=== PATIENT | male | born 1975 | race Caucasian/White ===

== ENCOUNTER 2018-10-01 06:19 | Inpatient (IN) | payer OTHER ==
--- NOTE | 2018-10-01 06:45 | PDOC ---
Attending Attestation - Resident Resident Name: Klaus Coulter - ED Attending Attestation I have performed the following: I have examined & evaluated the patient, The case was reviewed & discussed with the resident, I agree w/resident's findings & plan - HPI HPI: 10/01/18 06:42 43-year-old male found unresponsive leaning against a fence outside, according to EMS he was in rapid atrial fibrillation and became responsive and routes IV access was established prior to arrival and IV fluids were infusing Patient states he had woken up and was on his way to a train to go to work. He denies pain complaints at this time. - Physicial Exam PE: 10/01/18 06:42 GENERAL: Awake, SKIN: Cool and clammy HEAD: No signs of trauma NECK: Normal ROM, LUNGS:. Normal work of breathing. HEART: Tachycardic and regular ABDOMEN: Soft, nondistended CHEST WALL: BACK: No midline tenderness. EXTREMITIES:. No edema NEUROLOGICAL: Alert, SKIN: Warm, Dry 10/01/18 06:44 - Critical Care Time Total Critical Care Time: 30 Critical Care Statement: The care of this patient involved high complexity decision making to prevent further life threatening deterioration of the patient 's condition and/or to evaluate & treat vital organ system(s) failure or risk of failure. - Medical Decision Making 10/01/18 06:44 43-year-old male with a syncopal episode and tachycardia Due to patient's decreased responsiveness, hypotension and elevated heart rate patient was rushed to CT scan to rule out pulmonary embolism Airway has remained intact Additional peripheral IV line established Case signed out to oncoming shift for management
--- NOTE | 2018-10-01 06:52 | PDOC ---
History of Present Illness - General Chief Complaint: Blood Pressure Problem Stated Complaint: CARDIAC PROBLEM Time Seen by Provider: 10/01/18 06:42 History Source: EMS Exam Limitations: Clinical Condition - History of Present Illness Initial Comments: 10/01/18 06:45 43M w/ PMH of noncompliant DM who presents to the ED via EMS. Hx is provided by EMS and some by the pt. EMS states that the patient was in his normal state of health when he developed palpitations and SOB and syncopized. Per EMS, he was in a-fib with hypotension and hypoxia. The patient admits to syncope and palpitations with retrosternal CP and SOB. Past History - Past Medical History Allergies/Adverse Reactions: Allergies Allergy/AdvReac Type Severity Reaction Status Date / Time No Known Allergies Allergy Verified 10/01/18 06:31 - Suicide/Smoking/Psychosocial Hx Smoking History: Never smoked Have you smoked in the past 12 months: No Information on smoking cessation initiated: No Hx Alcohol Use: No Drug/Substance Use Hx: No Review of Systems - Review of Systems Able to Perform ROS?: No (lethargic and unresponsiv) *Physical Exam - Vital Signs Last Vital Signs Temp Pulse Resp BP Pulse Ox 95.2 F L 113 H 19 98/44 L 98 10/01/18 06:19 10/01/18 06:19 10/01/18 06:19 10/01/18 06:19 10/01/18 06:19 - Physical Exam Comments: 10/01/18 06:47 GENERAL: Well developed, well nourished. Lethargic but arousable. HEENT: Normocephalic, atraumatic. Hearing grossly normal. Moist mucous membranes. PERRLA, EOMI. No conjunctival pallor. Sclera are non-icteric. NECK: Supple. Full ROM. No JVD. CARDIOVASCULAR: Tachycardic with regular rhythm. No murmurs, rubs, or gallops. PULMONARY: Mild respiratory distress, tachypneic. Lungs clear to auscultation bilaterally. No wheezing, rales or rhonchi. ABDOMINAL: Soft. Non-tender. Non-distended. No rebound or guarding. Rectal tone normal. No melena or bright red blood noted. MUSCULOSKELETAL: Normal range of motion at all joints. No bony deformities or tenderness. EXTREMITIES: No cyanosis. No clubbing. No edema. No calf tenderness or swelling. SKIN: Warm and dry. Normal capillary refill. No rashes. No jaundice. NEUROLOGICAL: A&Ox3 but lethargic, arousable to tactical and verbal stimuli. Cranial nerves 2-12 grossly intact. Normal speech. PSYCHIATRIC: Cooperative but lethargic. ED Treatment Course - LABORATORY CBC & Chemistry Diagram: 10/04/18 05:30 10/04/18 05:30 - ADDITIONAL ORDERS Additional order review: Laboratory Results 10/01/18 06:26 POC Glucometer 440 10/01/18 06:26 POC Glucometer 440 Medical Decision Making - Medical Decision Making 10/01/18 06:49 43M with PMH of DM, noncompliant on meds, presents via EMS for unresponsiveness. Pt is A&Ox3 but lethargic. However, he is arousable and complaining of CP and SOB. Sinus tach on EKG. PE unremarkable. Rectal temp 98.8. POCUS reveals dilated RV concerning for PE without tamponade or pericardial effusion. Pt has no hx of a-fib but per EMS, was a-fib on their monitor. IV access established and fluids are running. Septic protocol is being followed due to oral temp of 95. Pt is cold to touch with normal rectal temp. Concern for ACS, PE, AAA. Pt placed on monitor and taken to CT. Pending labs and imaging. 10/01/18 07:[address] Upon return, seized in ED x2. Pt was not protecting his airway and the decision to intubate was done. Pt was intubated with b/l breath sounds and color change. Pt signed out to Dr. Onofre for further management. *DC/Admit/Observation/Transfer Diagnosis at time of Disposition: Bilateral pulmonary embolism - Discharge Dispostion Condition at time of disposition: Critical - Referrals - Patient Instructions - Post Discharge Activity
[2018-10-01] MEDS ORDERED: LORazepam 2 MG/ML SDV VIAL ONE ×4 (07:02→09:33)
[2018-10-01] MEDS ORDERED: RAPID SEQUENCE INTUBATION KIT NR ONE ×2 (07:03→09:59)
[2018-10-01 07:06] LABS: BASO % 0.4 % (0-2.0); EOS % 1.5 % (0-4.5); HEMOGLOBIN 12.9 GM/dL (11.7-16.9); LYMPH % 59.6 % (8-40); MCH 31.7 pg (25.7-33.7); MCHC 33.2 g/dl (32.0-35.9); MEAN CELL VOLUME 95.5 fl (80-96); MEAN PLT VOLUME 9.1 fl (7.5-11.1); MONO % 5.2 % (3.8-10.2); NEUT % 33.3 % (42.8-82.8); PLATELET COUNT 192 K/MM3 (134-434); RBC 4.08 M/mm3 (4.00-5.60); RDW 12.8 % (11.9-15.9)
[2018-10-01] MEDS ORDERED: PROPOFOL 1,000,000 MCG/100 ML VIAL ONE ×2 (07:10→20:18)
[2018-10-01] MEDS ORDERED: ALBUTEROL SO4 2.5/IPRATROPIUM 0.5 INH SOL 3 ML VIAL.NEB. NEB ONE (07:17)
[2018-10-01] MEDS ORDERED: ROCURONIUM BROMIDE 50 MG/5 ML VIAL IV ONE ×2 (07:22→11:15)
[2018-10-01 07:26] LABS: ARTERIAL BLD GAS O2 SATURATION 96.7 % (95-98); ARTERIAL BLOOD GAS BASE EXCESS -7.3 meq/l (-2-2); ARTERIAL BLOOD GAS PO2 99.2 mmHg (80-105); ARTERIAL BLOOD GAS pH 7.34 (7.35-7.45); CARBOXYHEMOGLOBIN 0.7 % (0-2)
[2018-10-01 07:29] LABS: ALLENS TEST POSITIVE
[2018-10-01] MEDS ORDERED: HEPARIN NA (PORCINE) 5,000 UNITS/ML 1ML VIAL IVPUSH ONE (07:34)
[2018-10-01 07:37] LABS: INR 1.06 (0.83-1.09); PROTHROMBIN TIME (PATIENT) 12.5 SEC (9.7-13.0)
[2018-10-01 07:40] LABS: ACTIVATED PTT 26.1 SECONDS (25.2-36.5)
[2018-10-01] MEDS ORDERED: HEPARIN NA (PORCINE) 5,000 UNITS/ML 1ML VIAL ONE (07:41)
[2018-10-01] MEDS ORDERED: HEPARIN INFUSION - 25,000 UNITS/500 ML INFUS.BAG IVPB ONE (07:41)
[2018-10-01] MEDS ORDERED: HEPARIN - 25,000 UNIT in SODIUM CHLORIDE 495 ML IV SCH (07:45)
[2018-10-01 07:52] LABS: ALBUMIN 3.1 g/dl (3.4-5.0); ALK PHOS 90 U/L (45-117); ANION GAP 10 MMOL/L (8-16); BILIRUBIN,TOTAL 0.5 mg/dL (0.2-1); BLOOD UREA NITROGEN 9 mg/dL (7-18); CALCIUM 8.2 mg/dL (8.5-10.1); CHLORIDE 100 mmol/L (98-107); CO2 22 mmol/L (21-32); CREATININE 1.2 mg/dL (0.55-1.3); POTASSIUM 3.6 mmol/L (3.5-5.1); SGOT/AST 294 U/L (15-37); SGPT/ALT 266 U/L (13-61); SODIUM 132 mmol/L (136-145); TOT PROT 6.9 g/dl (6.4-8.2)
--- NOTE | 2018-10-01 07:56 | PDOC ---
*Physical Exam - Vital Signs Last Vital Signs Temp Pulse Resp BP Pulse Ox 98.9 F 113 H 16 98/44 L 98 10/01/18 06:56 10/01/18 06:19 10/01/18 07:30 10/01/18 06:19 10/01/18 06:19 ED Treatment Course - LABORATORY CBC & Chemistry Diagram: 10/01/18 06:40 10/01/18 06:40 - ADDITIONAL ORDERS Additional order review: Laboratory Results 10/01/18 10/01/18 10/01/18 07:00 06:40 06:40 PT with INR INR PTT (Actin FS) Anticoagulation Therapy No Result Required. Puncture Site Left radial ABG pH 7.34 L ABG pCO2 at Pt Temp 33.0 L ABG pO2 at Pt Temp 99.2 ABG HCO3 17.2 L ABG O2 Sat (Measured) 96.7 ABG O2 Content 16.6 ABG Base Excess -7.3 L Grady Test Positive Carboxyhemoglobin 0.7 Methemoglobin 0.4 O2 Delivery Device Non rebreather Oxygen Flow Rate 15l Vent Mode No Result Required. Vent Rate No Result Required. Mechanical Rate No Result Required. Pressure Support Vent No Result Required. Sodium Potassium Chloride Carbon Dioxide Anion Gap BUN Creatinine Est GFR (CKD-EPI)AfAm Est GFR (CKD-EPI)NonAf POC Glucometer Lactic Acid 6.8 H* Calcium Total Bilirubin AST ALT Alkaline Phosphatase Creatine Kinase CK-MB (CK-2) Troponin I 0.10 H Total Protein Albumin 10/01/18 10/01/18 10/01/18 06:40 06:40 06:26 PT with INR 12.50 INR 1.06 PTT (Actin FS) 26.1 Anticoagulation Therapy Puncture Site ABG pH ABG pCO2 at Pt Temp ABG pO2 at Pt Temp ABG HCO3 ABG O2 Sat (Measured) ABG O2 Content ABG Base Excess Grady Test Carboxyhemoglobin Methemoglobin O2 Delivery Device Oxygen Flow Rate Vent Mode Vent Rate Mechanical Rate Pressure Support Vent Sodium 132 L Potassium 3.6 Chloride 100 Carbon Dioxide 22 Anion Gap 10 BUN 9 Creatinine 1.2 Est GFR (CKD-EPI)AfAm 85.32 Est GFR (CKD-EPI)NonAf 73.62 POC Glucometer 440 Lactic Acid Calcium 8.2 L Total Bilirubin 0.5 AST 294 H ALT 266 H Alkaline Phosphatase 90 Creatine Kinase 98 CK-MB (CK-2) < 1.0 Troponin I Total Protein 6.9 Albumin 3.1 L 10/01/18 06:26 POC Glucometer 440 - Medications Given in the ED: ED Medications Discontinued Medications Generic Name Dose Route Start Last Admin Trade Name Norman PRN Reason Stop Dose Admin Lorazepam 4 mg 10/01/18 07:04 10/01/18 07:05 Ativan Injection - IVPUSH 10/01/18 07:05 4 mg NOW ONE Administration Lorazepam 4 mg 10/01/18 07:22 10/01/18 07:00 Ativan Injection - IVPUSH 10/01/18 07:23 4 mg ONCE ONE Administration Lorazepam 4 mg 10/01/18 07:22 10/01/18 07:15 Ativan Injection - IVPUSH 10/01/18 07:23 4 mg ONCE ONE Administration Rocuronium [place] 50 mg 10/01/18 07:22 10/01/18 07:20 Zemuron - IV 10/01/18 07:23 50 mg ONCE ONE Administration Medical Decision Making - Medical Decision Making 10/01/18 07:[address] Coulter. Patient is 43M with history of DM here today initially with altered mental status. Patient was found to have RV strain on POCUS, CTA done shows bilateral filling deficits. Patient was intubated after two episodes of seizure activity for hypoxia and failure to protect his airway. CXR shows appropriately placed tube. Became hypertensive after intubation, sedated with propofol. D/W Dr Elkins, accepted to ICU. CMP shows elevated glucose, liver enzymes. Lactate 6. CTA reading confirmed with imaging refrigeration specialist. Given Heparin bolus and drip initiated, IR notified. Case discussed with ED in [facility]. Patient lives near this hospital. Has never had ED visit. Plan is to dispo to ICU, low threshold for systemic tpa pending IR evaluation. 10/01/18 09:21 Unable to gather additional history from patient or family members despite multiple attempts at contacting nearby EDs, contacts in phone. His PCP states that he only has history of HTN and DM. No other medical issues. I am aware of absolute contraindications for tpa for this patient, including, but not limited to: intracerebral hemorrhage, recent surgery, endocarditis, bleeding disorders and anticoagulant use. There is no evidence for these contraindications. Given his episodes of hypotension and persistent tachycardia , I believe this procedure is required and emergent. Risks for the procedure include permanent disability and . 10/01/18 09:41 Patient became hypoxic, likely biting on tube impeding flow. Given 4mg ativan, tube placement confirmed with direct view. Patient sats improving. Propofol discontinued, started on versed due to a brief episode of hypotension, last bp 110/80. 10/01/18 12:22 At 1140, patient became pulseless in IR during procedure. Responded to overhead call for code 99. Patient was in PEA arrest. Compressions started. Given 2 epi, 2 bicarb in central line. 50mg tpa directly in to pulmonary artery , as IR had already accessed. After 7 minutes of downtime, patient had pulse. Remained hypotensive, started on levophed, tpa infusion started of 50mg over two hours. Transferred to ICU. *DC/Admit/Observation/Transfer Diagnosis at time of Disposition: Bilateral pulmonary embolism - Discharge Dispostion Condition at time of disposition: Critical Decision to Admit order: Yes - Referrals - Patient Instructions - Post Discharge Activity Procedures - Central Line Central Line Lumen: triple Central Line Position: femoral (R) Amount of anesthesia (ccs): 0 (Sedated, on fentanyl) Complications: Crash line for hypotension PE, not sterile Post Central Line Insertion: sutured, good blood return Progress: 10/01/18 10:14 Patient became hypotensive, emergent central line placed for levophed bridge to IR.
[2018-10-01 08:01] LABS: GLUCOSE,RANDOM 429 mg/dL (74-106)
--- NOTE | 2018-10-01 08:02 | PDOC ---
*Physical Exam - Vital Signs Last Vital Signs Temp Pulse Resp BP Pulse Ox 98.9 F 113 H 16 98/44 L 98 10/01/18 06:56 10/01/18 06:19 10/01/18 07:30 10/01/18 06:19 10/01/18 06:19 - Physical Exam Comments: 10/01/18 07:57 Received patient status post successful intubation using RSI, hypertensive after intubation to 160/110, persistently hypoxic to 84-87% on fence with 100% FiO2, persistently tachycardic to 140 with EKG showing sinus tachycardia with strain, sedated Exam is atraumatic Heart is regular tachycardia Lungs have some expiratory wheezing bilaterally, symmetric Abdomen benign No obvious asymmetric calf swelling or firmness 2+ distal pulses, neuro exam is limited, skin is clear Heart Score/ECG Review #1 ECG reviewed & interpreted by me at: 06:14 10/01/18 07:58 sinus tach at 115, ST strain, qtc 475 #2 ECG reviewed & interpreted by me at: 07:17 10/01/18 07:59 ST at [address] strain, qtc 562 ED Treatment Course - LABORATORY CBC & Chemistry Diagram: 10/01/18 06:40 10/01/18 06:40 - ADDITIONAL ORDERS Additional order review: Laboratory Results 10/01/18 10/01/18 10/01/18 07:00 06:40 06:40 PT with INR INR PTT (Actin FS) Anticoagulation Therapy No Result Required. Puncture Site Left radial ABG pH 7.34 L ABG pCO2 at Pt Temp 33.0 L ABG pO2 at Pt Temp 99.2 ABG HCO3 17.2 L ABG O2 Sat (Measured) 96.7 ABG O2 Content 16.6 ABG Base Excess -7.3 L Grady Test Positive Carboxyhemoglobin 0.7 Methemoglobin 0.4 O2 Delivery Device Non rebreather Oxygen Flow Rate 15l Vent Mode No Result Required. Vent Rate No Result Required. Mechanical Rate No Result Required. Pressure Support Vent No Result Required. Sodium Potassium Chloride Carbon Dioxide Anion Gap BUN Creatinine Est GFR (CKD-EPI)AfAm Est GFR (CKD-EPI)NonAf POC Glucometer Lactic Acid 6.8 H* Calcium Total Bilirubin AST ALT Alkaline Phosphatase Creatine Kinase CK-MB (CK-2) Troponin I 0.10 H Total Protein Albumin 0510/01/18 10/01/18 06:40 06:40 06:26 PT with INR 12.50 INR 1.06 PTT (Actin FS) 26.1 Anticoagulation Therapy Puncture Site ABG pH ABG pCO2 at Pt Temp ABG pO2 at Pt Temp ABG HCO3 ABG O2 Sat (Measured) ABG O2 Content ABG Base Excess Grady Test Carboxyhemoglobin Methemoglobin O2 Delivery Device Oxygen Flow Rate Vent Mode Vent Rate Mechanical Rate Pressure Support Vent Sodium 132 L Potassium 3.6 Chloride 100 Carbon Dioxide 22 Anion Gap 10 BUN 9 Creatinine 1.2 Est GFR (CKD-EPI)AfAm 85.32 Est GFR (CKD-EPI)NonAf 73.62 POC Glucometer 440 Lactic Acid Calcium 8.2 L Total Bilirubin 0.5 AST 294 H ALT 266 H Alkaline Phosphatase 90 Creatine Kinase 98 CK-MB (CK-2) < 1.0 Troponin I Total Protein 6.9 Albumin 3.1 L 10/01/18 06:26 POC Glucometer 440 - Medications Given in the ED: ED Medications Discontinued Medications Generic Name Dose Route Start Last Admin Trade Name Freq PRN Reason Stop Dose Admin Heparin Sodium (Porcine) 6,500 unit 10/01/18 07:34 10/01/18 07:56 Heparin - 80 unit/kg (6500 unit) 10/01/18 07:35 6,500 unit IVPUSH Administration ONCE ONE Lorazepam 4 mg 10/01/18 07:04 10/01/18 07:05 Ativan Injection - IVPUSH 10/01/18 07:05 4 mg NOW ONE Administration Lorazepam 4 mg 10/01/18 07:22 10/01/18 07:00 Ativan Injection - IVPUSH 10/01/18 07:23 4 mg ONCE ONE Administration Lorazepam 4 mg 10/01/18 07:22 10/01/18 07:15 Ativan Injection - IVPUSH 10/01/18 07:23 4 mg ONCE ONE Administration Rocuronium [place] 50 mg 10/01/18 07:22 10/01/18 07:20 Zemuron - IV 10/01/18 07:23 50 mg ONCE ONE Administration Medical Decision Making - Critical Care Time Total Critical Care Time (minutes): 140 Critical Care Statement: The care of this patient involved high complexity decision making to prevent further life threatening deterioration of the patient 's condition and/or to evaluate & treat vital organ system(s) failure or risk of failure. - Medical Decision Making 10/01/18 08:03 43y/o M with no known medical history presented with generalized weakness, AMS, chest pain and hypoxia/tachycardia/hypotension. mclean-scan prior to our arrival, RSI in progress and completed successfully. FS normal on our prelim review, head ct normal. CTA chest shows clear lung parenchyma but filling defects in b/l pulmonary arteries. dilated RV on POCUS. started on heparin, ivf, sedation, ICU called at 7:25, IR called at 7:32 - en route but needs supporting medical history discussed with [facility], has had a single clinic visit there but no h/o ER admissions for head bleed, etc. No prior visits here. Attempting to obtain corroborating history, hypertensive now so will hold systemic thrombolysis. continue heparin. 10/01/18 09:21 platelets/coags wnl. abg noted. elevated lactic, slight transaminitis possibly suggestive of shock. trop 0.1 consistent with strain. accepted for ICU, awaiting IR eval. message left with PCP Shaheed on file, attempted to contact work for family info but no response. pt sedated/intubated , unable to get consent but meets criteria for medical necessity/emergency intervention given no obvious contraindications and persistent hypoxia with varying BP. propofol weaned, started on fentanyl gtt, receiving IV fluids. ICU heard from Dr. Hummel, only medical history is diabetes, no CI to procedure from their history. would 2-pc for emergent IR directed thrombolysis given medical necessity and no clear CI to the best of our ability. 10/01/18 11:17 Pt became unstable, more hypotensive to 70s systolic with + pulsus paradoxus. removed from vent, BVM and fluid resuscitated. R groin central line placed, sedation and paralyzed, iv fluid resuscitated. Respirations controlled and sat improved again to 90% responded to fluid resuscitation, will continue to monitor v. start pressors or consider systemic thrombolysis pending IR for catheter directed tpa, is next case on the list. *DC/Admit/Observation/Transfer Diagnosis at time of Disposition: Bilateral pulmonary embolism - Discharge Dispostion Condition at time of disposition: Critical - Referrals - Patient Instructions - Post Discharge Activity
--- NOTE | 2018-10-01 09:05 | CONSULT ---
Consultation: REQUESTING PROVIDER: CONSULT REQUEST: We have been asked to medically evaluate this patient for bilateral PE causing respiratory distress and hemodynamic instability. HISTORY OF PRESENT ILLNESS: *History is limited due to patient being sedated and intubated on exam. History provided by ED resident. Pt is a 43yo M with PMH of HTN, DM BIBA for being found unresponsive leaning against a fence. Per EMS, pt was found to be in rapid atrial fibrillation and became responsive en route.Pt was given IV fluids. Pt was complaining of chest pain, SOB and palpitations in the ED. Pt was found to be hypoxic, hypotensive and in atrial fibrillation. ED course: IV fluids, lab work, CT of head, C-spine and CTA chest. After CT scans, pt started to seize and was given a total of 12mg Ativan. Due to inability to protect airway, pt was intubated. Pt paralyzed with rocuronium and sedated with propofol. On propofol drip at 10u/kg/hr. Also given 6500u heparin bolus and started on heparin drip. Increased to 15u/kg/hr due to inadequate sedation. Pt continued to be undersedated and started on Fentanyl drip. CTA of the chest shows bilateral PE extending to upper and lower lobes bilaterally. Vent settings: AC Rate 14, Volume 500, PEEP 5, FiO2 100 Pt started to become hypotensive. Propofol drip was discontinued and Versed was added. Pt was to receive thrombectomy with tpa by IR. At approximately 11:40am, pt coded in IR. Pt had received 20mg tPA already. Compressions began. Narrow complex PEA seen on rhythm strip. Pt given a total of 2 epinephrine and 2 boluses of bicarb. QT appeared prolonged, pt given 2mg magnesium. 70mg of tPA was also pushed into the pulmonary artery. ROSC achieved at approximately 11:47. Pt brought straight to the ICU. REVIEW OF SYSTEMS: Unable to perform; pt is sedated and intubated. PHYSICAL EXAMINATION Vital Signs - 24 hr 10/01/18 10/01/18 10/01/18 06:19 06:35 06:56 Temperature 95.2 F L 98.9 F 98.9 F Pulse Rate 113 H Pulse Rate [ Apical] Respiratory 19 Rate Blood Pressure 98/44 L Blood Pressure [Right] O2 Sat by Pulse 98 Oximetry (%) 10/01/18 10/01/18 10/01/18 07:30 07:35 07:59 Temperature Pulse Rate Pulse Rate [ 148 H 148 H Apical] Respiratory 16 14 18 Rate Blood Pressure Blood Pressure 162/122 H 150/115 H [Right] O2 Sat by Pulse 85 L 89 L Oximetry (%) GENERAL: Sedated and intubated. HEAD: Normal with no signs of trauma. EYES: Pupils equal, round and reactive to light, sclera anicteric, conjunctiva clear. EARS, NOSE, THROAT: 8.0 ET tube at 25cm NECK: Normal range of motion, supple without lymphadenopathy, JVD, or masses. LUNGS: Breath sounds equal, clear to auscultation bilaterally. No wheezes, and no crackles. No accessory muscle use. HEART: tachycardic, normal S1 and S2 without murmur, rub or gallop. ABDOMEN: Soft, nontender, not distended, normoactive bowel sounds, no masses. No hepatomegaly or splenomegaly. MUSCULOSKELETAL: No bony deformities or tenderness. UPPER EXTREMITIES: 2+ pulses, warm, well-perfused. No cyanosis. No clubbing. Cap refill <2 seconds. No peripheral edema. LOWER EXTREMITIES: 2+ pulses, warm, well-perfused. No calf tenderness. No peripheral edema. NEUROLOGICAL: Sedated with propofol. DTR 2+ SKIN: Warm, dry, normal turgor, no rashes or lesions noted. Laboratory Results - last 24 hr 10/01/18 10/01/18 10/01/18 06:26 06:35 06:40 WBC 11.0 H RBC 4.08 Hgb 12.9 Hct 39.0 MCV 95.5 MCH 31.7 MCHC 33.2 RDW 12.8 Plt Count 192 MPV 9.1 Absolute Neuts (auto) 3.7 Neutrophils % 33.3 L Lymphocytes % 59.6 H Monocytes % 5.2 Eosinophils % 1.5 Basophils % 0.4 Nucleated RBC % 0 PT with INR INR PTT (Actin FS) Anticoagulation Therapy Puncture Site ABG pH ABG pCO2 at Pt Temp ABG pO2 at Pt Temp ABG HCO3 ABG O2 Sat (Measured) ABG O2 Content ABG Base Excess Grady Test Carboxyhemoglobin Methemoglobin O2 Delivery Device Oxygen Flow Rate Vent Mode Vent Rate Mechanical Rate Pressure Support Vent Sodium Potassium Chloride Carbon Dioxide Anion Gap BUN Creatinine Est GFR (CKD-EPI)AfAm Est GFR (CKD-EPI)NonAf POC Glucometer 440 Random Glucose Lactic Acid Calcium Total Bilirubin AST ALT Alkaline Phosphatase Creatine Kinase CK-MB (CK-2) Troponin I Total Protein Albumin Stool Occult Blood Blood Type O POSITIVE Antibody Screen Negative 10/01/18 10/01/18 10/01/18 06:40 06:40 06:40 WBC RBC Hgb Hct MCV MCH MCHC RDW Plt Count MPV Absolute Neuts (auto) Neutrophils % Lymphocytes % Monocytes % Eosinophils % Basophils % Nucleated RBC % PT with INR 12.50 INR 1.06 PTT (Actin FS) 26.1 Anticoagulation Therapy Puncture Site ABG pH ABG pCO2 at Pt Temp ABG pO2 at Pt Temp ABG HCO3 ABG O2 Sat (Measured) ABG O2 Content ABG Base Excess Grady Test Carboxyhemoglobin Methemoglobin O2 Delivery Device Oxygen Flow Rate Vent Mode Vent Rate Mechanical Rate Pressure Support Vent Sodium 132 L Potassium 3.6 Chloride 100 Carbon Dioxide 22 Anion Gap 10 BUN 9 Creatinine 1.2 Est GFR (CKD-EPI)AfAm 85.32 Est GFR (CKD-EPI)NonAf 73.62 POC Glucometer Random Glucose 429 H* Lactic Acid 6.8 H* Calcium 8.2 L Total Bilirubin 0.5 AST 294 H ALT 266 H Alkaline Phosphatase 90 Creatine Kinase 98 CK-MB (CK-2) < 1.0 Troponin I Total Protein 6.9 Albumin 3.1 L Stool Occult Blood Blood Type Antibody Screen 10/01/18 10/01/18 10/01/18 06:40 06:55 07:00 WBC RBC Hgb Hct MCV MCH MCHC RDW Plt Count MPV Absolute Neuts (auto) Neutrophils % Lymphocytes % Monocytes % Eosinophils % Basophils % Nucleated RBC % PT with INR INR PTT (Actin FS) Anticoagulation Therapy No Result Required. Puncture Site Left radial ABG pH 7.34 L ABG pCO2 at Pt Temp 33.0 L ABG pO2 at Pt Temp 99.2 ABG HCO3 17.2 L ABG O2 Sat (Measured) 96.7 ABG O2 Content 16.6 ABG Base Excess -7.3 L Grady Test Positive Carboxyhemoglobin 0.7 Methemoglobin 0.4 O2 Delivery Device Non rebreather Oxygen Flow Rate 15l Vent Mode No Result Required. Vent Rate No Result Required. Mechanical Rate No Result Required. Pressure Support Vent No Result Required. Sodium Potassium Chloride Carbon Dioxide Anion Gap BUN Creatinine Est GFR (CKD-EPI)AfAm Est GFR (CKD-EPI)NonAf POC Glucometer Random Glucose Lactic Acid Calcium Total Bilirubin AST ALT Alkaline Phosphatase Creatine Kinase CK-MB (CK-2) Troponin I 0.10 H Total Protein Albumin Stool Occult Blood Negative Blood Type Antibody Screen Active Medications Generic Name Dose Route Start Last Admin Trade Name Freq PRN Reason Stop Dose Admin Heparin Sodium (Porcine) 25, 500 mls @ 20 mls/hr 10/01/18 07:45 10/01/18 07: 56 000 unit/ Sodium Chloride IV 1,000 unit/hr TITR AHMET 20 mls/hr Administration Protocol 1,000 UNIT/HR Fentanyl 500 mcg/ Dextrose 100 mls @ 5 mls/hr 10/01/18 08:30 IVPB TITR AHMET 25 MCG/HR ASSESSMENT/PLAN: 43yo M with PMH of HTN, DM BIBA for syncopal episode. Found to have bilateral PE. Arrested in IR at approximately 11:40am with rhythm strip showing narrow complex PEA. ROSC achieved at approximately 11:47. NEURO -Intubated and sedated. -Versed drip at 6mg/hr. Fentanyl drip at 100mcg/hr -CT Head normal -Will titrate drips as needed ENDO -Random glucose 429 -K 3.6 -Acidosis likely 2/2 lactic acidosis and hypercapnia. No anion gap -Will trend glucose and bmp. Will order insulin IV as needed. No SQ insulin at this time due to pt receiving tPA. CARDS/VASC -ROSC s/p cardiac arrest with rhythm strip showing narrow complex PEA. Currently sinus tachycardia -Two rounds of epi, bicarb and 2mg magnesium given -Hypotensive likely 2/2 obstruction. Pt received total of 7L IVF. Pt currently on pressors -Levophed 15mcg/min, Vasopressin 3/hr -Titrate as needed -Trop 0.10 likely 2/2 obstruction. Will trend -Received 20u tPA then 70mg IVPUSH. Finished 50mg drip -No venous punctures, arterial punctures or other instrumentation due to bleeding risk -Will trend PTT PULM -Bilateral PE extending to upper and lower lobes bilaterally -tPA given. Thrombectomy not performed -Vent settings: rate 14, volume 500, FiO2 100, PEEP 12 -Saturating at 100% -Intubated with 8.0 tube at 25cm paige. Placement confirmed by CXR -Respiratory acidosis; pH prior to code 7.03, downtrending from original pH 7.34 with retention of CO2 and decrease in HCO3. -Will monitor GI -Higher risk of bleeding due to tPA. -No NG tube at this time due to tPA -Protonix drip HEME -Received tPA -Will trend PTT -No new iv access, arterial punctures, instrumentation ID -Lactic acidosis likely 2/2 hypoperfusion. -Blood cultures drawn in ED. Pending results. -Low suspicion for infectious process. FEN -NPO PROPHY -Protonix drip -SCD -Hold AC SOCIAL Tried calling employer, insurance company and PMD to obtain PMH and next of kin. Cell phone did not have any contact information. Workplace line disconnected. Insurance company did not have information for family members. Pt lives around [place] but has never been seen in ED there. Able to get in contact with brother, Sindhu Alberts who was able to get in contact with mother of the patient. Mother is at bedside right now. Dispo: We will continue to follow the patient. Thank you for this consultative opportunity. Visit type - Emergency Visit Emergency Visit: Yes ED Registration Date: 10/01/18 Care time: The patient presented to the Emergency Department on the above date and was hospitalized for further evaluation of their emergent condition. - New Patient This patient is new to me today: Yes Date on this admission: 10/01/18 - Critical Care Critical Care patient: Yes Total Critical Care Time (in minutes): 40 Critical Care Statement: The care of this patient involved high complexity decision making to prevent further life threatening deterioration of the patient 's condition and/or to evaluate & treat vital organ system(s) failure or risk of failure.
[2018-10-01 09:27] LABS: ARTERIAL BLD GAS O2 SATURATION 85.1 % (95-98); ARTERIAL BLOOD GAS BASE EXCESS -9.4 meq/l (-2-2); ARTERIAL BLOOD GAS PCO2 53.1 mmHg (35-45); ARTERIAL BLOOD GAS PO2 67.2 mmHg (80-105); CARBOXYHEMOGLOBIN 0.4 % (0-2)
[2018-10-01 09:28] LABS: ALLENS TEST POSITIVE
[2018-10-01 09:29] LABS: ARTERIAL BLOOD GAS pH 7.19 (7.35-7.45)
[2018-10-01] MEDS ORDERED: MIDAZOLAM 100 MG in SODIUM CHLORIDE 100 ML IVPB SCH (09:45)
[2018-10-01] MEDS ORDERED: ACETAMINOPHEN INJECTION 100 ML IVPB ONE (10:09)
[2018-10-01] MEDS ORDERED: ALTEPLASE 100MG 100 MG IVPB ONE (10:10)
[2018-10-01] MEDS: FENTANYL INJECTION 500 MCG in DEXTROSE 5%-WATER - 90 ML IVPB SCH (10:33)
[2018-10-01] MEDS ORDERED: ALTEPLASE 50MG 50 MG in SODIUM CHLORIDE 500 ML IVPB ONE (10:45)
[2018-10-01 10:47] LABS: ARTERIAL BLD GAS O2 SATURATION 89.5 % (95-98); ARTERIAL BLOOD GAS BASE EXCESS -15.2 meq/l (-2-2); ARTERIAL BLOOD GAS PCO2 63.5 mmHg (35-45); ARTERIAL BLOOD GAS PO2 87.7 mmHg (80-105); CARBOXYHEMOGLOBIN 0 % (0-2)
[2018-10-01 10:51] LABS: ALLENS TEST POSITIVE
[2018-10-01 10:55] LABS: ARTERIAL BLOOD GAS pH 7.03 (7.35-7.45)
[2018-10-01 10:56] LABS: ANISOCYTOSIS 1+; MACROCYTOSIS 1+; PLATELET ESTIMATE NORMAL
[2018-10-01] MEDS ORDERED: ETOMIDATE 40 MG/20 ML VIAL IVPUSH ONE (11:15)
--- NOTE | 2018-10-01 11:53 | HP ---
Admitting History and Physical - Primary Care Physician PCP: Haile Hummel - Admission Chief Complaint: respiratory failure History of Present Illness: ER HISTORY - History of Present Illness Initial Comments: 10/01/18 06:45 43M w/ PMH of noncompliant DM who presents to the ED via EMS. Hx is provided by EMS and some by the pt. EMS states that the patient was in his normal state of health when he developed palpitations and SOB and syncopized. Per EMS, he was in a-fib with hypotension and hypoxia. The patient admits to syncope and palpitations with retrosternal CP and SOB. spoke with ER attending Was found on the street -prior to intubation, he told the ER staff that he felt dizzy and palpitations, chest pain and fatigued. 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 History Source: Medical Record, Transfer Record Limitations to Obtaining History: Intubated - Past Medical History Cardiovascular: Yes: HTN, Hyperlipdemia Endocrine: Yes: Diabetes Mellitus - Smoking History Smoking history: Never smoked Have you smoked in the past 12 months: No - Alcohol/Substance Use Hx Alcohol Use: No Home Medications - Allergies Allergies/Adverse Reactions: Allergies Allergy/AdvReac Type Severity Reaction Status Date / Time No Known Allergies Allergy Verified 10/01/18 06:31 Family Disease History - Family Disease History Family History: Unable to Obtain Review of Systems Unable to obtain ROS, reason: intubated Physical Examination Vital Signs: Vital Signs Temperature 98.9 F 10/01/18 06:56 Pulse Rate 166 H 10/01/18 11:27 Respiratory Rate 16 10/01/18 11:27 Blood Pressure 137/100 10/01/18 11:27 O2 Sat by Pulse Oximetry (%) 85 L 10/01/18 11:27 Constitutional: Yes: Other (intubated) Labs: CBC, BMP 10/01/18 06:40 10/01/18 06:40 Problem List - Problems (1) Diabetes Code(s): E11.9 - TYPE 2 DIABETES MELLITUS WITHOUT COMPLICATIONS (2) Hyperlipidemia Code(s): E78.5 - HYPERLIPIDEMIA, UNSPECIFIED (3) Hypertension Code(s): I10 - ESSENTIAL (PRIMARY) HYPERTENSION (4) Bilateral pulmonary embolism Code(s): I26.99 - OTHER PULMONARY EMBOLISM WITHOUT ACUTE COR PULMONALE (5) Elevated troponin Code(s): R74.8 - ABNORMAL LEVELS OF OTHER SERUM ENZYMES Assessment/Plan plan thrombectomy not done Status post cardiac arrest Now on TPA Monitor CBC Now on pressor support Continue supportive care, vent management ICU care Critical prognosis
[2018-10-01] MEDS: NOREPINEPHRINE BITARTRATE 8,000 MCG in DEXTROSE 5%-WATER - 492 ML IV SCH (12:50)
[2018-10-01] MEDS ORDERED: fentaNYL CITRATE 250 MCG/5 ML VIAL ONE ×2 (12:55→19:29)
[2018-10-01] MEDS ORDERED: VASOPRESSIN 20 UNITS/ML VIAL IV ONE (13:43)
[2018-10-01] MEDS ORDERED: VASOPRESSIN 50 UNITS in SODIUM CHLORIDE 97.5 ML IVPB SCH (13:45)
[2018-10-01 14:11] LABS: PH,URINE 5.5 (5.0-8.0); URINE APPEARANCE CLEAR; URINE BILIRUBIN NEGATIVE (NEGATIVE); URINE COLOR YELLOW; URINE GLUCOSE (UA) 3+ (NEGATIVE); URINE KETONE TRACE (NEGATIVE); URINE LEUK ESTERASE NEGATIVE (NEGATIVE); URINE NITRITE NEGATIVE (NEGATIVE); URINE PROTEIN TRACE (NEGATIVE)
--- NOTE | 2018-10-01 15:17 | PN ---
Teaching Attending Note Name of Resident: Radha Ferguson ATTENDING PHYSICIAN STATEMENT I saw and evaluated the patient. I reviewed the resident's note and discussed the case with the resident. I agree with the resident's findings and plan as documented. SUBJECTIVE: Patient seen and examined in the IR department during resuscitation measures. S /P Cardiac arrest. CPR initiated immediately. Decision made to give 50mg of tPA as a rapid infusion based on data in cardiac arrest offers a survival benefit. ROSC after 7 minutes in total. Hemodynamics improved to a MAP of 65 on 10mcq of NE. Saturation prior to tPA was high 70's. Post tPA saturations improved to the mid to upper 80's. Transported safely to the ICU. Stabled on AC 14/500cc/PEEP 10/100% FiO2. Saturation eventually improved to 100%. Hemodyamics are improved at this time as well. he has received 7 liters of IVF and is currently on 15mcq NE and 4 units Vasopressin. Intake & Output 09/28/18 09/29/18 09/30/18 10/01/18 23:59 23:59 23:59 23:59 Weight 180 lb Last Vital Signs Temp Pulse Resp BP Pulse Ox 98.9 F 166 H 25 H 137/100 85 L 10/01/18 06:56 10/01/18 11:27 10/01/18 13:32 10/01/18 11:27 10/01/18 11:27 Active Medications Fentanyl 500 mcg/ Dextrose 100 mls @ 5 mls/hr IVPB TITR AHMET Last Admin: 10/01/18 10:33 Dose: 25 mcg/hr, 5 mls/hr Midazolam HCl 100 mg/ Sodium (Chloride) 100 mls @ 1 mls/hr IVPB TITR AHMET; Protocol Last Admin: 10/01/18 10:33 Dose: 3 mg/hr, 3 mls/hr Alteplase, Recombinant 50 mg/ (Sodium Chloride) 500 mls @ 10 mls/hr IVPB ONCE ONE Stop: 10/03/18 12:44 Norepinephrine Bitartrate 8, (000 mcg/ Dextrose) 500 mls @ 18.75 mls/hr IV TITR AHMET; Protocol Last Titration: 10/01/18 12:55 Dose: 15 mcg/min, 56.25 mls/hr Vasopressin 50 units/ Sodium (Chloride) 100 mls @ 4 mls/hr IVPB ASDIR AHMET; Protocol Last Admin: 10/01/18 13:50 Dose: 3 units/hr, 6 mls/hr Pantoprazole Sodium 80 mg/ (Sodium Chloride) 100 mls @ 10 mls/hr IVPB Q10H [facility] GENERAL: Sedated and intubated. HEAD: Normal with no signs of trauma. EYES: Pupils equal and reactive to light, sclera anicteric, conjunctiva clear. EARS, NOSE, THROAT: 8.0 ET tube NECK: Normal range of motion, supple without lymphadenopathy, JVD, or masses. LUNGS: Breath sounds equal, clear to auscultation bilaterally. No wheezes, and no crackles. HEART: tachycardic, normal S1 and S2 without murmur, rub or gallop. ABDOMEN: Soft, nontender, not distended, normoactive bowel sounds, no masses. No hepatomegaly or splenomegaly. MUSCULOSKELETAL: No bony deformities or tenderness. UPPER EXTREMITIES: 2+ pulses, warm, well-perfused. No cyanosis. No clubbing. Cap refill <2 seconds. No peripheral edema. LOWER EXTREMITIES: 2+ pulses, warm, well-perfused. No calf tenderness. No peripheral edema. NEUROLOGICAL: Sedated, intermittently moving all extremities SKIN: Warm, dry, normal turgor, no rashes or lesions noted. Laboratory Results - last 24 hr 10/01/18 10/01/18 10/01/18 06:26 06:35 06:40 WBC 11.0 H RBC 4.08 Hgb 12.9 Hct 39.0 MCV 95.5 MCH 31.7 MCHC 33.2 RDW 12.8 Plt Count 192 MPV 9.1 Absolute Neuts (auto) 3.7 Neutrophils % 33.3 L Lymphocytes % 59.6 H Monocytes % 5.2 Eosinophils % 1.5 Basophils % 0.4 Nucleated RBC % 0 PT with INR INR PTT (Actin FS) Anticoagulation Therapy Puncture Site ABG pH ABG pCO2 at Pt Temp ABG pO2 at Pt Temp ABG HCO3 ABG O2 Sat (Measured) ABG O2 Content ABG Base Excess Grady Test Carboxyhemoglobin Methemoglobin O2 Delivery Device Oxygen Flow Rate Vent Mode Vent Rate Mechanical Rate Pressure Support Vent Sodium Potassium Chloride Carbon Dioxide Anion Gap BUN Creatinine Est GFR (CKD-EPI)AfAm Est GFR (CKD-EPI)NonAf POC Glucometer 440 Random Glucose Lactic Acid Calcium Total Bilirubin AST ALT Alkaline Phosphatase Creatine Kinase CK-MB (CK-2) Troponin I Total Protein Albumin Stool Occult Blood Blood Type O POSITIVE Antibody Screen Negative 10/01/18 10/01/18 10/01/18 06:40 06:40 06:40 WBC RBC Hgb Hct MCV MCH MCHC RDW Plt Count MPV Absolute Neuts (auto) Neutrophils % Lymphocytes % Monocytes % Eosinophils % Basophils % Nucleated RBC % PT with INR 12.50 INR 1.06 PTT (Actin FS) 26.1 Anticoagulation Therapy Puncture Site ABG pH ABG pCO2 at Pt Temp ABG pO2 at Pt Temp ABG HCO3 ABG O2 Sat (Measured) ABG O2 Content ABG Base Excess Grady Test Carboxyhemoglobin Methemoglobin O2 Delivery Device Oxygen Flow Rate Vent Mode Vent Rate Mechanical Rate Pressure Support Vent Sodium 132 L Potassium 3.6 Chloride 100 Carbon Dioxide 22 Anion Gap 10 BUN 9 Creatinine 1.2 Est GFR (CKD-EPI)AfAm 85.32 Est GFR (CKD-EPI)NonAf 73.62 POC Glucometer Random Glucose 429 H* Lactic Acid 6.8 H* Calcium 8.2 L Total Bilirubin 0.5 AST 294 H ALT 266 H Alkaline Phosphatase 90 Creatine Kinase 98 CK-MB (CK-2) < 1.0 Troponin I Total Protein 6.9 Albumin 3.1 L Stool Occult Blood Blood Type Antibody Screen 10/01/18 10/01/18 10/01/18 06:40 06:55 07:00 WBC RBC Hgb Hct MCV MCH MCHC RDW Plt Count MPV Absolute Neuts (auto) Neutrophils % Lymphocytes % Monocytes % Eosinophils % Basophils % Nucleated RBC % PT with INR INR PTT (Actin FS) Anticoagulation Therapy No Result Required. Puncture Site Left radial ABG pH 7.34 L ABG pCO2 at Pt Temp 33.0 L ABG pO2 at Pt Temp 99.2 ABG HCO3 17.2 L ABG O2 Sat (Measured) 96.7 ABG O2 Content 16.6 ABG Base Excess -7.3 L Grady Test Positive Carboxyhemoglobin 0.7 Methemoglobin 0.4 O2 Delivery Device Non rebreather Oxygen Flow Rate 15l Vent Mode No Result Required. Vent Rate No Result Required. Mechanical Rate No Result Required. Pressure Support Vent No Result Required. Sodium Potassium Chloride Carbon Dioxide Anion Gap BUN Creatinine Est GFR (CKD-EPI)AfAm Est GFR (CKD-EPI)NonAf POC Glucometer Random Glucose Lactic Acid Calcium Total Bilirubin AST ALT Alkaline Phosphatase Creatine Kinase CK-MB (CK-2) Troponin I 0.10 H Total Protein Albumin Stool Occult Blood Negative Blood Type Antibody Screen ASSESSMENT/PLAN: CP arrest due to obstructive shock due to extensive bilateral PE Etiology of VTE to be determined HTN DM Syncopal episode due to PE No evidence of intra-cranial pathology S/P tPa infusion AC Mode of vent No arterial sticks No NGT IV Heparin has been held based on ACCP recommendations. Restart once aPTT less than 80 and follow PE based protocol Sedate for vent synchrony Wean pressors as tolerated Glycemic control IVF @ 100 cc/hr: judicious resuscitation from now to avoid capillary leak and ARDS physiology Needs venous doppler and if (+) can consider an IVC Filter due hemodynamic compromise Heme evaluation Cardiology evaluation Requires ICU monitoring Condition critical. Dr Perez Critical care time spent in reviewing chart, evaluating patient and formulating plan - 36 minutes.
--- NOTE | 2018-10-01 16:09 | CON.CARD ---
Consult Consult Specialty:: Cardiology Referred by:: ICU Reason for Consultation:: PE - History of Present Illness Chief Complaint: PE History of Present Illness: 43M h/o HTN, DM presented with unresponsiveness, altered mental status found to have PE now s/p PEA arrest. History per chart, patient unable to give further hx, intubated and sedated. Was found unresponsive, altered mental status. Per EMS report was in rapid afib (EKG strips not available) in the field and was given IVF, complained of chest pain and palps. Was brought to the ER, reportedly hypoxic, hypotensive and in afib. Received IVF, CTA chest showed bilateral PE, was started on heparin. Had seizure while in radiology, was intuabed, given ativan and paralyzed. Was planned to receive IR guided thrombectomy with tPA in IR due to hypotension, while in IR patient had PEA arrest prior to procedure. Received tPA, given epi x 2, bicarb x 2, Mg. Now in ICU on pressors. - History Source Limitations to Obtaining History: Intubated - Past Medical History Cardio/Vascular: Yes: HTN, Hyperlipdemia Endocrine: Yes: Diabetes Mellitus - Alcohol/Substance Use Hx Alcohol Use: No - Smoking History Smoking history: Never smoked Have you smoked in the past 12 months: No Home Medications - Allergies Allergies/Adverse Reactions: Allergies Allergy/AdvReac Type Severity Reaction Status Date / Time No Known Allergies Allergy Verified 10/01/18 06:31 Family Disease History - Family Disease History Family History: Unable to Obtain Review of Systems Unable to obtain ROS, reason: intubated Vital Signs: Vital Signs Temperature 98.2 F 10/01/18 12:50 Pulse Rate 105 H 10/01/18 15:07 Respiratory Rate 16 10/01/18 15:07 Blood Pressure 123/95 10/01/18 15:07 O2 Sat by Pulse Oximetry (%) 85 L 10/01/18 11:27 Constitutional: Yes: No Distress Eyes: Yes: Conjunctiva Clear, EOM Intact HENT: Yes: Atraumatic, Normocephalic Neck: Yes: Supple, Trachea Midline Respiratory: Yes: Regular, Mechanically Ventilated Gastrointestinal: Yes: Normal Bowel Sounds, Soft Cardiovascular: Yes: Tachycardia JVD: No Carotid Bruit: No PMI: Non-Displaced Heart Sounds: Yes: S1, S2 Musculoskeletal: No: Back Pain Edema: No Peripheral Pulses WNL: Yes Peripheral Pulses: 2+ Left Doralis Pedis, 2+ Right Dorsalis Pedis Integumentary: No: Jaundice Neurological: Yes: Other (sedated) Psychiatric: No: Agitated - Other Data Labs, Other Data: CBC, BMP 10/01/18 06:40 10/01/18 06:40 INR, PTT INR 1.06 (0.83-1.09) 10/01/18 06:40 Troponin, BNP 10/01/18 06:40 Troponin I 0.10 H Troponin, BNP 10/01/18 06:40 Troponin I 0.10 H Assessment/Plan EKG: sinus tachycardia no ischemic changes CTA chest: extensive PE originating at bifurcations of both main PA and extending into upper and lower lobe branches bilaterally tele: sinus tachycardia 43yo M with PMH of HTN, DM p/w unresponsiveness. Found to have bilateral PE, s/ p PEA arrest bilateral PE, s/p PEA arrest - arrest likely in setting of extensive bilateral PE - now s/p tPA, thrombectomy not done, manage anticoagulation per ICU team - BP stable on levophed and vasopressin - echo pending afib - reportedly per EMS and ER records, EKG not available - likely in setting of PE, AC as above per critical care - now in sinus tach elevated trop - likely demand in setting of PE, likely to rise s/p arrest - EKG no ischemic changes - echo pending HTN - not on meds, currently hypotensive on pressors DM - manage per critical care estimated critical care time 35 min
[2018-10-01] MEDS: PANTOPRAZOLE SODIUM 80 MG in SODIUM CHLORIDE 100 ML IVPB SCH (16:36)
[2018-10-01 17:47] LABS: INR 1.4 (0.83-1.09); PROTHROMBIN TIME (PATIENT) 16.6 SEC (9.7-13.0)
[2018-10-01 17:52] LABS: CALCIUM 7.5 mg/dL (8.5-10.1); CREATININE 1.7 mg/dL (0.55-1.3); MAGNESIUM 2.3 mg/dL (1.8-2.4)
[2018-10-01 17:54] LABS: POTASSIUM 7.1 mmol/L (3.5-5.1)
[2018-10-01] MEDS ORDERED: INSULIN REGULAR HUMAN 100 UNITS/ML *VIAL IVPUSH ONE (17:58)
[2018-10-01] MEDS ORDERED: CALCIUM GLUCONATE 10% - 1,000 MG/10 ML VIAL IVPB ONE (17:59)
[2018-10-01] MEDS ORDERED: FUROSEMIDE 40 MG/4 ML INJECTABLE VIAL IVPUSH ONE (18:03)
[2018-10-01] MEDS ORDERED: ALBUTEROL SO4 0.083% IH SOL 2.5 MG/3 ML VIAL.NEB. NEB ONE (18:09)
--- NOTE | 2018-10-01 18:14 | HOSP ---
Subjective - Review of Symptoms Events since last encounter: PTT 50.2, s/p 2 hrs after tPA, will restart heparin gtt K+ 7.1, will obtain stat EKG for signs of peaked T waves, MD prolongation, etc. , calcium gluconate 1g IVPB to stabilize cardiac membrane, 7 units of regular insulin IVPUSH and 10mg of albuterol updraft to temporize K+ shift into cells. Finally, due patient is s/p tPA and intubated less than 12 hours, rectal kayaxalte/enema or OG tube is contraindicated for bleeding. As a result, one dose of lasix 40mg IVPUSH is given to eliminate K+. Will repeat BMP at 11pm. Cr 1.7, previously normal Cr, added urine sodium and creatinine to previous UA, likely pre-renal from hypoperfusion of kidneys, Nephro consult placed Trop 1.35, likely from cardiac arrest, will cycle to peak Lactate 6.0, from tissue hypoperfusion, cont. to trend Physical Examination Vital Signs: Vital Signs Temperature 98.2 F 10/01/18 12:50 Pulse Rate 95 H 10/01/18 17:00 Respiratory Rate 29 H 10/01/18 18:10 Blood Pressure 95/72 10/01/18 17:00 O2 Sat by Pulse Oximetry (%) 85 L 10/01/18 11:27 Labs: CBC, BMP 10/01/18 06:40 10/01/18 16:20 Visit type - Emergency Visit Emergency Visit: No - New Patient This patient is new to me today: No - Critical Care Critical Care patient: Yes Total Critical Care Time (in minutes): 35 Critical Care Statement: The care of this patient involved high complexity decision making to prevent further life threatening deterioration of the patient 's condition and/or to evaluate & treat vital organ system(s) failure or risk of failure.
[2018-10-01] MEDS ORDERED: MIDAZOLAM 100 MG/100 ML MG IVPB ONE (19:27)
[2018-10-01] MEDS ORDERED: PROPOFOL 1,000,000 MCG/100 ML VIAL IVPB SCH ×2 (20:15→20:30)
--- NOTE | 2018-10-01 20:21 | CONSULT ---
Consult - text type - Consultation Consultation Note: Pt is a 43yo M with PMH of HTN, DM comes in after being found unresponsive leaning against a fence. Per EMS, pt was found to be in rapid atrial fibrillation and became responsive en route.Pt was given IV fluids. Pt was complaining of chest pain, SOB and palpitations in the ED. Pt was found to be hypoxic, hypotensive and in atrial fibrillation. ED course: IV fluids, lab work, CT of head, C-spine and CTA chest. After CT scans, pt started to seize and was given a total of 12mg Ativan. Due to inability to protect airway, pt was intubated. Pt paralyzed with rocuronium and sedated with propofol. On propofol drip at 10u/kg/hr. Also given 6500u heparin bolus and started on heparin drip. Increased to 15u/kg/hr due to inadequate sedation. Pt continued to be undersedated and started on Fentanyl drip. CTA of the chest shows bilateral PE extending to upper and lower lobes bilaterally. Pt started to become hypotensive. Propofol drip was discontinued and Versed was added. Pt was to receive thrombectomy with tpa by IR. At approximately 11:40am, pt coded in IR. Pt had received 20mg tPA already. Compressions began. Narrow complex PEA seen on rhythm strip. Pt given a total of 2 epinephrine and 2 boluses of bicarb. QT appeared prolonged, pt given 2mg magnesium. 70mg of tPA was also pushed into the pulmonary artery. ROSC achieved at approximately 11:47. Pt brought straight to the ICU Intubated/ sedated PMH HTN DM Obesity P/E GENERAL: Sedated and intubated. LUNGS: Breath sounds equal, clear to auscultation bilaterally. No wheezes, and no crackles. No accessory muscle use. HEART: tachycardic, normal S1 and S2 without murmur, rub or gallop. ABDOMEN: Soft, nontender, not distended, normoactive bowel sounds, no masses. No hepatomegaly or splenomegaly. Ext. --no c/c/e Labs/Meds reviewed ASSESSMENT/PLAN: 43yo M with PMH of HTN, DM comes in for syncopal episode. Found to have bilateral PE. Arrested in IR at approximately 11:40am with rhythm strip showing narrow complex PEA. ROSC achieved at approximately 11:47. Unprovoked, massive PE- originating at bifurcations of both main pulmonary arteries and extending into upper and lower lobe branches bilaterally family h/o thrombophilia-- paternal greand mother, No family h/o cancer s/p tpa, now on heparin drip without bolus Bridge to coumadin vs NOAC once stabilized. Normal baseline coags. Crcl of 85ml/ min. Elevated AST/ALT Discussed with family at bedside Thrombophlia w/u as out patient Age appropriate cancer screening as out patient will follow
[2018-10-01] MEDS: PROPOFOL 1,000,000 MCG/100 ML VIAL IVPB SCH (20:57)
[2018-10-01] MEDS: HEPARIN - 25,000 UNIT in SODIUM CHLORIDE 495 ML IV SCH (21:27)
[2018-10-02] MEDS ORDERED: fentaNYL CITRATE 250 MCG/5 ML VIAL ONE ×4 (01:08→19:01)
[2018-10-02 01:28] LABS: CALCIUM 8.6 mg/dL (8.5-10.1); CREATININE 1.5 mg/dL (0.55-1.3); POTASSIUM 4.5 mmol/L (3.5-5.1)
[2018-10-02] MEDS ORDERED: ACETAMINOPHEN 1000 MG/100 ML VIAL (NON FORMULARY) IVPB ONE (01:37)
[2018-10-02] MEDS: PANTOPRAZOLE SODIUM 80 MG in SODIUM CHLORIDE 100 ML IVPB SCH ×2 (02:11→10:35)
[2018-10-02] MEDS ORDERED: INSULIN SLIDING SCALE (NOVOLOG) 1 VIAL SQ SCH ×4 (07:00→16:30)
[2018-10-02] MEDS: HEPARIN NA (PORCINE) 5,000 UNITS/ML 1ML VIAL IVPUSH PRN (07:22)
[2018-10-02 07:32] LABS: MAGNESIUM 2.2 mg/dL (1.8-2.4); PHOSPHOROUS 4.9 mg/dL (2.5-4.9)
[2018-10-02 07:42] LABS: BASO % 0.2 % (0-2.0); EOS % 0.1 % (0-4.5); HEMOGLOBIN 12.4 GM/dL (11.7-16.9); LYMPH % 31.2 % (8-40); MCH 31.3 pg (25.7-33.7); MCHC 32.7 g/dl (32.0-35.9); MEAN CELL VOLUME 95.9 fl (80-96); MEAN PLT VOLUME 9.1 fl (7.5-11.1); NEUT % 58.5 % (42.8-82.8); PLATELET COUNT 178 K/MM3 (134-434); RBC 3.96 M/mm3 (4.00-5.60); WHITE BLOOD COUNT 12.7 K/mm3 (4.0-10.0)
[2018-10-02] MEDS ORDERED: INSULIN REGULAR HUMAN 100 UNITS/ML *VIAL IVPUSH ONE (08:24)
--- NOTE | 2018-10-02 08:26 | PN ---
Physical Exam: SUBJECTIVE: Patient seen and examined at bedside. Pt is intubated and sedated. High potassium of 7.1 last night. Given 7u insulin, Lasix 40mg, albuterol 10mg, calcium gluconate 1g. Two hours after tPA, PTT 50.2, restarted on heparin drip. OBJECTIVE: Vital Signs Period Temp Pulse Resp BP Sys/Liao Pulse Ox Last 24 Hr 98.2 F-102.5 F 91-166 13-32 74-139/56-100 85-100 GENERAL: Intubated and sedated EYES: PERRL, constricted pupils, sclera anicteric, conjunctiva clear. LUNGS: 8.0 ET tube at 26cm. Ventilated, equal breath sounds bilaterally HEART: Regular rate and rhythm, S1, S2 without murmur, rub or gallop. ABDOMEN: Soft, nontender, nondistended, normoactive bowel sounds. EXTREMITIES: 2+ pulses, warm, well-perfused, no edema. NEUROLOGICAL: Intubated and sedated. DTR 2+ SKIN: Warm, dry, normal turgor, no rashes or lesions noted. R femoral line and 3 peripheral lines. Laboratory Results - last 24 hr 10/01/18 10/01/18 10/01/18 06:35 06:40 06:55 WBC RBC Hgb Hct MCV MCH MCHC RDW Plt Count MPV Absolute Neuts (auto) Neutrophils % Neutrophils % (Manual) 25.8 L Band Neutrophils % 0.0 Lymphocytes % Lymphocytes % (Manual) 55.7 H Monocytes % Monocytes % (Manual) 4 Eosinophils % Eosinophils % (Manual) 0.0 Basophils % Basophils % (Manual) 0.0 Myelocytes % (Man) 0 Promyelocytes % (Man) 0 Blast Cells % (Manual) 0 Nucleated RBC % Metamyelocytes 0 Hypochromia 0 Platelet Estimate Normal Polychromasia 0 Poikilocytosis 0 Anisocytosis 1+ Microcytosis 0 Macrocytosis 1+ PT with INR INR PTT (Actin FS) Anticoagulation Therapy Puncture Site ABG pH ABG pCO2 at Pt Temp ABG pO2 at Pt Temp ABG HCO3 ABG O2 Sat (Measured) ABG O2 Content ABG Base Excess Grady Test Carboxyhemoglobin Methemoglobin O2 Delivery Device Oxygen Flow Rate Vent Mode Vent Rate Mechanical Rate PEEP Pressure Support Vent Sodium Potassium Chloride Carbon Dioxide Anion Gap BUN Creatinine Est GFR (CKD-EPI)AfAm Est GFR (CKD-EPI)NonAf POC Glucometer Random Glucose Lactic Acid Calcium Phosphorus Magnesium Troponin I Urine Color Urine Appearance Urine pH Ur Specific [place] Urine Protein Urine Glucose (UA) Urine Ketones Urine Blood Urine Nitrite Urine Bilirubin Urine Urobilinogen Ur Leukocyte Esterase Ur Random Creatinine Ur Random Sodium Stool Occult Blood Negative Blood Type O POSITIVE Antibody Screen Negative 10/01/18 10/01/18 10/01/18 09:11 10:30 12:45 WBC RBC Hgb Hct MCV MCH MCHC RDW Plt Count MPV Absolute Neuts (auto) Neutrophils % Neutrophils % (Manual) Band Neutrophils % Lymphocytes % Lymphocytes % (Manual) Monocytes % Monocytes % (Manual) Eosinophils % Eosinophils % (Manual) Basophils % Basophils % (Manual) Myelocytes % (Man) Promyelocytes % (Man) Blast Cells % (Manual) Nucleated RBC % Metamyelocytes Hypochromia Platelet Estimate Polychromasia Poikilocytosis Anisocytosis Microcytosis Macrocytosis PT with INR INR PTT (Actin FS) Anticoagulation Therapy No Result Required. No Result Required. Puncture Site Right radial Right radial ABG pH 7.19 L* 7.03 L* ABG pCO2 at Pt Temp 53.1 H 63.5 H ABG pO2 at Pt Temp 67.2 L 87.7 ABG HCO3 19.5 L 16.1 L ABG O2 Sat (Measured) 85.1 L 89.5 L ABG O2 Content 20.2 15.4 ABG Base Excess -9.4 L -15.2 L Grady Test Positive Positive Carboxyhemoglobin 0.4 0 Methemoglobin 0.6 0.2 O2 Delivery Device No Result Required. Espirit Oxygen Flow Rate A/c 100% Vent Mode No Result Required. A/c Vent Rate No Result Required. 14 Mechanical Rate No Result Required. Yes PEEP 5.0 Pressure Support Vent No Result Required. 500 Sodium Potassium Chloride Carbon Dioxide Anion Gap BUN Creatinine Est GFR (CKD-EPI)AfAm Est GFR (CKD-EPI)NonAf POC Glucometer Random Glucose Lactic Acid Calcium Phosphorus Magnesium Troponin I Urine Color Urine Appearance Urine pH Ur Specific [place] Urine Protein Urine Glucose (UA) Urine Ketones Urine Blood Urine Nitrite Urine Bilirubin Urine Urobilinogen Ur Leukocyte Esterase Ur Random Creatinine Ur Random Sodium Stool Occult Blood Blood Type O POSITIVE Antibody Screen 10/01/18 10/01/18 10/01/18 13:30 13:30 16:20 WBC RBC Hgb Hct MCV MCH MCHC RDW Plt Count MPV Absolute Neuts (auto) Neutrophils % Neutrophils % (Manual) Band Neutrophils % Lymphocytes % Lymphocytes % (Manual) Monocytes % Monocytes % (Manual) Eosinophils % Eosinophils % (Manual) Basophils % Basophils % (Manual) Myelocytes % (Man) Promyelocytes % (Man) Blast Cells % (Manual) Nucleated RBC % Metamyelocytes Hypochromia Platelet Estimate Polychromasia Poikilocytosis Anisocytosis Microcytosis Macrocytosis PT with INR INR PTT (Actin FS) Anticoagulation Therapy Puncture Site ABG pH ABG pCO2 at Pt Temp ABG pO2 at Pt Temp ABG HCO3 ABG O2 Sat (Measured) ABG O2 Content ABG Base Excess Grady Test Carboxyhemoglobin Methemoglobin O2 Delivery Device Oxygen Flow Rate Vent Mode Vent Rate Mechanical Rate PEEP Pressure Support Vent Sodium Potassium Chloride Carbon Dioxide Anion Gap BUN Creatinine Est GFR (CKD-EPI)AfAm Est GFR (CKD-EPI)NonAf POC Glucometer Random Glucose Lactic Acid 6.0 H* Calcium Phosphorus Magnesium Troponin I Urine Color Yellow Urine Appearance Clear Urine pH 5.5 Ur Specific [place] 1.038 H Urine Protein Trace Urine Glucose (UA) 3+ H Urine Ketones Trace H Urine Blood Negative Urine Nitrite Negative Urine Bilirubin Negative Urine Urobilinogen 1.0 Ur Leukocyte Esterase Negative Ur Random Creatinine 22.0 L Ur Random Sodium 53 Stool Occult Blood Blood Type Antibody Screen 10/01/18 10/01/18 10/01/18 16:20 16:20 16:20 WBC RBC Hgb Hct MCV MCH MCHC RDW Plt Count MPV Absolute Neuts (auto) Neutrophils % Neutrophils % (Manual) Band Neutrophils % Lymphocytes % Lymphocytes % (Manual) Monocytes % Monocytes % (Manual) Eosinophils % Eosinophils % (Manual) Basophils % Basophils % (Manual) Myelocytes % (Man) Promyelocytes % (Man) Blast Cells % (Manual) Nucleated RBC % Metamyelocytes Hypochromia Platelet Estimate Polychromasia Poikilocytosis Anisocytosis Microcytosis Macrocytosis PT with INR 16.60 H INR 1.40 H PTT (Actin FS) 50.2 H Anticoagulation Therapy Puncture Site ABG pH ABG pCO2 at Pt Temp ABG pO2 at Pt Temp ABG HCO3 ABG O2 Sat (Measured) ABG O2 Content ABG Base Excess Grady Test Carboxyhemoglobin Methemoglobin O2 Delivery Device Oxygen Flow Rate Vent Mode Vent Rate Mechanical Rate PEEP Pressure Support Vent Sodium 138 Potassium 7.1 H* Chloride 109 H Carbon Dioxide 21 Anion Gap 8 BUN 13 Creatinine 1.7 H Est GFR (CKD-EPI)AfAm 56.00 Est GFR (CKD-EPI)NonAf 48.32 POC Glucometer Random Glucose 519 H* Lactic Acid Calcium 7.5 L Phosphorus Magnesium 2.3 Troponin I 1.35 H* Urine Color Urine Appearance Urine pH Ur Specific [place] Urine Protein Urine Glucose (UA) Urine Ketones Urine Blood Urine Nitrite Urine Bilirubin Urine Urobilinogen Ur Leukocyte Esterase Ur Random Creatinine Ur Random Sodium Stool Occult Blood Blood Type Antibody Screen 10/02/18 10/02/18 10/02/18 00:05 00:05 00:05 WBC RBC Hgb Hct MCV MCH MCHC RDW Plt Count MPV Absolute Neuts (auto) Neutrophils % Neutrophils % (Manual) Band Neutrophils % Lymphocytes % Lymphocytes % (Manual) Monocytes % Monocytes % (Manual) Eosinophils % Eosinophils % (Manual) Basophils % Basophils % (Manual) Myelocytes % (Man) Promyelocytes % (Man) Blast Cells % (Manual) Nucleated RBC % Metamyelocytes Hypochromia Platelet Estimate Polychromasia Poikilocytosis Anisocytosis Microcytosis Macrocytosis PT with INR INR PTT (Actin FS) Anticoagulation Therapy Puncture Site ABG pH ABG pCO2 at Pt Temp ABG pO2 at Pt Temp ABG HCO3 ABG O2 Sat (Measured) ABG O2 Content ABG Base Excess Grady Test Carboxyhemoglobin Methemoglobin O2 Delivery Device Oxygen Flow Rate Vent Mode Vent Rate Mechanical Rate PEEP Pressure Support Vent Sodium 139 Potassium 4.5 Chloride 105 Carbon Dioxide 24 Anion Gap 9 BUN 12 Creatinine 1.5 H Est GFR (CKD-EPI)AfAm 65.15 Est GFR (CKD-EPI)NonAf 56.21 POC Glucometer Random Glucose 390 H* Lactic Acid 2.8 H* Calcium 8.6 Phosphorus Magnesium Troponin I 0.88 H* Urine Color Urine Appearance Urine pH Ur Specific [place] Urine Protein Urine Glucose (UA) Urine Ketones Urine Blood Urine Nitrite Urine Bilirubin Urine Urobilinogen Ur Leukocyte Esterase Ur Random Creatinine Ur Random Sodium Stool Occult Blood Blood Type Antibody Screen 10/02/18 10/02/18 10/02/18 03:00 05:30 05:30 WBC 12.7 H RBC 3.96 L Hgb 12.4 Hct 38.0 MCV 95.9 MCH 31.3 MCHC 32.7 RDW 13.0 Plt Count 178 MPV 9.1 Absolute Neuts (auto) 7.4 Neutrophils % 58.5 D Neutrophils % (Manual) Band Neutrophils % Lymphocytes % 31.2 D Lymphocytes % (Manual) Monocytes % 10.0 D Monocytes % (Manual) Eosinophils % 0.1 D Eosinophils % (Manual) Basophils % 0.2 Basophils % (Manual) Myelocytes % (Man) Promyelocytes % (Man) Blast Cells % (Manual) Nucleated RBC % 0 Metamyelocytes Hypochromia Platelet Estimate Polychromasia Poikilocytosis Anisocytosis Microcytosis Macrocytosis PT with INR INR PTT (Actin FS) 49.4 H Anticoagulation Therapy Puncture Site ABG pH ABG pCO2 at Pt Temp ABG pO2 at Pt Temp ABG HCO3 ABG O2 Sat (Measured) ABG O2 Content ABG Base Excess Grady Test Carboxyhemoglobin Methemoglobin O2 Delivery Device Oxygen Flow Rate Vent Mode Vent Rate Mechanical Rate PEEP Pressure Support Vent Sodium Potassium Chloride Carbon Dioxide Anion Gap BUN Creatinine Est GFR (CKD-EPI)AfAm Est GFR (CKD-EPI)NonAf POC Glucometer Random Glucose Lactic Acid 1.8 Calcium Phosphorus Magnesium Troponin I Urine Color Urine Appearance Urine pH Ur Specific [place] Urine Protein Urine Glucose (UA) Urine Ketones Urine Blood Urine Nitrite Urine Bilirubin Urine Urobilinogen Ur Leukocyte Esterase Ur Random Creatinine Ur Random Sodium Stool Occult Blood Blood Type Antibody Screen 10/02/18 10/02/18 05:30 06:54 WBC RBC Hgb Hct MCV MCH MCHC RDW Plt Count MPV Absolute Neuts (auto) Neutrophils % Neutrophils % (Manual) Band Neutrophils % Lymphocytes % Lymphocytes % (Manual) Monocytes % Monocytes % (Manual) Eosinophils % Eosinophils % (Manual) Basophils % Basophils % (Manual) Myelocytes % (Man) Promyelocytes % (Man) Blast Cells % (Manual) Nucleated RBC % Metamyelocytes Hypochromia Platelet Estimate Polychromasia Poikilocytosis Anisocytosis Microcytosis Macrocytosis PT with INR INR PTT (Actin FS) Anticoagulation Therapy Puncture Site ABG pH ABG pCO2 at Pt Temp ABG pO2 at Pt Temp ABG HCO3 ABG O2 Sat (Measured) ABG O2 Content ABG Base Excess Grady Test Carboxyhemoglobin Methemoglobin O2 Delivery Device Oxygen Flow Rate Vent Mode Vent Rate Mechanical Rate PEEP Pressure Support Vent Sodium Potassium Chloride Carbon Dioxide Anion Gap BUN Creatinine Est GFR (CKD-EPI)AfAm Est GFR (CKD-EPI)NonAf POC Glucometer 330 Random Glucose Lactic Acid Calcium Phosphorus 4.9 Magnesium 2.2 Troponin I Urine Color Urine Appearance Urine pH Ur Specific [place] Urine Protein Urine Glucose (UA) Urine Ketones Urine Blood Urine Nitrite Urine Bilirubin Urine Urobilinogen Ur Leukocyte Esterase Ur Random Creatinine Ur Random Sodium Stool Occult Blood Blood Type Antibody Screen Active Medications Generic Name Dose Route Start Last Admin Trade Name Freq PRN Reason Stop Dose Admin Heparin Sodium (Porcine) 1,000 unit 10/01/18 17:57 10/02/18 07:22 Heparin - IVPUSH 1,000 unit PRN PRN Administration Heparin Heparin Sodium (Porcine) 5,000 unit 10/01/18 17:57 Heparin - IVPUSH PRN PRN Heparin Fentanyl 500 mcg/ Dextrose 100 mls @ 5 mls/hr 10/01/18 08:30 10/02/18 03:00 IVPB 100 mcg/hr TITR AHMET 20 mls/hr Titration 25 MCG/HR Alteplase, Recombinant 50 mg/ 500 mls @ 10 mls/hr 10/01/18 10:45 Sodium Chloride IVPB 10/03/18 12:44 ONCE ONE Norepinephrine Bitartrate 8, 500 mls @ 18.75 mls/hr 10/01/18 12:00 10/02/18 08:10 000 mcg/ Dextrose IV 12 mcg/min TITR AHMET 45 mls/hr Titration Protocol 5 MCG/MIN Vasopressin 50 units/ Sodium 100 mls @ 4 mls/hr 10/01/18 13:45 10/01/18 13:50 Chloride IVPB 3 units/hr ASDIR AHMET 6 mls/hr Administration Protocol 2 UNITS/HR Pantoprazole Sodium 80 mg/ 100 mls @ 10 mls/hr 10/01/18 15:00 10/02/18 02:11 Sodium Chloride IVPB 10 mls/hr Q10H AHMET Administration 8 MG/HR Heparin Sodium (Porcine) 25, 500 mls @ 20 mls/hr 10/01/18 18:00 10/02/18 07: 22 000 unit/ Sodium Chloride IV 1,100 unit/hr TITR AHMET 22 mls/hr Titration Protocol 1,000 UNIT/HR Propofol 1,000,000 mcg in 100 mls @ 3.09 mls/hr 10/01/18 20:45 10/02/18 02:59 Diprivan - IVPB 34 mcg/kg/min TITR AHMET 21.012 mls/hr Titration Protocol 5 MCG/KG/MIN Insulin Human Regular 4 units 10/02/18 08:24 Novolin R Vial *For Ivpush Or Iv Drip Only* IVPUSH 10/02/18 08:25 ONCE ONE ASSESSMENT/PLAN: 43yo M with PMH of HTN, DM BIBA for syncopal episode. Found to have bilateral PE. Arrested in IR at approximately 11:40am with rhythm strip showing narrow complex PEA. ROSC achieved at approximately 11:47. NEURO -Intubated and sedated. -CT head normal -Versed changed to propofol 34/hr -Fentanyl drip at 100mcg/hr -Wean as tolerated ENDO -Random glucose 390 (h/o DM) after IV insulin given for hyperK overnight. -K 4.5 after treatment with Lasix, insulin, albuterol -SS insulin -BGM -Will trend glucose and bmp. -Acidosis likely 2/2 lactic acidosis and hypercapnia. No anion gap. Will repeat VBG -Will trend glucose and bmp. No SQ insulin at this time due to pt receiving tPA. CARDS/VASC -ROSC s/p cardiac arrest with rhythm strip showing narrow complex PEA. Currently sinus tachycardia -Two rounds of epi, bicarb and 2mg magnesium given -Hypotensive likely 2/2 obstruction. Pt received total of 7L IVF. Pt currently on pressors. Goal MAP >65 -Levophed 12mcg/min, Vasopressin 3/hr -Titrate as needed. Weaning off Vaspressin at this time. -Trop 0.10 likely 2/2 demand. Currently 0.88Will trend -BNP 1300 -Finished tPA around 2pm yesterday. -PTT 0.55 two hours post tPA. Heparin drip resumed -Will trend PTT -Maintenance fluids at 100/hr PULM -Bilateral PE extending to upper and lower lobes bilaterally -tPA given -Respiratory acidosis; pH prior to code 7.03, downtrending from original pH 7.34 with retention of CO2 and decrease in HCO3. -Vent settings: rate 14, volume 500, FiO2 80, PEEP 10 -Saturating at 100% -Wean as tolerated -Intubated with 8.0 tube at 25cm paige. Placement confirmed by CXR -CXR: congestive changes -VBG pending -Will monitor GI -Higher risk of bleeding due to tPA -NG tube if needed after 1700 today -Protonix -Elevated LFTs likely 2/2 hypotension. -Will trend RENAL -Kidney function improving -Will trend -Maintenance fluids HEME -Received tPA. Now on heparin gtt -Will trend PTT -iv access, arterial punctures, instrumentation after 1700 today ID -Lactic acidosis likely 2/2 hypoperfusion -Blood cultures drawn in ED. No growth after 2 days -Low suspicion for infectious process FEN -NPO PROPHY -Protonix -Heparin drip -SCD Visit type - Emergency Visit Emergency Visit: Yes ED Registration Date: 10/01/18 Care time: The patient presented to the Emergency Department on the above date and was hospitalized for further evaluation of their emergent condition. - New Patient This patient is new to me today: No - Critical Care Critical Care patient: Yes Total Critical Care Time (in minutes): 40 Critical Care Statement: The care of this patient involved high complexity decision making to prevent further life threatening deterioration of the patient 's condition and/or to evaluate & treat vital organ system(s) failure or risk of failure.
--- NOTE | 2018-10-02 09:41 | CON.CARD ---
Consult - Past Medical History Cardio/Vascular: Yes: HTN, Hyperlipdemia Endocrine: Yes: Diabetes Mellitus - Alcohol/Substance Use Hx Alcohol Use: No - Smoking History Smoking history: Never smoked Have you smoked in the past 12 months: No Home Medications - Allergies Allergies/Adverse Reactions: Allergies Allergy/AdvReac Type Severity Reaction Status Date / Time No Known Allergies Allergy Verified 10/01/18 06:31 Vital Signs: Vital Signs Temperature 99.0 F 10/02/18 09:00 Pulse Rate 99 H 10/02/18 09:00 Respiratory Rate 14 10/02/18 09:24 Blood Pressure 113/78 10/02/18 09:00 O2 Sat by Pulse Oximetry (%) 100 10/02/18 08:00 - Other Data Labs, Other Data: CBC, BMP 10/02/18 05:30 10/02/18 00:05 INR, PTT INR 1.40 (0.83-1.09) H 10/01/18 16:20 Troponin, BNP 10/01/18 10/02/18 16:20 00:05 Troponin I 1.35 H* 0.88 H* Troponin, BNP 10/01/18 10/02/18 16:20 00:05 Troponin I 1.35 H* 0.88 H*
--- NOTE | 2018-10-02 09:42 | PN ---
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, Physician Chief Complaint: 43M h/o HTN, DM presented with unresponsiveness, altered mental status found to have PE now s/p PEA arrest. History per chart, patient unable to give further hx, intubated and sedated. Was found unresponsive, altered mental status. Per EMS report was in rapid afib (EKG strips not available) in the field and was given IVF, complained of chest pain and palps. Was brought to the ER, reportedly hypoxic, hypotensive and in afib. Received IVF, CTA chest showed bilateral PE, was started on heparin. Had seizure while in radiology, was intuabed, given ativan and paralyzed. Was planned to receive IR guided thrombectomy with tPA in IR due to hypotension, while in IR patient had PEA arrest prior to procedure. Received tPA, given epi x 2, bicarb x 2, Mg. Now in ICU on pressors. History of Present Illness: remains intubated on 80% FIO2 with PEEP 8 On multiple pressors, sedated. TELE: Sinus tach 115bpm - Current Medication List Current Medications: Active Medications Heparin Sodium (Porcine) (Heparin -) 1,000 unit IVPUSH PRN PRN PRN Reason: Heparin Last Admin: 10/02/18 07:22 Dose: 1,000 unit Heparin Sodium (Porcine) (Heparin -) 5,000 unit IVPUSH PRN PRN PRN Reason: Heparin Fentanyl 500 mcg/ Dextrose 100 mls @ 5 mls/hr IVPB TITR AHMET Last Titration: 10/02/18 03:00 Dose: 100 mcg/hr, 20 mls/hr Alteplase, Recombinant 50 mg/ (Sodium Chloride) 500 mls @ 10 mls/hr IVPB ONCE ONE Stop: 10/03/18 12:44 Norepinephrine Bitartrate 8, (000 mcg/ Dextrose) 500 mls @ 18.75 mls/hr IV TITR AHMET; Protocol Last Titration: 10/02/18 08:10 Dose: 12 mcg/min, 45 mls/hr Vasopressin 50 units/ Sodium (Chloride) 100 mls @ 4 mls/hr IVPB ASDIR AHMET; Protocol Last Admin: 10/01/18 13:50 Dose: 3 units/hr, 6 mls/hr Pantoprazole Sodium 80 mg/ (Sodium Chloride) 100 mls @ 10 mls/hr IVPB Q10H AHMET Last Admin: 10/02/18 02:11 Dose: 10 mls/hr Heparin Sodium (Porcine) 25, (000 unit/ Sodium Chloride) 500 mls @ 20 mls/hr IV TITR AHMET; Protocol Last Titration: 10/02/18 07:22 Dose: 1,100 unit/hr, 22 mls/hr Propofol (Diprivan -) 1,000,000 mcg in 100 mls @ 3.09 mls/hr IVPB TITR AHMET; Protocol Last Titration: 10/02/18 02:59 Dose: 34 mcg/kg/min, 21.012 mls/hr - Objective Vital Signs: Vital Signs Temperature 99.0 F 10/02/18 09:00 Pulse Rate 99 H 10/02/18 09:00 Respiratory Rate 14 10/02/18 09:24 Blood Pressure 113/78 10/02/18 09:00 O2 Sat by Pulse Oximetry (%) 100 10/02/18 08:00 Constitutional: Yes: Other (intubated and sedated) Cardiovascular: Yes: Regular Rate and Rhythm Respiratory: Yes: Other (= breath sounds bilaterally) Gastrointestinal: Yes: Soft Edema: Yes Edema: LLE: 1+, RLE: 1+ Neurological: Yes: Other (sedated on vent) Labs: CBC, BMP 10/02/18 05:30 10/02/18 00:05 INR, PTT INR 1.40 (0.83-1.09) H 10/01/18 16:20 - ....Imaging EKG: Image Reviewed Assessment/Plan 43yo M with PMH of HTN, DM p/w unresponsiveness. Found to have bilateral PE, s/ p PEA arrest 1. Bilateral PE, s/p PEA arrest: - arrest likely in setting of extensive bilateral PE - now s/p tPA, thrombectomy not done, manage anticoagulation per ICU team - BP stable on levophed and vasopressin - echo pending 2. Afib: - reportedly per EMS and ER records, EKG not available - likely in setting of PE, AC as above per critical care - now in sinus tach 3. Elevated trop: - likely demand in setting of PE, likely to rise s/p arrest - EKG no ischemic changes - echo pending 4. HTN: - not on meds, currently on pressors
--- NOTE | 2018-10-02 10:03 | PN ---
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 (short form) - Note 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: pt seen/ examined in icu chart reviewed sedated/ intubated Vital Signs Temp 99.0 F 10/02/18 09:00 Pulse 99 H 10/02/18 09:57 Resp 15 10/02/18 09:55 BP 126/82 10/02/18 09:57 Pulse Ox 100 10/02/18 08:00 Intake & Output 10/01/18 10/01/18 10/02/18 11:59 23:59 11:59 Intake Total 412 1423.0 Output Total 4000 2800 Balance -3588 -1377.0 Weight 180 lb 227 lb 1.218 oz 217 lb 11.2 oz Intake: IV 412 1323.0 DIPRIVAN - 1,000,000 mcg 81 In 100 ml @ 5 MCG/KG/MIN 3.09 mls/hr IVPB TITR [facility] Rx#:[id number] Heparin - 25,000 Unit In 175 Normal Saline - 495 ml @ 1,000 UNIT/HR 20 mls/hr IV TITR [facility] Rx#: [id number] Heparin - 25,000 Unit In 175.1 Normal Saline - 495 ml @ 1,000 UNIT/HR 20 mls/hr IV TITR [facility] Rx#: [id number] Levophed - 8,000 Mcg In 280 621 D5w - 492 ml @ 5 MCG/MIN 18.75 mls/hr IV TITR [facility] Rx#:[id number] Pitressin - 50 Units In 36 67.9 Normal Saline - 97.5 ml @ 2 UNITS/HR 4 mls/hr IVPB ASDIR [facility] Rx#: [id number] Sublimaze Injection - 500 60 197 Mcg In D5w - 90 ml @ 25 MCG/HR 5 mls/hr IVPB TITR [facility] Rx#:[id number] Versed - 100 mg In Normal 36 6 Saline - 100 ml @ 1 MG/ HR 1 mls/hr IVPB TITR [facility] Rx#:[id number] IVPB 100 Output: Urine 4000 2800 Sidhu 4000 2800 Other: Voiding Method Indwelling Catheter Indwelling Catheter Bowel Movement No Height 5 ft 5 in Body Mass Index (BMI) 29.9 Weight Measurement Method Estimated by Staff Active Medications Heparin Sodium (Porcine) (Heparin -) 1,000 unit IVPUSH PRN PRN PRN Reason: Heparin Last Admin: 10/02/18 07:22 Dose: 1,000 unit Heparin Sodium (Porcine) (Heparin -) 5,000 unit IVPUSH PRN PRN PRN Reason: Heparin Fentanyl 500 mcg/ Dextrose 100 mls @ 5 mls/hr IVPB TITR [facility] Last Titration: 10/02/18 03:00 Dose: 100 mcg/hr, 20 mls/hr Alteplase, Recombinant 50 mg/ (Sodium Chloride) 500 mls @ 10 mls/hr IVPB ONCE ONE Stop: 10/03/18 12:44 Norepinephrine Bitartrate 8, (000 mcg/ Dextrose) 500 mls @ 18.75 mls/hr IV TITR [facility]; Protocol Last Titration: 10/02/18 09:57 Dose: 11 mcg/min, 41.25 mls/hr Vasopressin 50 units/ Sodium (Chloride) 100 mls @ 4 mls/hr IVPB ASDIR [facility]; Protocol Last Admin: 10/01/18 13:50 Dose: 3 units/hr, 6 mls/hr Pantoprazole Sodium 80 mg/ (Sodium Chloride) 100 mls @ 10 mls/hr IVPB Q10H [facility] Last Admin: 10/02/18 02:11 Dose: 10 mls/hr Heparin Sodium (Porcine) 25, (000 unit/ Sodium Chloride) 500 mls @ 20 mls/hr IV TITR [facility]; Protocol Last Titration: 10/02/18 07:22 Dose: 1,100 unit/hr, 22 mls/hr Propofol (Diprivan -) 1,000,000 mcg in 100 mls @ 3.09 mls/hr IVPB TITR [facility]; Protocol Last Titration: 10/02/18 02:59 Dose: 34 mcg/kg/min, 21.012 mls/hr CBC, BMP 10/02/18 05:30 Abnormal Lab Results 10/01/18 10/01/18 10/01/18 06:40 10:30 13:30 WBC RBC Neutrophils % (Manual) 25.8 L Lymphocytes % (Manual) 55.7 H PT with INR INR PTT (Actin FS) ABG pH 7.03 L* ABG pCO2 at Pt Temp 63.5 H ABG HCO3 16.1 L ABG O2 Sat (Measured) 89.5 L ABG Base Excess -15.2 L Potassium Chloride Creatinine Random Glucose Lactic Acid Calcium Troponin I Ur Specific [place] 1.038 H Urine Glucose (UA) 3+ H Urine Ketones Trace H Ur Random Creatinine 10/01/18 10/01/18 10/01/18 13:30 16:20 16:20 WBC RBC Neutrophils % (Manual) Lymphocytes % (Manual) PT with INR INR PTT (Actin FS) ABG pH ABG pCO2 at Pt Temp ABG HCO3 ABG O2 Sat (Measured) ABG Base Excess Potassium 7.1 H* Chloride 109 H Creatinine 1.7 H Random Glucose 519 H* Lactic Acid 6.0 H* Calcium 7.5 L Troponin I 1.35 H* Ur Specific [place] Urine Glucose (UA) Urine Ketones Ur Random Creatinine 22.0 L 10/01/18 10/01/18 10/02/18 16:20 16:20 00:05 WBC RBC Neutrophils % (Manual) Lymphocytes % (Manual) PT with INR 16.60 H INR 1.40 H PTT (Actin FS) 50.2 H ABG pH ABG pCO2 at Pt Temp ABG HCO3 ABG O2 Sat (Measured) ABG Base Excess Potassium Chloride Creatinine 1.5 H Random Glucose 390 H* Lactic Acid Calcium Troponin I Ur Specific [place] Urine Glucose (UA) Urine Ketones Ur Random Creatinine 10/02/18 10/02/18 10/02/18 00:05 00:05 03:00 WBC RBC Neutrophils % (Manual) Lymphocytes % (Manual) PT with INR INR PTT (Actin FS) 49.4 H ABG pH ABG pCO2 at Pt Temp ABG HCO3 ABG O2 Sat (Measured) ABG Base Excess Potassium Chloride Creatinine Random Glucose Lactic Acid 2.8 H* Calcium Troponin I 0.88 H* Ur Specific [place] Urine Glucose (UA) Urine Ketones Ur Random Creatinine 10/02/18 05:30 WBC 12.7 H RBC 3.96 L Neutrophils % (Manual) Lymphocytes % (Manual) PT with INR INR PTT (Actin FS) ABG pH ABG pCO2 at Pt Temp ABG HCO3 ABG O2 Sat (Measured) ABG Base Excess Potassium Chloride Creatinine Random Glucose Lactic Acid Calcium Troponin I Ur Specific [place] Urine Glucose (UA) Urine Ketones Ur Random Creatinine Microbiology 10/01/18 13:30 Urine Culture - Final Urine - Urine Clean Catch NO GROWTH OBTAINED 10/01/18 06:40 Blood Culture - Preliminary Blood - Peripheral Venous NO GROWTH OBTAINED AFTER 24 HOURS, INCUBATION TO CONTINUE FOR 4 DAYS. 10/01/18 06:40 Blood Culture - Preliminary Blood - Peripheral Venous NO GROWTH OBTAINED AFTER 24 HOURS, INCUBATION TO CONTINUE FOR 4 DAYS. Physical Exam Sedated/ intubated Pupil not dilated lungs- bilateral breath sounds cvs- s1, s2 rrr abd -soft ext- no edema ASSESSMENT/PLAN: s/p CP arrest due to obstructive shock due to extensive bilateral PE HTN DM s/p TPa Acidosis cxr -- noted bgm -- reviewed Continue present care vent support-- per icu team Add basal insulin + Sliding scale condition critical Discussed with nursing staff will follow cc time 35 min
[2018-10-02] MEDS ORDERED: INSULIN (LEVEMIR) 100 UNITS/ML UNITS SQ ONE (10:05)
[2018-10-02] MEDS: FENTANYL INJECTION 500 MCG in DEXTROSE 5%-WATER - 90 ML IVPB SCH ×3 (10:06→19:05)
[2018-10-02 10:15] LABS: ALBUMIN 3.2 g/dl (3.4-5.0); BILIRUBIN,TOTAL 0.6 mg/dL (0.2-1); CALCIUM 8.2 mg/dL (8.5-10.1); CREATININE 1.2 mg/dL (0.55-1.3); POTASSIUM 4.5 mmol/L (3.5-5.1); TOT PROT 6.3 g/dl (6.4-8.2)
[2018-10-02] MEDS: PROPOFOL 1,000,000 MCG/100 ML VIAL IVPB SCH ×3 (10:32→18:10)
--- NOTE | 2018-10-02 11:58 | PN ---
Teaching Attending Note Name of Resident: Radha Ferguson ATTENDING PHYSICIAN STATEMENT I saw and evaluated the patient. I reviewed the resident's note and discussed the case with the resident. I agree with the resident's findings and plan as documented. SUBJECTIVE: Patient seen and examined in the ICU. Intubated and sedated, AC Mode of vent, 80% FiO2 and PEEP 10. NE @ 15 mcq and Vaspressin @ 3 units for hemodynamic support. IV Heparin drip infusing per PE protocol. No overt bleeding noted. Intake & Output 09/29/18 09/30/18 10/01/18 10/02/18 23:59 23:59 23:59 23:59 Intake Total 412 1423.0 Output Total 4000 2800 Balance -3588 -1377.0 Weight 227 lb 1.218 oz 217 lb 11.2 oz Last Vital Signs Temp Pulse Resp BP Pulse Ox 100.4 F H 105 H 15 128/77 100 10/02/18 11:00 10/02/18 11:32 10/02/18 11:49 10/02/18 11:32 10/02/18 10:00 Active Medications Heparin Sodium (Porcine) (Heparin -) 1,000 unit IVPUSH PRN PRN PRN Reason: Heparin Last Admin: 10/02/18 07:22 Dose: 1,000 unit Heparin Sodium (Porcine) (Heparin -) 5,000 unit IVPUSH PRN PRN PRN Reason: Heparin Fentanyl 500 mcg/ Dextrose 100 mls @ 5 mls/hr IVPB TITR [facility] Last Admin: 10/02/18 10:06 Dose: Not Given Norepinephrine Bitartrate 8, (000 mcg/ Dextrose) 500 mls @ 18.75 mls/hr IV TITR [facility]; Protocol Last Titration: 10/02/18 11:03 Dose: 10 mcg/min, 37.5 mls/hr Vasopressin 50 units/ Sodium (Chloride) 100 mls @ 4 mls/hr IVPB ASDIR [facility]; Protocol Last Titration: 10/02/18 11:32 Dose: 1 units/hr, 2 mls/hr Pantoprazole Sodium 80 mg/ (Sodium Chloride) 100 mls @ 10 mls/hr IVPB Q10H [facility] Last Admin: 10/02/18 10:35 Dose: 10 mls/hr Heparin Sodium (Porcine) 25, (000 unit/ Sodium Chloride) 500 mls @ 20 mls/hr IV TITR [facility]; Protocol Last Titration: 10/02/18 07:22 Dose: 1,100 unit/hr, 22 mls/hr Propofol (Diprivan -) 1,000,000 mcg in 100 mls @ 3.09 mls/hr IVPB TITR [facility]; Protocol Last Admin: 10/02/18 10:32 Dose: 34 mcg/kg/min, 21.012 mls/hr Insulin Aspart (Novolog Vial Sliding Scale -) 1 vial SQ QID [facility]; Protocol Insulin Detemir (Levemir Vial) 10 units SQ AM [facility] GENERAL: Sedated and intubated. HEAD: Normal with no signs of trauma. EYES: Pupils equal and reactive to light, sclera anicteric, conjunctiva clear. EARS, NOSE, THROAT: 8.0 ET tube NECK: Normal range of motion, supple without lymphadenopathy, JVD, or masses. LUNGS: Breath sounds equal, clear to auscultation bilaterally. No wheezes, and no crackles. HEART: tachycardic, normal S1 and S2 without murmur, rub or gallop. ABDOMEN: Soft, nontender, not distended, normoactive bowel sounds, no masses. No hepatomegaly or splenomegaly. MUSCULOSKELETAL: No bony deformities or tenderness. UPPER EXTREMITIES: 2+ pulses, warm, well-perfused. No cyanosis. No clubbing. Cap refill <2 seconds. No peripheral edema. LOWER EXTREMITIES: 2+ pulses, warm, well-perfused. No calf tenderness. No peripheral edema. NEUROLOGICAL: Sedated, intermittently moving all extremities SKIN: Warm, dry, normal turgor, no rashes or lesions noted. Laboratory Results - last 24 hr 10/01/18 10/01/18 10/01/18 12:45 13:30 13:30 WBC RBC Hgb Hct MCV MCH MCHC RDW Plt Count MPV Absolute Neuts (auto) Neutrophils % Lymphocytes % Monocytes % Eosinophils % Basophils % Nucleated RBC % PT with INR INR PTT (Actin FS) Sodium Potassium Chloride Carbon Dioxide Anion Gap BUN Creatinine Est GFR (CKD-EPI)AfAm Est GFR (CKD-EPI)NonAf POC Glucometer Random Glucose Lactic Acid Calcium Phosphorus Magnesium Total Bilirubin AST ALT Alkaline Phosphatase Troponin I Total Protein Albumin Urine Color Yellow Urine Appearance Clear Urine pH 5.5 Ur Specific [place] 1.038 H Urine Protein Trace Urine Glucose (UA) 3+ H Urine Ketones Trace H Urine Blood Negative Urine Nitrite Negative Urine Bilirubin Negative Urine Urobilinogen 1.0 Ur Leukocyte Esterase Negative Ur Random Creatinine 22.0 L Ur Random Sodium 53 Blood Type O POSITIVE 10/01/18 10/01/18 10/01/18 16:20 16:20 16:20 WBC RBC Hgb Hct MCV MCH MCHC RDW Plt Count MPV Absolute Neuts (auto) Neutrophils % Lymphocytes % Monocytes % Eosinophils % Basophils % Nucleated RBC % PT with INR INR PTT (Actin FS) 50.2 H Sodium 138 Potassium 7.1 H* Chloride 109 H Carbon Dioxide 21 Anion Gap 8 BUN 13 Creatinine 1.7 H Est GFR (CKD-EPI)AfAm 56.00 Est GFR (CKD-EPI)NonAf 48.32 POC Glucometer Random Glucose 519 H* Lactic Acid 6.0 H* Calcium 7.5 L Phosphorus Magnesium 2.3 Total Bilirubin AST ALT Alkaline Phosphatase Troponin I 1.35 H* Total Protein Albumin Urine Color Urine Appearance Urine pH Ur Specific [place] Urine Protein Urine Glucose (UA) Urine Ketones Urine Blood Urine Nitrite Urine Bilirubin Urine Urobilinogen Ur Leukocyte Esterase Ur Random Creatinine Ur Random Sodium Blood Type 10/01/18 10/02/18 10/02/18 16:20 00:05 00:05 WBC RBC Hgb Hct MCV MCH MCHC RDW Plt Count MPV Absolute Neuts (auto) Neutrophils % Lymphocytes % Monocytes % Eosinophils % Basophils % Nucleated RBC % PT with INR 16.60 H INR 1.40 H PTT (Actin FS) Sodium 139 Potassium 4.5 Chloride 105 Carbon Dioxide 24 Anion Gap 9 BUN 12 Creatinine 1.5 H Est GFR (CKD-EPI)AfAm 65.15 Est GFR (CKD-EPI)NonAf 56.21 POC Glucometer Random Glucose 390 H* Lactic Acid 2.8 H* Calcium 8.6 Phosphorus Magnesium Total Bilirubin AST ALT Alkaline Phosphatase Troponin I Total Protein Albumin Urine Color Urine Appearance Urine pH Ur Specific [place] Urine Protein Urine Glucose (UA) Urine Ketones Urine Blood Urine Nitrite Urine Bilirubin Urine Urobilinogen Ur Leukocyte Esterase Ur Random Creatinine Ur Random Sodium Blood Type 10/02/18 10/02/18 10/02/18 00:05 03:00 05:30 WBC RBC Hgb Hct MCV MCH MCHC RDW Plt Count MPV Absolute Neuts (auto) Neutrophils % Lymphocytes % Monocytes % Eosinophils % Basophils % Nucleated RBC % PT with INR INR PTT (Actin FS) 49.4 H Sodium Potassium Chloride Carbon Dioxide Anion Gap BUN Creatinine Est GFR (CKD-EPI)AfAm Est GFR (CKD-EPI)NonAf POC Glucometer Random Glucose Lactic Acid 1.8 Calcium Phosphorus Magnesium Total Bilirubin AST ALT Alkaline Phosphatase Troponin I 0.88 H* Total Protein Albumin Urine Color Urine Appearance Urine pH Ur Specific [place] Urine Protein Urine Glucose (UA) Urine Ketones Urine Blood Urine Nitrite Urine Bilirubin Urine Urobilinogen Ur Leukocyte Esterase Ur Random Creatinine Ur Random Sodium Blood Type 10/02/18 10/02/18 10/02/18 05:30 05:30 06:54 WBC 12.7 H RBC 3.96 L Hgb 12.4 Hct 38.0 MCV 95.9 MCH 31.3 MCHC 32.7 RDW 13.0 Plt Count 178 MPV 9.1 Absolute Neuts (auto) 7.4 Neutrophils % 58.5 D Lymphocytes % 31.2 D Monocytes % 10.0 D Eosinophils % 0.1 D Basophils % 0.2 Nucleated RBC % 0 PT with INR INR PTT (Actin FS) Sodium 142 Potassium 4.5 Chloride 108 H Carbon Dioxide 22 Anion Gap 13 BUN 13 Creatinine 1.2 Est GFR (CKD-EPI)AfAm 85.32 Est GFR (CKD-EPI)NonAf 73.62 POC Glucometer 330 Random Glucose 358 H* Lactic Acid Calcium 8.2 L Phosphorus 4.9 Magnesium 2.2 Total Bilirubin 0.6 AST 1240 H ALT 1171 H Alkaline Phosphatase 102 Troponin I Total Protein 6.3 L Albumin 3.2 L Urine Color Urine Appearance Urine pH Ur Specific [place] Urine Protein Urine Glucose (UA) Urine Ketones Urine Blood Urine Nitrite Urine Bilirubin Urine Urobilinogen Ur Leukocyte Esterase Ur Random Creatinine Ur Random Sodium Blood Type ASSESSMENT/PLAN: CP arrest due to obstructive shock due to extensive bilateral PE Etiology of VTE to be determined HTN DM Syncopal episode due to PE No evidence of intra-cranial pathology S/P tPa infusion AC Mode of vent: wean PEEP & FiO2 as tolerated Can check VBG IV Heparin per protocol No arterial sticks until after [address] NGT if needed after 5 PM Lighten sedation to assess mental status Wean pressors as tolerated Glycemic control IVF @ 100 cc/hr: caution for the development of capillary leak and ARDS physiology Requires ICU monitoring Condition remains critical. Dr Perez Critical care time spent in reviewing chart, evaluating patient and formulating plan - 36 minutes.
[2018-10-02 12:07] LABS: N-TERMINAL BNP 1387.1 pg/ml (5-125)
[2018-10-02 12:42] LABS: VENOUS PC02 63.3 mmHg (41-51); VENOUS PH 7.23 (7.31-7.41); VENOUS PO2 39.3 mmHg (30-40)
[2018-10-02] MEDS: INSULIN SLIDING SCALE (NOVOLOG) 1 VIAL SQ SCH ×3 (12:50→23:39)
--- NOTE | 2018-10-02 12:56 | ECHO ---
Name: YEYO DELAROSA Exam:Adult Echocardiogram Study Date: 10/02/2018 11:02 AM Age: 43 yrs Reason For Study: Cardiac arrest Height: 65 in Weight: 180 lb BSA: 1.9 m2 Doppler Measurements & Calculations MV E max adrián: 91.2 cm/sec Ao V2 max: 119.4 cm/sec MV A max adrián: 94.6 cm/sec Ao max P.7 mmHg MV E/A: 0.96 MV dec time: 0.06 sec LV V1 max P.6 mmHg PA V2 max: 71.9 cm/sec LV V1 max: 95.1 cm/sec PA max P.1 mmHg Med Peak E' Adrián: 7.3 cm/sec Med E/e': 12.5 Lat Peak E' Adrián: 9.7 cm/sec Lat E/e': 9.4 Procedure The study was technically difficult with many images being suboptimal in quality. Left Ventricle Left ventricular systolic function is grossly normal. Ejection Fraction = 50-55%. The transmitral spe ctral Doppler flow pattern is normal for age. Right Ventricle The right ventricle is not well visualized. Atria The left atrial size is normal. Right atrium not well visualized. Mitral Valve The mitral valve is normal in structure and function. There is no mitral valve stenosis. There is tra ce mitral regurgitation. Tricuspid Valve The tricuspid valve is normal in structure and function. There is Trace to mild tricuspid regurgitati on. There was insufficient TR detected to calculate RV systolic pressure. Aortic Valve The aortic valve opens well. No hemodynamically significant valvular aortic stenosis. No aortic regur gitation is present. Pulmonic Valve The pulmonic valve is not well visualized. There is no pulmonic valvular stenosis. Pericardium/Pleura There is no pericardial effusion. Interpretation Summary The right ventricle is not well visualized. The study was technically difficult with many images being suboptimal in quality. Left ventricular systolic function is grossly normal. Ejection Fraction = 50-55%. There is trace mitral regurgitation. There is Trace to mild tricuspid regurgitation. There was insufficient TR detected to calculate RV systolic pressure. There is no pericardial effusion. MD Murdock *Kristen 10/02/2018 12:55 PM
[2018-10-02] MEDS ORDERED: LACTATED RINGERS SOLUTION 1,000 ML/1,000 ML INFUS.BAG IV SCH (13:15)
[2018-10-02] MEDS: LACTATED RINGERS SOLUTION 1,000 ML/1,000 ML INFUS.BAG IV SCH (13:52)
--- NOTE | 2018-10-02 13:58 | CONSULT ---
Consult - text type - Consultation Consultation Note: Renal Consult for DILSHAD and Hyperkalemia This is a 43 year old gentleman with hx of hypertension and DM who presented s/ p syncope with chest pain and paliptations with respiratory failure due to bilateral pulmonary embolism s/p PEA arrest with elevated Cr and potassium levels. Pt s/p PEA arrest yesterday when attempting to have IR thrombectomy for pulmonary embolisms. Did recieve TPA. Did have contrast exposure on admission. PEA arrest for 7 minutes but was witnessed. No on pressers. Sedated on Vent. K was 7 s/p cardiac arrest yesterday but now is improve. PMhx: as above Allergies: NKDA Family Hx: unable to obtain ROS: unable to obtain Social Hx: unable to obtain Vital Signs Temperature 100.2 F H 10/02/18 13:00 Pulse Rate 106 H 10/02/18 13:46 Respiratory Rate 13 10/02/18 13:00 Blood Pressure 96/62 10/02/18 13:46 O2 Sat by Pulse Oximetry (%) 100 10/02/18 10:00 Intake & Output 09/29/18 09/30/18 10/01/18 10/02/18 23:59 23:59 23:59 23:59 Intake Total 412 1423.0 Output Total 4000 2800 Balance -3588 -1377.0 Weight 103 kg 98.747 kg Sedated on vent ET tube in place neck supple, no JVD RRR, no M/R CTA, no rales or wheeze soft NT/ND no LE edema, clubbing or cyanosis feet are cool. CBC, BMP 10/02/18 05:30 10/02/18 05:30 Laboratory Tests 10/01/18 10/01/18 10/01/18 06:40 06:40 16:20 Potassium 3.6 Creatinine 1.2 Lactic Acid 6.8 H* 6.0 H* 10/01/18 10/02/18 10/02/18 16:20 00:05 00:05 Potassium 7.1 H* 4.5 Creatinine 1.7 H 1.5 H Lactic Acid 2.8 H* 10/02/18 10/02/18 05:30 05:30 Potassium 4.5 Creatinine 1.2 Lactic Acid 1.8 Current Medications Heparin Sodium (Porcine) (Heparin -) 1,000 unit IVPUSH PRN PRN PRN Reason: Heparin Last Admin: 10/02/18 07:22 Dose: 1,000 unit Heparin Sodium (Porcine) (Heparin -) 5,000 unit IVPUSH PRN PRN PRN Reason: Heparin Fentanyl 500 mcg/ Dextrose 100 mls @ 5 mls/hr IVPB TITR [facility] Last Admin: 10/02/18 12:39 Dose: 100 mcg/hr, 20 mls/hr Norepinephrine Bitartrate 8, (000 mcg/ Dextrose) 500 mls @ 18.75 mls/hr IV TITR [facility]; Protocol Last Titration: 10/02/18 13:46 Dose: 11 mcg/min, 41.25 mls/hr Vasopressin 50 units/ Sodium (Chloride) 100 mls @ 4 mls/hr IVPB ASDIR [facility]; Protocol Last Titration: 10/02/18 12:04 Dose: 0 units/hr, 0 mls/hr Heparin Sodium (Porcine) 25, (000 unit/ Sodium Chloride) 500 mls @ 20 mls/hr IV TITR [facility]; Protocol Last Titration: 10/02/18 07:22 Dose: 1,100 unit/hr, 22 mls/hr Propofol (Diprivan -) 1,000,000 mcg in 100 mls @ 3.09 mls/hr IVPB TITR [facility]; Protocol Last Titration: 10/02/18 12:32 Dose: 40 mcg/kg/min, 24.72 mls/hr Lactated Ringer's (Lactated Ringers Solution) 1,000 ml in 1,000 mls @ 75 mls/ hr IV ASDIR [facility] Last Admin: 10/02/18 13:52 Dose: 75 mls/hr Insulin Aspart (Novolog Vial Sliding Scale -) 1 vial SQ Q6HPO [facility]; Protocol Last Admin: 10/02/18 12:50 Dose: 7 units Insulin Detemir (Levemir Vial) 10 units SQ AM [facility] Pantoprazole Sodium (Protonix Iv) 40 mg IVPUSH DAILY [facility] 43 year old gentleman with hx of hypertension and DM who presented s/p syncope with chest pain and paliptations with respiratory failure due to bilateral pulmonary embolism s/p PEA arrest with elevated Cr and potassium levels. #PEA arrest #Bilateral pulmonary embolism #Hyperkalemia in setting of DILSHAD/potassium shifts in setting of acidosis #DILSHAD due to renal hypoprofusion in setting of PEA arrest #Shock/Hypotension Renal function improving and pt is non-oliguric Potassium also improved continue aggressive IVF hydration with isotonic fluids continue pressers to maintain MAP > 65 Vent support ICU monitoring Lactic acidosis now resolved Thank you Saturnino Foster DO
--- NOTE | 2018-10-02 14:20 | PN ---
Physical Exam: SUBJECTIVE: Patient seen and examined patient resting in bed, intubated sedated, on levophed 11. s/p IR catheter tpa. afebrile. OBJECTIVE: Vital Signs Period Temp Pulse Resp BP Sys/Liao Pulse Ox Last 24 Hr 99.0 F-102.5 F 92-109 13-32 86-136/57-95 100-100 GENERAL: intubated sedated HEAD: Normal with no signs of trauma. EYES: pinpoint pupil ENT: moist mucous membranes. NECK: supple R ij tpa catheter in place no bleeding at site LUNGS: b/l ronchi HEART: Regular rate and rhythm, S1, S2 ABDOMEN: Soft, nondistended, globally decreased bowel sounds EXTREMITIES: no edema. NEUROLOGICAL: sedated PSYCH:sedated SKIN: Warm, dry Laboratory Results - last 24 hr 10/01/18 10/01/18 10/01/18 13:30 16:20 16:20 WBC RBC Hgb Hct MCV MCH MCHC RDW Plt Count MPV Absolute Neuts (auto) Neutrophils % Lymphocytes % Monocytes % Eosinophils % Basophils % Nucleated RBC % PT with INR INR PTT (Actin FS) VBG pH POC VBG pCO2 POC VBG pO2 VBG HCO3 VBG O2 Sat (Shivani) VBG Base Excess Sodium 138 Potassium 7.1 H* Chloride 109 H Carbon Dioxide 21 Anion Gap 8 BUN 13 Creatinine 1.7 H Est GFR (CKD-EPI)AfAm 56.00 Est GFR (CKD-EPI)NonAf 48.32 POC Glucometer Random Glucose 519 H* Lactic Acid 6.0 H* Calcium 7.5 L Phosphorus Magnesium 2.3 Total Bilirubin AST ALT Alkaline Phosphatase Troponin I 1.35 H* B-Natriuretic Peptide Total Protein Albumin Ur Random Creatinine 22.0 L Ur Random Sodium 53 10/01/18 10/01/18 10/02/18 16:20 16:20 00:05 WBC RBC Hgb Hct MCV MCH MCHC RDW Plt Count MPV Absolute Neuts (auto) Neutrophils % Lymphocytes % Monocytes % Eosinophils % Basophils % Nucleated RBC % PT with INR 16.60 H INR 1.40 H PTT (Actin FS) 50.2 H VBG pH POC VBG pCO2 POC VBG pO2 VBG HCO3 VBG O2 Sat (Shivani) VBG Base Excess Sodium 139 Potassium 4.5 Chloride 105 Carbon Dioxide 24 Anion Gap 9 BUN 12 Creatinine 1.5 H Est GFR (CKD-EPI)AfAm 65.15 Est GFR (CKD-EPI)NonAf 56.21 POC Glucometer Random Glucose 390 H* Lactic Acid Calcium 8.6 Phosphorus Magnesium Total Bilirubin AST ALT Alkaline Phosphatase Troponin I B-Natriuretic Peptide Total Protein Albumin Ur Random Creatinine Ur Random Sodium 10/02/18 10/02/18 10/02/18 00:05 00:05 03:00 WBC RBC Hgb Hct MCV MCH MCHC RDW Plt Count MPV Absolute Neuts (auto) Neutrophils % Lymphocytes % Monocytes % Eosinophils % Basophils % Nucleated RBC % PT with INR INR PTT (Actin FS) 49.4 H VBG pH POC VBG pCO2 POC VBG pO2 VBG HCO3 VBG O2 Sat (Shivani) VBG Base Excess Sodium Potassium Chloride Carbon Dioxide Anion Gap BUN Creatinine Est GFR (CKD-EPI)AfAm Est GFR (CKD-EPI)NonAf POC Glucometer Random Glucose Lactic Acid 2.8 H* Calcium Phosphorus Magnesium Total Bilirubin AST ALT Alkaline Phosphatase Troponin I 0.88 H* B-Natriuretic Peptide Total Protein Albumin Ur Random Creatinine Ur Random Sodium 10/02/18 10/02/18 10/02/18 05:30 05:30 05:30 WBC 12.7 H RBC 3.96 L Hgb 12.4 Hct 38.0 MCV 95.9 MCH 31.3 MCHC 32.7 RDW 13.0 Plt Count 178 MPV 9.1 Absolute Neuts (auto) 7.4 Neutrophils % 58.5 D Lymphocytes % 31.2 D Monocytes % 10.0 D Eosinophils % 0.1 D Basophils % 0.2 Nucleated RBC % 0 PT with INR INR PTT (Actin FS) VBG pH POC VBG pCO2 POC VBG pO2 VBG HCO3 VBG O2 Sat (Shivani) VBG Base Excess Sodium 142 Potassium 4.5 Chloride 108 H Carbon Dioxide 22 Anion Gap 13 BUN 13 Creatinine 1.2 Est GFR (CKD-EPI)AfAm 85.32 Est GFR (CKD-EPI)NonAf 73.62 POC Glucometer Random Glucose 358 H* Lactic Acid 1.8 Calcium 8.2 L Phosphorus 4.9 Magnesium 2.2 Total Bilirubin 0.6 AST 1240 H ALT 1171 H Alkaline Phosphatase 102 Troponin I B-Natriuretic Peptide 1387.1 H Total Protein 6.3 L Albumin 3.2 L Ur Random Creatinine Ur Random Sodium 10/02/18 10/02/18 10/02/18 06:54 12:08 12:41 WBC RBC Hgb Hct MCV MCH MCHC RDW Plt Count MPV Absolute Neuts (auto) Neutrophils % Lymphocytes % Monocytes % Eosinophils % Basophils % Nucleated RBC % PT with INR INR PTT (Actin FS) VBG pH 7.23 L POC VBG pCO2 63.3 H POC VBG pO2 39.3 VBG HCO3 25.3 VBG O2 Sat (Shivani) 62.6 L VBG Base Excess -3.0 L Sodium Potassium Chloride Carbon Dioxide Anion Gap BUN Creatinine Est GFR (CKD-EPI)AfAm Est GFR (CKD-EPI)NonAf POC Glucometer 330 291 Random Glucose Lactic Acid Calcium Phosphorus Magnesium Total Bilirubin AST ALT Alkaline Phosphatase Troponin I B-Natriuretic Peptide Total Protein Albumin Ur Random Creatinine Ur Random Sodium 10/02/18 13:12 WBC RBC Hgb Hct MCV MCH MCHC RDW Plt Count MPV Absolute Neuts (auto) Neutrophils % Lymphocytes % Monocytes % Eosinophils % Basophils % Nucleated RBC % PT with INR INR PTT (Actin FS) 59.0 H VBG pH POC VBG pCO2 POC VBG pO2 VBG HCO3 VBG O2 Sat (Shivani) VBG Base Excess Sodium Potassium Chloride Carbon Dioxide Anion Gap BUN Creatinine Est GFR (CKD-EPI)AfAm Est GFR (CKD-EPI)NonAf POC Glucometer Random Glucose Lactic Acid Calcium Phosphorus Magnesium Total Bilirubin AST ALT Alkaline Phosphatase Troponin I B-Natriuretic Peptide Total Protein Albumin Ur Random Creatinine Ur Random Sodium Active Medications Generic Name Dose Route Start Last Admin Trade Name Freq PRN Reason Stop Dose Admin Heparin Sodium (Porcine) 1,000 unit 10/01/18 17:57 10/02/18 07:22 Heparin - IVPUSH 1,000 unit PRN PRN Administration Heparin Heparin Sodium (Porcine) 5,000 unit 10/01/18 17:57 Heparin - IVPUSH PRN PRN Heparin Fentanyl 500 mcg/ Dextrose 100 mls @ 5 mls/hr 10/01/18 08:30 10/02/18 12:39 IVPB 100 mcg/hr TITR AHMET 20 mls/hr Administration 25 MCG/HR Norepinephrine Bitartrate 8, 500 mls @ 18.75 mls/hr 10/01/18 12:00 10/02/18 13:46 000 mcg/ Dextrose IV 11 mcg/min TITR AHMET 41.25 mls/hr Titration Protocol 5 MCG/MIN Vasopressin 50 units/ Sodium 100 mls @ 4 mls/hr 10/01/18 13:45 10/02/18 12:04 Chloride IVPB 0 units/hr ASDIR AHMET 0 mls/hr Titration Protocol 2 UNITS/HR Heparin Sodium (Porcine) 25, 500 mls @ 20 mls/hr 10/01/18 18:00 10/02/18 07: 22 000 unit/ Sodium Chloride IV 1,100 unit/hr TITR AHMET 22 mls/hr Titration Protocol 1,000 UNIT/HR Propofol 1,000,000 mcg in 100 mls @ 3.09 mls/hr 10/01/18 20:45 10/02/18 12:32 Diprivan - IVPB 40 mcg/kg/min TITR AHMET 24.72 mls/hr Titration Protocol 5 MCG/KG/MIN Lactated Ringer's 1,000 ml in 1,000 mls @ 75 mls/hr 10/02/18 13:27 10/02/18 13:52 Lactated Ringers Solution IV 75 mls/hr ASDIR AHMET Administration Insulin Aspart 1 vial 10/02/18 13:00 10/02/18 12:50 Novolog Vial Sliding Scale - SQ 7 units Q6HPO AHMET Administration Protocol Insulin Detemir 10 units 10/03/18 07:00 Levemir Vial SQ AM AHMET Pantoprazole Sodium 40 mg 10/03/18 10:00 Protonix Iv IVPUSH DAILY A[facility] ASSESSMENT/PLAN: This is a 43 yo M with PMH of HTN, DM, heavy drinker and smoker, BIBA for syncopal episode, found to be in af rvr, with massive b/l pe, arrested in IR during catheter tpa procedure at approximately 11:40am. ROSC achieved at approximately 11:47. Unprovoked massive b/l PE s/p cardiac arrest family history of thrombophilia in grandmother HTN DM -s/p catheter guided tpa now on heparin gtt; not a candidate for cooling protocol due to bleeding risk -eventual bridge to coum or switch to NOAC -thrombophilia workup outpatient Problem List - Problems (1) Bilateral pulmonary embolism Code(s): I26.99 - OTHER PULMONARY EMBOLISM WITHOUT ACUTE COR PULMONALE (2) Diabetes Code(s): E11.9 - TYPE 2 DIABETES MELLITUS WITHOUT COMPLICATIONS (3) Elevated troponin Code(s): R74.8 - ABNORMAL LEVELS OF OTHER SERUM ENZYMES (4) Hyperlipidemia Code(s): E78.5 - HYPERLIPIDEMIA, UNSPECIFIED (5) Hypertension Code(s): I10 - ESSENTIAL (PRIMARY) HYPERTENSION Visit type - Emergency Visit Emergency Visit: Yes ED Registration Date: 10/01/18 Care time: The patient presented to the Emergency Department on the above date and was hospitalized for further evaluation of their emergent condition. - New Patient This patient is new to me today: Yes Date on this admission: 10/02/18 - Critical Care Critical Care patient: Yes Total Critical Care Time (in minutes): 45 Critical Care Statement: The care of this patient involved high complexity decision making to prevent further life threatening deterioration of the patient 's condition and/or to evaluate & treat vital organ system(s) failure or risk of failure. - Discharge Referral Referred to [facility] Med P.C.: No
--- NOTE | 2018-10-02 14:57 | EKG ---
Test Reason : Blood Pressure : / mmHG Vent. Rate : 095 BPM Atrial Rate : 095 BPM P-R Int : 156 ms QRS Dur : 074 ms QT Int : 364 ms P-R-T Axes : 023 013 011 degrees QTc Int : 457 ms NORMAL SINUS RHYTHM NONSPECIFIC T WAVE ABNORMALITY ABNORMAL ECG Confirmed by MIKE GUPTA MD ([id number]) on 10/02/2018 2:56:55 PM Referred By: GOVIND Confirmed By:MIKE GUPTA MD
--- NOTE | 2018-10-02 15:05 | EKG ---
Test Reason : Blood Pressure : / mmHG Vent. Rate : 148 BPM Atrial Rate : 070 BPM P-R Int : 000 ms QRS Dur : 092 ms QT Int : 358 ms P-R-T Axes : 000 -13 057 degrees QTc Int : 562 ms SINUS TACHYCARDIA CANNOT RULE OUT INFERIOR INFARCT , AGE UNDETERMINED ABNORMAL ECG NO PREVIOUS ECGS AVAILABLE Confirmed by MIKE GUPTA MD ([id number]) on 10/02/2018 3:04:51 PM Referred By: Confirmed By:MIKE GUPTA MD
--- NOTE | 2018-10-02 15:23 | PN ---
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 (short form) - Note 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: Patient being seen and examined Intubated, sedated , on pessors. Presented withsyncope secondary to massive P.E. with right heart strain. During thrombolysis sustained a cardiac arrest for 7 minutes . Last Vital Signs Temp Pulse Resp BP Pulse Ox 100.1 F H 107 H 14 107/67 100 10/02/18 14:00 10/02/18 14:00 10/02/18 14:26 10/02/18 14:00 10/02/18 12:00 HEENT: pupils reactive Oropharynx: intubated Cor: RSR, No murmurs, No gallops Lungs: diminished breaths sounds Abd: Soft, Normal bowel sounds, No organomegaly Ext:No significant edema Skin: No rashes, Integument intact CBC, BMP 10/02/18 05:30 10/02/18 05:30 Current Medications Generic Name Dose Route Start Last Admin Trade Name Freq PRN Reason Stop Dose Admin Heparin Sodium (Porcine) 1,000 unit 10/01/18 17:57 10/02/18 07:22 Heparin - IVPUSH 1,000 unit PRN PRN Administration Heparin Heparin Sodium (Porcine) 5,000 unit 10/01/18 17:57 Heparin - IVPUSH PRN PRN Heparin Fentanyl 500 mcg/ Dextrose 100 mls @ 5 mls/hr 10/01/18 08:30 10/02/18 12:39 IVPB 100 mcg/hr TITR AHMET 20 mls/hr Administration 25 MCG/HR Norepinephrine Bitartrate 8, 500 mls @ 18.75 mls/hr 10/01/18 12:00 10/02/18 13:46 000 mcg/ Dextrose IV 11 mcg/min TITR AHMET 41.25 mls/hr Titration Protocol 5 MCG/MIN Vasopressin 50 units/ Sodium 100 mls @ 4 mls/hr 10/01/18 13:45 10/02/18 12:04 Chloride IVPB 0 units/hr ASDIR AHMET 0 mls/hr Titration Protocol 2 UNITS/HR Heparin Sodium (Porcine) 25, 500 mls @ 20 mls/hr 10/01/18 18:00 10/02/18 07: 22 000 unit/ Sodium Chloride IV 1,100 unit/hr TITR AHMET 22 mls/hr Titration Protocol 1,000 UNIT/HR Propofol 1,000,000 mcg in 100 mls @ 3.09 mls/hr 10/01/18 20:45 10/02/18 15:07 Diprivan - IVPB 40 mcg/kg/min TITR AHMET 24.72 mls/hr Administration Protocol 5 MCG/KG/MIN Lactated Ringer's 1,000 ml in 1,000 mls @ 75 mls/hr 10/02/18 13:27 10/02/18 13:52 Lactated Ringers Solution IV 75 mls/hr ASDIR AHMET Administration Insulin Aspart 1 vial 10/02/18 13:00 10/02/18 12:50 Novolog Vial Sliding Scale - SQ 7 units Q6HPO AHMET Administration Protocol Insulin Detemir 10 units 10/03/18 07:00 Levemir Vial SQ AM [facility] Pantoprazole Sodium 40 mg 10/03/18 10:00 Protonix Iv IVPUSH DAILY [facility] Impression: Syncope Massive P.E. with right heart strain Cardiac arrest Hypotension DM Currently being maintained on heparin protocol post bolus TPA Thrombophilia work up as outpatient
[2018-10-02] MEDS: ACETAMINOPHEN 1000 MG/100 ML VIAL (NON FORMULARY) IVPB PRN ×2 (15:52→22:39)
[2018-10-02] MEDS: HEPARIN - 25,000 UNIT in SODIUM CHLORIDE 495 ML IV SCH (18:14)
[2018-10-02] MEDS: NOREPINEPHRINE BITARTRATE 8,000 MCG in DEXTROSE 5%-WATER - 492 ML IV SCH (21:39)
[2018-10-03] MEDS ORDERED: fentaNYL CITRATE 250 MCG/5 ML VIAL ONE ×4 (00:13→18:50)
[2018-10-03] MEDS: PROPOFOL 1,000,000 MCG/100 ML VIAL IVPB SCH ×4 (00:21→21:03)
[2018-10-03] MEDS: FENTANYL INJECTION 500 MCG in DEXTROSE 5%-WATER - 90 ML IVPB SCH ×4 (00:21→18:56)
[2018-10-03] MEDS: INSULIN (LEVEMIR) 100 UNITS/ML UNITS SQ SCH (06:00)
[2018-10-03] MEDS: INSULIN SLIDING SCALE (NOVOLOG) 1 VIAL SQ SCH ×4 (06:00→23:57)
[2018-10-03 06:35] LABS: HEMATOCRIT 30.1 % (35.4-49); HEMOGLOBIN 10.1 GM/dL (11.7-16.9); MCHC 33.6 g/dl (32.0-35.9); MEAN CELL VOLUME 95.2 fl (80-96); MEAN PLT VOLUME 8.7 fl (7.5-11.1); PLATELET COUNT 136 K/MM3 (134-434); RBC 3.16 M/mm3 (4.00-5.60); WHITE BLOOD COUNT 10.4 K/mm3 (4.0-10.0)
[2018-10-03] MEDS ORDERED: MIDAZOLAM HCL 2 MG/2 ML SINGLE DOSE VIAL IVPUSH ONE (06:56)
[2018-10-03] MEDS ORDERED: MIDAZOLAM HCL 2 MG/2 ML SINGLE DOSE VIAL ONE (06:58)
[2018-10-03] MEDS: ACETAMINOPHEN 1000 MG/100 ML VIAL (NON FORMULARY) IVPB PRN ×2 (07:26→18:56)
[2018-10-03 07:38] LABS: ALBUMIN 2.5 g/dl (3.4-5.0); BILIRUBIN,TOTAL 0.6 mg/dL (0.2-1); CALCIUM 7.9 mg/dL (8.5-10.1); CREATININE 0.8 mg/dL (0.55-1.3); MAGNESIUM 1.9 mg/dL (1.8-2.4); PHOSPHOROUS 2.8 mg/dL (2.5-4.9); POTASSIUM 3.8 mmol/L (3.5-5.1); TOT PROT 5.5 g/dl (6.4-8.2)
[2018-10-03 08:30] LABS: EPI CELLS 1.4 /HPF (0-5/HPF); HYALINE CASTS 6 /lpf (0-8); URINE APPEARANCE CLEAR; URINE BACTERIA 0.5 /hpf (NEGATIVE); URINE BILIRUBIN NEGATIVE (NEGATIVE); URINE COLOR YELLOW; URINE GLUCOSE (UA) 3+ (NEGATIVE); URINE KETONE 3+ (NEGATIVE); URINE LEUK ESTERASE NEGATIVE (NEGATIVE); URINE NITRITE NEGATIVE (NEGATIVE); URINE PROTEIN NEGATIVE (NEGATIVE); URINE RBC 59 /hpf (0-4); URINE WBC 1 /hpf (0-5)
[2018-10-03] MEDS ORDERED: PROPOFOL 1,000,000 MCG/100 ML VIAL ONE (10:45)
--- NOTE | 2018-10-03 10:58 | PN ---
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 (short form) - Note 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: intubated sedated on vent weaning off pressor support Vital Signs - 24 hr 10/02/18 10/02/18 10/02/18 11:32 11:49 12:00 Temperature 100.2 F H Pulse Rate 105 H 105 H Respiratory 15 14 Rate Blood Pressure 128/77 127/78 O2 Sat by Pulse 100 Oximetry (%) 10/02/18 10/02/18 10/02/18 12:04 13:00 13:19 Temperature 100.2 F H Pulse Rate 105 H 104 H 109 H Respiratory 13 Rate Blood Pressure 127/78 121/64 121/64 O2 Sat by Pulse Oximetry (%) 10/02/18 10/02/18 10/02/18 13:46 14:00 14:26 Temperature 100.1 F H Pulse Rate 106 H 107 H Respiratory 14 14 Rate Blood Pressure 96/62 107/67 O2 Sat by Pulse Oximetry (%) 10/02/18 10/02/18 10/02/18 15:00 15:42 16:00 Temperature 100.9 F H 100.9 F H Pulse Rate 108 H 116 H 117 H Respiratory 14 14 Rate Blood Pressure 126/66 141/85 135/75 O2 Sat by Pulse Oximetry (%) 10/02/18 10/02/18 10/02/18 16:29 16:36 17:00 Temperature 100.2 F H Pulse Rate 113 H 111 H Respiratory 15 14 Rate Blood Pressure 120/70 126/70 O2 Sat by Pulse Oximetry (%) 10/02/18 10/02/18 10/02/18 17:18 18:00 18:32 Temperature 100.7 F H Pulse Rate 109 H 108 H Respiratory 15 14 Rate Blood Pressure 126/70 114/72 O2 Sat by Pulse Oximetry (%) 10/02/18 10/02/18 10/02/18 20:00 21:00 21:34 Temperature 102.5 F H Pulse Rate 108 H 110 H Respiratory 15 14 15 Rate Blood Pressure 130/81 130/83 O2 Sat by Pulse 100 Oximetry (%) 10/02/18 10/02/18 10/02/18 21:39 22:00 23:00 Temperature 102.1 F H 101.4 F H Pulse Rate 110 H 114 H 115 H Respiratory 15 14 Rate Blood Pressure 137/81 144/97 141/86 O2 Sat by Pulse Oximetry (%) 10/03/18 10/03/18 10/03/18 00:00 00:40 01:00 Temperature 100.7 F H Pulse Rate 103 H 97 H Respiratory 14 14 14 Rate Blood Pressure 123/72 120/77 O2 Sat by Pulse Oximetry (%) 10/03/18 10/03/18 10/03/18 02:00 03:00 03:39 Temperature 100.1 F H Pulse Rate 94 H 90 Respiratory 14 15 14 Rate Blood Pressure 117/77 116/75 O2 Sat by Pulse Oximetry (%) 10/03/18 10/03/18 10/03/18 04:00 05:00 06:00 Temperature 100.6 F H 100.7 F H 100.8 F H Pulse Rate 87 91 H 90 Respiratory 15 14 15 Rate Blood Pressure 123/80 124/71 123/73 O2 Sat by Pulse Oximetry (%) 10/03/18 10/03/18 10/03/18 06:20 08:00 08:39 Temperature 100.1 F H Pulse Rate 87 Respiratory 14 14 14 Rate Blood Pressure 120/70 O2 Sat by Pulse Oximetry (%) 10/03/18 10/03/18 10:25 10:43 Temperature 98.5 F Pulse Rate Respiratory 14 Rate Blood Pressure O2 Sat by Pulse Oximetry (%) Current Medications Generic Name Dose Route Start Last Admin Trade Name Freq PRN Reason Stop Dose Admin Acetaminophen 1,000 mg 10/02/18 15:45 10/03/18 07:26 Ofirmev Injection - IVPB 1,000 mg Q6H PRN Administration PAIN OR FEVER Heparin Sodium (Porcine) 1,000 unit 10/01/18 17:57 10/02/18 07:22 Heparin - IVPUSH 1,000 unit PRN PRN Administration Heparin Heparin Sodium (Porcine) 5,000 unit 10/01/18 17:57 Heparin - IVPUSH PRN PRN Heparin Fentanyl 500 mcg/ Dextrose 100 mls @ 5 mls/hr 10/01/18 08:30 10/03/18 00:21 IVPB 100 mcg/hr TITR AHMET 20 mls/hr Administration 25 MCG/HR Norepinephrine Bitartrate 8, 500 mls @ 18.75 mls/hr 10/01/18 12:00 10/02/18 21:39 000 mcg/ Dextrose IV 6 mcg/min TITR AHMET 22.5 mls/hr Administration Protocol 5 MCG/MIN Heparin Sodium (Porcine) 25, 500 mls @ 20 mls/hr 10/01/18 18:00 10/02/18 18: 14 000 unit/ Sodium Chloride IV 1,100 unit/hr TITR AHMET 22 mls/hr Administration Protocol 1,000 UNIT/HR Propofol 1,000,000 mcg in 100 mls @ 3.09 mls/hr 10/01/18 20:45 10/03/18 00:25 Diprivan - IVPB 40 mcg/kg/min TITR AHMET 24.72 mls/hr Administration Protocol 5 MCG/KG/MIN Lactated Ringer's 1,000 ml in 1,000 mls @ 75 mls/hr 10/02/18 13:27 10/02/18 13:52 Lactated Ringers Solution IV 75 mls/hr ASDIR [facility] Administration Ceftriaxone Sodium 1 gm/ 50 mls @ 100 mls/hr 10/03/18 11:00 Dextrose IVPB DAILY [facility] Protocol Insulin Aspart 1 vial 10/02/18 13:00 10/03/18 06:00 Novolog Vial Sliding Scale - SQ 3 units Q6HPO [facility] Administration Protocol Insulin Detemir 10 units 10/03/18 07:00 10/03/18 06:00 Levemir Vial SQ 10 unit AM [facility] Administration Pantoprazole Sodium 40 mg 10/03/18 10:00 Protonix Iv IVPUSH DAILY [facility] Laboratory Results - last 24 hr 10/02/18 10/02/18 10/02/18 05:30 05:30 12:08 WBC 12.7 H RBC 3.96 L Hgb 12.4 Hct 38.0 MCV 95.9 MCH 31.3 MCHC 32.7 RDW 13.0 Plt Count 178 MPV 9.1 Absolute Neuts (auto) 7.4 Neutrophils % 58.5 D Lymphocytes % 31.2 D Monocytes % 10.0 D Eosinophils % 0.1 D Basophils % 0.2 Nucleated RBC % 0 PTT (Actin FS) VBG pH 7.23 L POC VBG pCO2 63.3 H POC VBG pO2 39.3 VBG HCO3 25.3 VBG O2 Sat (Shivani) 62.6 L VBG Base Excess -3.0 L Sodium 142 Potassium 4.5 Chloride 108 H Carbon Dioxide 22 Anion Gap 13 BUN 13 Creatinine 1.2 Est GFR (CKD-EPI)AfAm 85.32 Est GFR (CKD-EPI)NonAf 73.62 POC Glucometer Random Glucose 358 H* Calcium 8.2 L Phosphorus 4.9 Magnesium 2.2 Total Bilirubin 0.6 AST 1240 H ALT 1171 H Alkaline Phosphatase 102 Troponin I B-Natriuretic Peptide 1387.1 H Total Protein 6.3 L Albumin 3.2 L Urine Color Urine Appearance Urine pH Ur Specific [place] Urine Protein Urine Glucose (UA) Urine Ketones Urine Blood Urine Nitrite Urine Bilirubin Urine Urobilinogen Ur Leukocyte Esterase Urine WBC (Auto) Urine RBC (Auto) Urine Casts (Auto) U Epithel Cells (Auto) Urine Bacteria (Auto) 10/02/18 10/02/18 10/02/18 12:41 13:12 17:52 WBC RBC Hgb Hct MCV MCH MCHC RDW Plt Count MPV Absolute Neuts (auto) Neutrophils % Lymphocytes % Monocytes % Eosinophils % Basophils % Nucleated RBC % PTT (Actin FS) 59.0 H VBG pH POC VBG pCO2 POC VBG pO2 VBG HCO3 VBG O2 Sat (Shivani) VBG Base Excess Sodium Potassium Chloride Carbon Dioxide Anion Gap BUN Creatinine Est GFR (CKD-EPI)AfAm Est GFR (CKD-EPI)NonAf POC Glucometer 291 234 Random Glucose Calcium Phosphorus Magnesium Total Bilirubin AST ALT Alkaline Phosphatase Troponin I B-Natriuretic Peptide Total Protein Albumin Urine Color Urine Appearance Urine pH Ur Specific [place] Urine Protein Urine Glucose (UA) Urine Ketones Urine Blood Urine Nitrite Urine Bilirubin Urine Urobilinogen Ur Leukocyte Esterase Urine WBC (Auto) Urine RBC (Auto) Urine Casts (Auto) U Epithel Cells (Auto) Urine Bacteria (Auto) 10/02/18 10/03/18 10/03/18 23:34 05:30 05:30 WBC 10.4 H RBC 3.16 L Hgb 10.1 L Hct 30.1 L D MCV 95.2 MCH 32.0 MCHC 33.6 RDW 13.0 Plt Count 136 D MPV 8.7 Absolute Neuts (auto) Neutrophils % Lymphocytes % Monocytes % Eosinophils % Basophils % Nucleated RBC % PTT (Actin FS) 50.7 H VBG pH POC VBG pCO2 POC VBG pO2 VBG HCO3 VBG O2 Sat (Shivani) VBG Base Excess Sodium Potassium Chloride Carbon Dioxide Anion Gap BUN Creatinine Est GFR (CKD-EPI)AfAm Est GFR (CKD-EPI)NonAf POC Glucometer 206 Random Glucose Calcium Phosphorus Magnesium Total Bilirubin AST ALT Alkaline Phosphatase Troponin I B-Natriuretic Peptide Total Protein Albumin Urine Color Urine Appearance Urine pH Ur Specific [place] Urine Protein Urine Glucose (UA) Urine Ketones Urine Blood Urine Nitrite Urine Bilirubin Urine Urobilinogen Ur Leukocyte Esterase Urine WBC (Auto) Urine RBC (Auto) Urine Casts (Auto) U Epithel Cells (Auto) Urine Bacteria (Auto) 10/03/18 10/03/18 10/03/18 05:30 05:30 05:51 WBC RBC Hgb Hct MCV MCH MCHC RDW Plt Count MPV Absolute Neuts (auto) Neutrophils % Lymphocytes % Monocytes % Eosinophils % Basophils % Nucleated RBC % PTT (Actin FS) VBG pH POC VBG pCO2 POC VBG pO2 VBG HCO3 VBG O2 Sat (Shivani) VBG Base Excess Sodium 142 Potassium 3.8 Chloride 106 Carbon Dioxide 29 Anion Gap 6 L BUN 6 L Creatinine 0.8 Est GFR (CKD-EPI)AfAm 126.81 Est GFR (CKD-EPI)NonAf 109.41 POC Glucometer 165 Random Glucose 186 H Calcium 7.9 L Phosphorus 2.8 Magnesium 1.9 Total Bilirubin 0.6 AST 472 H ALT 865 H Alkaline Phosphatase 88 Troponin I 0.24 H B-Natriuretic Peptide 477.0 H Total Protein 5.5 L Albumin 2.5 L Urine Color Urine Appearance Urine pH Ur Specific [place] Urine Protein Urine Glucose (UA) Urine Ketones Urine Blood Urine Nitrite Urine Bilirubin Urine Urobilinogen Ur Leukocyte Esterase Urine WBC (Auto) Urine RBC (Auto) Urine Casts (Auto) U Epithel Cells (Auto) Urine Bacteria (Auto) 10/03/18 07:00 WBC RBC Hgb Hct MCV MCH MCHC RDW Plt Count MPV Absolute Neuts (auto) Neutrophils % Lymphocytes % Monocytes % Eosinophils % Basophils % Nucleated RBC % PTT (Actin FS) VBG pH POC VBG pCO2 POC VBG pO2 VBG HCO3 VBG O2 Sat (Shivani) VBG Base Excess Sodium Potassium Chloride Carbon Dioxide Anion Gap BUN Creatinine Est GFR (CKD-EPI)AfAm Est GFR (CKD-EPI)NonAf POC Glucometer Random Glucose Calcium Phosphorus Magnesium Total Bilirubin AST ALT Alkaline Phosphatase Troponin I B-Natriuretic Peptide Total Protein Albumin Urine Color Yellow Urine Appearance Clear Urine pH 5.0 Ur Specific [place] 1.034 Urine Protein Negative Urine Glucose (UA) 3+ H Urine Ketones 3+ H Urine Blood 1+ H Urine Nitrite Negative Urine Bilirubin Negative Urine Urobilinogen 1.0 Ur Leukocyte Esterase Negative Urine WBC (Auto) 1 Urine RBC (Auto) 59 Urine Casts (Auto) 6 U Epithel Cells (Auto) 1.4 Urine Bacteria (Auto) 0.5 S1 S2 RRR intubated Lungs decreased Abd-soft, NT, BS+ No edema A/P s/p PEA arrest B/L PE Acute respiratory failure Acute kidney injury-- resolved elevated LFT --Continue present care vent support-- per icu team weaning off pressor as tolerated on heparin drip Hematology eval noted spoke with ICU team prognosis guarded Problem List - Problems (1) Diabetes Code(s): E11.9 - TYPE 2 DIABETES MELLITUS WITHOUT COMPLICATIONS (2) Hyperlipidemia Code(s): E78.5 - HYPERLIPIDEMIA, UNSPECIFIED (3) Hypertension Code(s): I10 - ESSENTIAL (PRIMARY) HYPERTENSION (4) Bilateral pulmonary embolism Code(s): I26.99 - OTHER PULMONARY EMBOLISM WITHOUT ACUTE COR PULMONALE (5) Elevated troponin Code(s): R74.8 - ABNORMAL LEVELS OF OTHER SERUM ENZYMES
--- NOTE | 2018-10-03 10:59 | PN ---
Teaching Attending Note Name of Resident: Ramon Elkins ATTENDING PHYSICIAN STATEMENT I saw and evaluated the patient. I reviewed the resident's note and discussed the case with the resident. I agree with the resident's findings and plan as documented. SUBJECTIVE: Pt seen and examined in the ICU. Remains intubated, sedated. Pressor requirements improving. Oxygen requirements also improving. Febrile overnight. OBJECTIVE: Vital Signs Period Temp Pulse Resp BP Sys/Liao Pulse Ox Last 24 Hr 98.5 F-102.5 F 87-117 13-15 96-144/62-97 100-100 Intake & Output 09/30/18 10/01/18 10/02/18 10/03/18 23:59 23:59 23:59 23:59 Intake Total 412 3273.0 1904.0 Output Total 4000 4300 500 Balance -3588 -1027.0 1404.0 Weight 103 kg 98.747 kg 101.922 kg Gen: intubated, sedated Heart: RRR Lung: decreased breath sounds at the bases Abd: soft, nontender Ext: + edema CBC, BMP 10/03/18 05:30 10/03/18 05:30 Active Medications Acetaminophen (Ofirmev Injection -) 1,000 mg IVPB Q6H PRN PRN Reason: PAIN OR FEVER Last Admin: 10/03/18 07:26 Dose: 1,000 mg Heparin Sodium (Porcine) (Heparin -) 1,000 unit IVPUSH PRN PRN PRN Reason: Heparin Last Admin: 10/02/18 07:22 Dose: 1,000 unit Heparin Sodium (Porcine) (Heparin -) 5,000 unit IVPUSH PRN PRN PRN Reason: Heparin Fentanyl 500 mcg/ Dextrose 100 mls @ 5 mls/hr IVPB TITR [facility] Last Admin: 10/03/18 00:21 Dose: 100 mcg/hr, 20 mls/hr Norepinephrine Bitartrate 8, (000 mcg/ Dextrose) 500 mls @ 18.75 mls/hr IV TITR [facility]; Protocol Last Admin: 10/02/18 21:39 Dose: 6 mcg/min, 22.5 mls/hr Heparin Sodium (Porcine) 25, (000 unit/ Sodium Chloride) 500 mls @ 20 mls/hr IV TITR [facility]; Protocol Last Admin: 10/02/18 18:14 Dose: 1,100 unit/hr, 22 mls/hr Propofol (Diprivan -) 1,000,000 mcg in 100 mls @ 3.09 mls/hr IVPB TITR [facility]; Protocol Last Admin: 10/03/18 00:25 Dose: 40 mcg/kg/min, 24.72 mls/hr Lactated Ringer's (Lactated Ringers Solution) 1,000 ml in 1,000 mls @ 75 mls/ hr IV ASDIR [facility] Last Admin: 10/02/18 13:52 Dose: 75 mls/hr Ceftriaxone Sodium 1 gm/ (Dextrose) 50 mls @ 100 mls/hr IVPB DAILY [facility]; Protocol Insulin Aspart (Novolog Vial Sliding Scale -) 1 vial SQ Q6HPO [facility]; Protocol Last Admin: 10/03/18 06:00 Dose: 3 units Insulin Detemir (Levemir Vial) 10 units SQ AM [facility] Last Admin: 10/03/18 06:00 Dose: 10 unit Pantoprazole Sodium (Protonix Iv) 40 mg IVPUSH DAILY [facility] ASSESSMENT AND PLAN: s/p Cardiopulmonary Arrest Acute Pulmonary Emboli s/p tPA Obstructive Shock improving r/o Pneumonia HTN DM - continue anticoagulation to therapeutic range - taper pressors to maintain MAP >65 - start empiric antibiotics - send sputum cultures - taper Fio2, PEEP to keep Spo2 >90% - lighten sedation in AM to assess mental status - spontaneous breathing trials as tolerated when mental status improved - enteral feeds - DVT/GI prophylaxis - continue ICU monitoring critical care time spent in reviewing chart, evaluating patient and formulating plan 35 min
[2018-10-03] MEDS: PANTOPRAZOLE SODIUM 40 MG VIAL IVPUSH SCH (11:16)
--- NOTE | 2018-10-03 11:23 | PN ---
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, Physician History of Present Illness: Seen and examined at bedside. Persistent fevers overnight Tmax 102.5F. Maxed out tylenol doses. Had ice packs but cooling blankets not available. Remains on levophed 5mcg. - Current Medication List Current Medications: Active Medications Acetaminophen (Ofirmev Injection -) 1,000 mg IVPB Q6H PRN PRN Reason: PAIN OR FEVER Last Admin: 10/03/18 07:26 Dose: 1,000 mg Heparin Sodium (Porcine) (Heparin -) 1,000 unit IVPUSH PRN PRN PRN Reason: Heparin Last Admin: 10/02/18 07:22 Dose: 1,000 unit Heparin Sodium (Porcine) (Heparin -) 5,000 unit IVPUSH PRN PRN PRN Reason: Heparin Fentanyl 500 mcg/ Dextrose 100 mls @ 5 mls/hr IVPB TITR [facility] Last Admin: 10/03/18 00:21 Dose: 100 mcg/hr, 20 mls/hr Norepinephrine Bitartrate 8, (000 mcg/ Dextrose) 500 mls @ 18.75 mls/hr IV TITR [facility]; Protocol Last Admin: 10/02/18 21:39 Dose: 6 mcg/min, 22.5 mls/hr Heparin Sodium (Porcine) 25, (000 unit/ Sodium Chloride) 500 mls @ 20 mls/hr IV TITR [facility]; Protocol Last Admin: 10/02/18 18:14 Dose: 1,100 unit/hr, 22 mls/hr Propofol (Diprivan -) 1,000,000 mcg in 100 mls @ 3.09 mls/hr IVPB TITR [facility]; Protocol Last Admin: 10/03/18 00:25 Dose: 40 mcg/kg/min, 24.72 mls/hr Lactated Ringer's (Lactated Ringers Solution) 1,000 ml in 1,000 mls @ 75 mls/ hr IV ASDIR [facility]ET Last Admin: 10/02/18 13:52 Dose: 75 mls/hr Ceftriaxone Sodium 1 gm/ (Dextrose) 50 mls @ 100 mls/hr IVPB DAILY [facility]; Protocol Insulin Aspart (Novolog Vial Sliding Scale -) 1 vial SQ Q6HPO [facility]; Protocol Last Admin: 10/03/18 06:00 Dose: 3 units Insulin Detemir (Levemir Vial) 10 units SQ AM [facility] Last Admin: 10/03/18 06:00 Dose: 10 unit Pantoprazole Sodium (Protonix Iv) 40 mg IVPUSH DAILY [facility] Last Admin: 10/03/18 11:16 Dose: 40 mg - Objective Vital Signs: Vital Signs Temperature 98.5 F 10/03/18 10:25 Pulse Rate 87 10/03/18 08:00 Respiratory Rate 14 10/03/18 10:43 Blood Pressure 120/70 10/03/18 08:00 O2 Sat by Pulse Oximetry (%) 100 10/02/18 20:00 Cardiovascular: Yes: Regular Rate and Rhythm, Murmur, S1, S2 Respiratory: Yes: Intubated, Mechanically Ventilated, Rhonchi Edema: No Labs: CBC, BMP 10/03/18 05:30 10/03/18 05:30 INR, PTT INR 1.40 (0.83-1.09) H 10/01/18 16:20 Impression/Plan Impression/Plan: 43 yo M h/o HTN, DM BIBEMS after collapsing on the street, found to have b/l PE now s/p tPA and cardiac arrest during tPA in IR. Neuro: isedated - not candidate for weaning today - hold off sedation holiday - cont sedation Pulm: intubated on mechanical ventilation, b/l PE s/p tPA - decrease PEEP from 10 to 5 and FiO2 down to 60% - will attempt weaning trial tomorrow ID: persistent fevers - likely from PE but will start ceftriaxone for possible aspiration PNA and send sputum culture CV: s/p cardiac arrest with ROSC - BNP trending down - PTT subtherapeutic, c/w protocol GI: shock liver - LFT trending down Renal: DILSHAD - resolved - cont. to monitor Cr Heme: b/l PE s/p tPA - cont. heparin gtt and trend PTT - may receive iv access, arterial punctures FEN - may d/c fluid when start feeding - replete lytes PRN - insert OG for feeding Prophylaxis - DVT: on heparin gtt - GI: protonix 40mg daily Ramon Elkins MD Visit type - Emergency Visit Emergency Visit: No - New Patient This patient is new to me today: No - Critical Care Critical Care patient: Yes Total Critical Care Time (in minutes): 35 Critical Care Statement: The care of this patient involved high complexity decision making to prevent further life threatening deterioration of the patient 's condition and/or to evaluate & treat vital organ system(s) failure or risk of failure. - Discharge Referral Referred to [facility] No
--- NOTE | 2018-10-03 11:38 | PN ---
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 (short form) - Note 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: s: remains on pressor, intubated/sedated Current Medications Generic Name Dose Route Start Last Admin Trade Name Freq PRN Reason Stop Dose Admin Acetaminophen 1,000 mg 10/02/18 15:45 10/03/18 07:26 Ofirmev Injection - IVPB 1,000 mg Q6H PRN Administration PAIN OR FEVER Heparin Sodium (Porcine) 1,000 unit 10/01/18 17:57 10/02/18 07:22 Heparin - IVPUSH 1,000 unit PRN PRN Administration Heparin Heparin Sodium (Porcine) 5,000 unit 10/01/18 17:57 Heparin - IVPUSH PRN PRN Heparin Fentanyl 500 mcg/ Dextrose 100 mls @ 5 mls/hr 10/01/18 08:30 10/03/18 00:21 IVPB 100 mcg/hr TITR [facility] 20 mls/hr Administration 25 MCG/HR Norepinephrine Bitartrate 8, 500 mls @ 18.75 mls/hr 10/01/18 12:00 10/02/18 21:39 000 mcg/ Dextrose IV 6 mcg/min TITR A[facility]ET 22.5 mls/hr Administration Protocol 5 MCG/MIN Heparin Sodium (Porcine) 25, 500 mls @ 20 mls/hr 10/01/18 18:00 10/02/18 18: 14 000 unit/ Sodium Chloride IV 1,100 unit/hr TITR [facility] 22 mls/hr Administration Protocol 1,000 UNIT/HR Propofol 1,000,000 mcg in 100 mls @ 3.09 mls/hr 10/01/18 20:45 10/03/18 00:25 Diprivan - IVPB 40 mcg/kg/min TITR AHMET 24.72 mls/hr Administration Protocol 5 MCG/KG/MIN Lactated Ringer's 1,000 ml in 1,000 mls @ 75 mls/hr 10/02/18 13:27 10/02/18 13:52 Lactated Ringers Solution IV 75 mls/hr ASDIR [facility] Administration Ceftriaxone Sodium 1 gm/ 50 mls @ 100 mls/hr 10/03/18 11:00 Dextrose IVPB DAILY [facility] Protocol Insulin Aspart 1 vial 10/02/18 13:00 10/03/18 06:00 Novolog Vial Sliding Scale - SQ 3 units Q6HPO [facility] Administration Protocol Insulin Detemir 10 units 10/03/18 07:00 10/03/18 06:00 Levemir Vial SQ 10 unit AM [facility] Administration Pantoprazole Sodium 40 mg 10/03/18 10:00 10/03/18 11:16 Protonix Iv IVPUSH 40 mg DAILY [facility] Administration o: Vital Signs Temp 98.5 F 10/03/18 10:25 Pulse 87 10/03/18 08:00 Resp 14 10/03/18 10:43 BP 120/70 10/03/18 08:00 Pulse Ox 100 10/02/18 20:00 Intake & Output 10/02/18 10/02/18 10/03/18 11:59 23:59 11:59 Intake Total 1423.0 1850 1904.0 Output Total 2800 1500 500 Balance -1377.0 350 1404.0 Weight 217 lb 11.2 oz 224 lb 11.2 oz Intake: IV 1323.0 1650 1804.0 DIPRIVAN - 1,000,000 mcg 81 271 273.6 In 100 ml @ 5 MCG/KG/MIN 3.09 mls/hr IVPB TITR [facility] Rx#:[id number] Heparin - 25,000 Unit In 175 Normal Saline - 495 ml @ 1,000 UNIT/HR 20 mls/hr IV TITR [facility] Rx#: [id number] Heparin - 25,000 Unit In 175.1 264 242.8 Normal Saline - 495 ml @ 1,000 UNIT/HR 20 mls/hr IV TITR [facility] Rx#: [id number] LACTATED RINGERS SOLUTION 375 824.7 1,000 ml In 1,000 ml @ 75 mls/hr IV ASDIR [facility] Rx #:[id number] Levophed - 8,000 Mcg In 621 472 242 D5w - 492 ml @ 5 MCG/MIN 18.75 mls/hr IV TITR [facility] Rx#:[id number] Pitressin - 50 Units In 67.9 28 Normal Saline - 97.5 ml @ 2 UNITS/HR 4 mls/hr IVPB ASDIR [facility] Rx#: [id number] Sublimaze Injection - 500 197 240 220.9 Mcg In D5w - 90 ml @ 25 MCG/HR 5 mls/hr IVPB TITR [facility] Rx#:[id number] Versed - 100 mg In Normal 6 Saline - 100 ml @ 1 MG/ HR 1 mls/hr IVPB TITR [facility] Rx#:[id number] IVPB 100 200 100 Output: Urine 2800 1500 500 Sidhu 2800 1500 500 Other: Voiding Method Indwelling Catheter Indwelling Catheter Indwelling Catheter Bowel Movement No No No Weight Measurement Method Built in Bedscale sedated, intubated, nad no jvd rrr s1s2 no mrg cta bl anteriorly, vented abd nd pos bs no jaundice diaphoresis pos dp pt trace le edema bl Laboratory Last Values WBC 10.4 K/mm3 (4.0-10.0) H 10/03/18 05:30 RBC 3.16 M/mm3 (4.00-5.60) L 10/03/18 05:30 Hgb 10.1 GM/dL (11.7-16.9) L 10/03/18 05:30 Hct 30.1 % (35.4-49) L D 10/03/18 05:30 MCV 95.2 fl (80-96) 10/03/18 05:30 MCH 32.0 pg (25.7-33.7) 10/03/18 05:30 MCHC 33.6 g/dl (32.0-35.9) 10/03/18 05:30 RDW 13.0 % (11.9-15.9) 10/03/18 05:30 Plt Count 136 K/MM3 (134-434) D 10/03/18 05:30 MPV 8.7 fl (7.5-11.1) 10/03/18 05:30 Absolute Neuts (auto) 7.4 K/mm3 (1.5-8.0) 10/02/18 05:30 Neutrophils % 58.5 % (42.8-82.8) D 10/02/18 05:30 Neutrophils % (Manual) 25.8 % (42.8-82.8) L 10/01/18 06:40 Band Neutrophils % 0.0 % 10/01/18 06:40 Lymphocytes % 31.2 % (8-40) D 10/02/18 05:30 Lymphocytes % (Manual) 55.7 % (8-40) H 10/01/18 06:40 Monocytes % 10.0 % (3.8-10.2) D 10/02/18 05:30 Monocytes % (Manual) 4 % (3.8-10.2) 10/01/18 06:40 Eosinophils % 0.1 % (0-4.5) D 10/02/18 05:30 Eosinophils % (Manual) 0.0 % (0-4.5) 10/01/18 06:40 Basophils % 0.2 % (0-2.0) 10/02/18 05:30 Basophils % (Manual) 0.0 % (0-2.0) 10/01/18 06:40 Myelocytes % (Man) 0 % (0-2) 10/01/18 06:40 Promyelocytes % (Man) 0 % (0-2) 10/01/18 06:40 Blast Cells % (Manual) 0 % (0-0) 10/01/18 06:40 Nucleated RBC % 0 % (0-0) 10/02/18 05:30 Metamyelocytes 0 % (0-2) 10/01/18 06:40 Hypochromia 0 10/01/18 06:40 Platelet Estimate Normal 10/01/18 06:40 Polychromasia 0 10/01/18 06:40 Poikilocytosis 0 10/01/18 06:40 Anisocytosis 1+ 10/01/18 06:40 Microcytosis 0 10/01/18 06:40 Macrocytosis 1+ 10/01/18 06:40 PT with INR 16.60 SEC (9.7-13.0) H 10/01/18 16:20 INR 1.40 (0.83-1.09) H 10/01/18 16:20 PTT (Actin FS) 50.7 SECONDS (25.2-36.5) H 10/03/18 05:30 Anticoagulation Therapy No Result Required. 10/01/18 10:30 Puncture Site Right radial 10/01/18 10:30 ABG pH 7.03 (7.35-7.45) L* 10/01/18 10:30 ABG pCO2 at Pt Temp 63.5 mmHg (35-45) H 10/01/18 10:30 ABG pO2 at Pt Temp 87.7 mmHg (80-105) 10/01/18 10:30 ABG HCO3 16.1 mmol/L (22-27) L 10/01/18 10:30 ABG O2 Sat (Measured) 89.5 % (95-98) L 10/01/18 10:30 ABG O2 Content 15.4 % vol (15-22) 10/01/18 10:30 ABG Base Excess -15.2 meq/l (-2-2) L 10/01/18 10:30 Grady Test Positive 10/01/18 10:30 VBG pH 7.23 (7.31-7.41) L 10/02/18 12:08 POC VBG pCO2 63.3 mmHg (41-51) H 10/02/18 12:08 POC VBG pO2 39.3 mmHg (30-40) 10/02/18 12:08 VBG HCO3 25.3 mmol/L (23-29) 10/02/18 12:08 VBG O2 Sat (Shivani) 62.6 % (70-80) L 10/02/18 12:08 VBG Base Excess -3.0 meq/l (-2-2) L 10/02/18 12:08 Carboxyhemoglobin 0 % (0-2) 10/01/18 10:30 Methemoglobin 0.2 % (0-2) 10/01/18 10:30 O2 Delivery Device Espirit 10/01/18 10:30 Oxygen Flow Rate 100% 10/01/18 10:30 Vent Mode A/c 10/01/18 10:30 Vent Rate 14 10/01/18 10:30 Mechanical Rate Yes 10/01/18 10:30 PEEP 5.0 cmH2O 10/01/18 10:30 Pressure Support Vent 500 10/01/18 10:30 Sodium 142 mmol/L (136-145) 10/03/18 05:30 Potassium 3.8 mmol/L (3.5-5.1) 10/03/18 05:30 Chloride 106 mmol/L (98-107) 10/03/18 05:30 Carbon Dioxide 29 mmol/L (21-32) 10/03/18 05:30 Anion Gap 6 MMOL/L (8-16) L 10/03/18 05:30 BUN 6 mg/dL (7-18) L 10/03/18 05:30 Creatinine 0.8 mg/dL (0.55-1.3) 10/03/18 05:30 Est GFR (CKD-EPI)AfAm 126.81 10/03/18 05:30 Est GFR (CKD-EPI)NonAf 109.41 10/03/18 05:30 POC Glucometer 165 UNITS (80-120) 10/03/18 05:51 Random Glucose 186 mg/dL (74-106) H 10/03/18 05:30 Lactic Acid 1.8 mmol/L (0.4-2.0) 10/02/18 05:30 Calcium 7.9 mg/dL (8.5-10.1) L 10/03/18 05:30 Phosphorus 2.8 mg/dL (2.5-4.9) 10/03/18 05:30 Magnesium 1.9 mg/dL (1.8-2.4) 10/03/18 05:30 Total Bilirubin 0.6 mg/dL (0.2-1) 10/03/18 05:30 AST 472 U/L (15-37) H 10/03/18 05:30 ALT 865 U/L (13-61) H 10/03/18 05:30 Alkaline Phosphatase 88 U/L (45-117) 10/03/18 05:30 Creatine Kinase 98 U/L (26-308) 10/01/18 06:40 CK-MB (CK-2) < 1.0 ng/mL (0.5-3.6) 10/01/18 06:40 Troponin I 0.24 ng/ml (0.00-0.05) H 10/03/18 05:30 B-Natriuretic Peptide 477.0 pg/ml (5-125) H 10/03/18 05:30 Total Protein 5.5 g/dl (6.4-8.2) L 10/03/18 05:30 Albumin 2.5 g/dl (3.4-5.0) L 10/03/18 05:30 Urine Color Yellow 10/03/18 07:00 Urine Appearance Clear 10/03/18 07:00 Urine pH 5.0 (5.0-8.0) 10/03/18 07:00 Ur Specific [place] 1.034 (1.010-1.035) 10/03/18 07:00 Urine Protein Negative (NEGATIVE) 10/03/18 07:00 Urine Glucose (UA) 3+ (NEGATIVE) H 10/03/18 07:00 Urine Ketones 3+ (NEGATIVE) H 10/03/18 07:00 Urine Blood 1+ (NEGATIVE) H 10/03/18 07:00 Urine Nitrite Negative (NEGATIVE) 10/03/18 07:00 Urine Bilirubin Negative (NEGATIVE) 10/03/18 07:00 Urine Urobilinogen 1.0 mg/dL (0.2-1.0) 10/03/18 07:00 Ur Leukocyte Esterase Negative (NEGATIVE) 10/03/18 07:00 Urine WBC (Auto) 1 /hpf (0-5) 10/03/18 07:00 Urine RBC (Auto) 59 /hpf (0-4) 10/03/18 07:00 Urine Casts (Auto) 6 /lpf (0-8) 10/03/18 07:00 U Epithel Cells (Auto) 1.4 /HPF (0-5/HPF) 10/03/18 07:00 Urine Bacteria (Auto) 0.5 /hpf (NEGATIVE) 10/03/18 07:00 Ur Random Creatinine 22.0 mg/dL (30-150) L 10/01/18 13:30 Ur Random Sodium 53 MMOL/L (40-220) 10/01/18 13:30 Stool Occult Blood Negative (NEGATIVE) 10/01/18 06:55 Blood Type O POSITIVE 10/01/18 12:45 Antibody Screen Negative 10/01/18 06:35 ecg reviewed cxr: congestive changes tele: sr echo 09/2018: tds; nl lvef, rv tds, grossly nl rv fcn, no sig valve path est cct 35 mins Assessment/Plan 43yo M with PMH of HTN, DM p/w unresponsiveness. Found to have bilateral PE, s/ p PEA arrest 1. Bilateral PE, s/p PEA arrest: - arrest likely in setting of extensive bilateral PE - now s/p tPA, manage anticoagulation per ICU team - bp stable but remains on pressor, titrate down as bp tolerates - echo was tds but no gross abnormalities - no significant chf on exam 2. Afib: - reportedly per EMS and ER records, EKG not available - likely in setting of PE, AC as above for PE - now in sinus 3. Elevated trop: - mild trop elevation, likely demand in setting of PE/cardiac arrest, no signs acs. trops trending down - EKG no ischemic changes - echo with nl lvef 4. HTN: - not on meds, currently on pressors
[2018-10-03] MEDS ORDERED: PT OWN MED DRAWER 7, Y5N ONE (12:50)
[2018-10-03] MEDS: CEFTRIAXONE 1 GM in DEXTROSE 5%-WATER - 50 ML IVPB SCH (13:00)
[2018-10-03] MEDS ORDERED: cefTRIAXone SODIUM 1 GM VIAL ONE (13:34)
[2018-10-03] MEDS ORDERED: DEXTROSE 5%-WATER - 50 ML IVPB ONE (13:34)
[2018-10-03] MEDS: LACTATED RINGERS SOLUTION 1,000 ML/1,000 ML INFUS.BAG IV SCH (15:00)
[2018-10-03] MEDS: NOREPINEPHRINE BITARTRATE 8,000 MCG in DEXTROSE 5%-WATER - 492 ML IV SCH (15:35)
--- NOTE | 2018-10-03 18:13 | PN ---
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 (short form) - Note 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: covering dr champion syncope samuel pe pea arrest during ir proc markus Current Medications Acetaminophen (Ofirmev Injection -) 1,000 mg IVPB Q6H PRN PRN Reason: PAIN OR FEVER Last Admin: 10/03/18 07:26 Dose: 1,000 mg Heparin Sodium (Porcine) (Heparin -) 1,000 unit IVPUSH PRN PRN PRN Reason: Heparin Last Admin: 10/02/18 07:22 Dose: 1,000 unit Heparin Sodium (Porcine) (Heparin -) 5,000 unit IVPUSH PRN PRN PRN Reason: Heparin Fentanyl 500 mcg/ Dextrose 100 mls @ 5 mls/hr IVPB TITR [facility] Last Admin: 10/03/18 13:26 Dose: Not Given Norepinephrine Bitartrate 8, (000 mcg/ Dextrose) 500 mls @ 18.75 mls/hr IV TITR [facility]; Protocol Last Admin: 10/03/18 15:35 Dose: Not Given Heparin Sodium (Porcine) 25, (000 unit/ Sodium Chloride) 500 mls @ 20 mls/hr IV TITR [facility]; Protocol Last Admin: 10/02/18 18:14 Dose: 1,100 unit/hr, 22 mls/hr Propofol (Diprivan -) 1,000,000 mcg in 100 mls @ 3.09 mls/hr IVPB TITR [facility]; Protocol Last Admin: 10/03/18 13:14 Dose: 40 mcg/kg/min, 24.72 mls/hr Lactated Ringer's (Lactated Ringers Solution) 1,000 ml in 1,000 mls @ 75 mls/ hr IV ASDIR AHMET Last Admin: 10/02/18 13:52 Dose: 75 mls/hr Ceftriaxone Sodium 1 gm/ (Dextrose) 50 mls @ 100 mls/hr IVPB DAILY [facility]; Protocol Last Admin: 10/03/18 13:00 Dose: 100 mls/hr Insulin Aspart (Novolog Vial Sliding Scale -) 1 vial SQ Q6HPO [facility]; Protocol Last Admin: 10/03/18 17:57 Dose: Not Given Insulin Detemir (Levemir Vial) 10 units SQ AM [facility] Last Admin: 10/03/18 06:00 Dose: 10 unit Pantoprazole Sodium (Protonix Iv) 40 mg IVPUSH DAILY [facility] Last Admin: 10/03/18 11:16 Dose: 40 mg Last Vital Signs Temp Pulse Resp BP Pulse Ox 100.1 F H 92 H 14 110/64 100 10/03/18 15:00 10/03/18 17:00 10/03/18 17:54 10/03/18 17:00 10/02/18 20:00 sedated, on vent BPs are off pressors oxygenating well tube feeding in progress Lungs clear vented Heart reg Abd soft Ext trace edema LE's CBC, BMP 10/03/18 05:30 10/03/18 05:30 IMP- s/p cardiovascular collapse markus acute resp failure on vent, improving Plan- monitor I and O follow renal function in am
[2018-10-03] MEDS: HEPARIN - 25,000 UNIT in SODIUM CHLORIDE 495 ML IV SCH (18:55)
[2018-10-04] MEDS ORDERED: fentaNYL CITRATE 250 MCG/5 ML VIAL ONE ×5 (01:13→20:27)
[2018-10-04] MEDS ORDERED: ACETAMINOPHEN 1000 MG/100 ML VIAL (NON FORMULARY) IVPB ONE ×3 (01:15→21:39)
[2018-10-04] MEDS: FENTANYL INJECTION 500 MCG in DEXTROSE 5%-WATER - 90 ML IVPB SCH ×3 (01:20→07:29)
[2018-10-04] MEDS ORDERED: MIDAZOLAM HCL 2 MG/2 ML SINGLE DOSE VIAL IVPUSH ONE ×3 (03:41→23:23)
[2018-10-04] MEDS: INSULIN SLIDING SCALE (NOVOLOG) 1 VIAL SQ SCH ×3 (06:41→17:59)
[2018-10-04] MEDS: INSULIN (LEVEMIR) 100 UNITS/ML UNITS SQ SCH (06:42)
[2018-10-04] MEDS: PROPOFOL 1,000,000 MCG/100 ML VIAL IVPB SCH ×2 (06:45→23:30)
[2018-10-04 06:48] LABS: BASO % 0.4 % (0-2.0); EOS % 0.6 % (0-4.5); HEMOGLOBIN 10.4 GM/dL (11.7-16.9); LYMPH % 30.1 % (8-40); MCH 31.8 pg (25.7-33.7); MCHC 33.5 g/dl (32.0-35.9); MEAN CELL VOLUME 95.1 fl (80-96); MEAN PLT VOLUME 8.7 fl (7.5-11.1); MONO % 8.5 % (3.8-10.2); NEUT % 60.4 % (42.8-82.8); PLATELET COUNT 147 K/MM3 (134-434); RBC 3.26 M/mm3 (4.00-5.60); RDW 12.8 % (11.9-15.9); WHITE BLOOD COUNT 13.5 K/mm3 (4.0-10.0)
[2018-10-04 07:22] LABS: ALBUMIN 2.4 g/dl (3.4-5.0); BILIRUBIN,TOTAL 0.7 mg/dL (0.2-1); CALCIUM 7.7 mg/dL (8.5-10.1); CREATININE 0.6 mg/dL (0.55-1.3); MAGNESIUM 1.9 mg/dL (1.8-2.4); PHOSPHOROUS 3.5 mg/dL (2.5-4.9); POTASSIUM 3.9 mmol/L (3.5-5.1); TOT PROT 5.8 g/dl (6.4-8.2)
[2018-10-04] MEDS ORDERED: cefTRIAXone SODIUM 1 GM VIAL ONE (08:10)
[2018-10-04] MEDS ORDERED: DEXTROSE 5%-WATER - 50 ML IVPB ONE ×4 (08:10→20:48)
--- NOTE | 2018-10-04 08:15 | PN ---
Physical Exam: SUBJECTIVE: Patient seen and examined at beside. Intubated and sedated. Had fevers up to 103 last night. Started on ceftriaxone. OBJECTIVE: Vital Signs Period Temp Pulse Resp BP Sys/Liao Pulse Ox Last 24 Hr 97 F-102.3 F 85-101 14-25 102-138/59-82 100 GENERAL: The patient is sedated and intubated EYES: PERRL, sclera anicteric, conjunctiva clear LUNGS: Breath sounds equal, clear to auscultation bilaterally, no wheezes, no crackles HEART: Regular rate and rhythm, S1, S2 without murmur, rub or gallop. ABDOMEN: Soft, nontender, nondistended, normoactive bowel sounds, no guarding, no rebound, no hepatosplenomegaly, no masses. EXTREMITIES: 2+ pulses, warm, well-perfused, no edema. NEUROLOGICAL: Sedated. SKIN: Warm, dry, normal turgor, no rashes or lesions noted. R IJV Cordis Laboratory Results - last 24 hr 10/03/18 10/03/18 10/03/18 07:00 13:17 17:53 WBC RBC Hgb Hct MCV MCH MCHC RDW Plt Count MPV Absolute Neuts (auto) Neutrophils % Lymphocytes % Monocytes % Eosinophils % Basophils % Nucleated RBC % PTT (Actin FS) Sodium Potassium Chloride Carbon Dioxide Anion Gap BUN Creatinine Est GFR (CKD-EPI)AfAm Est GFR (CKD-EPI)NonAf POC Glucometer 130 148 Random Glucose Calcium Phosphorus Magnesium Total Bilirubin AST ALT Alkaline Phosphatase Total Protein Albumin Urine Color Yellow Urine Appearance Clear Urine pH 5.0 Ur Specific Slayden 1.034 Urine Protein Negative Urine Glucose (UA) 3+ H Urine Ketones 3+ H Urine Blood 1+ H Urine Nitrite Negative Urine Bilirubin Negative Urine Urobilinogen 1.0 Ur Leukocyte Esterase Negative Urine WBC (Auto) 1 Urine RBC (Auto) 59 Urine Casts (Auto) 6 U Epithel Cells (Auto) 1.4 Urine Bacteria (Auto) 0.5 10/03/18 10/04/18 10/04/18 21:23 05:30 05:30 WBC 13.5 H RBC 3.26 L Hgb 10.4 L Hct 31.0 L MCV 95.1 MCH 31.8 MCHC 33.5 RDW 12.8 Plt Count 147 MPV 8.7 Absolute Neuts (auto) 8.1 H Neutrophils % 60.4 Lymphocytes % 30.1 Monocytes % 8.5 Eosinophils % 0.6 D Basophils % 0.4 Nucleated RBC % 0 PTT (Actin FS) 49.0 H Sodium Potassium Chloride Carbon Dioxide Anion Gap BUN Creatinine Est GFR (CKD-EPI)AfAm Est GFR (CKD-EPI)NonAf POC Glucometer 122 Random Glucose Calcium Phosphorus Magnesium Total Bilirubin AST ALT Alkaline Phosphatase Total Protein Albumin Urine Color Urine Appearance Urine pH Ur Specific Slayden Urine Protein Urine Glucose (UA) Urine Ketones Urine Blood Urine Nitrite Urine Bilirubin Urine Urobilinogen Ur Leukocyte Esterase Urine WBC (Auto) Urine RBC (Auto) Urine Casts (Auto) U Epithel Cells (Auto) Urine Bacteria (Auto) 10/04/18 10/04/18 05:30 06:15 WBC RBC Hgb Hct MCV MCH MCHC RDW Plt Count MPV Absolute Neuts (auto) Neutrophils % Lymphocytes % Monocytes % Eosinophils % Basophils % Nucleated RBC % PTT (Actin FS) Sodium 141 Potassium 3.9 Chloride 105 Carbon Dioxide 29 Anion Gap 7 L BUN 8 Creatinine 0.6 Est GFR (CKD-EPI)AfAm 142.72 Est GFR (CKD-EPI)NonAf 123.14 POC Glucometer 147 Random Glucose 159 H Calcium 7.7 L Phosphorus 3.5 Magnesium 1.9 Total Bilirubin 0.7 AST 207 H ALT 660 H Alkaline Phosphatase 118 H Total Protein 5.8 L Albumin 2.4 L Urine Color Urine Appearance Urine pH Ur Specific Slayden Urine Protein Urine Glucose (UA) Urine Ketones Urine Blood Urine Nitrite Urine Bilirubin Urine Urobilinogen Ur Leukocyte Esterase Urine WBC (Auto) Urine RBC (Auto) Urine Casts (Auto) U Epithel Cells (Auto) Urine Bacteria (Auto) Active Medications Generic Name Dose Route Start Last Admin Trade Name Freq PRN Reason Stop Dose Admin Heparin Sodium (Porcine) 1,000 unit 10/01/18 17:57 10/02/18 07:22 Heparin - IVPUSH 1,000 unit PRN PRN Administration Heparin Heparin Sodium (Porcine) 5,000 unit 10/01/18 17:57 Heparin - IVPUSH PRN PRN Heparin Fentanyl 500 mcg/ Dextrose 100 mls @ 5 mls/hr 10/01/18 08:30 10/04/18 07:16 IVPB 150 mcg/hr TITR AHMET 30 mls/hr Administration 25 MCG/HR Heparin Sodium (Porcine) 25, 500 mls @ 20 mls/hr 10/01/18 18:00 10/04/18 07: 09 000 unit/ Sodium Chloride IV 1,200 unit/hr TITR AHMET 24 mls/hr Titration Protocol 1,000 UNIT/HR Propofol 1,000,000 mcg in 100 mls @ 3.09 mls/hr 10/01/18 20:45 10/04/18 06:45 Diprivan - IVPB 60 mcg/kg/min TITR AHMET 37.08 mls/hr Administration Protocol 5 MCG/KG/MIN Ceftriaxone Sodium 1 gm/ 50 mls @ 100 mls/hr 10/03/18 11:00 10/03/18 13:00 Dextrose IVPB 100 mls/hr DAILY AHMET Administration Protocol Insulin Aspart 1 vial 10/02/18 13:00 10/04/18 06:41 Novolog Vial Sliding Scale - SQ Not Given Q6HPO AHMET Protocol Insulin Detemir 10 units 10/03/18 07:00 10/04/18 06:42 Levemir Vial SQ 10 unit AM AHMET Administration Pantoprazole Sodium 40 mg 10/03/18 10:00 10/03/18 11:16 Protonix Iv IVPUSH 40 mg DAILY AHMET Administration ASSESSMENT/PLAN: NEURO -Intubated and sedated -Wean off sedation as tolerated -Agitated after weaning trial, continuing propofol gtt -Will monitor mental status ENDO -History of DM -SS insulin -BGMs -Will trend CARDIO/VASC -ROSC s/p cardiac arrest with rhythm strip showing narrow complex PEA -Off of pressors -Heparin gtt -Trop trending down -BNP trending down -Will trend PTT PULM -Bilateral PE extending to upper and lower lobes bilaterally -s/p tPA -Vent settings: 14/500/40/5 -SpO2 >90% -CXR: pulmonary congestion -Agitated after weaning trial, back on vent GI -Shock liver -LFTs trending down -Enteral feeds RENAL -Kidney function improving -Will trend -Maintenance fluids HEME -S/p tPA. Now on heparin gtt -Will trend PTT ID -Febrile overnight -CXR does not show consolidations, could be 2/2 aspiration -ID consulted: Vanc and Zosyn -Sputum cultures pending -Blood cultures ngtd -R femoral line removed FEN -Enteral feeds PROPHY -Protonix -Heparin drip -SCD Dispo Will continue to monitor in ICU Visit type - Emergency Visit Emergency Visit: Yes ED Registration Date: 10/01/18 Care time: The patient presented to the Emergency Department on the above date and was hospitalized for further evaluation of their emergent condition. - New Patient This patient is new to me today: No - Critical Care Critical Care patient: Yes Total Critical Care Time (in minutes): 40 Critical Care Statement: The care of this patient involved high complexity decision making to prevent further life threatening deterioration of the patient 's condition and/or to evaluate & treat vital organ system(s) failure or risk of failure.
[2018-10-04] MEDS: PANTOPRAZOLE SODIUM 40 MG VIAL IVPUSH SCH (09:27)
[2018-10-04] MEDS: CEFTRIAXONE 1 GM in DEXTROSE 5%-WATER - 50 ML IVPB SCH (09:27)
--- NOTE | 2018-10-04 09:55 | PN ---
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 (short form) - Note 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: intubated sedated on vent off pressor support has been having fevers Vital Signs - 24 hr 10/03/18 10/03/18 10/03/18 15:38 16:00 17:00 Temperature Pulse Rate 88 92 H Respiratory 14 15 16 Rate Blood Pressure 109/65 110/64 O2 Sat by Pulse Oximetry (%) 10/03/18 10/03/18 10/03/18 17:54 18:00 19:00 Temperature 100 F H 100.9 F H Pulse Rate 93 H 91 H Respiratory 14 14 14 Rate Blood Pressure 106/60 104/59 L O2 Sat by Pulse Oximetry (%) 10/03/18 10/03/18 10/03/18 19:37 20:00 20:03 Temperature 101.4 F H Pulse Rate 93 H Respiratory 14 14 15 Rate Blood Pressure 126/74 O2 Sat by Pulse Oximetry (%) 10/03/18 10/03/18 10/04/18 22:00 22:26 00:00 Temperature 102 F H 102.3 F H Pulse Rate 91 H 92 H Respiratory 14 14 14 Rate Blood Pressure 116/69 118/71 O2 Sat by Pulse Oximetry (%) 10/04/18 10/04/18 10/04/18 00:47 02:00 03:26 Temperature 101.7 F H Pulse Rate 90 94 H Respiratory 14 14 17 Rate Blood Pressure 115/66 O2 Sat by Pulse 100 Oximetry (%) 10/04/18 10/04/18 10/04/18 04:00 06:00 06:30 Temperature 100 F H 97 F L Pulse Rate 93 H 95 H Respiratory 16 25 H 24 H Rate Blood Pressure 111/69 102/73 O2 Sat by Pulse Oximetry (%) 10/04/18 10/04/18 10/04/18 08:00 08:57 09:00 Temperature Pulse Rate 85 Respiratory 25 H 14 14 Rate Blood Pressure 100/69 O2 Sat by Pulse Oximetry (%) 10/04/18 10/04/18 10/04/18 10:00 10:50 12:00 Temperature 98.2 F Pulse Rate 82 82 Respiratory 25 H 20 25 H Rate Blood Pressure 94/66 100/61 O2 Sat by Pulse Oximetry (%) 10/04/18 10/04/18 12:52 13:32 Temperature 98.8 F Pulse Rate 84 Respiratory 14 25 H Rate Blood Pressure O2 Sat by Pulse Oximetry (%) Current Medications Generic Name Dose Route Start Last Admin Trade Name Freq PRN Reason Stop Dose Admin Heparin Sodium (Porcine) 1,000 unit 10/01/18 17:57 10/02/18 07:22 Heparin - IVPUSH 1,000 unit PRN PRN Administration Heparin Heparin Sodium (Porcine) 5,000 unit 10/01/18 17:57 Heparin - IVPUSH PRN PRN Heparin Fentanyl 500 mcg/ Dextrose 100 mls @ 5 mls/hr 10/01/18 08:30 10/04/18 12:40 IVPB 150 mcg/hr TITR AHMET 30 mls/hr Titration 25 MCG/HR Heparin Sodium (Porcine) 25, 500 mls @ 20 mls/hr 10/01/18 18:00 10/04/18 14: 11 000 unit/ Sodium Chloride IV 1,300 unit/hr TITR AHMET 26 mls/hr Titration Protocol 1,000 UNIT/HR Propofol 1,000,000 mcg in 100 mls @ 3.09 mls/hr 10/01/18 20:45 10/04/18 12:40 Diprivan - IVPB 60 mcg/kg/min TITR AHMET 37.08 mls/hr Titration Protocol 5 MCG/KG/MIN Piperacillin Sod/Tazobactam 50 mls @ 100 mls/hr 10/04/18 11:30 10/04/18 13:05 Sod 3.375 gm/ Dextrose IVPB 100 mls/hr Q8H-IV AHMET Administration Protocol Insulin Aspart 1 vial 10/02/18 13:00 10/04/18 13:06 Novolog Vial Sliding Scale - SQ 3 units Q6HPO AHMET Administration Protocol Insulin Detemir 10 units 10/03/18 07:00 10/04/18 06:42 Levemir Vial SQ 10 unit AM AHMET Administration Pantoprazole Sodium 40 mg 10/03/18 10:00 10/04/18 09:27 Protonix Iv IVPUSH 40 mg DAILY AHMET Administration Laboratory Results - last 24 hr 10/03/18 10/03/18 10/04/18 17:53 21:23 05:30 WBC RBC Hgb Hct MCV MCH MCHC RDW Plt Count MPV Absolute Neuts (auto) Neutrophils % Lymphocytes % Monocytes % Eosinophils % Basophils % Nucleated RBC % PTT (Actin FS) 49.0 H Puncture Site ABG pH ABG pCO2 at Pt Temp ABG pO2 at Pt Temp ABG HCO3 ABG O2 Sat (Measured) ABG O2 Content ABG Base Excess Grady Test Oxygen Flow Rate PEEP Sodium Potassium Chloride Carbon Dioxide Anion Gap BUN Creatinine Est GFR (CKD-EPI)AfAm Est GFR (CKD-EPI)NonAf POC Glucometer 148 122 Random Glucose Calcium Phosphorus Magnesium Total Bilirubin AST ALT Alkaline Phosphatase Total Protein Albumin 10/04/18 10/04/18 10/04/18 05:30 05:30 06:15 WBC 13.5 H RBC 3.26 L Hgb 10.4 L Hct 31.0 L MCV 95.1 MCH 31.8 MCHC 33.5 RDW 12.8 Plt Count 147 MPV 8.7 Absolute Neuts (auto) 8.1 H Neutrophils % 60.4 Lymphocytes % 30.1 Monocytes % 8.5 Eosinophils % 0.6 D Basophils % 0.4 Nucleated RBC % 0 PTT (Actin FS) Puncture Site ABG pH ABG pCO2 at Pt Temp ABG pO2 at Pt Temp ABG HCO3 ABG O2 Sat (Measured) ABG O2 Content ABG Base Excess Grady Test Oxygen Flow Rate PEEP Sodium 141 Potassium 3.9 Chloride 105 Carbon Dioxide 29 Anion Gap 7 L BUN 8 Creatinine 0.6 Est GFR (CKD-EPI)AfAm 142.72 Est GFR (CKD-EPI)NonAf 123.14 POC Glucometer 147 Random Glucose 159 H Calcium 7.7 L Phosphorus 3.5 Magnesium 1.9 Total Bilirubin 0.7 AST 207 H ALT 660 H Alkaline Phosphatase 118 H Total Protein 5.8 L Albumin 2.4 L 10/04/18 10/04/18 10/04/18 12:05 12:24 12:53 WBC RBC Hgb Hct MCV MCH MCHC RDW Plt Count MPV Absolute Neuts (auto) Neutrophils % Lymphocytes % Monocytes % Eosinophils % Basophils % Nucleated RBC % PTT (Actin FS) 43.4 H Puncture Site Right radial ABG pH 7.36 ABG pCO2 at Pt Temp 44.1 ABG pO2 at Pt Temp 63.3 L ABG HCO3 24.1 ABG O2 Sat (Measured) 90.3 L ABG O2 Content 11.4 L ABG Base Excess -0.8 Grady Test Positive Oxygen Flow Rate 40 PEEP 5.0 Sodium Potassium Chloride Carbon Dioxide Anion Gap BUN Creatinine Est GFR (CKD-EPI)AfAm Est GFR (CKD-EPI)NonAf POC Glucometer 168 Random Glucose Calcium Phosphorus Magnesium Total Bilirubin AST ALT Alkaline Phosphatase Total Protein Albumin Microbiology 10/01/18 06:40 Blood Culture - Preliminary Blood - Peripheral Venous NO GROWTH OBTAINED AFTER 72 HOURS, INCUBATION TO CONTINUE FOR 2 DAYS. 10/01/18 06:40 Blood Culture - Preliminary Blood - Peripheral Venous NO GROWTH OBTAINED AFTER 72 HOURS, INCUBATION TO CONTINUE FOR 2 DAYS. S1 S2 RRR intubated Lungs decreased Abd-soft, NT, BS+ edema++ A/P s/p PEA arrest B/L PE Acute respiratory failure Acute kidney injury-- resolved elevated LFT--?shock liver --Continue present care vent support-- per icu team off pressors blood cultures negative on heparin drip Hematology eval noted spoke with ICU team prognosis guarded Problem List - Problems (1) Diabetes Code(s): E11.9 - TYPE 2 DIABETES MELLITUS WITHOUT COMPLICATIONS (2) Hyperlipidemia Code(s): E78.5 - HYPERLIPIDEMIA, UNSPECIFIED (3) Hypertension Code(s): I10 - ESSENTIAL (PRIMARY) HYPERTENSION (4) Bilateral pulmonary embolism Code(s): I26.99 - OTHER PULMONARY EMBOLISM WITHOUT ACUTE COR PULMONALE (5) Elevated troponin Code(s): R74.8 - ABNORMAL LEVELS OF OTHER SERUM ENZYMES
--- NOTE | 2018-10-04 10:52 | PN ---
Teaching Attending Note Name of Resident: Radha Ferguson ATTENDING PHYSICIAN STATEMENT I saw and evaluated the patient. I reviewed the resident's note and discussed the case with the resident. I agree with the resident's findings and plan as documented. SUBJECTIVE: Pt seen and examined in the ICU. Remains intubated, sedated. Febrile overnight but fever curve trending down. Off pressors. OBJECTIVE: Vital Signs Period Temp Pulse Resp BP Sys/Liao Pulse Ox Last 24 Hr 97 F-102.3 F 85-95 14-25 100-126/59-74 100 Intake & Output 10/01/18 10/02/18 10/03/18 10/04/18 23:59 23:59 23:59 23:59 Intake Total 412 3273.0 3424.0 1124 Output Total 4000 4300 1150 500 Balance -3588 -1027.0 2274.0 624 Weight 103 kg 98.747 kg 101.605 kg 101.8 kg Gen: intubated, sedated Heart: RRR Lung: decreased breath sounds at the bases Abd: soft, nontender Ext: trace edema CBC, BMP 10/04/18 05:30 10/04/18 05:30 Active Medications Heparin Sodium (Porcine) (Heparin -) 1,000 unit IVPUSH PRN PRN PRN Reason: Heparin Last Admin: 10/02/18 07:22 Dose: 1,000 unit Heparin Sodium (Porcine) (Heparin -) 5,000 unit IVPUSH PRN PRN PRN Reason: Heparin Fentanyl 500 mcg/ Dextrose 100 mls @ 5 mls/hr IVPB TITR AHMET Last Titration: 10/04/18 10:11 Dose: 0 mcg/hr, 0 mls/hr Heparin Sodium (Porcine) 25, (000 unit/ Sodium Chloride) 500 mls @ 20 mls/hr IV TITR AHMET; Protocol Last Titration: 10/04/18 07:09 Dose: 1,200 unit/hr, 24 mls/hr Propofol (Diprivan -) 1,000,000 mcg in 100 mls @ 3.09 mls/hr IVPB TITR AHMET; Protocol Last Titration: 10/04/18 10:12 Dose: 0 mcg/kg/min, 0 mls/hr Ceftriaxone Sodium 1 gm/ (Dextrose) 50 mls @ 100 mls/hr IVPB DAILY AHMET; Protocol Last Admin: 10/04/18 09:27 Dose: 100 mls/hr Insulin Aspart (Novolog Vial Sliding Scale -) 1 vial SQ Q6HPO [facility]; Protocol Last Admin: 10/04/18 06:41 Dose: Not Given Insulin Detemir (Levemir Vial) 10 units SQ AM [facility] Last Admin: 10/04/18 06:42 Dose: 10 unit Pantoprazole Sodium (Protonix Iv) 40 mg IVPUSH DAILY [facility] Last Admin: 10/04/18 09:27 Dose: 40 mg ASSESSMENT AND PLAN: s/p Cardiopulmonary Arrest Acute Pulmonary Emboli s/p tPA Obstructive Shock improving +Troponins likely Demand Ischemia Lactic Acidosis resolved r/o Pneumonia HTN DM - continue anticoagulation to therapeutic range - off pressors, maintain MAP >65 - continue empiric antibiotics - f/u sputum cultures - taper Fio2, PEEP to keep Spo2 >90% - lighten sedation to assess mental status - spontaneous breathing trials as tolerated when mental status improved - enteral feeds - DVT/GI prophylaxis - continue ICU monitoring critical care time spent in reviewing chart, evaluating patient and formulating plan 35 min
[2018-10-04] MEDS ORDERED: VANCOMYCIN 1 GRAM (PRE-DOCKED) 1,000 MG/250 ML BAG IVPB ONE (11:27)
--- NOTE | 2018-10-04 11:29 | PN ---
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 (short form) - Note 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: ID CONSULT DICTATED 43 Y/O MALE ADMITTED WITH SYNCOPE FOUND TO HAVE B/L PE HOSPITAL COURSE COMPLICATED BY CARDIAC ARREST NOW WITH PERSISTANT FEVER ? HCAP ? ASP ELEVATED LFTS ? SHOCK LIVER BILIARY TRACT DZ RECULTURE EMPIRIC ZOSYN + STAT DOSE VANCOMYCIN LIVER / GB SONOGRAM
--- NOTE | 2018-10-04 12:05 | CONS ---
DATE OF CONSULTATION: DATE OF DICTATION: 10/04/2018 The patient is a 42-year-old male who is evaluated for fever. History was obtained from the chart, as he is presently intubated in the intensive care unit. He presented to the hospital on October 01, 2018, after a syncopal episode. According to the notes, EMS found him in atrial fibrillation with hypotension. Imaging study upon arrival showed bilateral pulmonary emboli. He was started on IV heparin. The patient was transported to the Interventional Radiology Department for thrombolysis; however, suffered a cardiopulmonary arrest. His course has now been complicated by persistent fever. Patient has been tapered off pressors and is on sedation. No reports of recent febrile illness. PAST MEDICAL HISTORY: Positive for hypertension and diabetes. No known allergies. MEDICATIONS: Ceftriaxone, Amidate, fentanyl, heparin, Fioricet, Protonix. SOCIAL HISTORY: He lives in the community. Nonsmoker, nondrinker. His HIV status and substance use history not known. LABORATORY DATA: White count 13.5, hematocrit 31.0, platelet count 147. BUN 8, creatinine 0.6. Blood and urine cultures negative. Total bilirubin 0.7, alkaline phosphatase 118, AST 207, ALT 660. Urinalysis with 1 white cell. CHEST X-RAY: Negative for acute infiltrate. PHYSICAL EXAMINATION: General: He is on the ventilator and not responsive. Vital Signs: Temperature 98.2, temperature maximum 102.3, blood pressure 94/66, pulse 112 and regular, respirations 25/min. HEENT: Patient is orally intubated. Heart Sounds: Tachycardic, S1, S2. Lungs: Mechanically ventilated. Abdomen: Soft, nontender. Extremities: Negative for edema. IMPRESSION: A 43-year-old male admitted with syncope, found to have bilateral pulmonary emboli. Course complicated by cardiopulmonary arrest, now with persistent fever. 1. Rule out aspiration versus healthcare-acquired pneumonia. 2. Status post cardiopulmonary arrest. 3. Bilateral pulmonary emboli. 4. Elevated liver enzymes, possible shocked liver versus biliary tract disease. Source of fever not clear. Will repeat blood cultures, empiric antibiotic coverage of nosocomial pathogens of the respiratory tract and possible biliary tract pathogens with Zosyn plus STAT dose of vancomycin, obtain liver/gallbladder sonogram, continue ventilatory support. Thank you for the kind referral. MIKE NAVARRO M.D. [id number]
[2018-10-04 12:09] LABS: ARTERIAL BLD GAS O2 SATURATION 90.3 % (95-98); ARTERIAL BLOOD GAS BASE EXCESS -0.8 meq/l (-2-2); ARTERIAL BLOOD GAS PCO2 44.1 mmHg (35-45); ARTERIAL BLOOD GAS PO2 63.3 mmHg (80-105); ARTERIAL BLOOD GAS pH 7.36 (7.35-7.45)
[2018-10-04 12:12] LABS: ALLENS TEST POSITIVE
--- NOTE | 2018-10-04 12:16 | PN ---
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 (short form) - Note 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: s: off pressors now, remains intubated Current Medications Generic Name Dose Route Start Last Admin Trade Name Freq PRN Reason Stop Dose Admin Heparin Sodium (Porcine) 1,000 unit 10/01/18 17:57 10/02/18 07:22 Heparin - IVPUSH 1,000 unit PRN PRN Administration Heparin Heparin Sodium (Porcine) 5,000 unit 10/01/18 17:57 Heparin - IVPUSH PRN PRN Heparin Fentanyl 500 mcg/ Dextrose 100 mls @ 5 mls/hr 10/01/18 08:30 10/04/18 10:11 IVPB 0 mcg/hr TITR AHMET 0 mls/hr Titration 25 MCG/HR Heparin Sodium (Porcine) 25, 500 mls @ 20 mls/hr 10/01/18 18:00 10/04/18 07: 09 000 unit/ Sodium Chloride IV 1,200 unit/hr TITR AHMET 24 mls/hr Titration Protocol 1,000 UNIT/HR Propofol 1,000,000 mcg in 100 mls @ 3.09 mls/hr 10/01/18 20:45 10/04/18 10:12 Diprivan - IVPB 0 mcg/kg/min TITR AHMET 0 mls/hr Titration Protocol 5 MCG/KG/MIN Piperacillin Sod/Tazobactam 50 mls @ 100 mls/hr 10/04/18 11:30 Sod 3.375 gm/ Dextrose IVPB Q8H-IV AHMET Protocol Vancomycin HCl 1,000 mg in 250 mls @ 166.667 mls/hr 10/04/18 11:27 Vancomycin (Pre-Docked) IVPB 10/04/18 12:56 ONCE ONE Protocol Insulin Aspart 1 vial 10/02/18 13:00 10/04/18 06:41 Novolog Vial Sliding Scale - SQ Not Given Q6HPO AHMET Protocol Insulin Detemir 10 units 10/03/18 07:00 10/04/18 06:42 Levemir Vial SQ 10 unit AM AHMET Administration Pantoprazole Sodium 40 mg 10/03/18 10:00 10/04/18 09:27 Protonix Iv IVPUSH 40 mg DAILY AHMET Administration o: Vital Signs Period Temp Pulse Resp BP Sys/Liao Pulse Ox Last 24 Hr 97 F-102.3 F 82-95 14-25 94-126/59-74 100 intubated, nad no jvd rrr s1s2 no mrg cta bl anteriorly, vented abd nd pos bs no jaundice diaphoresis pos dp pt trace le edema bl CBC, BMP 10/04/18 05:30 10/04/18 05:30 ecg reviewed cxr: congestive changes tele: sr echo 09/2018: tds; nl lvef, rv tds, grossly nl rv fcn, no sig valve path Assessment/Plan 43yo M with PMH of HTN, DM p/w unresponsiveness. Found to have bilateral PE, s/ p PEA arrest 1. Bilateral PE, s/p PEA arrest: - arrest likely in setting of extensive bilateral PE - now s/p tPA, manage anticoagulation per ICU team - bp improved, off pressors now - echo was tds but no gross abnormalities - no significant chf on exam 2. Afib: - reportedly per EMS and ER records, EKG not available - likely in setting of PE, AC as above for PE - now in sinus 3. Elevated trop: - mild trop elevation, likely demand in setting of PE/cardiac arrest, no signs acs. trops trending down - EKG no ischemic changes - echo with nl lvef 4. HTN: - off pressors now, monitor bp
[2018-10-04] MEDS ORDERED: PIPERACILLIN/TAZOBACTAM 3.375 GM VIAL IVPB ONE ×3 (13:04→20:48)
[2018-10-04] MEDS: PIPERACILLIN/TAZOB 3.375 GM 3.375 GM in DEXTROSE 5%-WATER - 50 ML IVPB SCH ×2 (13:05→17:17)
--- NOTE | 2018-10-04 14:17 | PN ---
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 (short form) - Note 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: Patient seen in follow up. No significant events overnight. Off pressors >24 hours. 'Sedation vacation' - moving but not responsive and no purposeful activity Inpatient Meds reviewed. Current Medications Heparin Sodium (Porcine) (Heparin -) 1,000 unit IVPUSH PRN PRN PRN Reason: Heparin Last Admin: 10/02/18 07:22 Dose: 1,000 unit Heparin Sodium (Porcine) (Heparin -) 5,000 unit IVPUSH PRN PRN PRN Reason: Heparin Fentanyl 500 mcg/ Dextrose 100 mls @ 5 mls/hr IVPB TITR AHMET Last Titration: 10/04/18 12:40 Dose: 150 mcg/hr, 30 mls/hr Heparin Sodium (Porcine) 25, (000 unit/ Sodium Chloride) 500 mls @ 20 mls/hr IV TITR AHMET; Protocol Last Titration: 10/04/18 14:11 Dose: 1,300 unit/hr, 26 mls/hr Propofol (Diprivan -) 1,000,000 mcg in 100 mls @ 3.09 mls/hr IVPB TITR AHMET; Protocol Last Titration: 10/04/18 12:40 Dose: 60 mcg/kg/min, 37.08 mls/hr Piperacillin Sod/Tazobactam (Sod 3.375 gm/ Dextrose) 50 mls @ 100 mls/hr IVPB Q8H-IV AHMET; Protocol Last Admin: 10/04/18 13:05 Dose: 100 mls/hr Insulin Aspart (Novolog Vial Sliding Scale -) 1 vial SQ Q6HPO AHMET; Protocol Last Admin: 10/04/18 13:06 Dose: 3 units Insulin Detemir (Levemir Vial) 10 units SQ AM AHMET Last Admin: 10/04/18 06:42 Dose: 10 unit Pantoprazole Sodium (Protonix Iv) 40 mg IVPUSH DAILY AHMET Last Admin: 10/04/18 09:27 Dose: 40 mg On Examination: Last Vital Signs Temp Pulse Resp BP Pulse Ox 98.8 F 84 25 H 100/61 100 10/04/18 13:32 10/04/18 13:32 10/04/18 13:32 10/04/18 12:00 10/04/18 00:47 General: Intubated, ventillated. Labs: CBC, BMP 10/04/18 05:30 10/04/18 05:30 Assessment. Catastrophic thromboembolic event, bilateral PE, complicated by PEA, with likely anoxic brain injury. Ongoing anticoagulation. Mental status monitoring. Note that with recent TPA and ongoing heparin gtt patient remain sat high risk of hemorrhage - low threshold for repeating CT brain to rule out IC hemorrhage if warranted.
--- NOTE | 2018-10-04 15:03 | PN ---
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 (short form) - Note 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: covering dr champion syncope samuel pe pea arrest during ir proc markus Current Medications Heparin Sodium (Porcine) (Heparin -) 1,000 unit IVPUSH PRN PRN PRN Reason: Heparin Last Admin: 10/02/18 07:22 Dose: 1,000 unit Heparin Sodium (Porcine) (Heparin -) 5,000 unit IVPUSH PRN PRN PRN Reason: Heparin Fentanyl 500 mcg/ Dextrose 100 mls @ 5 mls/hr IVPB TITR AHMET Last Titration: 10/04/18 12:40 Dose: 150 mcg/hr, 30 mls/hr Heparin Sodium (Porcine) 25, (000 unit/ Sodium Chloride) 500 mls @ 20 mls/hr IV TITR [facility]ET; Protocol Last Titration: 10/04/18 14:11 Dose: 1,300 unit/hr, 26 mls/hr Propofol (Diprivan -) 1,000,000 mcg in 100 mls @ 3.09 mls/hr IVPB TITR [facility]; Protocol Last Titration: 10/04/18 12:40 Dose: 60 mcg/kg/min, 37.08 mls/hr Piperacillin Sod/Tazobactam (Sod 3.375 gm/ Dextrose) 50 mls @ 100 mls/hr IVPB Q8H-IV [facility]; Protocol Last Admin: 10/04/18 13:05 Dose: 100 mls/hr Insulin Aspart (Novolog Vial Sliding Scale -) 1 vial SQ Q6HPO [facility]; Protocol Last Admin: 10/04/18 13:06 Dose: 3 units Insulin Detemir (Levemir Vial) 10 units SQ AM [facility] Last Admin: 10/04/18 06:42 Dose: 10 unit Pantoprazole Sodium (Protonix Iv) 40 mg IVPUSH DAILY [facility] Last Admin: 10/04/18 09:27 Dose: 40 mg Last Vital Signs Temp Pulse Resp BP Pulse Ox 98.8 F 84 25 H 100/61 100 10/04/18 13:32 10/04/18 13:32 10/04/18 13:32 10/04/18 12:00 10/04/18 00:47 sedated, on vent BPs are off pressors oxygenating well tube feeding in progress Lungs clear vented Heart reg Abd soft Ext trace edema LE's CBC, BMP 10/04/18 05:30 10/04/18 05:30 CBC, BMP 10/03/18 05:30 10/03/18 05:30 IMP- resp failure , mechanical ventilation sedated s/p markus , renal function normal Plan- monitor I and O follow renal function while on vent
[2018-10-04] MEDS: HEPARIN - 25,000 UNIT in SODIUM CHLORIDE 495 ML IV SCH (17:59)
[2018-10-04] MEDS ORDERED: PROPOFOL 2,000,000 MCG/200 ML VIAL ONE (20:48)
[2018-10-04] MEDS ORDERED: MIDAZOLAM HCL 2 MG/2 ML SINGLE DOSE VIAL ONE (23:24)
[2018-10-04] MEDS: HEPARIN NA (PORCINE) 5,000 UNITS/ML 1ML VIAL IVPUSH PRN (23:30)
[2018-10-05] MEDS: INSULIN SLIDING SCALE (NOVOLOG) 1 VIAL SQ SCH ×4 (00:06→20:13)
[2018-10-05] MEDS: PIPERACILLIN/TAZOB 3.375 GM 3.375 GM in DEXTROSE 5%-WATER - 50 ML IVPB SCH ×3 (03:06→19:00)
[2018-10-05] MEDS ORDERED: fentaNYL CITRATE 250 MCG/5 ML VIAL ONE ×3 (03:39→21:41)
[2018-10-05] MEDS: INSULIN (LEVEMIR) 100 UNITS/ML UNITS SQ SCH (06:27)
[2018-10-05 06:32] LABS: BASO % 0.7 % (0-2.0); EOS % 2.4 % (0-4.5); HEMATOCRIT 26.9 % (35.4-49); HEMOGLOBIN 9.5 GM/dL (11.7-16.9); LYMPH % 20.6 % (8-40); MCH 33.3 pg (25.7-33.7); MCHC 35.1 g/dl (32.0-35.9); MEAN CELL VOLUME 94.8 fl (80-96); MEAN PLT VOLUME 9.5 fl (7.5-11.1); MONO % 10.4 % (3.8-10.2); NEUT % 65.9 % (42.8-82.8); PLATELET COUNT 153 K/MM3 (134-434); RBC 2.84 M/mm3 (4.00-5.60); RDW 13.2 % (11.9-15.9)
[2018-10-05 07:08] LABS: ALBUMIN 2.1 g/dl (3.4-5.0); BILIRUBIN,TOTAL 0.8 mg/dL (0.2-1); CALCIUM 7.6 mg/dL (8.5-10.1); CREATININE 0.7 mg/dL (0.55-1.3); MAGNESIUM 1.9 mg/dL (1.8-2.4); PHOSPHOROUS 2.7 mg/dL (2.5-4.9); POTASSIUM 3.5 mmol/L (3.5-5.1); TOT PROT 5.3 g/dl (6.4-8.2)
--- NOTE | 2018-10-05 08:28 | PN ---
Physical Exam: SUBJECTIVE: Patient seen and examined at bedside. Febrile overnight. Pt off sedation, moves spontaneously without purposeful movements, eyes open however no eye movements. Does not localize or withdraw from pain. Breathing spontaneously. OBJECTIVE: Vital Signs Period Temp Pulse Resp BP Sys/Liao Pulse Ox Last 24 Hr 98.0 F-100.3 F 74-94 14-114 91-120/60-85 96 GENERAL: The patient is sedated, off sedation pt is not responsive HEAD: Normal with no signs of trauma. EYES: PERRL, sclera anicteric, conjunctiva clear. LUNGS: Rhonchi in both [place]. Able to breathe spontaneously HEART: Regular rate and rhythm, S1, S2 without murmur, rub or gallop. ABDOMEN: Soft, nontender, nondistended, normoactive bowel sounds, no guarding, no rebound, no hepatosplenomegaly, no masses. EXTREMITIES: 2+ pulses, warm, well-perfused, no edema. NEUROLOGICAL: Off sedation, pt moves spontaneously, non purposeful, does not withdraw to pain, DTR 2+, downward plantar reflexes SKIN: Warm, dry, normal turgor, no rashes or lesions noted Laboratory Results - last 24 hr 10/04/18 10/04/18 10/04/18 12:05 12:24 12:53 WBC RBC Hgb Hct MCV MCH MCHC RDW Plt Count MPV Absolute Neuts (auto) Neutrophils % Lymphocytes % Monocytes % Eosinophils % Basophils % Nucleated RBC % PTT (Actin FS) 43.4 H Puncture Site Right radial ABG pH 7.36 ABG pCO2 at Pt Temp 44.1 ABG pO2 at Pt Temp 63.3 L ABG HCO3 24.1 ABG O2 Sat (Measured) 90.3 L ABG O2 Content 11.4 L ABG Base Excess -0.8 Grady Test Positive Oxygen Flow Rate 40 PEEP 5.0 Sodium Potassium Chloride Carbon Dioxide Anion Gap BUN Creatinine Est GFR (CKD-EPI)AfAm Est GFR (CKD-EPI)NonAf POC Glucometer 168 Random Glucose Lactic Acid Calcium Phosphorus Magnesium Total Bilirubin AST ALT Alkaline Phosphatase Total Protein Albumin 10/04/18 10/04/18 10/05/18 17:58 21:45 00:05 WBC RBC Hgb Hct MCV MCH MCHC RDW Plt Count MPV Absolute Neuts (auto) Neutrophils % Lymphocytes % Monocytes % Eosinophils % Basophils % Nucleated RBC % PTT (Actin FS) 47.2 H Puncture Site ABG pH ABG pCO2 at Pt Temp ABG pO2 at Pt Temp ABG HCO3 ABG O2 Sat (Measured) ABG O2 Content ABG Base Excess Grady Test Oxygen Flow Rate PEEP Sodium Potassium Chloride Carbon Dioxide Anion Gap BUN Creatinine Est GFR (CKD-EPI)AfAm Est GFR (CKD-EPI)NonAf POC Glucometer 165 114 Random Glucose Lactic Acid Calcium Phosphorus Magnesium Total Bilirubin AST ALT Alkaline Phosphatase Total Protein Albumin 10/05/18 10/05/18 10/05/18 05:30 05:30 05:30 WBC 11.0 H RBC 2.84 L Hgb 9.5 L Hct 26.9 L MCV 94.8 MCH 33.3 MCHC 35.1 RDW 13.2 Plt Count 153 MPV 9.5 Absolute Neuts (auto) 7.2 Neutrophils % 65.9 Lymphocytes % 20.6 D Monocytes % 10.4 H Eosinophils % 2.4 D Basophils % 0.7 Nucleated RBC % 0 PTT (Actin FS) 49.3 H Puncture Site ABG pH ABG pCO2 at Pt Temp ABG pO2 at Pt Temp ABG HCO3 ABG O2 Sat (Measured) ABG O2 Content ABG Base Excess Grady Test Oxygen Flow Rate PEEP Sodium 139 Potassium 3.5 Chloride 101 Carbon Dioxide 31 Anion Gap 7 L BUN 9 Creatinine 0.7 Est GFR (CKD-EPI)AfAm 133.96 Est GFR (CKD-EPI)NonAf 115.58 POC Glucometer Random Glucose 124 H Lactic Acid Calcium 7.6 L Phosphorus 2.7 Magnesium 1.9 Total Bilirubin 0.8 AST 80 H ALT 409 H Alkaline Phosphatase 123 H Total Protein 5.3 L Albumin 2.1 L 10/05/18 10/05/18 05:30 06:24 WBC RBC Hgb Hct MCV MCH MCHC RDW Plt Count MPV Absolute Neuts (auto) Neutrophils % Lymphocytes % Monocytes % Eosinophils % Basophils % Nucleated RBC % PTT (Actin FS) Puncture Site ABG pH ABG pCO2 at Pt Temp ABG pO2 at Pt Temp ABG HCO3 ABG O2 Sat (Measured) ABG O2 Content ABG Base Excess Grady Test Oxygen Flow Rate PEEP Sodium Potassium Chloride Carbon Dioxide Anion Gap BUN Creatinine Est GFR (CKD-EPI)AfAm Est GFR (CKD-EPI)NonAf POC Glucometer 118 Random Glucose Lactic Acid 1.2 Calcium Phosphorus Magnesium Total Bilirubin AST ALT Alkaline Phosphatase Total Protein Albumin Active Medications Generic Name Dose Route Start Last Admin Trade Name Freq PRN Reason Stop Dose Admin Heparin Sodium (Porcine) 1,000 unit 10/01/18 17:57 10/04/18 23:30 Heparin - IVPUSH 1,000 unit PRN PRN Administration Heparin Heparin Sodium (Porcine) 5,000 unit 10/01/18 17:57 Heparin - IVPUSH PRN PRN Heparin Fentanyl 500 mcg/ Dextrose 100 mls @ 5 mls/hr 10/01/18 08:30 10/04/18 12:40 IVPB 150 mcg/hr TITR AHMET 30 mls/hr Titration 25 MCG/HR Heparin Sodium (Porcine) 25, 500 mls @ 20 mls/hr 10/01/18 18:00 10/05/18 07: 25 000 unit/ Sodium Chloride IV 1,500 unit/hr TITR A[facility] 30 mls/hr Titration Protocol 1,000 UNIT/HR Propofol 1,000,000 mcg in 100 mls @ 3.09 mls/hr 10/01/18 20:45 10/05/18 04:21 Diprivan - IVPB 70 mcg/kg/min TITR A[facility] 43.26 mls/hr Titration Protocol 5 MCG/KG/MIN Piperacillin Sod/Tazobactam 50 mls @ 100 mls/hr 10/04/18 11:30 10/05/18 03:06 Sod 3.375 gm/ Dextrose IVPB 100 mls/hr Q8H-IV [facility] Administration Protocol Insulin Aspart 1 vial 10/02/18 13:00 10/05/18 06:27 Novolog Vial Sliding Scale - SQ Not Given Q6HPO [facility] Protocol Insulin Detemir 10 units 10/03/18 07:00 10/05/18 06:27 Levemir Vial SQ 10 unit AM [facility] Administration Pantoprazole Sodium 40 mg 10/03/18 10:00 10/04/18 09:27 Protonix Iv IVPUSH 40 mg DAILY [facility] Administration ASSESSMENT/PLAN: NEURO -Intubated and sedated -Pt has is not alert when off sedation -Wean off sedation as tolerated -Propofol gtt -Will monitor mental status -CT head pending ENDO -History of DM -SS insulin -BGMs -Will trend CARDIO/VASC -ROSC s/p cardiac arrest with rhythm strip showing narrow complex PEA -Off of pressors -Heparin gtt -PTT subtherapuetic. Heparin protocol -Trop trending down -BNP trending down -Will trend PTT PULM -Bilateral PE extending to upper and lower lobes bilaterally -s/p tPA -Vent settings: 14/500/40/5 -SpO2 >90% -Spontaneously breathing, on vent due to sedation -Wean as tolerated -Sputum cultures positive for MRSA -Vanc and Zosyn GI -Shock liver -LFTs trending down -Enteral feeds -Pending Abdominal US RENAL -Kidney function improving -Will trend -Maintenance fluids HEME -S/p tPA. Now on heparin gtt -Subtherapeutic. Heparin protocol. -Will trend PTT ID -Febrile overnight -CXR does not show consolidations, could be 2/2 aspiration -ID consulted: Vanc and Zosyn -Sputum cultures grow MRSA -Blood cultures ngtd -R femoral line removed FEN -Enteral feeds PROPHY -Protonix -Heparin drip -SCD Dispo Will continue to monitor in ICU Visit type - Emergency Visit Emergency Visit: Yes ED Registration Date: 10/01/18 Care time: The patient presented to the Emergency Department on the above date and was hospitalized for further evaluation of their emergent condition. - New Patient This patient is new to me today: No - Critical Care Critical Care patient: Yes Total Critical Care Time (in minutes): 40 Critical Care Statement: The care of this patient involved high complexity decision making to prevent further life threatening deterioration of the patient 's condition and/or to evaluate & treat vital organ system(s) failure or risk of failure.
--- NOTE | 2018-10-05 09:48 | PN ---
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, Physician Chief Complaint: unresponsive History of Present Illness: trail off sedation this am with no responsiveness, per d/w RN intubated - Current Medication List Current Medications: Active Medications Heparin Sodium (Porcine) (Heparin -) 1,000 unit IVPUSH PRN PRN PRN Reason: Heparin Last Admin: 10/04/18 23:30 Dose: 1,000 unit Heparin Sodium (Porcine) (Heparin -) 5,000 unit IVPUSH PRN PRN PRN Reason: Heparin Fentanyl 500 mcg/ Dextrose 100 mls @ 5 mls/hr IVPB TITR [facility] Last Titration: 10/05/18 08:32 Dose: 0 mcg/hr, 0 mls/hr Heparin Sodium (Porcine) 25, (000 unit/ Sodium Chloride) 500 mls @ 20 mls/hr IV TITR [facility]; Protocol Last Titration: 10/05/18 07:25 Dose: 1,500 unit/hr, 30 mls/hr Propofol (Diprivan -) 1,000,000 mcg in 100 mls @ 3.09 mls/hr IVPB TITR [facility]; Protocol Last Titration: 10/05/18 08:32 Dose: 0 mcg/kg/min, 0 mls/hr Piperacillin Sod/Tazobactam (Sod 3.375 gm/ Dextrose) 50 mls @ 100 mls/hr IVPB Q8H-IV [facility]; Protocol Last Admin: 10/05/18 03:06 Dose: 100 mls/hr Insulin Aspart (Novolog Vial Sliding Scale -) 1 vial SQ Q6HPO [facility]; Protocol Last Admin: 10/05/18 06:27 Dose: Not Given Insulin Detemir (Levemir Vial) 10 units SQ AM [facility] Last Admin: 10/05/18 06:27 Dose: 10 unit Pantoprazole Sodium (Protonix Iv) 40 mg IVPUSH DAILY [facility] Last Admin: 10/04/18 09:27 Dose: 40 mg - Objective Vital Signs: Vital Signs Temperature 98.8 F 10/05/18 08:00 Pulse Rate 83 10/05/18 08:38 Respiratory Rate 20 10/05/18 08:38 Blood Pressure 105/73 10/05/18 08:00 O2 Sat by Pulse Oximetry (%) 95 10/05/18 08:38 Constitutional: Yes: Well Nourished, No Distress, Calm Cardiovascular: Yes: Regular Rate and Rhythm, S1, S2. No: Gallop, Murmur Respiratory: Yes: Regular, CTA Bilaterally (anteriorly). No: Accessory Muscle Use Extremities: No: Cold Edema: No Neurological: No: Alert, Oriented Psychiatric: No: Agitated Labs: CBC, BMP 10/05/18 05:30 10/05/18 05:30 INR, PTT INR 1.40 (0.83-1.09) H 10/01/18 16:20 Assessment/Plan cxr: congestive changes echo 09/2018: tds; nl lvef, rv tds, grossly nl rv fcn, no sig valve path Assessment/Plan 43yo M with PMH of HTN, DM p/w unresponsiveness. Found to have bilateral PE, s/ p PEA arrest Bilateral PE, s/p PEA arrest: - arrest likely in setting of extensive bilateral PE - now s/p tPA, manage anticoagulation per ICU team - bp improved, off pressors now - echo was tds but no gross abnormalities - no significant chf on exam - hypercoagulable w/u per heme consultants Afib: - reportedly per EMS and ER records, EKG not available - in setting of PE, this is considered a reversible etiology of Afib. - AC to be continued per PE indication (not required for AF indication here) - now in sinus Type II [place] (NSTEMI): - peak trop 1.3, sec to PE/RV strain, vs hypoperfusion from PEA arrest. - EKG no ischemic changes - echo with nl lvef - ischemia w/u not indicated at present HTN: - off pressors now, bp stable - continue to monitor bp
[2018-10-05 09:52] LABS: ANISOCYTOSIS 0; MACROCYTOSIS 0; PLATELET ESTIMATE NORMAL
[2018-10-05] MEDS ORDERED: PIPERACILLIN/TAZOBACTAM 3.375 GM VIAL IVPB ONE ×3 (09:52→21:42)
[2018-10-05] MEDS ORDERED: DEXTROSE 5%-WATER - 50 ML IVPB ONE ×3 (09:53→21:42)
[2018-10-05] MEDS: PANTOPRAZOLE SODIUM 40 MG VIAL IVPUSH SCH (10:18)
--- NOTE | 2018-10-05 12:01 | PN ---
Teaching Attending Note Name of Resident: Radha Ferguson ATTENDING PHYSICIAN STATEMENT I saw and evaluated the patient. I reviewed the resident's note and discussed the case with the resident. I agree with the resident's findings and plan as documented. SUBJECTIVE: Pt seen and examined in the ICU. Remains intubated. Sedation stopped, eyes open , coughs, moves extremities but not following commands. Febrile this AM. OBJECTIVE: Vital Signs Period Temp Pulse Resp BP Sys/Liao Pulse Ox Last 24 Hr 98.0 F-101.9 F 74-116 14-114 91-138/60-85 95-96 Intake & Output 10/02/18 10/03/18 10/04/18 10/05/18 23:59 23:59 23:59 23:59 Intake Total 3273.0 3424.0 2503.4 1307.7 Output Total 4300 1150 850 400 Balance -1027.0 2274.0 1653.4 907.7 Weight 98.747 kg 101.605 kg 101.8 kg 105.778 kg Gen: intubated, poorly responsive Heart: RRR Lung: scattered rhonchi Abd: soft, nontender Ext: trace edema CBC, BMP 10/05/18 05:30 10/05/18 05:30 Active Medications Heparin Sodium (Porcine) (Heparin -) 1,000 unit IVPUSH PRN PRN PRN Reason: Heparin Last Admin: 10/04/18 23:30 Dose: 1,000 unit Heparin Sodium (Porcine) (Heparin -) 5,000 unit IVPUSH PRN PRN PRN Reason: Heparin Fentanyl 500 mcg/ Dextrose 100 mls @ 5 mls/hr IVPB TITR AHM[facility] Last Titration: 10/05/18 11:23 Dose: 100 mcg/hr, 20 mls/hr Heparin Sodium (Porcine) 25, (000 unit/ Sodium Chloride) 500 mls @ 20 mls/hr IV TITR [facility]; Protocol Last Titration: 10/05/18 07:25 Dose: 1,500 unit/hr, 30 mls/hr Propofol (Diprivan -) 1,000,000 mcg in 100 mls @ 3.09 mls/hr IVPB TITR [facility]; Protocol Last Titration: 10/05/18 11:23 Dose: 50 mcg/kg/min, 30.9 mls/hr Piperacillin Sod/Tazobactam (Sod 3.375 gm/ Dextrose) 50 mls @ 100 mls/hr IVPB Q8H-IV [facility]; Protocol Last Admin: 10/05/18 10:18 Dose: 100 mls/hr Insulin Aspart (Novolog Vial Sliding Scale -) 1 vial SQ Q6HPO [facility]; Protocol Last Admin: 10/05/18 06:27 Dose: Not Given Insulin Detemir (Levemir Vial) 10 units SQ AM [facility] Last Admin: 10/05/18 06:27 Dose: 10 unit Pantoprazole Sodium (Protonix Iv) 40 mg IVPUSH DAILY [facility] Last Admin: 10/05/18 10:18 Dose: 40 mg ASSESSMENT AND PLAN: s/p Cardiopulmonary Arrest Acute Pulmonary Emboli s/p tPA Obstructive Shock improving +Troponins likely Demand Ischemia Lactic Acidosis resolved r/o Pneumonia HTN DM - check CT head - continue anticoagulation to therapeutic range - off pressors, maintain MAP >65, d/c introducer - continue empiric antibiotics - f/u sputum cultures - taper Fio2, PEEP to keep Spo2 >90% - minimize sedation to assess mental status - spontaneous breathing trials as tolerated when mental status improved - enteral feeds - DVT/GI prophylaxis - continue ICU monitoring critical care time spent in reviewing chart, evaluating patient and formulating plan 35 min
--- NOTE | 2018-10-05 12:48 | PN ---
Physical Exam: SUBJECTIVE: Patient seen and examined patient resting in bed, intubated sedated, has not been responsive during sedation vacation. s/p IR catheter tpa on hep gtt. afebrile. OBJECTIVE: Vital Signs Period Temp Pulse Resp BP Sys/Liao Pulse Ox Last 24 Hr 98.0 F-101.9 F 74-116 14-114 91-138/60-85 95-96 GENERAL: intubated sedated HEAD: Normal with no signs of trauma. EYES: pinpoint pupil ENT: moist mucous membranes. NECK: supple R ij tpa catheter in place no bleeding at site LUNGS: b/l ronchi HEART: Regular rate and rhythm, S1, S2 ABDOMEN: Soft, nondistended, globally decreased bowel sounds EXTREMITIES: no edema. NEUROLOGICAL: sedated PSYCH:sedated SKIN: Warm, dry Laboratory Results - last 24 hr 10/04/18 10/04/18 10/04/18 12:53 17:58 21:45 WBC RBC Hgb Hct MCV MCH MCHC RDW Plt Count MPV Absolute Neuts (auto) Neutrophils % Neutrophils % (Manual) Band Neutrophils % Lymphocytes % Lymphocytes % (Manual) Monocytes % Monocytes % (Manual) Eosinophils % Eosinophils % (Manual) Basophils % Basophils % (Manual) Myelocytes % (Man) Promyelocytes % (Man) Blast Cells % (Manual) Nucleated RBC % Metamyelocytes Hypochromia Platelet Estimate Polychromasia Poikilocytosis Anisocytosis Microcytosis Macrocytosis PTT (Actin FS) 43.4 H 47.2 H Sodium Potassium Chloride Carbon Dioxide Anion Gap BUN Creatinine Est GFR (CKD-EPI)AfAm Est GFR (CKD-EPI)NonAf POC Glucometer 165 Random Glucose Lactic Acid Calcium Phosphorus Magnesium Total Bilirubin AST ALT Alkaline Phosphatase Total Protein Albumin 10/05/18 10/05/18 10/05/18 00:05 05:30 05:30 WBC 11.0 H RBC 2.84 L Hgb 9.5 L Hct 26.9 L MCV 94.8 MCH 33.3 MCHC 35.1 RDW 13.2 Plt Count 153 MPV 9.5 Absolute Neuts (auto) 7.2 Neutrophils % 65.9 Neutrophils % (Manual) 70.0 D Band Neutrophils % 7.5 Lymphocytes % 20.6 D Lymphocytes % (Manual) 18.8 D Monocytes % 10.4 H Monocytes % (Manual) 3 L Eosinophils % 2.4 D Eosinophils % (Manual) 1.2 D Basophils % 0.7 Basophils % (Manual) 0.0 Myelocytes % (Man) 0 Promyelocytes % (Man) 0 Blast Cells % (Manual) 0 Nucleated RBC % 1 H Metamyelocytes 0 Hypochromia 0 Platelet Estimate Normal Polychromasia 0 Poikilocytosis 0 Anisocytosis 0 Microcytosis 0 Macrocytosis 0 PTT (Actin FS) 49.3 H Sodium Potassium Chloride Carbon Dioxide Anion Gap BUN Creatinine Est GFR (CKD-EPI)AfAm Est GFR (CKD-EPI)NonAf POC Glucometer 114 Random Glucose Lactic Acid Calcium Phosphorus Magnesium Total Bilirubin AST ALT Alkaline Phosphatase Total Protein Albumin 10/05/18 10/05/18 10/05/18 05:30 05:30 06:24 WBC RBC Hgb Hct MCV MCH MCHC RDW Plt Count MPV Absolute Neuts (auto) Neutrophils % Neutrophils % (Manual) Band Neutrophils % Lymphocytes % Lymphocytes % (Manual) Monocytes % Monocytes % (Manual) Eosinophils % Eosinophils % (Manual) Basophils % Basophils % (Manual) Myelocytes % (Man) Promyelocytes % (Man) Blast Cells % (Manual) Nucleated RBC % Metamyelocytes Hypochromia Platelet Estimate Polychromasia Poikilocytosis Anisocytosis Microcytosis Macrocytosis PTT (Actin FS) Sodium 139 Potassium 3.5 Chloride 101 Carbon Dioxide 31 Anion Gap 7 L BUN 9 Creatinine 0.7 Est GFR (CKD-EPI)AfAm 133.96 Est GFR (CKD-EPI)NonAf 115.58 POC Glucometer 118 Random Glucose 124 H Lactic Acid 1.2 Calcium 7.6 L Phosphorus 2.7 Magnesium 1.9 Total Bilirubin 0.8 AST 80 H ALT 409 H Alkaline Phosphatase 123 H Total Protein 5.3 L Albumin 2.1 L Active Medications Generic Name Dose Route Start Last Admin Trade Name Freq PRN Reason Stop Dose Admin Heparin Sodium (Porcine) 1,000 unit 10/01/18 17:57 10/04/18 23:30 Heparin - IVPUSH 1,000 unit PRN PRN Administration Heparin Heparin Sodium (Porcine) 5,000 unit 10/01/18 17:57 Heparin - IVPUSH PRN PRN Heparin Fentanyl 500 mcg/ Dextrose 100 mls @ 5 mls/hr 10/01/18 08:30 10/05/18 11:23 IVPB 100 mcg/hr TITR AHMET 20 mls/hr Titration 25 MCG/HR Heparin Sodium (Porcine) 25, 500 mls @ 20 mls/hr 10/01/18 18:00 10/05/18 07: 25 000 unit/ Sodium Chloride IV 1,500 unit/hr TITR AHMET 30 mls/hr Titration Protocol 1,000 UNIT/HR Propofol 1,000,000 mcg in 100 mls @ 3.09 mls/hr 10/01/18 20:45 10/05/18 11:23 Diprivan - IVPB 50 mcg/kg/min TITR AHMET 30.9 mls/hr Titration Protocol 5 MCG/KG/MIN Piperacillin Sod/Tazobactam 50 mls @ 100 mls/hr 10/04/18 11:30 10/05/18 10:18 Sod 3.375 gm/ Dextrose IVPB 100 mls/hr Q8H-IV [facility] Administration Protocol Insulin Aspart 1 vial 10/02/18 13:00 10/05/18 06:27 Novolog Vial Sliding Scale - SQ Not Given Q6HPO [facility] Protocol Insulin Detemir 10 units 10/03/18 07:00 10/05/18 06:27 Levemir Vial SQ 10 unit AM A[facility] Administration Pantoprazole Sodium 40 mg 10/03/18 10:00 10/05/18 10:18 Protonix Iv IVPUSH 40 mg DAILY A[facility] Administration ASSESSMENT/PLAN: This is a 43 yo M with PMH of HTN, DM, heavy drinker and smoker, BIBA for syncopal episode, found to be in af rvr, with massive b/l pe, arrested in IR during catheter tpa procedure at approximately 11:40am. ROSC achieved at approximately 11:47. Unprovoked massive b/l PE s/p cardiac arrest anoxic brain injury family history of thrombophilia in grandmother HTN DM -s/p catheter guided tpa now on heparin gtt; not a candidate for cooling protocol due to bleeding risk -high risk for ICH -eventual bridge to coum or switch to NOAC -thrombophilia workup outpatient Problem List - Problems (1) Bilateral pulmonary embolism Code(s): I26.99 - OTHER PULMONARY EMBOLISM WITHOUT ACUTE COR PULMONALE (2) Diabetes Code(s): E11.9 - TYPE 2 DIABETES MELLITUS WITHOUT COMPLICATIONS (3) Elevated troponin Code(s): R74.8 - ABNORMAL LEVELS OF OTHER SERUM ENZYMES (4) Hyperlipidemia Code(s): E78.5 - HYPERLIPIDEMIA, UNSPECIFIED (5) Hypertension Code(s): I10 - ESSENTIAL (PRIMARY) HYPERTENSION Visit type - Emergency Visit Emergency Visit: Yes ED Registration Date: 10/01/18 Care time: The patient presented to the Emergency Department on the above date and was hospitalized for further evaluation of their emergent condition. - New Patient This patient is new to me today: No - Critical Care Critical Care patient: Yes Total Critical Care Time (in minutes): 45 Critical Care Statement: The care of this patient involved high complexity decision making to prevent further life threatening deterioration of the patient 's condition and/or to evaluate & treat vital organ system(s) failure or risk of failure. - Discharge Referral Referred to [facility] Med P.C.: No
[2018-10-05] MEDS ORDERED: ACETAMINOPHEN 1000 MG/100 ML VIAL (NON FORMULARY) IVPB ONE (13:17)
--- NOTE | 2018-10-05 13:55 | PN ---
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 (short form) - Note 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: pt seen/ examined in icu chart reviewed discussed with icu team sedated off pressors having fever Vital Signs Temp 101.9 F H 10/05/18 10:34 Pulse 116 H 10/05/18 10:34 Resp 16 10/05/18 12:26 BP 138/80 10/05/18 10:34 Pulse Ox 95 10/05/18 08:38 Intake & Output 10/04/18 10/05/18 10/05/18 23:59 11:59 23:59 Intake Total 1379.4 1307.7 Output Total 350 400 Balance 1029.4 907.7 Weight 233 lb 3.2 oz Intake: IV 1029.4 1157.7 DIPRIVAN - 1,000,000 mcg 411.4 469.7 In 100 ml @ 5 MCG/KG/MIN 3.09 mls/hr IVPB TITR [facility]HM[facility] Rx#:[id number] Heparin - 25,000 Unit In 288 328 Normal Saline - 495 ml @ 1,000 UNIT/HR 20 mls/hr IV TITR AHMET Rx#: [id number] Sublimaze Injection - 500 330 360 Mcg In D5w - 90 ml @ 25 MCG/HR 5 mls/hr IVPB TITR AHMET Rx#:[id number] IVPB 350 150 Output: Urine 350 400 Sidhu 350 400 Other: Voiding Method Indwelling Catheter Indwelling Catheter Bowel Movement No Weight Measurement Method Built in [facility] Active Medications Heparin Sodium (Porcine) (Heparin -) 1,000 unit IVPUSH PRN PRN PRN Reason: Heparin Last Admin: 10/04/18 23:30 Dose: 1,000 unit Heparin Sodium (Porcine) (Heparin -) 5,000 unit IVPUSH PRN PRN PRN Reason: Heparin Fentanyl 500 mcg/ Dextrose 100 mls @ 5 mls/hr IVPB TITR [facility] Last Titration: 10/05/18 11:23 Dose: 100 mcg/hr, 20 mls/hr Heparin Sodium (Porcine) 25, (000 unit/ Sodium Chloride) 500 mls @ 20 mls/hr IV TITR [facility]; Protocol Last Titration: 10/05/18 07:25 Dose: 1,500 unit/hr, 30 mls/hr Propofol (Diprivan -) 1,000,000 mcg in 100 mls @ 3.09 mls/hr IVPB TITR [facility]; Protocol Last Titration: 10/05/18 11:23 Dose: 50 mcg/kg/min, 30.9 mls/hr Piperacillin Sod/Tazobactam (Sod 3.375 gm/ Dextrose) 50 mls @ 100 mls/hr IVPB Q8H-IV [facility]; Protocol Last Admin: 10/05/18 10:18 Dose: 100 mls/hr Insulin Aspart (Novolog Vial Sliding Scale -) 1 vial SQ Q6HPO [facility]; Protocol Last Admin: 10/05/18 13:27 Dose: 3 units Insulin Detemir (Levemir Vial) 10 units SQ AM [facility] Last Admin: 10/05/18 06:27 Dose: 10 unit Pantoprazole Sodium (Protonix Iv) 40 mg IVPUSH DAILY [facility] Last Admin: 10/05/18 10:18 Dose: 40 mg CBC, BMP 10/05/18 05:30 10/05/18 05:30 Microbiology 10/04/18 13:29 Blood Culture - Preliminary Blood - Peripheral Venous NO GROWTH OBTAINED AFTER 24 HOURS, INCUBATION TO CONTINUE FOR 4 DAYS. 10/04/18 12:53 Blood Culture - Preliminary Blood - Peripheral Venous NO GROWTH OBTAINED AFTER 24 HOURS, INCUBATION TO CONTINUE FOR 4 DAYS. 10/03/18 10:15 Gram Stain - Final Sputum - Endotrachea Suction/Ventilator Sputum Culture - Preliminary Presumptive Mrsa (Pbp2a Pos) 10/01/18 06:40 Blood Culture - Preliminary Blood - Peripheral Venous NO GROWTH OBTAINED AFTER 96 HOURS, INCUBATION TO CONTINUE FOR 1 DAYS. 10/01/18 06:40 Blood Culture - Preliminary Blood - Peripheral Venous NO GROWTH OBTAINED AFTER 96 HOURS, INCUBATION TO CONTINUE FOR 1 DAYS. Physical S1 S2 RRR intubated Lungs decreased Abd-soft, NT, BS+ edema++ A/P s/p PEA arrest B/L PE Acute respiratory failure Acute kidney injury-- resolved elevated LFT--shock liver --Continue present care vent support-- per icu team off pressors mrsa + sputum abx will consult neuro prognosis poor Discussed with icu team/ nursing staff will follow
--- NOTE | 2018-10-05 14:13 | PN ---
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, Physician History of Present Illness: REMAINS INTUBATED, FEBRILE SPUTUM C/S MRSA - Current Medication List Current Medications: Active Medications Heparin Sodium (Porcine) (Heparin -) 1,000 unit IVPUSH PRN PRN PRN Reason: Heparin Last Admin: 10/04/18 23:30 Dose: 1,000 unit Heparin Sodium (Porcine) (Heparin -) 5,000 unit IVPUSH PRN PRN PRN Reason: Heparin Fentanyl 500 mcg/ Dextrose 100 mls @ 5 mls/hr IVPB TITR AHMET Last Titration: 10/05/18 11:23 Dose: 100 mcg/hr, 20 mls/hr Heparin Sodium (Porcine) 25, (000 unit/ Sodium Chloride) 500 mls @ 20 mls/hr IV TITR AHMET; Protocol Last Titration: 10/05/18 07:25 Dose: 1,500 unit/hr, 30 mls/hr Propofol (Diprivan -) 1,000,000 mcg in 100 mls @ 3.09 mls/hr IVPB TITR AHMET; Protocol Last Titration: 10/05/18 11:23 Dose: 50 mcg/kg/min, 30.9 mls/hr Piperacillin Sod/Tazobactam (Sod 3.375 gm/ Dextrose) 50 mls @ 100 mls/hr IVPB Q8H-IV AHMET; Protocol Last Admin: 10/05/18 10:18 Dose: 100 mls/hr Insulin Aspart (Novolog Vial Sliding Scale -) 1 vial SQ Q6HPO AHMET; Protocol Last Admin: 10/05/18 13:27 Dose: 3 units Insulin Detemir (Levemir Vial) 10 units SQ AM AHMET Last Admin: 10/05/18 06:27 Dose: 10 unit Pantoprazole Sodium (Protonix Iv) 40 mg IVPUSH DAILY AHMET Last Admin: 10/05/18 10:18 Dose: 40 mg - Objective Vital Signs: Vital Signs Temperature 101.9 F H 10/05/18 10:34 Pulse Rate 116 H 10/05/18 10:34 Respiratory Rate 16 10/05/18 12:26 Blood Pressure 138/80 10/05/18 10:34 O2 Sat by Pulse Oximetry (%) 95 10/05/18 08:38 Constitutional: Yes: No Distress Cardiovascular: Yes: Regular Rate and Rhythm, S1, S2 Respiratory: Yes: Mechanically Ventilated Gastrointestinal: Yes: Normal Bowel Sounds, Soft. No: Tenderness Edema: Yes Labs: CBC, BMP 10/05/18 05:30 10/05/18 05:30 INR, PTT INR 1.40 (0.83-1.09) H 10/01/18 16:20 Assessment/Plan S/P CARDIOPULMONARY ARREST B/L PE ? ASP PNEUMONIA + SPUTUM MRSA CONTINUE ZOSYN + VANCO VENTILATORY SUPPORT PROGNOSIS POOR
[2018-10-05] MEDS: HEPARIN NA (PORCINE) 5,000 UNITS/ML 1ML VIAL IVPUSH PRN ×2 (14:40→14:42)
[2018-10-05] MEDS: VANCOMYCIN 1 GRAM (PRE-DOCKED) 1,000 MG/250 ML BAG IVPB SCH (14:43)
[2018-10-05] MEDS ORDERED: BENZOIN/ALOE VERA/STORAX/TOLU 58 ML BOTTLE ONE (17:25)
--- NOTE | 2018-10-05 17:27 | CON.NEURO ---
Consult - Past Medical History Cardio/Vascular: Yes: HTN, Hyperlipdemia Endocrine: Yes: Diabetes Mellitus - Alcohol/Substance Use Hx Alcohol Use: No - Smoking History Smoking history: Never smoked Have you smoked in the past 12 months: No Home Medications - Allergies Allergies/Adverse Reactions: Allergies Allergy/AdvReac Type Severity Reaction Status Date / Time No Known Allergies Allergy Verified 10/01/18 06:31 Physical Exam-Neuro Vital Signs: Vital Signs Temperature 101.9 F H 10/05/18 10:34 Pulse Rate 83 10/05/18 16:00 Respiratory Rate 14 10/05/18 16:00 Blood Pressure 119/81 10/05/18 16:00 O2 Sat by Pulse Oximetry (%) 95 10/05/18 08:38 Labs: CBC, BMP 10/05/18 05:30 10/05/18 05:30 INR, PTT INR 1.40 (0.83-1.09) H 10/01/18 16:20 Assessment/Plan cc S/p cardiac arrest , for prognosis HPI 43 year old male historyof HTN,DM, came with chest pain and syncope and found to have massive Pulmonary Embolism. He was given tpa and IR Thrombectomy and had cardiac arrest and PEA. Patient is on sedation and tried to stop medication and he became agitated. There is no seizure like activity, he had ct head which was unremarkable. He is off pressure now. I spent 35 minute doing critical care. PMH as above. 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 He is getting agitated when off sedation and there is no communication , I suspect Patient may have suffer cortical injury. PLAN -Clinically no evidence of Meningitis , Status epilepticus - continue supportive care -Overall prognosis is guarded, There is could be range of outcome at this time. - I would re examine tomorrow - mri of brain and eeg can be obtained, once he is stable. Thanking you so much Maurice Manjarrez MD
[2018-10-05] MEDS: FENTANYL INJECTION 500 MCG in DEXTROSE 5%-WATER - 90 ML IVPB SCH (20:12)
[2018-10-05] MEDS: HEPARIN - 25,000 UNIT in SODIUM CHLORIDE 495 ML IV SCH ×2 (20:13→22:36)
[2018-10-05] MEDS: PROPOFOL 1,000,000 MCG/100 ML VIAL IVPB SCH (20:45)
[2018-10-06] MEDS ORDERED: PIPERACILLIN/TAZOBACTAM 3.375 GM VIAL IVPB ONE ×4 (00:13→17:51)
[2018-10-06] MEDS ORDERED: DEXTROSE 5%-WATER - 50 ML IVPB ONE ×3 (00:14→17:51)
[2018-10-06] MEDS: INSULIN SLIDING SCALE (NOVOLOG) 1 VIAL SQ SCH ×4 (00:20→17:48)
[2018-10-06] MEDS: PIPERACILLIN/TAZOB 3.375 GM 3.375 GM in DEXTROSE 5%-WATER - 50 ML IVPB SCH ×3 (02:00→18:21)
[2018-10-06] MEDS: VANCOMYCIN 1 GRAM (PRE-DOCKED) 1,000 MG/250 ML BAG IVPB SCH ×2 (02:30→15:30)
[2018-10-06] MEDS: INSULIN (LEVEMIR) 100 UNITS/ML UNITS SQ SCH (06:39)
[2018-10-06 06:44] LABS: BASO % 0.6 % (0-2.0); EOS % 2.2 % (0-4.5); HEMATOCRIT 26.8 % (35.4-49); HEMOGLOBIN 9.1 GM/dL (11.7-16.9); LYMPH % 18.4 % (8-40); MCH 31.7 pg (25.7-33.7); MCHC 33.9 g/dl (32.0-35.9); MEAN CELL VOLUME 93.6 fl (80-96); MEAN PLT VOLUME 8.4 fl (7.5-11.1); MONO % 8.2 % (3.8-10.2); NEUT % 70.6 % (42.8-82.8); PLATELET COUNT 210 K/MM3 (134-434); RBC 2.87 M/mm3 (4.00-5.60); RDW 12.7 % (11.9-15.9); WHITE BLOOD COUNT 12.2 K/mm3 (4.0-10.0)
[2018-10-06 07:16] LABS: ALBUMIN 1.9 g/dl (3.4-5.0); BILIRUBIN,TOTAL 0.7 mg/dL (0.2-1); CALCIUM 7.5 mg/dL (8.5-10.1); CREATININE 0.6 mg/dL (0.55-1.3); MAGNESIUM 2.2 mg/dL (1.8-2.4); PHOSPHOROUS 1.8 mg/dL (2.5-4.9); POTASSIUM 3.1 mmol/L (3.5-5.1); TOT PROT 5.3 g/dl (6.4-8.2)
[2018-10-06] MEDS: HEPARIN NA (PORCINE) 5,000 UNITS/ML 1ML VIAL IVPUSH PRN (07:48)
--- NOTE | 2018-10-06 08:05 | PN ---
Physical Exam: SUBJECTIVE: Patient seen and examined at bedside, no acute events overnight. Patient continues to spike fevers. OBJECTIVE: Vital Signs Period Temp Pulse Resp BP Sys/Liao Pulse Ox Last 24 Hr 98.6 F-101.9 F 74-116 14-24 105-142/64-83 95-100 GENERAL: The patient is sedated EYES: PERRL, sclera anicteric, conjunctiva clear. No ptosis. LUNGS: Course breath sounds bilaterally HEART: Regular rate and rhythm, S1, S2 without murmur, rub or gallop. ABDOMEN: Soft, nontender, nondistended, normoactive bowel sounds, no guarding, no rebound, no hepatosplenomegaly, no masses. EXTREMITIES: 2+ pulses, warm, well-perfused, 1+ nonpitting edema in upper extremities bilaterally. SKIN: Warm, dry, normal turgor, no rashes or lesions noted Laboratory Results - last 24 hr 10/05/18 10/05/18 10/05/18 05:30 13:01 13:20 WBC RBC Hgb Hct MCV MCH MCHC RDW Plt Count MPV Absolute Neuts (auto) Neutrophils % Neutrophils % (Manual) 70.0 D Band Neutrophils % 7.5 Lymphocytes % Lymphocytes % (Manual) 18.8 D Monocytes % Monocytes % (Manual) 3 L Eosinophils % Eosinophils % (Manual) 1.2 D Basophils % Basophils % (Manual) 0.0 Myelocytes % (Man) 0 Promyelocytes % (Man) 0 Blast Cells % (Manual) 0 Nucleated RBC % 1 H Metamyelocytes 0 Hypochromia 0 Platelet Estimate Normal Polychromasia 0 Poikilocytosis 0 Anisocytosis 0 Microcytosis 0 Macrocytosis 0 PTT (Actin FS) 37.6 H Sodium Potassium Chloride Carbon Dioxide Anion Gap BUN Creatinine Est GFR (CKD-EPI)AfAm Est GFR (CKD-EPI)NonAf POC Glucometer 161 Random Glucose Lactic Acid Calcium Phosphorus Magnesium Total Bilirubin AST ALT Alkaline Phosphatase Total Protein Albumin 10/05/18 10/05/18 10/06/18 17:31 20:45 00:01 WBC RBC Hgb Hct MCV MCH MCHC RDW Plt Count MPV Absolute Neuts (auto) Neutrophils % Neutrophils % (Manual) Band Neutrophils % Lymphocytes % Lymphocytes % (Manual) Monocytes % Monocytes % (Manual) Eosinophils % Eosinophils % (Manual) Basophils % Basophils % (Manual) Myelocytes % (Man) Promyelocytes % (Man) Blast Cells % (Manual) Nucleated RBC % Metamyelocytes Hypochromia Platelet Estimate Polychromasia Poikilocytosis Anisocytosis Microcytosis Macrocytosis PTT (Actin FS) 52.6 H Sodium Potassium Chloride Carbon Dioxide Anion Gap BUN Creatinine Est GFR (CKD-EPI)AfAm Est GFR (CKD-EPI)NonAf POC Glucometer 129 168 Random Glucose Lactic Acid Calcium Phosphorus Magnesium Total Bilirubin AST ALT Alkaline Phosphatase Total Protein Albumin 10/06/18 10/06/18 10/06/18 05:30 05:30 05:30 WBC 12.2 H RBC 2.87 L Hgb 9.1 L Hct 26.8 L MCV 93.6 MCH 31.7 MCHC 33.9 RDW 12.7 Plt Count 210 D MPV 8.4 D Absolute Neuts (auto) 8.6 H Neutrophils % 70.6 Neutrophils % (Manual) Band Neutrophils % Lymphocytes % 18.4 Lymphocytes % (Manual) Monocytes % 8.2 Monocytes % (Manual) Eosinophils % 2.2 Eosinophils % (Manual) Basophils % 0.6 Basophils % (Manual) Myelocytes % (Man) Promyelocytes % (Man) Blast Cells % (Manual) Nucleated RBC % 0 Metamyelocytes Hypochromia Platelet Estimate Polychromasia Poikilocytosis Anisocytosis Microcytosis Macrocytosis PTT (Actin FS) 48.3 H Sodium 136 Potassium 3.1 L Chloride 101 Carbon Dioxide 29 Anion Gap 7 L BUN 8 Creatinine 0.6 Est GFR (CKD-EPI)AfAm 142.72 Est GFR (CKD-EPI)NonAf 123.14 POC Glucometer Random Glucose 168 H Lactic Acid Calcium 7.5 L Phosphorus 1.8 L Magnesium 2.2 Total Bilirubin 0.7 AST 40 H ALT 248 H Alkaline Phosphatase 157 H Total Protein 5.3 L Albumin 1.9 L 10/06/18 10/06/18 05:30 06:20 WBC RBC Hgb Hct MCV MCH MCHC RDW Plt Count MPV Absolute Neuts (auto) Neutrophils % Neutrophils % (Manual) Band Neutrophils % Lymphocytes % Lymphocytes % (Manual) Monocytes % Monocytes % (Manual) Eosinophils % Eosinophils % (Manual) Basophils % Basophils % (Manual) Myelocytes % (Man) Promyelocytes % (Man) Blast Cells % (Manual) Nucleated RBC % Metamyelocytes Hypochromia Platelet Estimate Polychromasia Poikilocytosis Anisocytosis Microcytosis Macrocytosis PTT (Actin FS) Sodium Potassium Chloride Carbon Dioxide Anion Gap BUN Creatinine Est GFR (CKD-EPI)AfAm Est GFR (CKD-EPI)NonAf POC Glucometer 161 Random Glucose Lactic Acid 0.9 Calcium Phosphorus Magnesium Total Bilirubin AST ALT Alkaline Phosphatase Total Protein Albumin Active Medications Generic Name Dose Route Start Last Admin Trade Name Freq PRN Reason Stop Dose Admin Heparin Sodium (Porcine) 1,000 unit 10/01/18 17:57 10/06/18 07:48 Heparin - IVPUSH 1,000 unit PRN PRN Administration Heparin Heparin Sodium (Porcine) 5,000 unit 10/01/18 17:57 10/05/18 14:42 Heparin - IVPUSH 5,000 unit PRN PRN Administration Heparin Fentanyl 500 mcg/ Dextrose 100 mls @ 5 mls/hr 10/01/18 08:30 10/06/18 07:42 IVPB 50 mcg/hr TITR AHMET 10 mls/hr Titration 25 MCG/HR Heparin Sodium (Porcine) 25, 500 mls @ 20 mls/hr 10/01/18 18:00 10/06/18 07: 51 000 unit/ Sodium Chloride IV 1,800 unit/hr TITR AHMET 36 mls/hr Titration Protocol 1,000 UNIT/HR Propofol 1,000,000 mcg in 100 mls @ 3.09 mls/hr 10/01/18 20:45 10/05/18 20:45 Diprivan - IVPB 50 mcg/kg/min TITR AHMET 30.9 mls/hr Administration Protocol 5 MCG/KG/MIN Piperacillin Sod/Tazobactam 50 mls @ 100 mls/hr 10/04/18 11:30 10/06/18 02:00 Sod 3.375 gm/ Dextrose IVPB 100 mls/hr Q8H-IV AHMET Administration Protocol Vancomycin HCl 1,000 mg in 250 mls @ 166.667 mls/hr 10/05/18 14:30 10/06/18 02:30 Vancomycin (Pre-Docked) IVPB 166.667 mls/hr Q12H AHMET Administration Protocol Insulin Aspart 1 vial 10/02/18 13:00 10/06/18 06:39 Novolog Vial Sliding Scale - SQ 3 units Q6HPO AHMET Administration Protocol Insulin Detemir 10 units 10/03/18 07:00 10/06/18 06:39 Levemir Vial SQ 10 unit AM AHMET Administration Pantoprazole Sodium 40 mg 10/03/18 10:00 10/05/18 10:18 Protonix Iv IVPUSH 40 mg DAILY AHMET Administration ASSESSMENT/PLAN: NEURO -Intubated and sedated -Wean off sedation as tolerated -Propofol gtt -Will monitor mental status -CT head negative for acute findings -Neuro consulting: Anoxic brain injury ENDO -History of DM -SS insulin -BGMs -Will trend CARDIO/VASC -ROSC s/p cardiac arrest with rhythm strip showing narrow complex PEA -Off of pressors -Heparin gtt -PTT subtherapuetic. Heparin protocol -Will trend PTT -Lasix 40 for edema PULM -Bilateral PE extending to upper and lower lobes bilaterally -s/p tPA -Vent settings: 14/500/40/5 -SpO2 >90% -Spontaneously breathing, on vent due to sedation -Wean as tolerated -Sputum cultures positive for MRSA -Vanc and Zosyn -Possible tracheostomy GI -Shock liver -LFTs trending down -Enteral feeds RENAL -Kidney function improving -Will trend -Maintenance fluids HEME -S/p tPA. Now on heparin gtt -Subtherapeutic. Heparin protocol. -Will trend PTT ID -Febrile overnight -CXR does not show consolidations, could be 2/2 aspiration -ID consulted: Vanc and Zosyn -Sputum cultures grow MRSA -Blood cultures ngtd -R femoral line removed FEN -Enteral feeds PROPHY -Protonix -Heparin drip -SCD Dispo: Will continue to monitor in ICU Visit type - Emergency Visit Emergency Visit: Yes ED Registration Date: 10/01/18 Care time: The patient presented to the Emergency Department on the above date and was hospitalized for further evaluation of their emergent condition. - New Patient This patient is new to me today: No - Critical Care Critical Care patient: Yes Total Critical Care Time (in minutes): 40 Critical Care Statement: The care of this patient involved high complexity decision making to prevent further life threatening deterioration of the patient 's condition and/or to evaluate & treat vital organ system(s) failure or risk of failure.
[2018-10-06] MEDS ORDERED: POTASSIUM CHLORIDE ORAL LIQUID 20 MEQ/15 ML NGT ONE (08:30)
--- NOTE | 2018-10-06 09:29 | PN ---
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 (short form) - Note 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: 43 year old male historyof HTN,DM, came with chest pain and syncope and found to have massive Pulmonary Embolism. He was given tpa and IR Thrombectomy and had cardiac arrest and PEA. Patient is on sedation and tried to stop medication and he became agitated. There is no seizure like activity, he had ct head which was unremarkable. He is off pressure now. I spent 35 minute doing critical care. Patient is on sedation, there is no change overnight. He is triggering vent and gag reflex is present. withdraws to pain. Spoke to nursing staff and chart reviewed. NEUROLOGICAL EXAMINATOIN Sedated on vent, withdraws to pain right side is moving less than right ? 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 He is getting agitated when off sedation and there is no communication , I suspect Patient may have suffer cortical injury. There is withdrawal of left leg to pain, could be faulty exam , hit ct head was unremarkable. PLAN -Clinically no evidence of Meningitis , Status epilepticus - continue supportive care -Overall prognosis is guarded, There is could be range of outcome at this time. - mri of brain and eeg can be obtained, once he is stable. - continue to follow up with primary Thanking you so much Maurice Manjarrez MD
--- NOTE | 2018-10-06 10:15 | PN ---
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 (short form) - Note 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: s: intubated, sedated Current Medications Heparin Sodium (Porcine) (Heparin -) 1,000 unit IVPUSH PRN PRN PRN Reason: Heparin Last Admin: 10/06/18 07:48 Dose: 1,000 unit Heparin Sodium (Porcine) (Heparin -) 5,000 unit IVPUSH PRN PRN PRN Reason: Heparin Last Admin: 10/05/18 14:42 Dose: 5,000 unit Fentanyl 500 mcg/ Dextrose 100 mls @ 5 mls/hr IVPB TITR AHMET Last Titration: 10/06/18 07:42 Dose: 50 mcg/hr, 10 mls/hr Heparin Sodium (Porcine) 25, (000 unit/ Sodium Chloride) 500 mls @ 20 mls/hr IV TITR AHMET; Protocol Last Titration: 10/06/18 07:51 Dose: 1,800 unit/hr, 36 mls/hr Propofol (Diprivan -) 1,000,000 mcg in 100 mls @ 3.09 mls/hr IVPB TITR AHMET; Protocol Last Admin: 10/05/18 20:45 Dose: 50 mcg/kg/min, 30.9 mls/hr Piperacillin Sod/Tazobactam (Sod 3.375 gm/ Dextrose) 50 mls @ 100 mls/hr IVPB Q8H-IV AHMET; Protocol Last Admin: 10/06/18 09:25 Dose: 100 mls/hr Vancomycin HCl (Vancomycin (Pre-Docked)) 1,000 mg in 250 mls @ 166.667 mls/hr IVPB Q12H AHMET; Protocol Last Admin: 10/06/18 02:30 Dose: 166.667 mls/hr Insulin Aspart (Novolog Vial Sliding Scale -) 1 vial SQ Q6HPO AHMET; Protocol Last Admin: 10/06/18 06:39 Dose: 3 units Insulin Detemir (Levemir Vial) 10 units SQ AM AHMET Last Admin: 10/06/18 06:39 Dose: 10 unit Pantoprazole Sodium (Protonix Iv) 40 mg IVPUSH DAILY AHMET Last Admin: 10/05/18 10:18 Dose: 40 mg Vital Signs Period Temp Pulse Resp BP Sys/Liao Pulse Ox Last 24 Hr 98.6 F-101.9 F 74-116 14-24 105-142/64-83 95-100 Constitutional: Yes: Well Nourished, No Distress, Calm Cardiovascular: Yes: Regular Rate and Rhythm, S1, S2. No: Gallop, Murmur Respiratory: Yes: Regular, CTA Bilaterally (anteriorly). No: Accessory Muscle Use Extremities: No: Cold Edema: No Neurological: No: Alert, Oriented Psychiatric: No: Agitated Assessment/Plan cxr: congestive changes echo 09/2018: tds; nl lvef, rv tds, grossly nl rv fcn, no sig valve path tele: sinus Assessment/Plan 43yo M with PMH of HTN, DM p/w unresponsiveness. Found to have bilateral PE, s/ p PEA arrest Bilateral PE, s/p PEA arrest: - arrest likely in setting of extensive bilateral PE - now s/p tPA, manage anticoagulation per ICU team - bp improved, off pressors now - echo was tds but no gross abnormalities - no significant chf on exam - hypercoagulable w/u per heme consultants Afib: - reportedly per EMS and ER records, EKG not available - in setting of PE, this is considered a reversible etiology of Afib. - AC to be continued per PE indication (not required for AF indication here) - now in sinus Type II [place] (NSTEMI): - peak trop 1.3, sec to PE/RV strain, vs hypoperfusion from PEA arrest. - EKG no ischemic changes - echo with nl lvef - ischemia w/u not indicated at present HTN: - off pressors now, bp stable - continue to monitor bp
[2018-10-06] MEDS: PANTOPRAZOLE SODIUM 40 MG VIAL IVPUSH SCH (10:35)
--- NOTE | 2018-10-06 10:51 | PN ---
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 (short form) - Note 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: intubated sedated on vent off pressor support has been having low grade fevers Vital Signs - 24 hr 10/05/18 10/05/18 10/05/18 12:00 12:26 14:00 Temperature Pulse Rate 100 H 93 H Respiratory 18 16 15 Rate Blood Pressure 142/82 119/76 O2 Sat by Pulse Oximetry (%) 10/05/18 10/05/18 10/05/18 15:18 16:00 18:00 Temperature Pulse Rate 83 83 Respiratory 15 14 15 Rate Blood Pressure 119/81 125/79 O2 Sat by Pulse Oximetry (%) 10/05/18 10/05/18 10/05/18 18:12 20:00 21:20 Temperature Pulse Rate 90 Respiratory 15 15 24 H Rate Blood Pressure 122/78 O2 Sat by Pulse 95 Oximetry (%) 10/05/18 10/06/18 10/06/18 22:00 00:00 00:42 Temperature 99.7 F H Pulse Rate 80 74 Respiratory 16 16 18 Rate Blood Pressure 124/76 108/65 O2 Sat by Pulse Oximetry (%) 10/06/18 10/06/18 10/06/18 02:00 03:23 04:00 Temperature 98.6 F Pulse Rate 79 74 Respiratory 18 20 18 Rate Blood Pressure 105/74 107/64 O2 Sat by Pulse Oximetry (%) 10/06/18 10/06/18 10/06/18 06:00 06:32 08:00 Temperature 100.4 F H 100.6 F H Pulse Rate 86 87 Respiratory 18 23 H 16 Rate Blood Pressure 126/83 125/75 O2 Sat by Pulse Oximetry (%) 10/06/18 10/06/18 10/06/18 08:13 08:31 08:35 Temperature Pulse Rate Respiratory 15 15 Rate Blood Pressure O2 Sat by Pulse 100 100 100 Oximetry (%) 10/06/18 10/06/18 08:50 10:00 Temperature 100.9 F H Pulse Rate 87 Respiratory 19 18 Rate Blood Pressure 139/83 O2 Sat by Pulse Oximetry (%) Current Medications Generic Name Dose Route Start Last Admin Trade Name Freq PRN Reason Stop Dose Admin Heparin Sodium (Porcine) 1,000 unit 10/01/18 17:57 10/06/18 07:48 Heparin - IVPUSH 1,000 unit PRN PRN Administration Heparin Heparin Sodium (Porcine) 5,000 unit 10/01/18 17:57 10/05/18 14:42 Heparin - IVPUSH 5,000 unit PRN PRN Administration Heparin Fentanyl 500 mcg/ Dextrose 100 mls @ 5 mls/hr 10/01/18 08:30 10/06/18 07:42 IVPB 50 mcg/hr TITR AHMET 10 mls/hr Titration 25 MCG/HR Heparin Sodium (Porcine) 25, 500 mls @ 20 mls/hr 10/01/18 18:00 10/06/18 07: 51 000 unit/ Sodium Chloride IV 1,800 unit/hr TITR AHMET 36 mls/hr Titration Protocol 1,000 UNIT/HR Propofol 1,000,000 mcg in 100 mls @ 3.09 mls/hr 10/01/18 20:45 10/05/18 20:45 Diprivan - IVPB 50 mcg/kg/min TITR AHMET 30.9 mls/hr Administration Protocol 5 MCG/KG/MIN Piperacillin Sod/Tazobactam 50 mls @ 100 mls/hr 10/04/18 11:30 10/06/18 09:25 Sod 3.375 gm/ Dextrose IVPB 100 mls/hr Q8H-IV AHMET Administration Protocol Vancomycin HCl 1,000 mg in 250 mls @ 166.667 mls/hr 10/05/18 14:30 10/06/18 02:30 Vancomycin (Pre-Docked) IVPB 166.667 mls/hr Q12H AHMET Administration Protocol Insulin Aspart 1 vial 10/02/18 13:00 10/06/18 06:39 Novolog Vial Sliding Scale - SQ 3 units Q6HPO AHMET Administration Protocol Insulin Detemir 10 units 10/03/18 07:00 10/06/18 06:39 Levemir Vial SQ 10 unit AM AHMET Administration Pantoprazole Sodium 40 mg 10/03/18 10:00 10/05/18 10:18 Protonix Iv IVPUSH 40 mg DAILY AHMET Administration Laboratory Results - last 24 hr 10/05/18 10/05/18 10/05/18 13:01 13:20 17:31 WBC RBC Hgb Hct MCV MCH MCHC RDW Plt Count MPV Absolute Neuts (auto) Neutrophils % Lymphocytes % Monocytes % Eosinophils % Basophils % Nucleated RBC % PTT (Actin FS) 37.6 H Sodium Potassium Chloride Carbon Dioxide Anion Gap BUN Creatinine Est GFR (CKD-EPI)AfAm Est GFR (CKD-EPI)NonAf POC Glucometer 161 129 Random Glucose Lactic Acid Calcium Phosphorus Magnesium Total Bilirubin AST ALT Alkaline Phosphatase Total Protein Albumin 10/05/18 10/06/18 10/06/18 20:45 00:01 05:30 WBC RBC Hgb Hct MCV MCH MCHC RDW Plt Count MPV Absolute Neuts (auto) Neutrophils % Lymphocytes % Monocytes % Eosinophils % Basophils % Nucleated RBC % PTT (Actin FS) 52.6 H 48.3 H Sodium Potassium Chloride Carbon Dioxide Anion Gap BUN Creatinine Est GFR (CKD-EPI)AfAm Est GFR (CKD-EPI)NonAf POC Glucometer 168 Random Glucose Lactic Acid Calcium Phosphorus Magnesium Total Bilirubin AST ALT Alkaline Phosphatase Total Protein Albumin 10/06/18 10/06/18 10/06/18 05:30 05:30 05:30 WBC 12.2 H RBC 2.87 L Hgb 9.1 L Hct 26.8 L MCV 93.6 MCH 31.7 MCHC 33.9 RDW 12.7 Plt Count 210 D MPV 8.4 D Absolute Neuts (auto) 8.6 H Neutrophils % 70.6 Lymphocytes % 18.4 Monocytes % 8.2 Eosinophils % 2.2 Basophils % 0.6 Nucleated RBC % 0 PTT (Actin FS) Sodium 136 Potassium 3.1 L Chloride 101 Carbon Dioxide 29 Anion Gap 7 L BUN 8 Creatinine 0.6 Est GFR (CKD-EPI)AfAm 142.72 Est GFR (CKD-EPI)NonAf 123.14 POC Glucometer Random Glucose 168 H Lactic Acid 0.9 Calcium 7.5 L Phosphorus 1.8 L Magnesium 2.2 Total Bilirubin 0.7 AST 40 H ALT 248 H Alkaline Phosphatase 157 H Total Protein 5.3 L Albumin 1.9 L 10/06/18 06:20 WBC RBC Hgb Hct MCV MCH MCHC RDW Plt Count MPV Absolute Neuts (auto) Neutrophils % Lymphocytes % Monocytes % Eosinophils % Basophils % Nucleated RBC % PTT (Actin FS) Sodium Potassium Chloride Carbon Dioxide Anion Gap BUN Creatinine Est GFR (CKD-EPI)AfAm Est GFR (CKD-EPI)NonAf POC Glucometer 161 Random Glucose Lactic Acid Calcium Phosphorus Magnesium Total Bilirubin AST ALT Alkaline Phosphatase Total Protein Albumin S1 S2 RRR intubated Lungs decreased Abd-soft, NT, BS+ edema++ A/P s/p PEA arrest B/L PE Acute respiratory failure Acute kidney injury-- resolved elevated LFT--?shock liver -->trending down --Continue present care vent support-- per icu team off pressors blood cultures negative replace frida was agitated off sedation -- now on sedation Neurology eval noted on heparin drip prognosis guarded Problem List - Problems (1) Diabetes Code(s): E11.9 - TYPE 2 DIABETES MELLITUS WITHOUT COMPLICATIONS (2) Hyperlipidemia Code(s): E78.5 - HYPERLIPIDEMIA, UNSPECIFIED (3) Hypertension Code(s): I10 - ESSENTIAL (PRIMARY) HYPERTENSION (4) Bilateral pulmonary embolism Code(s): I26.99 - OTHER PULMONARY EMBOLISM WITHOUT ACUTE COR PULMONALE (5) Elevated troponin Code(s): R74.8 - ABNORMAL LEVELS OF OTHER SERUM ENZYMES
[2018-10-06 11:07] LABS: ANISOCYTOSIS 0; MACROCYTOSIS 1+; PLATELET ESTIMATE NORMAL; TEAR DROP CELLS 1+
[2018-10-06] MEDS ORDERED: FUROSEMIDE 40 MG/4 ML INJECTABLE VIAL IVPUSH ONE (11:38)
[2018-10-06] MEDS: FENTANYL INJECTION 500 MCG in DEXTROSE 5%-WATER - 90 ML IVPB SCH (11:45)
[2018-10-06] MEDS ORDERED: fentaNYL CITRATE 250 MCG/5 ML VIAL ONE ×2 (12:16→17:57)
--- NOTE | 2018-10-06 12:28 | PN ---
Teaching Attending Note Name of Resident: Radha Ferguson ATTENDING PHYSICIAN STATEMENT I saw and evaluated the patient. I reviewed the resident's note and discussed the case with the resident. I agree with the resident's findings and plan as documented. SUBJECTIVE: Pt seen and examined in the ICU. Remains intubated, sedated. CT head unremarkable. Evaluated by neuro who suspects anoxic encephalopathy. Persistent low grade fevers. Remains off pressors. OBJECTIVE: Vital Signs Period Temp Pulse Resp BP Sys/Liao Pulse Ox Last 24 Hr 98.6 F-100.9 F 74-93 10-24 105-139/64-83 95-100 Intake & Output 10/03/18 10/04/18 10/05/18 10/06/18 23:59 23:59 23:59 23:59 Intake Total 3424.0 2503.4 2967.7 2066 Output Total 3659 171 5380 1000 Balance 2274.0 1653.4 1767.7 1066 Weight 101.605 kg 101.8 kg 105.778 kg 106.413 kg Gen: intubated, sedated Heart: RRR Lung: scatterd rhonchi Abd: soft, nontender Ext: + edema CBC, BMP 10/06/18 05:30 10/06/18 05:30 Active Medications Heparin Sodium (Porcine) (Heparin -) 1,000 unit IVPUSH PRN PRN PRN Reason: Heparin Last Admin: 10/06/18 07:48 Dose: 1,000 unit Heparin Sodium (Porcine) (Heparin -) 5,000 unit IVPUSH PRN PRN PRN Reason: Heparin Last Admin: 10/05/18 14:42 Dose: 5,000 unit Fentanyl 500 mcg/ Dextrose 100 mls @ 5 mls/hr IVPB TITR AHMET Last Titration: 10/06/18 07:42 Dose: 50 mcg/hr, 10 mls/hr Heparin Sodium (Porcine) 25, (000 unit/ Sodium Chloride) 500 mls @ 20 mls/hr IV TITR AHMET; Protocol Last Titration: 10/06/18 07:51 Dose: 1,800 unit/hr, 36 mls/hr Propofol (Diprivan -) 1,000,000 mcg in 100 mls @ 3.09 mls/hr IVPB TITR AHMET; Protocol Last Admin: 10/05/18 20:45 Dose: 50 mcg/kg/min, 30.9 mls/hr Piperacillin Sod/Tazobactam (Sod 3.375 gm/ Dextrose) 50 mls @ 100 mls/hr IVPB Q8H-IV AHMET; Protocol Last Admin: 10/06/18 09:25 Dose: 100 mls/hr Vancomycin HCl (Vancomycin (Pre-Docked)) 1,000 mg in 250 mls @ 166.667 mls/hr IVPB Q12H AHMET; Protocol Last Admin: 10/06/18 02:30 Dose: 166.667 mls/hr Insulin Aspart (Novolog Vial Sliding Scale -) 1 vial SQ Q6HPO AHMET; Protocol Last Admin: 10/06/18 06:39 Dose: 3 units Insulin Detemir (Levemir Vial) 10 units SQ AM AHMET Last Admin: 10/06/18 06:39 Dose: 10 unit Pantoprazole Sodium (Protonix Iv) 40 mg IVPUSH DAILY [facility] Last Admin: 10/05/18 10:18 Dose: 40 mg ASSESSMENT AND PLAN: s/p Cardiopulmonary Arrest Acute Pulmonary Emboli s/p tPA Obstructive Shock improving +Troponins likely Demand Ischemia Lactic Acidosis resolved r/o Anoxic Encephalopathy r/o Pneumonia HTN DM - continue anticoagulation to therapeutic range - off pressors, maintain MAP >65 - continue empiric antibiotics - f/u sputum cultures - lasix today - monitor urine output, creatinine - taper Fio2, PEEP to keep Spo2 >90% - daily sedation vacations to assess mental status - spontaneous breathing trials as tolerated when mental status improved - enteral feeds - DVT/GI prophylaxis - continue ICU monitoring - prognosis guarded, may need tracheostomy critical care time spent in reviewing chart, evaluating patient and formulating plan 35 min
[2018-10-06] MEDS ORDERED: ALBUTEROL SO4 0.083% IH SOL 2.5 MG/3 ML VIAL.NEB. NEB ONE (12:29)
[2018-10-06] MEDS ORDERED: IPRATROPIUM BR 0.02% 0.5 MG/2.5 ML VIAL.NEB. NEB ONE (12:44)
[2018-10-06] MEDS ORDERED: ALBUTEROL SO4 2.5/IPRATROPIUM 0.5 INH SOL 3 ML VIAL.NEB. NEB ONE ×2 (12:44→12:53)
--- NOTE | 2018-10-06 13:45 | PN ---
Physical Exam: SUBJECTIVE: Patient seen and examined patient resting in bed, intubated, has been waking up a little during sedation vacation but not following commands. on hep gtt. afebrile. OBJECTIVE: Vital Signs Period Temp Pulse Resp BP Sys/Liao Pulse Ox Last 24 Hr 98.6 F-100.9 F 74-93 10-24 105-139/64-83 95-100 GENERAL: intubated sedated HEAD: Normal with no signs of trauma. EYES: pinpoint pupil ENT: moist mucous membranes. NECK: supple R ij tpa catheter in place no bleeding at site LUNGS: b/l ronchi HEART: Regular rate and rhythm, S1, S2 ABDOMEN: Soft, nondistended, globally decreased bowel sounds EXTREMITIES: no edema. NEUROLOGICAL: sedated PSYCH:sedated SKIN: Warm, dry Laboratory Results - last 24 hr 10/05/18 10/05/18 10/05/18 13:20 17:31 20:45 WBC RBC Hgb Hct MCV MCH MCHC RDW Plt Count MPV Absolute Neuts (auto) Neutrophils % Neutrophils % (Manual) Band Neutrophils % Lymphocytes % Lymphocytes % (Manual) Monocytes % Monocytes % (Manual) Eosinophils % Eosinophils % (Manual) Basophils % Basophils % (Manual) Myelocytes % (Man) Promyelocytes % (Man) Blast Cells % (Manual) Nucleated RBC % Metamyelocytes Hypochromia Platelet Estimate Polychromasia Poikilocytosis Anisocytosis Microcytosis Macrocytosis Tear Drop Cells PTT (Actin FS) 37.6 H 52.6 H Sodium Potassium Chloride Carbon Dioxide Anion Gap BUN Creatinine Est GFR (CKD-EPI)AfAm Est GFR (CKD-EPI)NonAf POC Glucometer 129 Random Glucose Lactic Acid Calcium Phosphorus Magnesium Total Bilirubin AST ALT Alkaline Phosphatase Total Protein Albumin 10/06/18 10/06/18 10/06/18 00:01 05:30 05:30 WBC 12.2 H RBC 2.87 L Hgb 9.1 L Hct 26.8 L MCV 93.6 MCH 31.7 MCHC 33.9 RDW 12.7 Plt Count 210 D MPV 8.4 D Absolute Neuts (auto) 8.6 H Neutrophils % 70.6 Neutrophils % (Manual) 77.0 Band Neutrophils % 4.0 Lymphocytes % 18.4 Lymphocytes % (Manual) 11.0 D Monocytes % 8.2 Monocytes % (Manual) 5 Eosinophils % 2.2 Eosinophils % (Manual) 2.0 Basophils % 0.6 Basophils % (Manual) 0.0 Myelocytes % (Man) 1 D Promyelocytes % (Man) 0 Blast Cells % (Manual) 0 Nucleated RBC % 0 Metamyelocytes 0 Hypochromia 0 Platelet Estimate Normal Polychromasia 1+ Poikilocytosis 0 Anisocytosis 0 Microcytosis 0 Macrocytosis 1+ Tear Drop Cells 1+ PTT (Actin FS) 48.3 H Sodium Potassium Chloride Carbon Dioxide Anion Gap BUN Creatinine Est GFR (CKD-EPI)AfAm Est GFR (CKD-EPI)NonAf POC Glucometer 168 Random Glucose Lactic Acid Calcium Phosphorus Magnesium Total Bilirubin AST ALT Alkaline Phosphatase Total Protein Albumin 10/06/18 10/06/18 10/06/18 05:30 05:30 06:20 WBC RBC Hgb Hct MCV MCH MCHC RDW Plt Count MPV Absolute Neuts (auto) Neutrophils % Neutrophils % (Manual) Band Neutrophils % Lymphocytes % Lymphocytes % (Manual) Monocytes % Monocytes % (Manual) Eosinophils % Eosinophils % (Manual) Basophils % Basophils % (Manual) Myelocytes % (Man) Promyelocytes % (Man) Blast Cells % (Manual) Nucleated RBC % Metamyelocytes Hypochromia Platelet Estimate Polychromasia Poikilocytosis Anisocytosis Microcytosis Macrocytosis Tear Drop Cells PTT (Actin FS) Sodium 136 Potassium 3.1 L Chloride 101 Carbon Dioxide 29 Anion Gap 7 L BUN 8 Creatinine 0.6 Est GFR (CKD-EPI)AfAm 142.72 Est GFR (CKD-EPI)NonAf 123.14 POC Glucometer 161 Random Glucose 168 H Lactic Acid 0.9 Calcium 7.5 L Phosphorus 1.8 L Magnesium 2.2 Total Bilirubin 0.7 AST 40 H ALT 248 H Alkaline Phosphatase 157 H Total Protein 5.3 L Albumin 1.9 L 10/06/18 13:06 WBC RBC Hgb Hct MCV MCH MCHC RDW Plt Count MPV Absolute Neuts (auto) Neutrophils % Neutrophils % (Manual) Band Neutrophils % Lymphocytes % Lymphocytes % (Manual) Monocytes % Monocytes % (Manual) Eosinophils % Eosinophils % (Manual) Basophils % Basophils % (Manual) Myelocytes % (Man) Promyelocytes % (Man) Blast Cells % (Manual) Nucleated RBC % Metamyelocytes Hypochromia Platelet Estimate Polychromasia Poikilocytosis Anisocytosis Microcytosis Macrocytosis Tear Drop Cells PTT (Actin FS) Sodium Potassium Chloride Carbon Dioxide Anion Gap BUN Creatinine Est GFR (CKD-EPI)AfAm Est GFR (CKD-EPI)NonAf POC Glucometer 187 Random Glucose Lactic Acid Calcium Phosphorus Magnesium Total Bilirubin AST ALT Alkaline Phosphatase Total Protein Albumin Active Medications Generic Name Dose Route Start Last Admin Trade Name Freq PRN Reason Stop Dose Admin Heparin Sodium (Porcine) 1,000 unit 10/01/18 17:57 10/06/18 07:48 Heparin - IVPUSH 1,000 unit PRN PRN Administration Heparin Heparin Sodium (Porcine) 5,000 unit 10/01/18 17:57 10/05/18 14:42 Heparin - IVPUSH 5,000 unit PRN PRN Administration Heparin Fentanyl 500 mcg/ Dextrose 100 mls @ 5 mls/hr 10/01/18 08:30 10/06/18 11:45 IVPB 100 mcg/hr TITR AHMET 20 mls/hr Administration 25 MCG/HR Heparin Sodium (Porcine) 25, 500 mls @ 20 mls/hr 10/01/18 18:00 10/06/18 07: 51 000 unit/ Sodium Chloride IV 1,800 unit/hr TITR AHMET 36 mls/hr Titration Protocol 1,000 UNIT/HR Propofol 1,000,000 mcg in 100 mls @ 3.09 mls/hr 10/01/18 20:45 10/05/18 20:45 Diprivan - IVPB 50 mcg/kg/min TITR AHMET 30.9 mls/hr Administration Protocol 5 MCG/KG/MIN Piperacillin Sod/Tazobactam 50 mls @ 100 mls/hr 10/04/18 11:30 10/06/18 09:25 Sod 3.375 gm/ Dextrose IVPB 100 mls/hr Q8H-IV AHMET Administration Protocol Vancomycin HCl 1,000 mg in 250 mls @ 166.667 mls/hr 10/05/18 14:30 10/06/18 02:30 Vancomycin (Pre-Docked) IVPB 166.667 mls/hr Q12H AHMET Administration Protocol Insulin Aspart 1 vial 10/02/18 13:00 10/06/18 13:09 Novolog Vial Sliding Scale - SQ 3 units Q6HPO AHMET Administration Protocol Insulin Detemir 10 units 10/03/18 07:00 10/06/18 06:39 Levemir Vial SQ 10 unit AM AHMET Administration Pantoprazole Sodium 40 mg 10/03/18 10:00 10/06/18 10:35 Protonix Iv IVPUSH 40 mg DAILY AHMET Administration ASSESSMENT/PLAN: This is a 43 yo M with PMH of HTN, DM, heavy drinker and smoker, BIBA for syncopal episode, found to be in af rvr, with massive b/l pe, arrested in IR during catheter tpa procedure at approximately 11:40am. ROSC achieved at approximately 11:47. Unprovoked massive b/l PE s/p cardiac arrest anoxic brain injury family history of thrombophilia in grandmother HTN DM -s/p catheter guided tpa now on heparin gtt; was not a candidate for cooling protocol due to bleeding risk -high risk for ICH, head ct yesterday no ICH -goals of care discussion with family -if recovers, eventual bridge to coum or switch to NOAC; thrombophilia workup outpatient Problem List - Problems (1) Bilateral pulmonary embolism Code(s): I26.99 - OTHER PULMONARY EMBOLISM WITHOUT ACUTE COR PULMONALE (2) Diabetes Code(s): E11.9 - TYPE 2 DIABETES MELLITUS WITHOUT COMPLICATIONS (3) Elevated troponin Code(s): R74.8 - ABNORMAL LEVELS OF OTHER SERUM ENZYMES (4) Hyperlipidemia Code(s): E78.5 - HYPERLIPIDEMIA, UNSPECIFIED (5) Hypertension Code(s): I10 - ESSENTIAL (PRIMARY) HYPERTENSION Visit type - Emergency Visit Emergency Visit: Yes ED Registration Date: 10/01/18 Care time: The patient presented to the Emergency Department on the above date and was hospitalized for further evaluation of their emergent condition. - New Patient This patient is new to me today: No - Critical Care Critical Care patient: Yes Total Critical Care Time (in minutes): 45 Critical Care Statement: The care of this patient involved high complexity decision making to prevent further life threatening deterioration of the patient 's condition and/or to evaluate & treat vital organ system(s) failure or risk of failure. - Discharge Referral Referred to [facility] No
[2018-10-06] MEDS: PROPOFOL 1,000,000 MCG/100 ML VIAL IVPB SCH ×2 (17:30→22:40)
--- NOTE | 2018-10-06 17:52 | PN ---
Teaching Attending Note Name of Resident: Lizzie Lopez ATTENDING PHYSICIAN STATEMENT I saw and evaluated the patient. I reviewed the resident's note and discussed the case with the resident. I agree with the resident's findings and plan as documented. SUBJECTIVE: Patient seen and examined Remains intubated Reactive pupils Some movements Last Vital Signs Temp Pulse Resp BP Pulse Ox 101.5 F H 88 16 138/100 100 10/06/18 16:00 10/06/18 16:00 10/06/18 16:36 10/06/18 16:00 10/06/18 08:35 Oropharynx: -intubated Cor: RSR, No murmurs, No gallops Lungs: diminished breath sounds Abd: Soft, Normal bowel sounds, No organomegaly Ext:No significant edema Skin: No rashes, Integument intact Flexor plantar bilaterally ABG Results ABG pH 7.36 (7.35-7.45) 10/04/18 12:05 ABG pCO2 at Pt Temp 44.1 mmHg (35-45) 10/04/18 12:05 ABG pO2 at Pt Temp 63.3 mmHg (80-105) L 10/04/18 12:05 ABG HCO3 24.1 mmol/L (22-27) 10/04/18 12:05 ABG O2 Sat (Measured) 90.3 % (95-98) L 10/04/18 12:05 ABG O2 Content 11.4 % vol (15-22) L 10/04/18 12:05 ABG Base Excess -0.8 meq/l (-2-2) 10/04/18 12:05 CBC, BMP 10/06/18 05:30 10/06/18 05:30 Current Medications Generic Name Dose Route Start Last Admin Trade Name Freq PRN Reason Stop Dose Admin Heparin Sodium (Porcine) 1,000 unit 10/01/18 17:57 10/06/18 07:48 Heparin - IVPUSH 1,000 unit PRN PRN Administration Heparin Heparin Sodium (Porcine) 5,000 unit 10/01/18 17:57 10/05/18 14:42 Heparin - IVPUSH 5,000 unit PRN PRN Administration Heparin Fentanyl 500 mcg/ Dextrose 100 mls @ 5 mls/hr 10/01/18 08:30 10/06/18 11:45 IVPB 100 mcg/hr TITR AHMET 20 mls/hr Administration 25 MCG/HR Heparin Sodium (Porcine) 25, 500 mls @ 20 mls/hr 10/01/18 18:00 10/06/18 17: 30 000 unit/ Sodium Chloride IV 1,750 unit/hr TITR AHMET 35 mls/hr Titration Protocol 1,000 UNIT/HR Propofol 1,000,000 mcg in 100 mls @ 3.09 mls/hr 10/01/18 20:45 10/06/18 17:30 Diprivan - IVPB 75 mcg/kg/min TITR AHMET 46.35 mls/hr Administration Protocol 5 MCG/KG/MIN Piperacillin Sod/Tazobactam 50 mls @ 100 mls/hr 10/04/18 11:30 10/06/18 09:25 Sod 3.375 gm/ Dextrose IVPB 100 mls/hr Q8H-IV AHMET Administration Protocol Vancomycin HCl 1,000 mg in 250 mls @ 166.667 mls/hr 10/05/18 14:30 10/06/18 15:30 Vancomycin (Pre-Docked) IVPB 166.667 mls/hr Q12H AHMET Administration Protocol Insulin Aspart 1 vial 10/02/18 13:00 10/06/18 17:48 Novolog Vial Sliding Scale - SQ 5 units Q6HPO AHMET Administration Protocol Insulin Detemir 10 units 10/03/18 07:00 10/06/18 06:39 Levemir Vial SQ 10 unit AM AHMET Administration Pantoprazole Sodium 40 mg 10/03/18 10:00 10/06/18 10:35 Protonix Iv IVPUSH 40 mg DAILY AHMET Administration Imprssion: Submassive P.E. with right heart strain Cardiac arrest at time of thrombolysis Anoxic brain injury Plan: Current ICU monitoring and therpay OBJECTIVE: ASSESSMENT AND PLAN:
[2018-10-06] MEDS: ACETAMINOPHEN 1000 MG/100 ML VIAL (NON FORMULARY) IVPB PRN (17:58)
[2018-10-06] MEDS ORDERED: PT OWN MED DRAWER 7, Y5N ONE (18:42)
[2018-10-06] MEDS: HEPARIN - 25,000 UNIT in SODIUM CHLORIDE 495 ML IV SCH (19:57)
[2018-10-07] MEDS: PIPERACILLIN/TAZOB 3.375 GM 3.375 GM in DEXTROSE 5%-WATER - 50 ML IVPB SCH ×3 (02:00→17:13)
[2018-10-07] MEDS: VANCOMYCIN 1 GRAM (PRE-DOCKED) 1,000 MG/250 ML BAG IVPB SCH ×2 (02:52→14:24)
[2018-10-07] MEDS ORDERED: DEXTROSE 5%-WATER - 50 ML IVPB ONE ×2 (04:46→07:07)
[2018-10-07] MEDS ORDERED: PIPERACILLIN/TAZOBACTAM 3.375 GM VIAL IVPB ONE ×3 (04:46→16:24)
[2018-10-07] MEDS ORDERED: fentaNYL CITRATE 250 MCG/5 ML VIAL ONE (05:31)
[2018-10-07] MEDS: INSULIN (LEVEMIR) 100 UNITS/ML UNITS SQ SCH (06:23)
[2018-10-07] MEDS: INSULIN SLIDING SCALE (NOVOLOG) 1 VIAL SQ SCH ×4 (06:24→17:19)
[2018-10-07 06:39] LABS: BASO % 0.7 % (0-2.0); EOS % 1.4 % (0-4.5); HEMATOCRIT 25.6 % (35.4-49); HEMOGLOBIN 8.7 GM/dL (11.7-16.9); LYMPH % 15.6 % (8-40); MCH 31.5 pg (25.7-33.7); MCHC 33.9 g/dl (32.0-35.9); MEAN CELL VOLUME 92.8 fl (80-96); MEAN PLT VOLUME 8.8 fl (7.5-11.1); NEUT % 72.3 % (42.8-82.8); PLATELET COUNT 258 K/MM3 (134-434); RBC 2.76 M/mm3 (4.00-5.60); RDW 12.5 % (11.9-15.9); WHITE BLOOD COUNT 12.8 K/mm3 (4.0-10.0)
[2018-10-07] MEDS ORDERED: PT OWN MED DRAWER 7, Y5N ONE (08:00)
--- NOTE | 2018-10-07 08:39 | PN ---
Physical Exam: SUBJECTIVE: Patient seen and examined at bedside. No acute events overnight. Continues to have fevers OBJECTIVE: Vital Signs Period Temp Pulse Resp BP Sys/Liao Pulse Ox Last 24 Hr 100.1 F-101.5 F 76-97 10-30 132-166/75-100 96-100 GENERAL: The patient is sedated. EYES: PERRL, sclera anicteric, conjunctiva clear. No ptosis. LUNGS: Course breath sounds, no wheezes, no crackles, mechanically ventilated. HEART: Regular rate and rhythm, S1, S2 without murmur, rub or gallop. ABDOMEN: Soft, nontender, nondistended, decreased bowel sounds, no guarding, no rebound EXTREMITIES: 2+ pulses, warm, well-perfused, no edema. NEUROLOGICAL: Sedated SKIN: Warm, dry, normal turgor, no rashes or lesions noted Laboratory Results - last 24 hr 10/06/18 10/06/18 10/06/18 05:30 13:06 16:00 WBC RBC Hgb Hct MCV MCH MCHC RDW Plt Count MPV Absolute Neuts (auto) Neutrophils % Neutrophils % (Manual) 77.0 Band Neutrophils % 4.0 Lymphocytes % Lymphocytes % (Manual) 11.0 D Monocytes % Monocytes % (Manual) 5 Eosinophils % Eosinophils % (Manual) 2.0 Basophils % Basophils % (Manual) 0.0 Myelocytes % (Man) 1 D Promyelocytes % (Man) 0 Blast Cells % (Manual) 0 Nucleated RBC % Metamyelocytes 0 Hypochromia 0 Platelet Estimate Normal Polychromasia 1+ Poikilocytosis 0 Anisocytosis 0 Microcytosis 0 Macrocytosis 1+ Tear Drop Cells 1+ PTT (Actin FS) 52.7 H POC Glucometer 187 10/06/18 10/06/18 10/07/18 17:40 23:29 05:30 WBC 12.8 H RBC 2.76 L Hgb 8.7 L Hct 25.6 L MCV 92.8 MCH 31.5 MCHC 33.9 RDW 12.5 Plt Count 258 D MPV 8.8 Absolute Neuts (auto) 9.3 H Neutrophils % 72.3 Neutrophils % (Manual) Band Neutrophils % Lymphocytes % 15.6 Lymphocytes % (Manual) Monocytes % 10.0 Monocytes % (Manual) Eosinophils % 1.4 Eosinophils % (Manual) Basophils % 0.7 Basophils % (Manual) Myelocytes % (Man) Promyelocytes % (Man) Blast Cells % (Manual) Nucleated RBC % 0 Metamyelocytes Hypochromia Platelet Estimate Polychromasia Poikilocytosis Anisocytosis Microcytosis Macrocytosis Tear Drop Cells PTT (Actin FS) POC Glucometer 205 118 10/07/18 06:19 WBC RBC Hgb Hct MCV MCH MCHC RDW Plt Count MPV Absolute Neuts (auto) Neutrophils % Neutrophils % (Manual) Band Neutrophils % Lymphocytes % Lymphocytes % (Manual) Monocytes % Monocytes % (Manual) Eosinophils % Eosinophils % (Manual) Basophils % Basophils % (Manual) Myelocytes % (Man) Promyelocytes % (Man) Blast Cells % (Manual) Nucleated RBC % Metamyelocytes Hypochromia Platelet Estimate Polychromasia Poikilocytosis Anisocytosis Microcytosis Macrocytosis Tear Drop Cells PTT (Actin FS) POC Glucometer 128 Active Medications Generic Name Dose Route Start Last Admin Trade Name Freq PRN Reason Stop Dose Admin Acetaminophen 1,000 mg 10/06/18 17:50 10/06/18 17:58 Ofirmev Injection - IVPB 1,000 mg Q6H PRN Administration PAIN OR FEVER Heparin Sodium (Porcine) 1,000 unit 10/01/18 17:57 10/06/18 07:48 Heparin - IVPUSH 1,000 unit PRN PRN Administration Heparin Heparin Sodium (Porcine) 5,000 unit 10/01/18 17:57 10/05/18 14:42 Heparin - IVPUSH 5,000 unit PRN PRN Administration Heparin Fentanyl 500 mcg/ Dextrose 100 mls @ 5 mls/hr 10/01/18 08:30 10/06/18 11:45 IVPB 100 mcg/hr TITR AHMET 20 mls/hr Administration 25 MCG/HR Heparin Sodium (Porcine) 25, 500 mls @ 20 mls/hr 10/01/18 18:00 10/06/18 19: 57 000 unit/ Sodium Chloride IV Not Given TITR AHMET Protocol 1,000 UNIT/HR Propofol 1,000,000 mcg in 100 mls @ 3.09 mls/hr 10/01/18 20:45 10/06/18 22:40 Diprivan - IVPB Not Given TITR AHMET Protocol 5 MCG/KG/MIN Piperacillin Sod/Tazobactam 50 mls @ 100 mls/hr 10/04/18 11:30 10/07/18 02:00 Sod 3.375 gm/ Dextrose IVPB 100 mls/hr Q8H-IV AHMET Administration Protocol Vancomycin HCl 1,000 mg in 250 mls @ 166.667 mls/hr 10/05/18 14:30 10/07/18 02:52 Vancomycin (Pre-Docked) IVPB 166.667 mls/hr Q12H AHMET Administration Protocol Insulin Aspart 1 vial 10/02/18 13:00 10/07/18 06:24 Novolog Vial Sliding Scale - SQ Not Given Q6HPO AHMET Protocol Insulin Detemir 10 units 10/03/18 07:00 10/07/18 06:23 Levemir Vial SQ 10 unit AM AHMET Administration Pantoprazole Sodium 40 mg 10/03/18 10:00 10/06/18 10:35 Protonix Iv IVPUSH 40 mg DAILY AHMET Administration ASSESSMENT/PLAN: NEURO -Sedated -Wean off sedation as tolerated -Propofol gtt -Will monitor mental status -CT head negative for acute findings -Neuro consulting: Anoxic brain injury ENDO -History of DM -Hypokalemia, will replete -SS insulin -BGMs -Will trend CARDIO/VASC -ROSC s/p cardiac arrest with rhythm strip showing narrow complex PEA -Bilateral PE -Off of pressors -Heparin gtt, will switch over to enoxaparin 1mg/kg BID -Will trend PTT -Lasix 40 for edema PULM -Bilateral PE extending to upper and lower lobes bilaterally -s/p tPA -Vent settings: 14/500/40/5 -SpO2 >90% -Wean as tolerated -Sputum cultures positive for MRSA -Vanc and Zosyn -Mother consented for trach -Consult Dr. Silva GI -Shock liver -LFTs trending down -Enteral feeds -May need PEG RENAL -Kidney function improving -Will trend HEME -S/p tPA. -Stopping heparin with switch to enoxaparin -H/H trending down, normal kidney function, not dilutional. Will check stool for occult blood -Will trend PTT ID -Continues to have fevers, likely central v. aspiraton v. pna -ID consulted: Vanc and Zosyn -Sputum cultures grow MRSA -Blood cultures ngtd -New blood, urine, sputum cultures for continued fevers FEN -Enteral feeds PROPHY -Protonix -Enoxaparin sc -SCD Dispo: Will continue to monitor in ICU Visit type - Emergency Visit Emergency Visit: Yes ED Registration Date: 10/01/18 Care time: The patient presented to the Emergency Department on the above date and was hospitalized for further evaluation of their emergent condition. - New Patient This patient is new to me today: No - Critical Care Critical Care patient: Yes Total Critical Care Time (in minutes): 35 Critical Care Statement: The care of this patient involved high complexity decision making to prevent further life threatening deterioration of the patient 's condition and/or to evaluate & treat vital organ system(s) failure or risk of failure.
--- NOTE | 2018-10-07 09:04 | PN ---
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 (short form) - Note 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: 43 year old male historyof HTN,DM, came with chest pain and syncope and found to have massive Pulmonary Embolism. He was given tpa and IR Thrombectomy and had cardiac arrest and PEA. Patient is on sedation and tried to stop medication and he became agitated. There is no seizure like activity, he had ct head which was unremarkable. He is off pressure now. I spent 35 minute doing critical care. Patient is on sedation, there is no change overnight. He is triggering vent and gag reflex is present. withdraws to pain. Spoke to nursing staff and chart reviewed.He keep spiking fever and yesterday tried to wean off and he became agitated again. NEUROLOGICAL EXAMINATOIN Sedated on vent, withdraws to pain right side is moving less than right ? 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 He is getting agitated when off sedation and there is no communication , I suspect Patient may have suffer anoxic cortical injury. moving all extremity today PLAN -Clinically no evidence of Meningitis , Status epilepticus - continue supportive care -Overall prognosis is guarded, There is could be range of outcome at this time. - mri of brain and eeg can be obtained, once he is stable. - continue to follow up with primary Thanking you so much Maurice Manjarrez MD
[2018-10-07] MEDS: PANTOPRAZOLE SODIUM 40 MG VIAL IVPUSH SCH (09:07)
[2018-10-07] MEDS: FENTANYL INJECTION 500 MCG in DEXTROSE 5%-WATER - 90 ML IVPB SCH (09:08)
[2018-10-07 09:54] LABS: ALBUMIN 1.9 g/dl (3.4-5.0); BILIRUBIN,TOTAL 0.7 mg/dL (0.2-1); CALCIUM 7.5 mg/dL (8.5-10.1); CREATININE 0.5 mg/dL (0.55-1.3); MAGNESIUM 2.2 mg/dL (1.8-2.4); PHOSPHOROUS 2.6 mg/dL (2.5-4.9); TOT PROT 5.6 g/dl (6.4-8.2)
--- NOTE | 2018-10-07 09:58 | PN ---
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 (short form) - Note 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: s: intubated Current Medications Acetaminophen (Ofirmev Injection -) 1,000 mg IVPB Q6H PRN PRN Reason: PAIN OR FEVER Last Admin: 10/06/18 17:58 Dose: 1,000 mg Heparin Sodium (Porcine) (Heparin -) 1,000 unit IVPUSH PRN PRN PRN Reason: Heparin Last Admin: 10/06/18 07:48 Dose: 1,000 unit Heparin Sodium (Porcine) (Heparin -) 5,000 unit IVPUSH PRN PRN PRN Reason: Heparin Last Admin: 10/05/18 14:42 Dose: 5,000 unit Fentanyl 500 mcg/ Dextrose 100 mls @ 5 mls/hr IVPB TITR AHMET Last Admin: 10/07/18 09:08 Dose: 100 mcg/hr, 20 mls/hr Heparin Sodium (Porcine) 25, (000 unit/ Sodium Chloride) 500 mls @ 20 mls/hr IV TITR AHMET; Protocol Last Admin: 10/06/18 19:57 Dose: Not Given Propofol (Diprivan -) 1,000,000 mcg in 100 mls @ 3.09 mls/hr IVPB TITR AHMET; Protocol Last Admin: 10/06/18 22:40 Dose: Not Given Piperacillin Sod/Tazobactam (Sod 3.375 gm/ Dextrose) 50 mls @ 100 mls/hr IVPB Q8H-IV AHMET; Protocol Last Admin: 10/07/18 09:07 Dose: 100 mls/hr Vancomycin HCl (Vancomycin (Pre-Docked)) 1,000 mg in 250 mls @ 166.667 mls/hr IVPB Q12H AHMET; Protocol Last Admin: 10/07/18 02:52 Dose: 166.667 mls/hr Insulin Aspart (Novolog Vial Sliding Scale -) 1 vial SQ Q6HPO AHMET; Protocol Last Admin: 10/07/18 06:24 Dose: Not Given Insulin Detemir (Levemir Vial) 10 units SQ AM AHMET Last Admin: 10/07/18 06:23 Dose: 10 unit Pantoprazole Sodium (Protonix Iv) 40 mg IVPUSH DAILY AHMET Last Admin: 10/07/18 09:07 Dose: 40 mg Constitutional: Yes: Well Nourished, No Distress, Calm Cardiovascular: Yes: Regular Rate and Rhythm, S1, S2. No: Gallop, Murmur Respiratory: Yes: Regular, CTA Bilaterally (anteriorly). No: Accessory Muscle Use Extremities: No: Cold Edema: No Neurological: No: Alert, Oriented Psychiatric: No: Agitated Assessment/Plan cxr: congestive changes echo 09/2018: tds; nl lvef, rv tds, grossly nl rv fcn, no sig valve path tele: sinus Assessment/Plan 43yo M with PMH of HTN, DM p/w unresponsiveness. Found to have bilateral PE, s/ p PEA arrest Bilateral PE, s/p PEA arrest: - arrest likely in setting of extensive bilateral PE - now s/p tPA, manage anticoagulation per ICU team - bp improved, off pressors now - echo was tds but no gross abnormalities - no significant chf on exam - hypercoagulable w/u per heme consultants - concern for anoxic encephalopathy - neuro following Afib: - reportedly per EMS and ER records, EKG not available - in setting of PE, this is considered a reversible etiology of Afib. - AC to be continued per PE indication (not required for AF indication here) - now in sinus Type II NM (NSTEMI): - peak trop 1.3, sec to PE/RV strain, vs hypoperfusion from PEA arrest. - EKG no ischemic changes - echo with nl lvef - ischemia w/u not indicated at present HTN: - off pressors now, bp stable - continue to monitor bp
--- NOTE | 2018-10-07 10:06 | PN ---
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, Physician History of Present Illness: REMAINS INTUBATED, FEBRILE UNRESPONSIVE ON VENTILATOR WBC SLIGHTLY ELEVATED SPUTUM C/S MRSA - Current Medication List Current Medications: Active Medications Acetaminophen (Ofirmev Injection -) 1,000 mg IVPB Q6H PRN PRN Reason: PAIN OR FEVER Last Admin: 10/06/18 17:58 Dose: 1,000 mg Heparin Sodium (Porcine) (Heparin -) 1,000 unit IVPUSH PRN PRN PRN Reason: Heparin Last Admin: 10/06/18 07:48 Dose: 1,000 unit Heparin Sodium (Porcine) (Heparin -) 5,000 unit IVPUSH PRN PRN PRN Reason: Heparin Last Admin: 10/05/18 14:42 Dose: 5,000 unit Fentanyl 500 mcg/ Dextrose 100 mls @ 5 mls/hr IVPB TITR AHMET Last Admin: 10/07/18 09:08 Dose: 100 mcg/hr, 20 mls/hr Heparin Sodium (Porcine) 25, (000 unit/ Sodium Chloride) 500 mls @ 20 mls/hr IV TITR AHMET; Protocol Last Admin: 10/06/18 19:57 Dose: Not Given Propofol (Diprivan -) 1,000,000 mcg in 100 mls @ 3.09 mls/hr IVPB TITR AHMET; Protocol Last Admin: 10/06/18 22:40 Dose: Not Given Piperacillin Sod/Tazobactam (Sod 3.375 gm/ Dextrose) 50 mls @ 100 mls/hr IVPB Q8H-IV AHMET; Protocol Last Admin: 10/07/18 09:07 Dose: 100 mls/hr Vancomycin HCl (Vancomycin (Pre-Docked)) 1,000 mg in 250 mls @ 166.667 mls/hr IVPB Q12H AHMET; Protocol Last Admin: 10/07/18 02:52 Dose: 166.667 mls/hr Insulin Aspart (Novolog Vial Sliding Scale -) 1 vial SQ Q6HPO AHMET; Protocol Last Admin: 10/07/18 06:24 Dose: Not Given Insulin Detemir (Levemir Vial) 10 units SQ AM AHMET Last Admin: 10/07/18 06:23 Dose: 10 unit Pantoprazole Sodium (Protonix Iv) 40 mg IVPUSH DAILY AHMET Last Admin: 10/07/18 09:07 Dose: 40 mg - Objective Vital Signs: Vital Signs Temperature 100.1 F H 10/07/18 08:00 Pulse Rate 79 10/07/18 08:31 Respiratory Rate 20 10/07/18 09:00 Blood Pressure 132/75 10/07/18 08:00 O2 Sat by Pulse Oximetry (%) 99 10/07/18 09:00 Constitutional: Yes: No Distress Eyes: Yes: Conjunctiva Clear Cardiovascular: Yes: Regular Rate and Rhythm Respiratory: Yes: Mechanically Ventilated Gastrointestinal: Yes: Normal Bowel Sounds, Soft. No: Tenderness Edema: Yes Labs: CBC, BMP 10/07/18 05:30 10/07/18 05:30 INR, PTT INR 1.40 (0.83-1.09) H 10/01/18 16:20 Assessment/Plan S/P CARDIOPULMONARY ARREST B/L PE ? ASP PNEUMONIA + SPUTUM MRSA CONTINUE ZOSYN + VANCO CHECK VANCOMYCIN TROUGH VENTILATORY SUPPORT PROGNOSIS POOR
[2018-10-07] MEDS: HEPARIN NA (PORCINE) 5,000 UNITS/ML 1ML VIAL IVPUSH PRN (10:09)
[2018-10-07 10:11] LABS: POTASSIUM 2.8 mmol/L (3.5-5.1)
[2018-10-07] MEDS ORDERED: FUROSEMIDE 40 MG/4 ML INJECTABLE VIAL IVPUSH ONE (10:37)
--- NOTE | 2018-10-07 10:40 | PN ---
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 (short form) - Note 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: intubated sedated on vent off sedation per RN-- he was not making much meaningful movements off pressor support has been having fevers Vital Signs - 24 hr 10/06/18 10/06/18 10/06/18 11:15 12:00 14:00 Temperature 101.1 F H 100.9 F H Pulse Rate 97 H 87 Respiratory 10 25 H 11 Rate Blood Pressure 166/94 140/84 O2 Sat by Pulse Oximetry (%) 10/06/18 10/06/18 10/06/18 14:09 14:30 16:00 Temperature 101.5 F H Pulse Rate 88 Respiratory 18 18 14 Rate Blood Pressure 138/100 O2 Sat by Pulse 98 Oximetry (%) 10/06/18 10/06/18 10/06/18 16:36 18:00 18:57 Temperature 100.8 F H Pulse Rate 84 Respiratory 16 16 Rate Blood Pressure 144/86 O2 Sat by Pulse 99 Oximetry (%) 10/06/18 10/06/18 10/06/18 19:04 19:44 21:22 Temperature Pulse Rate 82 Respiratory 30 H 30 H 18 Rate Blood Pressure 140/87 O2 Sat by Pulse 99 Oximetry (%) 10/07/18 10/07/18 10/07/18 00:00 00:26 02:00 Temperature 100.7 F H Pulse Rate 79 80 Respiratory 15 17 17 Rate Blood Pressure 148/87 152/90 O2 Sat by Pulse Oximetry (%) 10/07/18 10/07/18 10/07/18 03:12 04:00 06:00 Temperature 100.9 F H Pulse Rate 76 82 Respiratory 24 H 18 16 Rate Blood Pressure 148/90 150/80 O2 Sat by Pulse Oximetry (%) 10/07/18 10/07/18 10/07/18 06:22 08:00 08:31 Temperature 100.1 F H Pulse Rate 79 79 Respiratory 21 H 16 20 Rate Blood Pressure 132/75 O2 Sat by Pulse 99 Oximetry (%) 10/07/18 09:00 Temperature Pulse Rate Respiratory 20 Rate Blood Pressure O2 Sat by Pulse 99 Oximetry (%) Current Medications Generic Name Dose Route Start Last Admin Trade Name Freq PRN Reason Stop Dose Admin Acetaminophen 1,000 mg 10/06/18 17:50 10/06/18 17:58 Ofirmev Injection - IVPB 1,000 mg Q6H PRN Administration PAIN OR FEVER Furosemide 40 mg 10/07/18 10:37 Lasix Injection - IVPUSH 10/07/18 10:38 ONCE ONE Heparin Sodium (Porcine) 1,000 unit 10/01/18 17:57 10/07/18 10:09 Heparin - IVPUSH 1,000 unit PRN PRN Administration Heparin Heparin Sodium (Porcine) 5,000 unit 10/01/18 17:57 10/05/18 14:42 Heparin - IVPUSH 5,000 unit PRN PRN Administration Heparin Fentanyl 500 mcg/ Dextrose 100 mls @ 5 mls/hr 10/01/18 08:30 10/07/18 09:08 IVPB 100 mcg/hr TITR AHMET 20 mls/hr Administration 25 MCG/HR Heparin Sodium (Porcine) 25, 500 mls @ 20 mls/hr 10/01/18 18:00 10/07/18 10: 08 000 unit/ Sodium Chloride IV 1,850 unit/hr TITR AHMET 37 mls/hr Titration Protocol 1,000 UNIT/HR Propofol 1,000,000 mcg in 100 mls @ 3.09 mls/hr 10/01/18 20:45 10/06/18 22:40 Diprivan - IVPB Not Given TITR AHMET Protocol 5 MCG/KG/MIN Piperacillin Sod/Tazobactam 50 mls @ 100 mls/hr 10/04/18 11:30 10/07/18 09:07 Sod 3.375 gm/ Dextrose IVPB 100 mls/hr Q8H-IV AHMET Administration Protocol Vancomycin HCl 1,000 mg in 250 mls @ 166.667 mls/hr 10/05/18 14:30 10/07/18 02:52 Vancomycin (Pre-Docked) IVPB 166.667 mls/hr Q12H AHMET Administration Protocol Potassium Chloride 10 meq in 100 mls @ 100 mls/hr 10/07/18 10:45 Potassium Chloride 10 Meq Premix Ivpb - IVPB 10/07/18 13:44 Q60M AHMET Insulin Aspart 1 vial 10/02/18 13:00 10/07/18 06:24 Novolog Vial Sliding Scale - SQ Not Given Q6HPO AHMET Protocol Insulin Detemir 10 units 10/03/18 07:00 10/07/18 06:23 Levemir Vial SQ 10 unit AM AHMET Administration Pantoprazole Sodium 40 mg 10/03/18 10:00 10/07/18 09:07 Protonix Iv IVPUSH 40 mg DAILY AHMET Administration Laboratory Results - last 24 hr 10/06/18 10/06/18 10/06/18 05:30 13:06 16:00 WBC RBC Hgb Hct MCV MCH MCHC RDW Plt Count MPV Absolute Neuts (auto) Neutrophils % Neutrophils % (Manual) 77.0 Band Neutrophils % 4.0 Lymphocytes % Lymphocytes % (Manual) 11.0 D Monocytes % Monocytes % (Manual) 5 Eosinophils % Eosinophils % (Manual) 2.0 Basophils % Basophils % (Manual) 0.0 Myelocytes % (Man) 1 D Promyelocytes % (Man) 0 Blast Cells % (Manual) 0 Nucleated RBC % Metamyelocytes 0 Hypochromia 0 Platelet Estimate Normal Polychromasia 1+ Poikilocytosis 0 Anisocytosis 0 Microcytosis 0 Macrocytosis 1+ Tear Drop Cells 1+ PTT (Actin FS) 52.7 H Sodium Potassium Chloride Carbon Dioxide Anion Gap BUN Creatinine Est GFR (CKD-EPI)AfAm Est GFR (CKD-EPI)NonAf POC Glucometer 187 Random Glucose Calcium Phosphorus Magnesium Total Bilirubin AST ALT Alkaline Phosphatase Total Protein Albumin 10/06/18 10/06/18 10/07/18 17:40 23:29 05:30 WBC RBC Hgb Hct MCV MCH MCHC RDW Plt Count MPV Absolute Neuts (auto) Neutrophils % Neutrophils % (Manual) Band Neutrophils % Lymphocytes % Lymphocytes % (Manual) Monocytes % Monocytes % (Manual) Eosinophils % Eosinophils % (Manual) Basophils % Basophils % (Manual) Myelocytes % (Man) Promyelocytes % (Man) Blast Cells % (Manual) Nucleated RBC % Metamyelocytes Hypochromia Platelet Estimate Polychromasia Poikilocytosis Anisocytosis Microcytosis Macrocytosis Tear Drop Cells PTT (Actin FS) 240.5 H Sodium Potassium Chloride Carbon Dioxide Anion Gap BUN Creatinine Est GFR (CKD-EPI)AfAm Est GFR (CKD-EPI)NonAf POC Glucometer 205 118 Random Glucose Calcium Phosphorus Magnesium Total Bilirubin AST ALT Alkaline Phosphatase Total Protein Albumin 10/07/18 10/07/18 10/07/18 05:30 05:30 06:19 WBC 12.8 H RBC 2.76 L Hgb 8.7 L Hct 25.6 L MCV 92.8 MCH 31.5 MCHC 33.9 RDW 12.5 Plt Count 258 D MPV 8.8 Absolute Neuts (auto) 9.3 H Neutrophils % 72.3 Neutrophils % (Manual) Band Neutrophils % Lymphocytes % 15.6 Lymphocytes % (Manual) Monocytes % 10.0 Monocytes % (Manual) Eosinophils % 1.4 Eosinophils % (Manual) Basophils % 0.7 Basophils % (Manual) Myelocytes % (Man) Promyelocytes % (Man) Blast Cells % (Manual) Nucleated RBC % 0 Metamyelocytes Hypochromia Platelet Estimate Polychromasia Poikilocytosis Anisocytosis Microcytosis Macrocytosis Tear Drop Cells PTT (Actin FS) Sodium 138 Potassium 2.8 L* Chloride 102 Carbon Dioxide 24 Anion Gap 12 BUN 7 Creatinine 0.5 L Est GFR (CKD-EPI)AfAm 153.83 Est GFR (CKD-EPI)NonAf 132.72 POC Glucometer 128 Random Glucose 181 H Calcium 7.5 L Phosphorus 2.6 Magnesium 2.2 Total Bilirubin 0.7 AST 31 ALT 156 H Alkaline Phosphatase 176 H Total Protein 5.6 L Albumin 1.9 L 10/07/18 09:00 WBC RBC Hgb Hct MCV MCH MCHC RDW Plt Count MPV Absolute Neuts (auto) Neutrophils % Neutrophils % (Manual) Band Neutrophils % Lymphocytes % Lymphocytes % (Manual) Monocytes % Monocytes % (Manual) Eosinophils % Eosinophils % (Manual) Basophils % Basophils % (Manual) Myelocytes % (Man) Promyelocytes % (Man) Blast Cells % (Manual) Nucleated RBC % Metamyelocytes Hypochromia Platelet Estimate Polychromasia Poikilocytosis Anisocytosis Microcytosis Macrocytosis Tear Drop Cells PTT (Actin FS) 48.0 H Sodium Potassium Chloride Carbon Dioxide Anion Gap BUN Creatinine Est GFR (CKD-EPI)AfAm Est GFR (CKD-EPI)NonAf POC Glucometer Random Glucose Calcium Phosphorus Magnesium Total Bilirubin AST ALT Alkaline Phosphatase Total Protein Albumin S1 S2 RRR intubated Lungs decreased Abd-soft, NT, BS+ edema++ A/P s/p PEA arrest B/L PE Acute respiratory failure Acute kidney injury-- resolved elevated LFT--?shock liver -->trending down --Continue present care vent support-- per icu team off pressors blood cultures negative MRSA sputum replace lytes was agitated off sedation -- now on sedation Neurology eval noted on heparin drip plan for trach , will need a peg as well replace lytes prognosis guarded Problem List - Problems (1) Diabetes Code(s): E11.9 - TYPE 2 DIABETES MELLITUS WITHOUT COMPLICATIONS (2) Hyperlipidemia Code(s): E78.5 - HYPERLIPIDEMIA, UNSPECIFIED (3) Hypertension Code(s): I10 - ESSENTIAL (PRIMARY) HYPERTENSION (4) Bilateral pulmonary embolism Code(s): I26.99 - OTHER PULMONARY EMBOLISM WITHOUT ACUTE COR PULMONALE (5) Elevated troponin Code(s): R74.8 - ABNORMAL LEVELS OF OTHER SERUM ENZYMES
[2018-10-07 11:12] LABS: ANISOCYTOSIS 0; MACROCYTOSIS 1+; PLATELET ESTIMATE NORMAL
[2018-10-07] MEDS: KCL 10 MEQ IVPB 10 MEQ/100 ML INFUS.BAG IVPB SCH ×3 (11:57→14:20)
--- NOTE | 2018-10-07 12:02 | PN ---
Teaching Attending Note Name of Resident: Amaury Call ATTENDING PHYSICIAN STATEMENT I saw and evaluated the patient. I reviewed the resident's note and discussed the case with the resident. I agree with the resident's findings and plan as documented. SUBJECTIVE: Pt seen and examined in the ICU. Remains intubated, poorly responsive off sedation. Persistent fevers. OBJECTIVE: Vital Signs Period Temp Pulse Resp BP Sys/Liao Pulse Ox Last 24 Hr 100.1 F-101.5 F 76-88 11-30 132-152/75-100 96-99 Intake & Output 10/04/18 10/05/18 10/06/18 10/07/18 23:59 23:59 23:59 23:59 Intake Total 2503.4 2967.7 4317 Output Total 850 1200 4900 Balance 1653.4 1767.7 -583 Weight 101.8 kg 105.778 kg 106.413 kg 106.866 kg Gen: intubated, poorly responsive Heart: RRR Lung: decreased breath sounds at the bases Abd: soft, nontender Ext: + edema CBC, BMP 10/07/18 05:30 10/07/18 05:30 Active Medications Acetaminophen (Ofirmev Injection -) 1,000 mg IVPB Q6H PRN PRN Reason: PAIN OR FEVER Last Admin: 10/06/18 17:58 Dose: 1,000 mg Enoxaparin Sodium (Lovenox -) 105 mg SQ BID AHMET Fentanyl 500 mcg/ Dextrose 100 mls @ 5 mls/hr IVPB TITR AHMET Last Admin: 10/07/18 09:08 Dose: 100 mcg/hr, 20 mls/hr Propofol (Diprivan -) 1,000,000 mcg in 100 mls @ 3.09 mls/hr IVPB TITR AHMET; Protocol Last Admin: 10/06/18 22:40 Dose: Not Given Piperacillin Sod/Tazobactam (Sod 3.375 gm/ Dextrose) 50 mls @ 100 mls/hr IVPB Q8H-IV AHMET; Protocol Last Admin: 10/07/18 09:07 Dose: 100 mls/hr Vancomycin HCl (Vancomycin (Pre-Docked)) 1,000 mg in 250 mls @ 166.667 mls/hr IVPB Q12H AHMET; Protocol Last Admin: 10/07/18 02:52 Dose: 166.667 mls/hr Potassium Chloride (Potassium Chloride 10 Meq Premix Ivpb -) 10 meq in 100 mls @ 100 mls/hr IVPB Q60M [facility] Stop: 10/07/18 13:44 Last Admin: 10/07/18 11:57 Dose: 100 mls/hr Insulin Aspart (Novolog Vial Sliding Scale -) 1 vial SQ Q6HPO [facility]; Protocol Last Admin: 10/07/18 06:24 Dose: Not Given Insulin Detemir (Levemir Vial) 10 units SQ AM [facility] Last Admin: 10/07/18 06:23 Dose: 10 unit Pantoprazole Sodium (Protonix Iv) 40 mg IVPUSH DAILY [facility] Last Admin: 10/07/18 09:07 Dose: 40 mg ASSESSMENT AND PLAN: s/p Cardiopulmonary Arrest Acute Pulmonary Emboli s/p tPA Obstructive Shock improving +Troponins likely Demand Ischemia Lactic Acidosis resolved r/o Anoxic Encephalopathy r/o Pneumonia HTN DM - continue anticoagulation to therapeutic range, can start lovenox - off pressors, maintain MAP >65 - continue empiric antibiotics - reculture if febrile - lasix today - monitor urine output, creatinine - taper Fio2, PEEP to keep Spo2 >90% - daily sedation vacations to assess mental status - spontaneous breathing trials as tolerated when mental status improved - enteral feeds - DVT/GI prophylaxis - continue ICU monitoring - prognosis guarded, will need tracheostomy, consult thoracic surgery critical care time spent in reviewing chart, evaluating patient and formulating plan 35 min
--- NOTE | 2018-10-07 12:29 | SPA.PREOP ---
- PRE-OP NOTE Dx: Need for permanent ventilatory support s/p cardiac arrest; bilateral pulmonary embolus Planned Procedure: Bedside Tracheostomy 10/09/18 Surgeon: Justin Silva Last Vital Signs Temp Pulse Resp BP Pulse Ox 100.1 F H 79 23 H 132/75 99 10/07/18 08:00 10/07/18 08:31 10/07/18 11:42 10/07/18 08:00 10/07/18 09:00 Lab Results WBC 12.8 K/mm3 (4.0-10.0) H 10/07/18 05:30 RBC 2.76 M/mm3 (4.00-5.60) L 10/07/18 05:30 Hgb 8.7 GM/dL (11.7-16.9) L 10/07/18 05:30 Hct 25.6 % (35.4-49) L 10/07/18 05:30 MCV 92.8 fl (80-96) 10/07/18 05:30 MCHC 33.9 g/dl (32.0-35.9) 10/07/18 05:30 RDW 12.5 % (11.9-15.9) 10/07/18 05:30 Plt Count 258 K/MM3 (134-434) D 10/07/18 05:30 Sodium 138 mmol/L (136-145) 10/07/18 05:30 Potassium 2.8 mmol/L (3.5-5.1) L* 10/07/18 05:30 Chloride 102 mmol/L (98-107) 10/07/18 05:30 Carbon Dioxide 24 mmol/L (21-32) 10/07/18 05:30 Anion Gap 12 MMOL/L (8-16) 10/07/18 05:30 BUN 7 mg/dL (7-18) 10/07/18 05:30 Creatinine 0.5 mg/dL (0.55-1.3) L 10/07/18 05:30 Random Glucose 181 mg/dL (74-106) H 10/07/18 05:30 Calcium 7.5 mg/dL (8.5-10.1) L 10/07/18 05:30 Blood Type O POSITIVE 10/01/18 12:45 Antibody Screen Negative 10/01/18 06:35 INR 1.40 (0.83-1.09) H 10/01/18 16:20 - IMAGING Chest X-ray: Report Reviewed, Image Reviewed EKG: Report Reviewed, Image Reviewed - ASSESSMENT/PLAN 1. Make NPO after midnight except po meds 2. GI/DVT PPX 3. Medical optimization / clearance 4. Consent to be obtained by surgeon after risks, benefits and alternatives discussed with patient and or Health Care Proxy. Problem List - Problems (1) Cardiac arrest Code(s): I46.9 - CARDIAC ARREST, CAUSE UNSPECIFIED (2) Bilateral pulmonary embolism Code(s): I26.99 - OTHER PULMONARY EMBOLISM WITHOUT ACUTE COR PULMONALE (3) Diabetes Code(s): E11.9 - TYPE 2 DIABETES MELLITUS WITHOUT COMPLICATIONS Visit type - Case Type Case Type: ED Admission - Emergency Emergency Visit: Yes ED Registration Date: 10/01/18 Care time: The patient presented to the Emergency Department on the above date and was hospitalized for further evaluation of their emergent condition. - New patient This patient is new to me today: Yes Date on this admission: 10/07/18
[2018-10-07] MEDS ORDERED: DEXTROSE 5%-WATER - 100 ML IVPB ONE (16:24)
[2018-10-07] MEDS: PROPOFOL 1,000,000 MCG/100 ML VIAL IVPB SCH (20:00)
[2018-10-07] MEDS: ENOXAPARIN NA (PORCINE) 120 MG/0.8 ML DISP.SYRIN SQ SCH (21:43)
[2018-10-08] MEDS: PIPERACILLIN/TAZOB 3.375 GM 3.375 GM in DEXTROSE 5%-WATER - 50 ML IVPB SCH ×3 (02:00→17:34)
[2018-10-08] MEDS: VANCOMYCIN 1 GRAM (PRE-DOCKED) 1,000 MG/250 ML BAG IVPB SCH ×2 (02:30→14:13)
[2018-10-08] MEDS ORDERED: DEXTROSE 5%-WATER - 50 ML IVPB ONE ×3 (03:25→17:25)
[2018-10-08] MEDS ORDERED: PIPERACILLIN/TAZOBACTAM 3.375 GM VIAL IVPB ONE ×3 (03:25→17:25)
[2018-10-08] MEDS ORDERED: fentaNYL CITRATE 250 MCG/5 ML VIAL ONE ×4 (03:25→21:47)
[2018-10-08] MEDS: INSULIN SLIDING SCALE (NOVOLOG) 1 VIAL SQ SCH ×5 (03:43→23:53)
[2018-10-08] MEDS: INSULIN (LEVEMIR) 100 UNITS/ML UNITS SQ SCH (06:17)
[2018-10-08] MEDS ORDERED: MIDAZOLAM HCL 5 MG/1 ML Single Dose Vial IVPUSH ONE (07:48)
--- NOTE | 2018-10-08 07:50 | PN ---
Physical Exam: SUBJECTIVE: Patient seen and examined at bedside. No acute events overnight. Patient continues to be agitated off of sedation and does not make purposeful movements or follow commands. OBJECTIVE: Vital Signs Period Temp Pulse Resp BP Sys/Liao Pulse Ox Last 24 Hr 99.3 F-100.6 F 78-100 14-28 118-166/61-100 99-100 GENERAL: The patient is sedated. EYES: PERRL, sclera anicteric, conjunctiva clear. LUNGS: Course breath sounds, no wheezes, no crackles, mechanically ventilated. HEART: Regular rate and rhythm, S1, S2 without murmur, rub or gallop. ABDOMEN: Soft, nontender, nondistended, normoactive bowel sounds, no guarding, no rebound, no hepatosplenomegaly, no masses. EXTREMITIES: 2+ pulses, warm, well-perfused, no edema. NEUROLOGICAL: Sedated, nonpurposeful movements off of sedation SKIN: Warm, dry, normal turgor, no rashes or lesions noted Laboratory Results - last 24 hr 10/07/18 10/07/18 10/07/18 05:30 05:30 05:30 Neutrophils % (Manual) 76.3 Band Neutrophils % 1.0 Lymphocytes % (Manual) 13.4 D Monocytes % (Manual) 5 Eosinophils % (Manual) 1.0 Basophils % (Manual) 1.0 D Myelocytes % (Man) 2 D Promyelocytes % (Man) 0 Blast Cells % (Manual) 0 Metamyelocytes 0 Hypochromia 0 Platelet Estimate Normal Polychromasia 0 Poikilocytosis 0 Anisocytosis 0 Microcytosis 0 Macrocytosis 1+ PTT (Actin FS) 240.5 H Sodium 138 Potassium 2.8 L* Chloride 102 Carbon Dioxide 24 Anion Gap 12 BUN 7 Creatinine 0.5 L Est GFR (CKD-EPI)AfAm 153.83 Est GFR (CKD-EPI)NonAf 132.72 POC Glucometer Random Glucose 181 H Calcium 7.5 L Phosphorus 2.6 Magnesium 2.2 Total Bilirubin 0.7 AST 31 ALT 156 H Alkaline Phosphatase 176 H Total Protein 5.6 L Albumin 1.9 L Vancomycin Pre-Dose 10/07/18 10/07/18 10/07/18 09:00 14:21 15:15 Neutrophils % (Manual) Band Neutrophils % Lymphocytes % (Manual) Monocytes % (Manual) Eosinophils % (Manual) Basophils % (Manual) Myelocytes % (Man) Promyelocytes % (Man) Blast Cells % (Manual) Metamyelocytes Hypochromia Platelet Estimate Polychromasia Poikilocytosis Anisocytosis Microcytosis Macrocytosis PTT (Actin FS) 48.0 H 63.6 H Sodium Potassium Chloride Carbon Dioxide Anion Gap BUN Creatinine Est GFR (CKD-EPI)AfAm Est GFR (CKD-EPI)NonAf POC Glucometer 220 Random Glucose Calcium Phosphorus Magnesium Total Bilirubin AST ALT Alkaline Phosphatase Total Protein Albumin Vancomycin Pre-Dose 10/07/18 10/08/18 10/08/18 17:19 05:30 05:30 Neutrophils % (Manual) Band Neutrophils % Lymphocytes % (Manual) Monocytes % (Manual) Eosinophils % (Manual) Basophils % (Manual) Myelocytes % (Man) Promyelocytes % (Man) Blast Cells % (Manual) Metamyelocytes Hypochromia Platelet Estimate Polychromasia Poikilocytosis Anisocytosis Microcytosis Macrocytosis PTT (Actin FS) 29.5 Sodium Potassium Chloride Carbon Dioxide Anion Gap BUN Creatinine Est GFR (CKD-EPI)AfAm Est GFR (CKD-EPI)NonAf POC Glucometer 204 Random Glucose Calcium Phosphorus Magnesium Total Bilirubin AST ALT Alkaline Phosphatase Total Protein Albumin Vancomycin Pre-Dose 9.3 L 10/08/18 06:13 Neutrophils % (Manual) Band Neutrophils % Lymphocytes % (Manual) Monocytes % (Manual) Eosinophils % (Manual) Basophils % (Manual) Myelocytes % (Man) Promyelocytes % (Man) Blast Cells % (Manual) Metamyelocytes Hypochromia Platelet Estimate Polychromasia Poikilocytosis Anisocytosis Microcytosis Macrocytosis PTT (Actin FS) Sodium Potassium Chloride Carbon Dioxide Anion Gap BUN Creatinine Est GFR (CKD-EPI)AfAm Est GFR (CKD-EPI)NonAf POC Glucometer 195 Random Glucose Calcium Phosphorus Magnesium Total Bilirubin AST ALT Alkaline Phosphatase Total Protein Albumin Vancomycin Pre-Dose Active Medications Generic Name Dose Route Start Last Admin Trade Name Freq PRN Reason Stop Dose Admin Acetaminophen 1,000 mg 10/06/18 17:50 10/06/18 17:58 Ofirmev Injection - IVPB 1,000 mg Q6H PRN Administration PAIN OR FEVER Enoxaparin Sodium 110 mg 10/07/18 22:00 10/07/18 21:43 Lovenox - SQ 110 mg BID AHMET Administration Fentanyl 500 mcg/ Dextrose 100 mls @ 5 mls/hr 10/01/18 08:30 10/07/18 09:08 IVPB 100 mcg/hr TITR AHMET 20 mls/hr Administration 25 MCG/HR Propofol 1,000,000 mcg in 100 mls @ 3.09 mls/hr 10/01/18 20:45 10/07/18 20:00 Diprivan - IVPB 75 mcg/kg/min TITR AHMET 46.35 mls/hr Administration Protocol 5 MCG/KG/MIN Piperacillin Sod/Tazobactam 50 mls @ 100 mls/hr 10/04/18 11:30 10/08/18 02:00 Sod 3.375 gm/ Dextrose IVPB 100 mls/hr Q8H-IV AHMET Administration Protocol Vancomycin HCl 1,000 mg in 250 mls @ 166.667 mls/hr 10/05/18 14:30 10/08/18 02:30 Vancomycin (Pre-Docked) IVPB 166.667 mls/hr Q12H AHMET Administration Protocol Insulin Aspart 1 vial 10/02/18 13:00 10/08/18 06:16 Novolog Vial Sliding Scale - SQ 3 units Q6HPO AHMET Administration Protocol Insulin Detemir 10 units 10/03/18 07:00 10/08/18 06:17 Levemir Vial SQ 10 unit AM AHMET Administration Midazolam HCl 4 mg 10/08/18 07:48 Versed - IVPUSH 10/08/18 07:49 ONCE ONE Pantoprazole Sodium 40 mg 10/03/18 10:00 10/07/18 09:07 Protonix Iv IVPUSH 40 mg DAILY AHMET Administration ASSESSMENT/PLAN: 43yo M with PMH of DM brought to ICU for bilateral PE and s/p PEA cardiac arrest NEURO -Sedated -Will keep sedated for now -Propofol gtt -Will monitor mental status -CT head negative for acute findings -Neuro consulting: Anoxic brain injury ENDO -History of DM -Hypokalemia, will replete -SS insulin -BGMs -Will trend CARDIO/VASC -ROSC s/p cardiac arrest with rhythm strip showing narrow complex PEA -Bilateral PE -Off of pressors -Enoxaparin 1mg/kg BID, will hold night dose and morning dose tomorrow for trach -Coags for tomorrow PULM -Bilateral PE extending to upper and lower lobes bilaterally -s/p tPA -Vent settings: 14/500/40/5 -SpO2 >90% -Wean as tolerated -Sputum cultures positive for MRSA -Vanc and Zosyn -Scheduled for trach tomorrow AM GI -Shock liver -LFTs trending down -Enteral feeds -May need PEG, consulting IR -Hold feeds after dinner RENAL -Kidney function improving -Will trend HEME -S/p tPA. -Enoxaparin -Guiaiac negative stool -Hgb levels improved from yesterday -Will trend ID -Continues to have fevers, likely central v. aspiraton v. pna -ID consulted: Vanc and Zosyn -Sputum cultures grow MRSA -Blood cultures ngtd -Rpt blood, urine, sputum cultures for continued fevers, pending FEN -Enteral feeds PROPHY -Protonix -Enoxaparin sc Dispo: Will continue to monitor in ICU Visit type - Emergency Visit Emergency Visit: Yes ED Registration Date: 10/01/18 Care time: The patient presented to the Emergency Department on the above date and was hospitalized for further evaluation of their emergent condition. - New Patient This patient is new to me today: No - Critical Care Critical Care patient: Yes Total Critical Care Time (in minutes): 35 Critical Care Statement: The care of this patient involved high complexity decision making to prevent further life threatening deterioration of the patient 's condition and/or to evaluate & treat vital organ system(s) failure or risk of failure.
[2018-10-08 08:00] LABS: BILIRUBIN,TOTAL 0.6 mg/dL (0.2-1); CALCIUM 7.8 mg/dL (8.5-10.1); CREATININE 0.5 mg/dL (0.55-1.3); MAGNESIUM 2.1 mg/dL (1.8-2.4); PHOSPHOROUS 2.5 mg/dL (2.5-4.9)
[2018-10-08] MEDS: PROPOFOL 1,000,000 MCG/100 ML VIAL IVPB SCH ×5 (08:19→21:08)
--- NOTE | 2018-10-08 09:04 | PN ---
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 (short form) - Note 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: 43 year old male historyof HTN,DM, came with chest pain and syncope and found to have massive Pulmonary Embolism. He was given tpa and IR Thrombectomy and had cardiac arrest and PEA. Patient is on sedation and tried to stop medication and he became agitated. There is no seizure like activity, he had ct head which was unremarkable. He is off pressure now. I spent 35 minute doing critical care. Patient is on sedation, there is no change overnight. He is triggering vent and gag reflex is present. withdraws to pain. Spoke to residents, staff , patient seen and examined, chart reviewed. 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 Full neuro exam is not possible, he is due for tracheostomy tomorrow PLAN -Clinically no evidence of Meningitis , Status epilepticus - continue supportive care -Overall prognosis is guarded, There is could be range of outcome at this time. - mri of brain and eeg can be obtained, once he is stable. - continue to follow up with primary Thanking you so much Maurice Manjarrez MD
[2018-10-08 09:34] LABS: POTASSIUM 2.9 mmol/L (3.5-5.1)
[2018-10-08 10:09] LABS: BASO % 1.1 % (0-2.0); EOS % 4.7 % (0-4.5); HEMATOCRIT 29.8 % (35.4-49); HEMOGLOBIN 10.1 GM/dL (11.7-16.9); MCH 31.5 pg (25.7-33.7); MCHC 33.9 g/dl (32.0-35.9); MEAN CELL VOLUME 92.8 fl (80-96); MEAN PLT VOLUME 8.3 fl (7.5-11.1); MONO % 12.5 % (3.8-10.2); NEUT % 67.7 % (42.8-82.8); PLATELET COUNT 341 K/MM3 (134-434); RBC 3.21 M/mm3 (4.00-5.60); RDW 12.9 % (11.9-15.9); WHITE BLOOD COUNT 11.3 K/mm3 (4.0-10.0)
--- NOTE | 2018-10-08 10:18 | PN ---
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 (short form) - Note 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: intubated sedated on vent off sedation per RN-- he was not making much meaningful movements off pressor support has been having fevers Vital Signs - 24 hr 10/07/18 10/07/18 10/07/18 11:42 12:00 14:00 Temperature 100.5 F H Pulse Rate 83 85 Respiratory 23 H 17 18 Rate Blood Pressure 133/75 138/83 O2 Sat by Pulse Oximetry (%) 10/07/18 10/07/18 10/07/18 16:00 16:58 17:30 Temperature Pulse Rate 80 Respiratory 14 19 Rate Blood Pressure 136/81 O2 Sat by Pulse 99 Oximetry (%) 10/07/18 10/07/18 10/07/18 18:00 18:23 18:57 Temperature 99.3 F Pulse Rate 82 83 Respiratory 14 15 19 Rate Blood Pressure 133/76 136/61 O2 Sat by Pulse Oximetry (%) 10/07/18 10/07/18 10/07/18 19:26 21:30 22:00 Temperature 100.2 F H Pulse Rate 80 94 H Respiratory 18 21 H 20 Rate Blood Pressure 120/67 140/70 O2 Sat by Pulse 99 Oximetry (%) 10/07/18 10/08/18 10/08/18 22:44 00:00 00:21 Temperature 100.6 F H Pulse Rate 99 H Respiratory 28 H 24 H 19 Rate Blood Pressure 153/91 130/84 O2 Sat by Pulse Oximetry (%) 10/08/18 10/08/18 10/08/18 02:00 02:40 04:00 Temperature 99.4 F Pulse Rate 90 78 Respiratory 18 17 22 H Rate Blood Pressure 120/68 118/72 O2 Sat by Pulse Oximetry (%) 10/08/18 10/08/18 10/08/18 04:46 06:00 06:40 Temperature 99.6 F Pulse Rate 82 Respiratory 22 H 22 H 16 Rate Blood Pressure 118/72 O2 Sat by Pulse Oximetry (%) 10/08/18 10/08/18 10/08/18 08:00 08:41 10:00 Temperature 99.3 F Pulse Rate 109 H 91 H 80 Respiratory 19 23 H 19 Rate Blood Pressure 158/107 H 119/76 O2 Sat by Pulse 94 L Oximetry (%) Current Medications Generic Name Dose Route Start Last Admin Trade Name Freq PRN Reason Stop Dose Admin Acetaminophen 1,000 mg 10/06/18 17:50 10/06/18 17:58 Ofirmev Injection - IVPB 1,000 mg Q6H PRN Administration PAIN OR FEVER Enoxaparin Sodium 110 mg 10/07/18 22:00 10/07/18 21:43 Lovenox - SQ 110 mg BID AHMET Administration Fentanyl 500 mcg/ Dextrose 100 mls @ 5 mls/hr 10/01/18 08:30 10/07/18 09:08 IVPB 100 mcg/hr TITR A[facility] 20 mls/hr Administration 25 MCG/HR Propofol 1,000,000 mcg in 100 mls @ 3.09 mls/hr 10/01/18 20:45 10/08/18 08:19 Diprivan - IVPB 50 mcg/kg/min TITR [facility] 30.9 mls/hr Administration Protocol 5 MCG/KG/MIN Piperacillin Sod/Tazobactam 50 mls @ 100 mls/hr 10/04/18 11:30 10/08/18 02:00 Sod 3.375 gm/ Dextrose IVPB 100 mls/hr Q8H-IV [facility] Administration Protocol Vancomycin HCl 1,000 mg in 250 mls @ 166.667 mls/hr 10/05/18 14:30 10/08/18 02:30 Vancomycin (Pre-Docked) IVPB 166.667 mls/hr Q12H [facility] Administration Protocol Potassium Chloride 10 meq in 100 mls @ 100 mls/hr 10/08/18 10:30 Potassium Chloride 10 Meq Premix Ivpb - IVPB 10/08/18 13:29 Q60M [facility] Insulin Aspart 1 vial 10/02/18 13:00 10/08/18 06:16 Novolog Vial Sliding Scale - SQ 3 units Q6HPO [facility] Administration Protocol Insulin Detemir 10 units 10/03/18 07:00 10/08/18 06:17 Levemir Vial SQ 10 unit AM [facility] Administration Pantoprazole Sodium 40 mg 10/03/18 10:00 10/07/18 09:07 Protonix Iv IVPUSH 40 mg DAILY [facility] Administration Potassium Chloride 40 meq 10/08/18 10:30 Potassium Chloride Oral Liquid NGT 10/08/18 10:31 ONCE ONE Laboratory Results - last 24 hr 10/07/18 10/07/18 10/07/18 05:30 14:21 15:15 WBC RBC Hgb Hct MCV MCH MCHC RDW Plt Count MPV Absolute Neuts (auto) Neutrophils % Neutrophils % (Manual) 76.3 Band Neutrophils % 1.0 Lymphocytes % Lymphocytes % (Manual) 13.4 D Monocytes % Monocytes % (Manual) 5 Eosinophils % Eosinophils % (Manual) 1.0 Basophils % Basophils % (Manual) 1.0 D Myelocytes % (Man) 2 D Promyelocytes % (Man) 0 Blast Cells % (Manual) 0 Nucleated RBC % Metamyelocytes 0 Hypochromia 0 Platelet Estimate Normal Polychromasia 0 Poikilocytosis 0 Anisocytosis 0 Microcytosis 0 Macrocytosis 1+ PTT (Actin FS) 63.6 H Sodium Potassium Chloride Carbon Dioxide Anion Gap BUN Creatinine Est GFR (CKD-EPI)AfAm Est GFR (CKD-EPI)NonAf POC Glucometer 220 Random Glucose Calcium Phosphorus Magnesium Total Bilirubin AST ALT Alkaline Phosphatase Total Protein Albumin Vancomycin Pre-Dose 10/07/18 10/08/18 10/08/18 17:19 05:30 05:30 WBC RBC Hgb Hct MCV MCH MCHC RDW Plt Count MPV Absolute Neuts (auto) Neutrophils % Neutrophils % (Manual) Band Neutrophils % Lymphocytes % Lymphocytes % (Manual) Monocytes % Monocytes % (Manual) Eosinophils % Eosinophils % (Manual) Basophils % Basophils % (Manual) Myelocytes % (Man) Promyelocytes % (Man) Blast Cells % (Manual) Nucleated RBC % Metamyelocytes Hypochromia Platelet Estimate Polychromasia Poikilocytosis Anisocytosis Microcytosis Macrocytosis PTT (Actin FS) 29.5 Sodium Potassium Chloride Carbon Dioxide Anion Gap BUN Creatinine Est GFR (CKD-EPI)AfAm Est GFR (CKD-EPI)NonAf POC Glucometer 204 Random Glucose Calcium Phosphorus Magnesium Total Bilirubin AST ALT Alkaline Phosphatase Total Protein Albumin Vancomycin Pre-Dose 9.3 L 10/08/18 10/08/18 10/08/18 05:30 06:13 09:50 WBC 11.3 H RBC 3.21 L Hgb 10.1 L Hct 29.8 L D MCV 92.8 MCH 31.5 MCHC 33.9 RDW 12.9 Plt Count 341 D MPV 8.3 Absolute Neuts (auto) 7.7 Neutrophils % 67.7 Neutrophils % (Manual) Band Neutrophils % Lymphocytes % 14.0 Lymphocytes % (Manual) Monocytes % 12.5 H Monocytes % (Manual) Eosinophils % 4.7 H D Eosinophils % (Manual) Basophils % 1.1 Basophils % (Manual) Myelocytes % (Man) Promyelocytes % (Man) Blast Cells % (Manual) Nucleated RBC % 0 Metamyelocytes Hypochromia Platelet Estimate Polychromasia Poikilocytosis Anisocytosis Microcytosis Macrocytosis PTT (Actin FS) Sodium 134 L Potassium 2.9 L* Chloride 95 L Carbon Dioxide 28 Anion Gap 11 BUN 11 Creatinine 0.5 L Est GFR (CKD-EPI)AfAm 153.83 Est GFR (CKD-EPI)NonAf 132.72 POC Glucometer 195 Random Glucose 187 H Calcium 7.8 L Phosphorus 2.5 Magnesium 2.1 Total Bilirubin 0.6 AST 21 ALT 117 H Alkaline Phosphatase 166 H Total Protein 6.0 L Albumin 2.0 L Vancomycin Pre-Dose S1 S2 RRR intubated Lungs decreased Abd-soft, NT, BS+ edema++ A/P s/p PEA arrest B/L PE Acute respiratory failure Acute kidney injury-- resolved elevated LFT--?shock liver -->trending down --Continue present care vent support-- per icu team off pressors blood cultures negative MRSA sputum replace frida was agitated off sedation -- now on sedation Neurology eval noted on lovenox plan for trach , will need a peg as well -- spoke to ICU team replace frida prognosis guarded Problem List - Problems (1) Diabetes Code(s): E11.9 - TYPE 2 DIABETES MELLITUS WITHOUT COMPLICATIONS (2) Hyperlipidemia Code(s): E78.5 - HYPERLIPIDEMIA, UNSPECIFIED (3) Hypertension Code(s): I10 - ESSENTIAL (PRIMARY) HYPERTENSION (4) Bilateral pulmonary embolism Code(s): I26.99 - OTHER PULMONARY EMBOLISM WITHOUT ACUTE COR PULMONALE (5) Elevated troponin Code(s): R74.8 - ABNORMAL LEVELS OF OTHER SERUM ENZYMES
--- NOTE | 2018-10-08 10:26 | PN ---
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, Physician History of Present Illness: UNRESPONSIVE ON VENTILATOR TEMPS DOWN TODAY WBC SLIGHTLY ELEVATED SPUTUM C/S MRSA - Current Medication List Current Medications: Active Medications Acetaminophen (Ofirmev Injection -) 1,000 mg IVPB Q6H PRN PRN Reason: PAIN OR FEVER Last Admin: 10/06/18 17:58 Dose: 1,000 mg Enoxaparin Sodium (Lovenox -) 110 mg SQ BID [facility] Last Admin: 10/07/18 21:43 Dose: 110 mg Fentanyl 500 mcg/ Dextrose 100 mls @ 5 mls/hr IVPB TITR [facility] Last Admin: 10/07/18 09:08 Dose: 100 mcg/hr, 20 mls/hr Propofol (Diprivan -) 1,000,000 mcg in 100 mls @ 3.09 mls/hr IVPB TITR [facility]; Protocol Last Admin: 10/08/18 08:19 Dose: 50 mcg/kg/min, 30.9 mls/hr Piperacillin Sod/Tazobactam (Sod 3.375 gm/ Dextrose) 50 mls @ 100 mls/hr IVPB Q8H-IV [facility]; Protocol Last Admin: 10/08/18 02:00 Dose: 100 mls/hr Vancomycin HCl (Vancomycin (Pre-Docked)) 1,000 mg in 250 mls @ 166.667 mls/hr IVPB Q12H [facility]; Protocol Last Admin: 10/08/18 02:30 Dose: 166.667 mls/hr Insulin Aspart (Novolog Vial Sliding Scale -) 1 vial SQ Q6HPO [facility]; Protocol Last Admin: 10/08/18 06:16 Dose: 3 units Insulin Detemir (Levemir Vial) 10 units SQ AM [facility] Last Admin: 10/08/18 06:17 Dose: 10 unit Pantoprazole Sodium (Protonix Iv) 40 mg IVPUSH DAILY [facility] Last Admin: 10/07/18 09:07 Dose: 40 mg - Objective Vital Signs: Vital Signs Temperature 99.3 F 10/08/18 10:00 Pulse Rate 80 10/08/18 10:00 Respiratory Rate 10/08/18 10:00 Blood Pressure 119/76 10/08/18 10:00 O2 Sat by Pulse Oximetry (%) 94 L 10/08/18 08:41 Constitutional: Yes: No Distress Eyes: Yes: Conjunctiva Clear Cardiovascular: Yes: Regular Rate and Rhythm, S1, S2 Respiratory: Yes: Mechanically Ventilated Gastrointestinal: Yes: Normal Bowel Sounds, Soft. No: Tenderness Edema: Yes Labs: CBC, BMP 10/08/18 09:50 10/08/18 05:30 INR, PTT INR 1.40 (0.83-1.09) H 10/01/18 16:20 Assessment/Plan S/P CARDIOPULMONARY ARREST B/L PE ? ASP PNEUMONIA + SPUTUM MRSA CONTINUE ZOSYN + VANCO VANCOMYCIN TROUGH NOTED VENTILATORY SUPPORT FOR TRACH PROGNOSIS POOR
[2018-10-08] MEDS ORDERED: POTASSIUM CHLORIDE ORAL LIQUID 20 MEQ/15 ML NGT ONE (10:30)
[2018-10-08] MEDS: FENTANYL INJECTION 500 MCG in DEXTROSE 5%-WATER - 90 ML IVPB SCH ×2 (10:36→17:00)
[2018-10-08] MEDS: ENOXAPARIN NA (PORCINE) 120 MG/0.8 ML DISP.SYRIN SQ SCH (10:40)
[2018-10-08] MEDS: PANTOPRAZOLE SODIUM 40 MG VIAL IVPUSH SCH (11:07)
[2018-10-08] MEDS: KCL 10 MEQ IVPB 10 MEQ/100 ML INFUS.BAG IVPB SCH ×6 (11:10→20:27)
--- NOTE | 2018-10-08 11:44 | PN ---
Teaching Attending Note Name of Resident: Radha Ferguson ATTENDING PHYSICIAN STATEMENT I saw and evaluated the patient. I reviewed the resident's note and discussed the case with the resident. I agree with the resident's findings and plan as documented. SUBJECTIVE: Pt seen and examined in the ICU. Remains intubated, sedated. Agitated and asynchronous with vent without purposeful movements when sedation lightened. Fever curve trending down. OBJECTIVE: Vital Signs Period Temp Pulse Resp BP Sys/Liao Pulse Ox Last 24 Hr 99.3 F-100.6 F 78-109 14-28 118-158/61-107 94-100 Intake & Output 10/05/18 10/06/18 10/07/18 10/08/18 23:59 23:59 23:59 23:59 Intake Total 2967.7 4317 2543 2040 Output Total 1200 4900 2400 1000 Balance 1767.7 -606 776 6235 Weight 105.778 kg 106.413 kg 106.866 kg 105.8 kg Gen: intubated, sedated Heart: RRR Lung: decreased breath sounds at the bases Abd: soft, nontender Ext: + edema CBC, BMP 10/08/18 09:50 10/08/18 05:30 Active Medications Acetaminophen (Ofirmev Injection -) 1,000 mg IVPB Q6H PRN PRN Reason: PAIN OR FEVER Last Admin: 10/06/18 17:58 Dose: 1,000 mg Enoxaparin Sodium (Lovenox -) 110 mg SQ BID AHMET Last Admin: 10/08/18 10:40 Dose: 110 mg Fentanyl 500 mcg/ Dextrose 100 mls @ 5 mls/hr IVPB TITR [facility] Last Admin: 10/08/18 10:36 Dose: 100 mcg/hr, 20 mls/hr Propofol (Diprivan -) 1,000,000 mcg in 100 mls @ 3.09 mls/hr IVPB TITR [facility]; Protocol Last Admin: 10/08/18 11:06 Dose: 50 mcg/kg/min, 30.9 mls/hr Piperacillin Sod/Tazobactam (Sod 3.375 gm/ Dextrose) 50 mls @ 100 mls/hr IVPB Q8H-IV [facility]; Protocol Last Admin: 10/08/18 10:40 Dose: 100 mls/hr Vancomycin HCl (Vancomycin (Pre-Docked)) 1,000 mg in 250 mls @ 166.667 mls/hr IVPB Q12H [facility]; Protocol Last Admin: 10/08/18 02:30 Dose: 166.667 mls/hr Potassium Chloride (Potassium Chloride 10 Meq Premix Ivpb -) 10 meq in 100 mls @ 100 mls/hr IVPB Q60M [facility] Stop: 10/08/18 13:59 Last Admin: 10/08/18 11:10 Dose: 100 mls/hr Insulin Aspart (Novolog Vial Sliding Scale -) 1 vial SQ Q6HPO [facility]; Protocol Last Admin: 10/08/18 06:16 Dose: 3 units Insulin Detemir (Levemir Vial) 10 units SQ AM [facility] Last Admin: 10/08/18 06:17 Dose: 10 unit Pantoprazole Sodium (Protonix Iv) 40 mg IVPUSH DAILY [facility] Last Admin: 10/08/18 11:07 Dose: 40 mg ASSESSMENT AND PLAN: s/p Cardiopulmonary Arrest Acute Pulmonary Emboli s/p tPA Obstructive Shock improving +Troponins likely Demand Ischemia Lactic Acidosis resolved r/o Anoxic Encephalopathy r/o Pneumonia HTN DM - continue anticoagulation - off pressors, maintain MAP >65 - continue empiric antibiotics - reculture if febrile - replete lytes - monitor urine output, creatinine - taper Fio2, PEEP to keep Spo2 >90% - daily sedation vacations to assess mental status - spontaneous breathing trials as tolerated when mental status improved - enteral feeds - DVT/GI prophylaxis - continue ICU monitoring - for tracheostomy tomorrow, hold lovenox, feeds after midnight critical care time spent in reviewing chart, evaluating patient and formulating plan 35 min
--- NOTE | 2018-10-08 12:19 | PN ---
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 (short form) - Note 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: Renal follow up for DILSHAD and Hypokalemia Pt seen and examined in the ICU on vent, sedated having diarrhea as per nurse on tube feeds BP stable Vital Signs Temperature 99.3 F 10/08/18 10:00 Pulse Rate 80 10/08/18 10:00 Respiratory Rate 20 10/08/18 11:26 Blood Pressure 119/76 10/08/18 10:00 O2 Sat by Pulse Oximetry (%) 96 10/08/18 09:00 Intake & Output 10/05/18 10/06/18 10/07/18 10/08/18 23:59 23:59 23:59 23:59 Intake Total 2967.7 4317 2543 2040 Output Total 1200 4900 2400 1000 Balance 1767.7 -212 126 7610 Weight 105.778 kg 106.413 kg 106.866 kg 105.8 kg Sedated on vent ET tube in place neck supple, no JVD RRR, no M/R CTA, no rales or wheeze soft NT/ND no LE edema, clubbing or cyanosis CBC, BMP 10/08/18 09:50 10/08/18 05:30 Current Medications Acetaminophen (Ofirmev Injection -) 1,000 mg IVPB Q6H PRN PRN Reason: PAIN OR FEVER Last Admin: 10/06/18 17:58 Dose: 1,000 mg Enoxaparin Sodium (Lovenox -) 110 mg SQ BID AHMET Last Admin: 10/08/18 10:40 Dose: 110 mg Fentanyl 500 mcg/ Dextrose 100 mls @ 5 mls/hr IVPB TITR [facility] Last Admin: 10/08/18 10:36 Dose: 100 mcg/hr, 20 mls/hr Propofol (Diprivan -) 1,000,000 mcg in 100 mls @ 3.09 mls/hr IVPB TITR [facility]; Protocol Last Admin: 10/08/18 11:06 Dose: 50 mcg/kg/min, 30.9 mls/hr Piperacillin Sod/Tazobactam (Sod 3.375 gm/ Dextrose) 50 mls @ 100 mls/hr IVPB Q8H-IV [facility]; Protocol Last Admin: 10/08/18 10:40 Dose: 100 mls/hr Vancomycin HCl (Vancomycin (Pre-Docked)) 1,000 mg in 250 mls @ 166.667 mls/hr IVPB Q12H [facility]; Protocol Last Admin: 10/08/18 02:30 Dose: 166.667 mls/hr Potassium Chloride (Potassium Chloride 10 Meq Premix Ivpb -) 10 meq in 100 mls @ 100 mls/hr IVPB Q60M [facility] Stop: 10/08/18 13:59 Last Admin: 10/08/18 12:08 Dose: 100 mls/hr Insulin Aspart (Novolog Vial Sliding Scale -) 1 vial SQ Q6HPO [facility]; Protocol Last Admin: 10/08/18 06:16 Dose: 3 units Insulin Detemir (Levemir Vial) 10 units SQ AM [facility] Last Admin: 10/08/18 06:17 Dose: 10 unit Pantoprazole Sodium (Protonix Iv) 40 mg IVPUSH DAILY [facility] Last Admin: 10/08/18 11:07 Dose: 40 mg 43 year old gentleman with hx of hypertension and DM who presented s/p syncope with chest pain and paliptations with respiratory failure due to bilateral pulmonary embolism s/p PEA arrest with elevated Cr and potassium levels. #PEA arrest #Bilateral pulmonary embolism #Hyperkalemia in setting of DILSHAD/potassium shifts in setting of acidosis #DILSHAD due to renal hypoprofusion in setting of PEA arrest #Shock/Hypotension Renal function now improved and stable Agree with KCL 30meq IVPB and then 40meq PO by feeding tube Repeat BMP this afternoon if K < 3.5 would give further supplementation Trend K and Mg daily continue tube feeds supportive care Thank you Saturnino Foster DO
--- NOTE | 2018-10-08 13:33 | PN ---
Physical Exam: SUBJECTIVE: Patient seen and examined patient resting in bed, intubated, has vent asynchrony and sporadic movement during sedation vacation but no purposeful movement. on hep gtt. afebrile. OBJECTIVE: Vital Signs Period Temp Pulse Resp BP Sys/Liao Pulse Ox Last 24 Hr 99.3 F-100.6 F 78-109 14-28 118-158/61-107 94-100 GENERAL: intubated sedated HEAD: Normal with no signs of trauma. EYES: pinpoint pupil ENT: moist mucous membranes. NECK: supple R ij tpa catheter in place no bleeding at site LUNGS: b/l ronchi HEART: Regular rate and rhythm, S1, S2 ABDOMEN: Soft, nondistended, globally decreased bowel sounds EXTREMITIES: no edema. NEUROLOGICAL: sedated PSYCH:sedated SKIN: Warm, dry Laboratory Results - last 24 hr 10/07/18 10/07/18 10/07/18 14:21 15:15 17:19 WBC RBC Hgb Hct MCV MCH MCHC RDW Plt Count MPV Absolute Neuts (auto) Neutrophils % Lymphocytes % Monocytes % Eosinophils % Basophils % Nucleated RBC % PTT (Actin FS) 63.6 H Sodium Potassium Chloride Carbon Dioxide Anion Gap BUN Creatinine Est GFR (CKD-EPI)AfAm Est GFR (CKD-EPI)NonAf POC Glucometer 220 204 Random Glucose Calcium Phosphorus Magnesium Total Bilirubin AST ALT Alkaline Phosphatase Total Protein Albumin Vancomycin Pre-Dose 10/08/18 10/08/18 10/08/18 05:30 05:30 05:30 WBC RBC Hgb Hct MCV MCH MCHC RDW Plt Count MPV Absolute Neuts (auto) Neutrophils % Lymphocytes % Monocytes % Eosinophils % Basophils % Nucleated RBC % PTT (Actin FS) 29.5 Sodium 134 L Potassium 2.9 L* Chloride 95 L Carbon Dioxide 28 Anion Gap 11 BUN 11 Creatinine 0.5 L Est GFR (CKD-EPI)AfAm 153.83 Est GFR (CKD-EPI)NonAf 132.72 POC Glucometer Random Glucose 187 H Calcium 7.8 L Phosphorus 2.5 Magnesium 2.1 Total Bilirubin 0.6 AST 21 ALT 117 H Alkaline Phosphatase 166 H Total Protein 6.0 L Albumin 2.0 L Vancomycin Pre-Dose 9.3 L 10/08/18 10/08/18 10/08/18 06:13 09:50 12:12 WBC 11.3 H RBC 3.21 L Hgb 10.1 L Hct 29.8 L D MCV 92.8 MCH 31.5 MCHC 33.9 RDW 12.9 Plt Count 341 D MPV 8.3 Absolute Neuts (auto) 7.7 Neutrophils % 67.7 Lymphocytes % 14.0 Monocytes % 12.5 H Eosinophils % 4.7 H D Basophils % 1.1 Nucleated RBC % 0 PTT (Actin FS) Sodium Potassium Chloride Carbon Dioxide Anion Gap BUN Creatinine Est GFR (CKD-EPI)AfAm Est GFR (CKD-EPI)NonAf POC Glucometer 195 231 Random Glucose Calcium Phosphorus Magnesium Total Bilirubin AST ALT Alkaline Phosphatase Total Protein Albumin Vancomycin Pre-Dose Active Medications Generic Name Dose Route Start Last Admin Trade Name Freq PRN Reason Stop Dose Admin Acetaminophen 1,000 mg 10/06/18 17:50 10/06/18 17:58 Ofirmev Injection - IVPB 1,000 mg Q6H PRN Administration PAIN OR FEVER Enoxaparin Sodium 110 mg 10/07/18 22:00 10/08/18 10:40 Lovenox - SQ 110 mg BID AHMET Administration Fentanyl 500 mcg/ Dextrose 100 mls @ 5 mls/hr 10/01/18 08:30 10/08/18 10:36 IVPB 100 mcg/hr TITR AHM[facility] 20 mls/hr Administration 25 MCG/HR Propofol 1,000,000 mcg in 100 mls @ 3.09 mls/hr 10/01/18 20:45 10/08/18 11:06 Diprivan - IVPB 50 mcg/kg/min TITR AHMET 30.9 mls/hr Administration Protocol 5 MCG/KG/MIN Piperacillin Sod/Tazobactam 50 mls @ 100 mls/hr 10/04/18 11:30 10/08/18 10:40 Sod 3.375 gm/ Dextrose IVPB 100 mls/hr Q8H-IV [facility] Administration Protocol Vancomycin HCl 1,000 mg in 250 mls @ 166.667 mls/hr 10/05/18 14:30 10/08/18 02:30 Vancomycin (Pre-Docked) IVPB 166.667 mls/hr Q12H [facility] Administration Protocol Potassium Chloride 10 meq in 100 mls @ 100 mls/hr 10/08/18 11:00 10/08/18 12: 08 Potassium Chloride 10 Meq Premix Ivpb - IVPB 10/08/18 13:59 100 mls/hr Q60M [facility] Administration Insulin Aspart 1 vial 10/02/18 13:00 10/08/18 06:16 Novolog Vial Sliding Scale - SQ 3 units Q6HPO [facility] Administration Protocol Insulin Detemir 10 units 10/03/18 07:00 10/08/18 06:17 Levemir Vial SQ 10 unit AM [facility] Administration Pantoprazole Sodium 40 mg 10/03/18 10:00 10/08/18 11:07 Protonix Iv IVPUSH 40 mg DAILY [facility] Administration ASSESSMENT/PLAN: This is a 43 yo M with PMH of HTN, DM, heavy drinker and smoker, BIBA for syncopal episode, found to be in af rvr, with massive b/l pe, arrested in IR during catheter tpa procedure at approximately 11:40am. ROSC achieved at approximately 11:47. Unprovoked massive b/l PE s/p cardiac arrest anoxic brain injury family history of thrombophilia in grandmother HTN DM -s/p catheter guided tpa now on heparin gtt; was not a candidate for cooling protocol due to bleeding risk -high risk for ICH, head ct previously done no ICH -goals of care discussion with family -if recovers, eventual bridge to coum or switch to NOAC; thrombophilia workup outpatient Problem List - Problems (1) Bilateral pulmonary embolism Code(s): I26.99 - OTHER PULMONARY EMBOLISM WITHOUT ACUTE COR PULMONALE (2) Diabetes Code(s): E11.9 - TYPE 2 DIABETES MELLITUS WITHOUT COMPLICATIONS (3) Elevated troponin Code(s): R74.8 - ABNORMAL LEVELS OF OTHER SERUM ENZYMES (4) Hyperlipidemia Code(s): E78.5 - HYPERLIPIDEMIA, UNSPECIFIED (5) Hypertension Code(s): I10 - ESSENTIAL (PRIMARY) HYPERTENSION Visit type - Emergency Visit Emergency Visit: Yes ED Registration Date: 10/01/18 Care time: The patient presented to the Emergency Department on the above date and was hospitalized for further evaluation of their emergent condition. - New Patient This patient is new to me today: No - Critical Care Critical Care patient: Yes Total Critical Care Time (in minutes): 45 Critical Care Statement: The care of this patient involved high complexity decision making to prevent further life threatening deterioration of the patient 's condition and/or to evaluate & treat vital organ system(s) failure or risk of failure. - Discharge Referral Referred to [facility] No
--- NOTE | 2018-10-08 13:42 | PN ---
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 (short form) - Note 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: Thoracic Surgery: For trach tomorrow. NO AM dose of anticoagulant. Will resume after tracheostomy. Please obtain consent.
[2018-10-08 14:05] LABS: ANISOCYTOSIS 0; MACROCYTOSIS 1+; PLATELET ESTIMATE NORMAL
--- NOTE | 2018-10-08 15:31 | PN ---
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 (short form) - Note 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: s: intubated Current Medications Acetaminophen (Ofirmev Injection -) 1,000 mg IVPB Q6H PRN PRN Reason: PAIN OR FEVER Last Admin: 10/06/18 17:58 Dose: 1,000 mg Enoxaparin Sodium (Lovenox -) 110 mg SQ BID [facility] Last Admin: 10/08/18 10:40 Dose: 110 mg Fentanyl 500 mcg/ Dextrose 100 mls @ 5 mls/hr IVPB TITR [facility] Last Admin: 10/08/18 10:36 Dose: 100 mcg/hr, 20 mls/hr Propofol (Diprivan -) 1,000,000 mcg in 100 mls @ 3.09 mls/hr IVPB TITR [facility]; Protocol Last Admin: 10/08/18 14:27 Dose: 50 mcg/kg/min, 30.9 mls/hr Piperacillin Sod/Tazobactam (Sod 3.375 gm/ Dextrose) 50 mls @ 100 mls/hr IVPB Q8H-IV [facility]; Protocol Last Admin: 10/08/18 10:40 Dose: 100 mls/hr Vancomycin HCl (Vancomycin (Pre-Docked)) 1,000 mg in 250 mls @ 166.667 mls/hr IVPB Q12H [facility]; Protocol Last Admin: 10/08/18 14:13 Dose: 166.667 mls/hr Insulin Aspart (Novolog Vial Sliding Scale -) 1 vial SQ Q6HPO [facility]; Protocol Last Admin: 10/08/18 14:15 Dose: 5 units Insulin Detemir (Levemir Vial) 10 units SQ AM [facility] Last Admin: 10/08/18 06:17 Dose: 10 unit Pantoprazole Sodium (Protonix Iv) 40 mg IVPUSH DAILY [facility] Last Admin: 10/08/18 11:07 Dose: 40 mg Constitutional: Yes: Well Nourished, No Distress, Calm Cardiovascular: Yes: Regular Rate and Rhythm, S1, S2. No: Gallop, Murmur Respiratory: Yes: Regular, CTA Bilaterally (anteriorly). No: Accessory Muscle Use Extremities: No: Cold Edema: No Neurological: No: Alert, Oriented Psychiatric: No: Agitated Assessment/Plan cxr: congestive changes echo 09/2018: tds; nl lvef, rv tds, grossly nl rv fcn, no sig valve path tele: sinus Assessment/Plan 43yo M with PMH of HTN, DM p/w unresponsiveness. Found to have bilateral PE, s/ p PEA arrest Bilateral PE, s/p PEA arrest: - arrest likely in setting of extensive bilateral PE - now s/p tPA, manage anticoagulation per ICU team - bp improved, off pressors now - echo was tds but no gross abnormalities - no significant chf on exam - hypercoagulable w/u per heme consultants - concern for anoxic encephalopathy - neuro following - lasix per critical care - plan for trach, PEG Afib: - reportedly per EMS and ER records, EKG not available - in setting of PE, this is considered a reversible etiology of Afib. - AC to be continued per PE indication (not required for AF indication here) - now in sinus Type II OK (NSTEMI): - peak trop 1.3, sec to PE/RV strain, vs hypoperfusion from PEA arrest. - EKG no ischemic changes - echo with nl lvef - ischemia w/u not indicated at present HTN: - off pressors now, bp stable - continue to monitor bp
[2018-10-08 17:03] LABS: CALCIUM 7.7 mg/dL (8.5-10.1); CREATININE 0.6 mg/dL (0.55-1.3); POTASSIUM 3.3 mmol/L (3.5-5.1)
[2018-10-08 22:46] LABS: CALCIUM 7.6 mg/dL (8.5-10.1); CREATININE 0.7 mg/dL (0.55-1.3); POTASSIUM 3.4 mmol/L (3.5-5.1)
[2018-10-08] MEDS ORDERED: KCL 10 MEQ IVPB 10 MEQ/100 ML INFUS.BAG IVPB SCH (23:00)
[2018-10-09] MEDS ORDERED: PIPERACILLIN/TAZOBACTAM 3.375 GM VIAL IVPB ONE ×3 (01:31→17:00)
[2018-10-09] MEDS ORDERED: DEXTROSE 5%-WATER - 50 ML IVPB ONE ×3 (01:31→17:00)
[2018-10-09] MEDS: PIPERACILLIN/TAZOB 3.375 GM 3.375 GM in DEXTROSE 5%-WATER - 50 ML IVPB SCH ×3 (01:40→17:29)
[2018-10-09] MEDS: VANCOMYCIN 1 GRAM (PRE-DOCKED) 1,000 MG/250 ML BAG IVPB SCH ×2 (01:44→14:35)
[2018-10-09] MEDS ORDERED: fentaNYL CITRATE 250 MCG/5 ML VIAL ONE ×4 (01:59→21:59)
[2018-10-09] MEDS: INSULIN SLIDING SCALE (NOVOLOG) 1 VIAL SQ SCH ×4 (06:15→23:46)
[2018-10-09] MEDS: INSULIN (LEVEMIR) 100 UNITS/ML UNITS SQ SCH (06:16)
[2018-10-09 06:51] LABS: EOS % 4.1 % (0-4.5); HEMATOCRIT 29.9 % (35.4-49); HEMOGLOBIN 9.8 GM/dL (11.7-16.9); MCH 30.9 pg (25.7-33.7); MCHC 32.9 g/dl (32.0-35.9); MEAN PLT VOLUME 8.4 fl (7.5-11.1); MONO % 12.3 % (3.8-10.2); NEUT % 55.6 % (42.8-82.8); PLATELET COUNT 446 K/MM3 (134-434); RBC 3.18 M/mm3 (4.00-5.60); WHITE BLOOD COUNT 13.7 K/mm3 (4.0-10.0)
[2018-10-09 07:19] LABS: ALBUMIN 2.3 g/dl (3.4-5.0); BILIRUBIN,TOTAL 0.7 mg/dL (0.2-1); CALCIUM 8.2 mg/dL (8.5-10.1); CREATININE 0.8 mg/dL (0.55-1.3); MAGNESIUM 2.4 mg/dL (1.8-2.4); PHOSPHOROUS 3.9 mg/dL (2.5-4.9); POTASSIUM 3.6 mmol/L (3.5-5.1); TOT PROT 6.7 g/dl (6.4-8.2)
[2018-10-09 07:28] LABS: INR 0.97 (0.83-1.09); PROTHROMBIN TIME (PATIENT) 11.5 SEC (9.7-13.0)
[2018-10-09 07:31] LABS: ACTIVATED PTT 28.6 SECONDS (25.2-36.5)
--- NOTE | 2018-10-09 07:54 | PN ---
Physical Exam: SUBJECTIVE: Patient seen and examined at bedside. No acute events overnight. Trach today at 0800. OBJECTIVE: Vital Signs Period Temp Pulse Resp BP Sys/Liao Pulse Ox Last 24 Hr 99.1 F-99.8 F 77-109 13-23 104-158/63-107 94-100 GENERAL: The patient is sedated. EYES: PERRL, sclera anicteric, conjunctiva clear. No ptosis. LUNGS: Coarse breath sounds bilatrally, mechanically ventilated, saturating well. HEART: Regular rate and rhythm, S1, S2 without murmur, rub or gallop. ABDOMEN: Soft, nontender, nondistended, normoactive bowel sounds, no guarding, no rebound, no hepatosplenomegaly, no masses. EXTREMITIES: 2+ pulses, warm, well-perfused. Edema in hands bilaterally. NEUROLOGICAL: DTR 2+. SKIN: Warm, dry, normal turgor, no rashes or lesions noted Laboratory Results - last 24 hr 10/08/18 10/08/18 10/08/18 05:30 09:50 12:12 WBC 11.3 H RBC 3.21 L Hgb 10.1 L Hct 29.8 L D MCV 92.8 MCH 31.5 MCHC 33.9 RDW 12.9 Plt Count 341 D MPV 8.3 Absolute Neuts (auto) 7.7 Neutrophils % 67.7 Neutrophils % (Manual) 59.8 D Band Neutrophils % 0.0 Lymphocytes % 14.0 Lymphocytes % (Manual) 15.7 Monocytes % 12.5 H Monocytes % (Manual) 13 H D Eosinophils % 4.7 H D Eosinophils % (Manual) 3.9 D Basophils % 1.1 Basophils % (Manual) 1.0 Myelocytes % (Man) 6 H D Promyelocytes % (Man) 0 Blast Cells % (Manual) 0 Nucleated RBC % 0 Metamyelocytes 0 Hypochromia 0 Platelet Estimate Normal Polychromasia 1+ Poikilocytosis 2+ Anisocytosis 0 Microcytosis 0 Macrocytosis 1+ PT with INR INR PTT (Actin FS) Sodium 134 L Potassium 2.9 L* Chloride 95 L Carbon Dioxide 28 Anion Gap 11 BUN 11 Creatinine 0.5 L Est GFR (CKD-EPI)AfAm 153.83 Est GFR (CKD-EPI)NonAf 132.72 POC Glucometer 231 Random Glucose 187 H Calcium 7.8 L Phosphorus 2.5 Magnesium 2.1 Total Bilirubin 0.6 AST 21 ALT 117 H Alkaline Phosphatase 166 H Total Protein 6.0 L Albumin 2.0 L 10/08/18 10/08/18 10/08/18 16:12 17:59 22:00 WBC RBC Hgb Hct MCV MCH MCHC RDW Plt Count MPV Absolute Neuts (auto) Neutrophils % Neutrophils % (Manual) Band Neutrophils % Lymphocytes % Lymphocytes % (Manual) Monocytes % Monocytes % (Manual) Eosinophils % Eosinophils % (Manual) Basophils % Basophils % (Manual) Myelocytes % (Man) Promyelocytes % (Man) Blast Cells % (Manual) Nucleated RBC % Metamyelocytes Hypochromia Platelet Estimate Polychromasia Poikilocytosis Anisocytosis Microcytosis Macrocytosis PT with INR INR PTT (Actin FS) Sodium 132 L 134 L Potassium 3.3 L 3.4 L Chloride 95 L 95 L Carbon Dioxide 29 31 Anion Gap 9 8 BUN 11 11 Creatinine 0.6 0.7 Est GFR (CKD-EPI)AfAm 142.72 133.96 Est GFR (CKD-EPI)NonAf 123.14 115.58 POC Glucometer 233 Random Glucose 254 H 240 H Calcium 7.7 L 7.6 L Phosphorus Magnesium Total Bilirubin AST ALT Alkaline Phosphatase Total Protein Albumin 10/08/18 10/09/18 10/09/18 23:51 05:30 05:30 WBC 13.7 H RBC 3.18 L Hgb 9.8 L Hct 29.9 L MCV 94.0 MCH 30.9 MCHC 32.9 RDW 13.0 Plt Count 446 H D MPV 8.4 Absolute Neuts (auto) 7.6 Neutrophils % 55.6 Neutrophils % (Manual) Band Neutrophils % Lymphocytes % 27.0 D Lymphocytes % (Manual) Monocytes % 12.3 H Monocytes % (Manual) Eosinophils % 4.1 Eosinophils % (Manual) Basophils % 1.0 Basophils % (Manual) Myelocytes % (Man) Promyelocytes % (Man) Blast Cells % (Manual) Nucleated RBC % 0 Metamyelocytes Hypochromia Platelet Estimate Polychromasia Poikilocytosis Anisocytosis Microcytosis Macrocytosis PT with INR 11.50 INR 0.97 PTT (Actin FS) 28.6 Sodium Potassium Chloride Carbon Dioxide Anion Gap BUN Creatinine Est GFR (CKD-EPI)AfAm Est GFR (CKD-EPI)NonAf POC Glucometer 240 Random Glucose Calcium Phosphorus Magnesium Total Bilirubin AST ALT Alkaline Phosphatase Total Protein Albumin 10/09/18 10/09/18 05:30 06:07 WBC RBC Hgb Hct MCV MCH MCHC RDW Plt Count MPV Absolute Neuts (auto) Neutrophils % Neutrophils % (Manual) Band Neutrophils % Lymphocytes % Lymphocytes % (Manual) Monocytes % Monocytes % (Manual) Eosinophils % Eosinophils % (Manual) Basophils % Basophils % (Manual) Myelocytes % (Man) Promyelocytes % (Man) Blast Cells % (Manual) Nucleated RBC % Metamyelocytes Hypochromia Platelet Estimate Polychromasia Poikilocytosis Anisocytosis Microcytosis Macrocytosis PT with INR INR PTT (Actin FS) Sodium 134 L Potassium 3.6 Chloride 93 L Carbon Dioxide 30 Anion Gap 10 BUN 8 Creatinine 0.8 Est GFR (CKD-EPI)AfAm 126.81 Est GFR (CKD-EPI)NonAf 109.41 POC Glucometer 231 Random Glucose 243 H Calcium 8.2 L Phosphorus 3.9 Magnesium 2.4 Total Bilirubin 0.7 AST 18 ALT 86 H Alkaline Phosphatase 178 H Total Protein 6.7 Albumin 2.3 L Active Medications Generic Name Dose Route Start Last Admin Trade Name Freq PRN Reason Stop Dose Admin Acetaminophen 1,000 mg 10/06/18 17:50 10/06/18 17:58 Ofirmev Injection - IVPB 1,000 mg Q6H PRN Administration PAIN OR FEVER Enoxaparin Sodium 110 mg 10/07/18 22:00 10/08/18 10:40 Lovenox - SQ 110 mg BID AHMET Administration Fentanyl 500 mcg/ Dextrose 100 mls @ 5 mls/hr 10/01/18 08:30 10/08/18 21:50 IVPB 100 mcg/hr TITR AHMET 20 mls/hr Titration 25 MCG/HR Propofol 1,000,000 mcg in 100 mls @ 3.09 mls/hr 10/01/18 20:45 10/09/18 06:50 Diprivan - IVPB 50 mcg/kg/min TITR AHMET 30.9 mls/hr Titration Protocol 5 MCG/KG/MIN Piperacillin Sod/Tazobactam 50 mls @ 100 mls/hr 10/04/18 11:30 10/09/18 01:40 Sod 3.375 gm/ Dextrose IVPB 100 mls/hr Q8H-IV AHMET Administration Protocol Vancomycin HCl 1,000 mg in 250 mls @ 166.667 mls/hr 10/05/18 14:30 10/09/18 01:44 Vancomycin (Pre-Docked) IVPB 166.667 mls/hr Q12H AHMET Administration Protocol Insulin Aspart 1 vial 10/02/18 13:00 10/09/18 06:15 Novolog Vial Sliding Scale - SQ 5 units Q6HPO AHMET Administration Protocol Insulin Detemir 10 units 10/03/18 07:00 10/09/18 06:16 Levemir Vial SQ 10 unit AM AHMET Administration Pantoprazole Sodium 40 mg 10/03/18 10:00 10/08/18 11:07 Protonix Iv IVPUSH 40 mg DAILY AHMET Administration Polyethylene Glycol 17 gm 10/08/18 18:45 Miralax (For Daily Use) - PO DAILY AHMET ASSESSMENT/PLAN: 43yo M with PMH of DM brought to ICU for bilateral PE and s/p PEA cardiac arrest NEURO -Sedated, wean as tolerated -Propofol gtt -Will monitor mental status -CT head negative for acute findings -Neuro consulting: Anoxic brain injury ENDO -History of DM -SS insulin -BGMs -Will trend lytes CARDIO/VASC -ROSC s/p cardiac arrest with rhythm strip showing narrow complex PEA -Bilateral PE -Off of pressors -Enoxaparin 1mg/kg BID, will resume 1100 PULM -Bilateral PE extending to upper and lower lobes bilaterally -s/p tPA -SpO2 >90% -Trach today at 0800 -Vent settings 14/500/40/5 -Sputum cultures positive for MRSA -Vanc and Zosyn GI -Shock liver -LFTs trending down -Enteral feeds -Mother consented for G tube placement. Scheduled for 10/12/18 ID -Continues to have fevers, likely central v. aspiraton v. pna -ID consulted: Vanc and Zosyn -Sputum cultures grow MRSA -Blood cultures ngtd -Rpt blood, urine cultures ngtd -Sputum cultures pending FEN -Enteral feeds -Replete lytes as needed PROPHY -Protonix -Enoxaparin sc Dispo: Will continue to monitor in ICU Visit type - Emergency Visit Emergency Visit: Yes ED Registration Date: 10/01/18 Care time: The patient presented to the Emergency Department on the above date and was hospitalized for further evaluation of their emergent condition. - New Patient This patient is new to me today: No - Critical Care Critical Care patient: Yes Total Critical Care Time (in minutes): 35 Critical Care Statement: The care of this patient involved high complexity decision making to prevent further life threatening deterioration of the patient 's condition and/or to evaluate & treat vital organ system(s) failure or risk of failure.
[2018-10-09] MEDS ORDERED: RAPID SEQUENCE INTUBATION KIT NR ONE ×2 (08:06→08:15)
[2018-10-09] MEDS ORDERED: MIDAZOLAM HCL 5 MG/1 ML Single Dose Vial ONE (08:19)
[2018-10-09] MEDS: PROPOFOL 1,000,000 MCG/100 ML VIAL IVPB SCH ×3 (08:30→21:18)
[2018-10-09] MEDS: FENTANYL INJECTION 500 MCG in DEXTROSE 5%-WATER - 90 ML IVPB SCH ×3 (08:30→17:25)
[2018-10-09] MEDS ORDERED: LIDOCAINE HCL 1%, 10 MG/ML (20ML VIAL) ONE (08:37)
[2018-10-09] MEDS ORDERED: PROPOFOL 1,000,000 MCG/100 ML VIAL ONE ×3 (08:39→16:59)
[2018-10-09] MEDS ORDERED: LIDOCAINE HCL 1%, 10 MG/ML (20ML VIAL) NR ONE (08:56)
[2018-10-09] MEDS ORDERED: INSULIN (LEVEMIR) 100 UNITS/ML UNITS SQ SCH (09:29)
--- NOTE | 2018-10-09 09:29 | PN ---
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 (short form) - Note 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: pt seen/ examined in icu chart reviewed just has tracheostomy done Vital Signs Temp 99.6 F 10/09/18 06:00 Pulse 88 10/09/18 06:00 Resp 15 10/09/18 07:04 BP 118/77 10/09/18 06:00 Pulse Ox 100 10/08/18 22:00 Intake & Output 10/08/18 10/08/18 10/09/18 11:59 23:59 11:59 Intake Total 2040 2606.8 Output Total 2100 600 Balance -60 2006.8 Weight 233 lb 3.985 oz 227 lb Intake: IV 780 816.8 DIPRIVAN - 1,000,000 mcg 540 496.8 In 100 ml @ 5 MCG/KG/MIN 3.09 mls/hr IVPB TITR AHMET Rx#:[id number] Sublimaze Injection - 500 240 320 Mcg In D5w - 90 ml @ 25 MCG/HR 5 mls/hr IVPB TITR AHMET Rx#:[id number] IVPB 300 950 Tube Feeding 480 440 Tube Irrigant 480 400 Output: Urine 2100 600 Sidhu 2100 600 Other: Voiding Method Indwelling Catheter Bowel Movement No No Weight Measurement Method Built in Bedscale Built in Bedscale Active Medications Acetaminophen (Ofirmev Injection -) 1,000 mg IVPB Q6H PRN PRN Reason: PAIN OR FEVER Last Admin: 10/06/18 17:58 Dose: 1,000 mg Enoxaparin Sodium (Lovenox -) 110 mg SQ BID AHMET Last Admin: 10/08/18 10:40 Dose: 110 mg Fentanyl 500 mcg/ Dextrose 100 mls @ 5 mls/hr IVPB TITR AHMET Last Titration: 10/08/18 21:50 Dose: 100 mcg/hr, 20 mls/hr Propofol (Diprivan -) 1,000,000 mcg in 100 mls @ 3.09 mls/hr IVPB TITR AHMET; Protocol Last Titration: 10/09/18 06:50 Dose: 50 mcg/kg/min, 30.9 mls/hr Piperacillin Sod/Tazobactam (Sod 3.375 gm/ Dextrose) 50 mls @ 100 mls/hr IVPB Q8H-IV AHMET; Protocol Last Admin: 10/09/18 01:40 Dose: 100 mls/hr Vancomycin HCl (Vancomycin (Pre-Docked)) 1,000 mg in 250 mls @ 166.667 mls/hr IVPB Q12H [facility]; Protocol Last Admin: 10/09/18 01:44 Dose: 166.667 mls/hr Insulin Aspart (Novolog Vial Sliding Scale -) 1 vial SQ Q6HPO [facility]; Protocol Last Admin: 10/09/18 06:15 Dose: 5 units Insulin Detemir (Levemir Vial) 10 units SQ AM AHMET Last Admin: 10/09/18 06:16 Dose: 10 unit Pantoprazole Sodium (Protonix Iv) 40 mg IVPUSH DAILY [facility] Last Admin: 10/08/18 11:07 Dose: 40 mg Polyethylene Glycol (Miralax (For Daily Use) -) 17 gm PO DAILY [facility] CBC, BMP 10/09/18 05:30 10/09/18 05:30 Microbiology 10/08/18 13:00 Urine Culture - Final Urine - Urine Sidhu NO GROWTH OBTAINED 10/08/18 05:30 Blood Culture - Preliminary Blood - Peripheral Venous NO GROWTH OBTAINED AFTER 24 HOURS, INCUBATION TO CONTINUE FOR 4 DAYS. 10/08/18 05:45 Blood Culture - Preliminary Blood - Peripheral Venous NO GROWTH OBTAINED AFTER 24 HOURS, INCUBATION TO CONTINUE FOR 4 DAYS. 10/07/18 20:00 Blood Culture - Preliminary Blood - Peripheral Venous NO GROWTH OBTAINED AFTER 24 HOURS, INCUBATION TO CONTINUE FOR 4 DAYS. 10/07/18 20:00 Blood Culture - Preliminary Blood - Peripheral Venous NO GROWTH OBTAINED AFTER 24 HOURS, INCUBATION TO CONTINUE FOR 4 DAYS. 10/04/18 13:29 Blood Culture - Preliminary Blood - Peripheral Venous NO GROWTH OBTAINED AFTER 96 HOURS, INCUBATION TO CONTINUE FOR 1 DAYS. 10/04/18 12:53 Blood Culture - Preliminary Blood - Peripheral Venous NO GROWTH OBTAINED AFTER 96 HOURS, INCUBATION TO CONTINUE FOR 1 DAYS. cxr -- reviewed physical exam Sedated S1 S2 RRR intubated Lungs decreased Abd-soft, NT, BS+ tracheostomy A/P Anoxic brain injury s/p PEA arrest B/L PE Acute respiratory failure Acute kidney injury-- resolved elevated LFT--?shock liver -->trending down status post tracheostomy --Continue present care vent support-- off pressors blood cultures negative MRSA sputum s/p trach bgm - high Increase levemir monitor closly will follow Discussed with icu team/ neurology/ as well as nursing staff cc time 30 min
[2018-10-09] MEDS: PANTOPRAZOLE SODIUM 40 MG VIAL IVPUSH SCH (10:06)
--- NOTE | 2018-10-09 10:13 | PN ---
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 (short form) - Note 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: chart reviewed sedated s/p trach today Vital Signs Period Temp Pulse Resp BP Sys/Liao Pulse Ox Last 24 Hr 99.1 F-99.8 F 77-98 13-20 104-121/63-84 98-100 cor-rrr lungs decreased bs at bases abd soft,nt ext trace edema CBC, BMP 10/09/18 05:30 10/09/18 05:30 Microbiology 10/08/18 12:30 Sputum - Endotrachea Suction/Ventilator Sputum Culture - Preliminary Presumptive Mrsa (Pbp2a Pos) 10/08/18 13:00 Urine - Urine Sidhu Urine Culture - Final NO GROWTH OBTAINED 10/08/18 05:30 Blood - Peripheral Venous Blood Culture - Preliminary NO GROWTH OBTAINED AFTER 24 HOURS, INCUBATION TO CONTINUE FOR 4 DAYS. 10/08/18 05:45 Blood - Peripheral Venous Blood Culture - Preliminary NO GROWTH OBTAINED AFTER 24 HOURS, INCUBATION TO CONTINUE FOR 4 DAYS. 10/07/18 20:00 Blood - Peripheral Venous Blood Culture - Preliminary NO GROWTH OBTAINED AFTER 24 HOURS, INCUBATION TO CONTINUE FOR 4 DAYS. 10/07/18 20:00 Blood - Peripheral Venous Blood Culture - Preliminary NO GROWTH OBTAINED AFTER 24 HOURS, INCUBATION TO CONTINUE FOR 4 DAYS. 10/04/18 13:29 Blood - Peripheral Venous Blood Culture - Preliminary NO GROWTH OBTAINED AFTER 96 HOURS, INCUBATION TO CONTINUE FOR 1 DAYS. 10/04/18 12:53 Blood - Peripheral Venous Blood Culture - Preliminary NO GROWTH OBTAINED AFTER 96 HOURS, INCUBATION TO CONTINUE FOR 1 DAYS. 10/03/18 10:15 Sputum - Endotrachea Suction/Ventilator Gram Stain - Final 10/03/18 10:15 Sputum - Endotrachea Suction/Ventilator Sputum Culture - Final S Aureus 10/01/18 06:40 Blood - Peripheral Venous Blood Culture - Final NO GROWTH AFTER 5 DAYS INCUBATION 10/01/18 06:40 Blood - Peripheral Venous Blood Culture - Final NO GROWTH AFTER 5 DAYS INCUBATION 10/01/18 13:30 Urine - Urine Clean Catch Urine Culture - Final NO GROWTH OBTAINED Active Medications Acetaminophen (Ofirmev Injection -) 1,000 mg IVPB Q6H PRN PRN Reason: PAIN OR FEVER Last Admin: 10/06/18 17:58 Dose: 1,000 mg Enoxaparin Sodium (Lovenox -) 110 mg SQ BID AHMET Last Admin: 10/08/18 10:40 Dose: 110 mg Fentanyl 500 mcg/ Dextrose 100 mls @ 5 mls/hr IVPB TITR AHMET Last Titration: 10/08/18 21:50 Dose: 100 mcg/hr, 20 mls/hr Propofol (Diprivan -) 1,000,000 mcg in 100 mls @ 3.09 mls/hr IVPB TITR AHMET; Protocol Last Titration: 10/09/18 06:50 Dose: 50 mcg/kg/min, 30.9 mls/hr Piperacillin Sod/Tazobactam (Sod 3.375 gm/ Dextrose) 50 mls @ 100 mls/hr IVPB Q8H-IV AHMET; Protocol Last Admin: 10/09/18 10:06 Dose: 100 mls/hr Vancomycin HCl (Vancomycin (Pre-Docked)) 1,000 mg in 250 mls @ 166.667 mls/hr IVPB Q12H AHMET; Protocol Last Admin: 10/09/18 01:44 Dose: 166.667 mls/hr Insulin Aspart (Novolog Vial Sliding Scale -) 1 vial SQ Q6HPO AHMET; Protocol Last Admin: 10/09/18 06:15 Dose: 5 units Insulin Detemir (Levemir Vial) 15 units SQ AM AHMET Pantoprazole Sodium (Protonix Iv) 40 mg IVPUSH DAILY AHMET Last Admin: 10/09/18 10:06 Dose: 40 mg Polyethylene Glycol (Miralax (For Daily Use) -) 17 gm PO DAILY AHMET a/p s/p bilateral PE-on lovenox s/p arrest- possible anoxia possible aspiration pneumonia sinusitis on ct scan continue zosyn/vancomycin day # 5 f/u vanco trough mrsa contact isolation
[2018-10-09] MEDS ORDERED: MIDAZOLAM HCL 5 MG/1 ML Single Dose Vial IVPUSH ONE ×2 (10:25→12:23)
[2018-10-09 10:40] LABS: ANISOCYTOSIS 0; MACROCYTOSIS 1+; PLATELET ESTIMATE NORMAL
--- NOTE | 2018-10-09 10:41 | PN ---
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 (short form) - Note 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: 43 year old male historyof HTN,DM, came with chest pain and syncope and found to have massive Pulmonary Embolism. He was given tpa and IR Thrombectomy and had cardiac arrest and PEA. Patient is on sedation and tried to stop medication and he became agitated. There is no seizure like activity, he had ct head which was unremarkable. I spent 35 minute doing critical care. Patient is on sedation, there is no change overnight. He is triggering vent and gag reflex is present. withdraws to pain. Spoke to residents, staff , patient seen and examined, chart reviewed. 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 contiue supportive care PLAN - continue supportive care -Overall prognosis is guarded, There is could be range of outcome at this time. - mri of brain and eeg can be obtained, once he is stable. - continue to follow up with primary Thanking you so much Maurice Manjarrez MD
[2018-10-09] MEDS ORDERED: ROCURONIUM BROMIDE 50 MG/5 ML VIAL IV ONE (10:45)
[2018-10-09] MEDS: ENOXAPARIN NA (PORCINE) 120 MG/0.8 ML DISP.SYRIN SQ SCH ×2 (11:00→22:09)
--- NOTE | 2018-10-09 11:08 | PN ---
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, Physician Chief Complaint: s/p trach TELE: NSR, short run NSVT 40% FIO2 - Current Medication List Current Medications: Active Medications Acetaminophen (Ofirmev Injection -) 1,000 mg IVPB Q6H PRN PRN Reason: PAIN OR FEVER Last Admin: 10/06/18 17:58 Dose: 1,000 mg Enoxaparin Sodium (Lovenox -) 110 mg SQ BID AHMET Last Admin: 10/08/18 10:40 Dose: 110 mg Fentanyl 500 mcg/ Dextrose 100 mls @ 5 mls/hr IVPB TITR AHMET Last Titration: 10/08/18 21:50 Dose: 100 mcg/hr, 20 mls/hr Propofol (Diprivan -) 1,000,000 mcg in 100 mls @ 3.09 mls/hr IVPB TITR AHMET; Protocol Last Titration: 10/09/18 06:50 Dose: 50 mcg/kg/min, 30.9 mls/hr Piperacillin Sod/Tazobactam (Sod 3.375 gm/ Dextrose) 50 mls @ 100 mls/hr IVPB Q8H-IV AHMET; Protocol Last Admin: 10/09/18 10:06 Dose: 100 mls/hr Vancomycin HCl (Vancomycin (Pre-Docked)) 1,000 mg in 250 mls @ 166.667 mls/hr IVPB Q12H AHMET; Protocol Last Admin: 10/09/18 01:44 Dose: 166.667 mls/hr Insulin Aspart (Novolog Vial Sliding Scale -) 1 vial SQ Q6HPO AHMET; Protocol Last Admin: 10/09/18 06:15 Dose: 5 units Insulin Detemir (Levemir Vial) 15 units SQ AM AHMET Pantoprazole Sodium (Protonix Iv) 40 mg IVPUSH DAILY AHMET Last Admin: 10/09/18 10:06 Dose: 40 mg Polyethylene Glycol (Miralax (For Daily Use) -) 17 gm PO DAILY AHMET - Objective Vital Signs: Vital Signs Temperature 99.6 F 10/09/18 06:00 Pulse Rate 98 H 10/09/18 09:54 Respiratory Rate 17 10/09/18 09:10 Blood Pressure 118/77 10/09/18 06:00 O2 Sat by Pulse Oximetry (%) 99 10/09/18 09:54 Constitutional: Yes: Other (sedated) Cardiovascular: Yes: Regular Rate and Rhythm Respiratory: Yes: Other (= breath sounds bilaterally) Gastrointestinal: Yes: Soft, Abdomen, Obese Edema: No Labs: CBC, BMP 10/09/18 05:30 10/09/18 05:30 INR, PTT INR 0.97 (0.83-1.09) 10/09/18 05:30 Laboratory Tests 10/09/18 10/09/18 10/09/18 05:30 05:30 05:30 WBC 13.7 H Hgb 9.8 L Hct 29.9 L Plt Count 446 H D PTT (Actin FS) 28.6 Sodium 134 L Potassium 3.6 Creatinine 0.8 - ....Imaging EKG: Image Reviewed Assessment/Plan Assessment/Plan 43yo M with PMH of HTN, DM p/w unresponsiveness. Found to have bilateral PE, s/ p PEA arrest Bilateral PE, s/p PEA arrest: - arrest likely in setting of extensive bilateral PE - now s/p tPA, manage anticoagulation per ICU team - bp improved, off pressors now - echo was tds but no gross abnormalities - no significant chf on exam - hypercoagulable w/u per heme consultants - concern for anoxic encephalopathy - neuro following - lasix per critical care - s/p trach this AM Afib: - reportedly per EMS and ER records, EKG not available - in setting of PE, this is considered a reversible etiology of Afib. - AC to be continued per PE indication (not required for AF indication here) - now in sinus Type II [place] (NSTEMI): - peak trop 1.3, sec to PE/RV strain, vs hypoperfusion from PEA arrest. - EKG no ischemic changes - echo with nl lvef - ischemia w/u not indicated at present HTN: - off pressors now, bp stable - continue to monitor bp NSVT: self limited -normal LV fx -Keep K+ > 4 and Mg2+ >2
[2018-10-09] MEDS: POLYETHYLENE GLYCOL 3350 119 GM BTL PO SCH ×2 (11:18→11:19)
--- NOTE | 2018-10-09 12:11 | OPR ---
Patient Name: Carlos Iglesias MR#:[id number] Procedure Date: 10/09/2018 Preoperative Diagnosis: Respiratory failure. Postoperative Diagnosis: same. Procedure: 1. Flexible Bronchoscopy (performed by Dr. Sammy Perez); 2. Percutaneous tracheostomy with #8 Shiley; Indication: Respiratory failure; Surgeon(s): Justin Silva MD Cosurgeon: anna marie Career Development Coordinator/Teacher Surgeon: anna marie. Anesthesia: General endotracheal; Findings: Abundant secretions. Specimens Sent: 1. na; Complications: none Drains / Tubes / Catheters: na Hardware / Implants: na Blood / Fluid Losses: minimal Post-Operative Condition: Stable. Indications: This patient is a 43 year-old male s/p arrest after after massive pulmonary embolism. I was consulted for placement of tracheostomy due to his respiratory failure. Dr. Perez's team obtained consent from the patients family. Risks, benefits, and alternatives of the procedure were explained. Details of Procedure: The procedure was done at the bedside. We began with bronchoscopy to clear the airway for the procedure. After this, the neck was prepared and draped in standard fashion. We then made a transverse incision below the cricoid cartilage. We withdrew the endotracheal airway until we were at the level of the vocal cords. We inserted the needle from the percutaneous bronchoscopy kit under direct bronchoscopic vision identifying approximately the 2nd to 3rd ring. We then passed a wire under vision. We then dilated up and inserted the tracheostomy. We put the cuff up and connected the ventilator. We placed the bronchoscope through the tracheostomy and then above. There was no significant bleeding and placement was good.
--- NOTE | 2018-10-09 12:14 | PN ---
Teaching Attending Note Name of Resident: Radha Ferguson ATTENDING PHYSICIAN STATEMENT I saw and evaluated the patient. I reviewed the resident's note and discussed the case with the resident. I agree with the resident's findings and plan as documented. SUBJECTIVE: Patient seen and examined in the ICU. Remains intubated, sedated. AC Mode of vent, 40% FiO2. No pressors. Bedside Trach: Under informed consent and sterile technique a FOB was performed at the bedside. The Bronchoscope was introduced via the ETT. Thin copious secretions were noted in the ETT which were suctioned. Once past the distal tip of the ETT excoriated areas were noted most likely from the ETT. The bronchoscope was advanced to the cheryl, which appeared sharp. The airways were inspected. Thin, clear copious secretions were noted throughout. No endobronchial lesions were noted. The bronchoscope was withdrawn back to the distal tip of the ETT and remained there during the insertion of a Percutaneous Tracheostomy. Patient tolerated the procedure well. No immediate complications noted. Stat CXR to be ordered. OBJECTIVE: Intake & Output 10/06/18 10/07/18 10/08/18 10/09/18 23:59 23:59 23:59 23:59 Intake Total 4317 2543 4646.8 Output Total 4900 2400 2700 Balance -074 149 1779.8 Weight 234 lb 9.6 oz 235 lb 9.6 oz 233 lb 3.985 oz 227 lb Last Vital Signs Temp Pulse Resp BP Pulse Ox 99.6 F 98 H 17 118/77 99 10/09/18 06:00 10/09/18 09:54 10/09/18 09:10 10/09/18 06:00 10/09/18 09:54 Active Medications Acetaminophen (Ofirmev Injection -) 1,000 mg IVPB Q6H PRN PRN Reason: PAIN OR FEVER Last Admin: 10/06/18 17:58 Dose: 1,000 mg Enoxaparin Sodium (Lovenox -) 110 mg SQ BID [facility] Last Admin: 10/09/18 11:00 Dose: 110 mg Fentanyl 500 mcg/ Dextrose 100 mls @ 5 mls/hr IVPB TITR [facility] Last Admin: 10/09/18 11:23 Dose: 100 mcg/hr, 20 mls/hr Propofol (Diprivan -) 1,000,000 mcg in 100 mls @ 3.09 mls/hr IVPB TITR [facility]; Protocol Last Titration: 10/09/18 11:37 Dose: 60 mcg/kg/min, 37.08 mls/hr Piperacillin Sod/Tazobactam (Sod 3.375 gm/ Dextrose) 50 mls @ 100 mls/hr IVPB Q8H-IV [facility]; Protocol Last Admin: 10/09/18 10:06 Dose: 100 mls/hr Vancomycin HCl (Vancomycin (Pre-Docked)) 1,000 mg in 250 mls @ 166.667 mls/hr IVPB Q12H [facility]; Protocol Last Admin: 10/09/18 01:44 Dose: 166.667 mls/hr Insulin Aspart (Novolog Vial Sliding Scale -) 1 vial SQ Q6HPO [facility]; Protocol Last Admin: 10/09/18 06:15 Dose: 5 units Insulin Detemir (Levemir Vial) 15 units SQ AM [facility] Pantoprazole Sodium (Protonix Iv) 40 mg IVPUSH DAILY [facility] Last Admin: 10/09/18 10:06 Dose: 40 mg Polyethylene Glycol (Miralax (For Daily Use) -) 17 gm PO DAILY [facility] Last Admin: 10/09/18 11:19 Dose: 17 grams Gen: intubated, sedated Heart: RRR Lung: decreased breath sounds at the bases Abd: soft, nontender Ext: + edema Laboratory Results - last 24 hr 10/08/18 10/08/18 10/08/18 09:50 12:12 16:12 WBC RBC Hgb Hct MCV MCH MCHC RDW Plt Count MPV Absolute Neuts (auto) Neutrophils % Neutrophils % (Manual) 59.8 D Band Neutrophils % 0.0 Lymphocytes % Lymphocytes % (Manual) 15.7 Monocytes % Monocytes % (Manual) 13 H D Eosinophils % Eosinophils % (Manual) 3.9 D Basophils % Basophils % (Manual) 1.0 Myelocytes % (Man) 6 H D Promyelocytes % (Man) 0 Blast Cells % (Manual) 0 Nucleated RBC % Metamyelocytes 0 Hypochromia 0 Platelet Estimate Normal Polychromasia 1+ Poikilocytosis 2+ Anisocytosis 0 Microcytosis 0 Macrocytosis 1+ PT with INR INR PTT (Actin FS) Sodium 132 L Potassium 3.3 L Chloride 95 L Carbon Dioxide 29 Anion Gap 9 BUN 11 Creatinine 0.6 Est GFR (CKD-EPI)AfAm 142.72 Est GFR (CKD-EPI)NonAf 123.14 POC Glucometer 231 Random Glucose 254 H Calcium 7.7 L Phosphorus Magnesium Total Bilirubin AST ALT Alkaline Phosphatase Total Protein Albumin 10/08/18 10/08/18 10/08/18 17:59 22:00 23:51 WBC RBC Hgb Hct MCV MCH MCHC RDW Plt Count MPV Absolute Neuts (auto) Neutrophils % Neutrophils % (Manual) Band Neutrophils % Lymphocytes % Lymphocytes % (Manual) Monocytes % Monocytes % (Manual) Eosinophils % Eosinophils % (Manual) Basophils % Basophils % (Manual) Myelocytes % (Man) Promyelocytes % (Man) Blast Cells % (Manual) Nucleated RBC % Metamyelocytes Hypochromia Platelet Estimate Polychromasia Poikilocytosis Anisocytosis Microcytosis Macrocytosis PT with INR INR PTT (Actin FS) Sodium 134 L Potassium 3.4 L Chloride 95 L Carbon Dioxide 31 Anion Gap 8 BUN 11 Creatinine 0.7 Est GFR (CKD-EPI)AfAm 133.96 Est GFR (CKD-EPI)NonAf 115.58 POC Glucometer 233 240 Random Glucose 240 H Calcium 7.6 L Phosphorus Magnesium Total Bilirubin AST ALT Alkaline Phosphatase Total Protein Albumin 10/09/18 10/09/18 10/09/18 05:30 05:30 05:30 WBC 13.7 H RBC 3.18 L Hgb 9.8 L Hct 29.9 L MCV 94.0 MCH 30.9 MCHC 32.9 RDW 13.0 Plt Count 446 H D MPV 8.4 Absolute Neuts (auto) 7.6 Neutrophils % 55.6 Neutrophils % (Manual) 55.5 Band Neutrophils % 0.9 Lymphocytes % 27.0 D Lymphocytes % (Manual) 19.1 D Monocytes % 12.3 H Monocytes % (Manual) 11 H Eosinophils % 4.1 Eosinophils % (Manual) 4.6 H Basophils % 1.0 Basophils % (Manual) 1.8 Myelocytes % (Man) 4 H D Promyelocytes % (Man) 0 Blast Cells % (Manual) 0 Nucleated RBC % 0 Metamyelocytes 2 D Hypochromia 0 Platelet Estimate Normal Polychromasia 1+ Poikilocytosis 2+ Anisocytosis 0 Microcytosis 0 Macrocytosis 1+ PT with INR 11.50 INR 0.97 PTT (Actin FS) 28.6 Sodium 134 L Potassium 3.6 Chloride 93 L Carbon Dioxide 30 Anion Gap 10 BUN 8 Creatinine 0.8 Est GFR (CKD-EPI)AfAm 126.81 Est GFR (CKD-EPI)NonAf 109.41 POC Glucometer Random Glucose 243 H Calcium 8.2 L Phosphorus 3.9 Magnesium 2.4 Total Bilirubin 0.7 AST 18 ALT 86 H Alkaline Phosphatase 178 H Total Protein 6.7 Albumin 2.3 L 10/09/18 06:07 WBC RBC Hgb Hct MCV MCH MCHC RDW Plt Count MPV Absolute Neuts (auto) Neutrophils % Neutrophils % (Manual) Band Neutrophils % Lymphocytes % Lymphocytes % (Manual) Monocytes % Monocytes % (Manual) Eosinophils % Eosinophils % (Manual) Basophils % Basophils % (Manual) Myelocytes % (Man) Promyelocytes % (Man) Blast Cells % (Manual) Nucleated RBC % Metamyelocytes Hypochromia Platelet Estimate Polychromasia Poikilocytosis Anisocytosis Microcytosis Macrocytosis PT with INR INR PTT (Actin FS) Sodium Potassium Chloride Carbon Dioxide Anion Gap BUN Creatinine Est GFR (CKD-EPI)AfAm Est GFR (CKD-EPI)NonAf POC Glucometer 231 Random Glucose Calcium Phosphorus Magnesium Total Bilirubin AST ALT Alkaline Phosphatase Total Protein Albumin ASSESSMENT AND PLAN: POD #): Percutaneous Tracheostomy s/p Cardiopulmonary Arrest Acute Pulmonary Emboli s/p tPA Obstructive Shock improving +Troponins likely Demand Ischemia Lactic Acidosis resolved r/o Anoxic Encephalopathy r/o Pneumonia HTN DM - continue anticoagulation at 11AM - off pressors, maintain MAP >65 - continue empiric antibiotics - monitor urine output, creatinine - taper Fio2, PEEP to keep Spo2 >90% - daily sedation vacations to assess mental status - enteral feeds - DVT/GI prophylaxis - continue ICU monitoring Dr Perez critical care time spent in reviewing chart, evaluating patient and formulating plan 35 min
--- NOTE | 2018-10-09 13:55 | PN ---
Physical Exam: SUBJECTIVE: Patient seen and examined patient resting in bed, intubated, has vent asynchrony and sporadic movement during sedation vacation but no purposeful movement. on hep gtt. afebrile. new central line placed in IJ due to old one being in groin. S/p trach OBJECTIVE: Vital Signs Period Temp Pulse Resp BP Sys/Liao Pulse Ox Last 24 Hr 99.1 F-99.6 F 77-98 13-20 104-121/63-84 99-100 GENERAL: intubated sedated HEAD: Normal with no signs of trauma. EYES: pinpoint pupil ENT: moist mucous membranes. NECK: supple R ij tpa catheter in place no bleeding at site LUNGS: b/l ronchi HEART: Regular rate and rhythm, S1, S2 ABDOMEN: Soft, nondistended, globally decreased bowel sounds EXTREMITIES: no edema. NEUROLOGICAL: sedated PSYCH:sedated SKIN: Warm, dry Laboratory Results - last 24 hr 10/08/18 10/08/18 10/08/18 09:50 16:12 17:59 WBC RBC Hgb Hct MCV MCH MCHC RDW Plt Count MPV Absolute Neuts (auto) Neutrophils % Neutrophils % (Manual) 59.8 D Band Neutrophils % 0.0 Lymphocytes % Lymphocytes % (Manual) 15.7 Monocytes % Monocytes % (Manual) 13 H D Eosinophils % Eosinophils % (Manual) 3.9 D Basophils % Basophils % (Manual) 1.0 Myelocytes % (Man) 6 H D Promyelocytes % (Man) 0 Blast Cells % (Manual) 0 Nucleated RBC % Metamyelocytes 0 Hypochromia 0 Platelet Estimate Normal Polychromasia 1+ Poikilocytosis 2+ Anisocytosis 0 Microcytosis 0 Macrocytosis 1+ PT with INR INR PTT (Actin FS) Sodium 132 L Potassium 3.3 L Chloride 95 L Carbon Dioxide 29 Anion Gap 9 BUN 11 Creatinine 0.6 Est GFR (CKD-EPI)AfAm 142.72 Est GFR (CKD-EPI)NonAf 123.14 POC Glucometer 233 Random Glucose 254 H Calcium 7.7 L Phosphorus Magnesium Total Bilirubin AST ALT Alkaline Phosphatase Total Protein Albumin 10/08/18 10/08/18 10/09/18 22:00 23:51 05:30 WBC 13.7 H RBC 3.18 L Hgb 9.8 L Hct 29.9 L MCV 94.0 MCH 30.9 MCHC 32.9 RDW 13.0 Plt Count 446 H D MPV 8.4 Absolute Neuts (auto) 7.6 Neutrophils % 55.6 Neutrophils % (Manual) 55.5 Band Neutrophils % 0.9 Lymphocytes % 27.0 D Lymphocytes % (Manual) 19.1 D Monocytes % 12.3 H Monocytes % (Manual) 11 H Eosinophils % 4.1 Eosinophils % (Manual) 4.6 H Basophils % 1.0 Basophils % (Manual) 1.8 Myelocytes % (Man) 4 H D Promyelocytes % (Man) 0 Blast Cells % (Manual) 0 Nucleated RBC % 0 Metamyelocytes 2 D Hypochromia 0 Platelet Estimate Normal Polychromasia 1+ Poikilocytosis 2+ Anisocytosis 0 Microcytosis 0 Macrocytosis 1+ PT with INR INR PTT (Actin FS) Sodium 134 L Potassium 3.4 L Chloride 95 L Carbon Dioxide 31 Anion Gap 8 BUN 11 Creatinine 0.7 Est GFR (CKD-EPI)AfAm 133.96 Est GFR (CKD-EPI)NonAf 115.58 POC Glucometer 240 Random Glucose 240 H Calcium 7.6 L Phosphorus Magnesium Total Bilirubin AST ALT Alkaline Phosphatase Total Protein Albumin 10/09/18 10/09/18 10/09/18 05:30 05:30 06:07 WBC RBC Hgb Hct MCV MCH MCHC RDW Plt Count MPV Absolute Neuts (auto) Neutrophils % Neutrophils % (Manual) Band Neutrophils % Lymphocytes % Lymphocytes % (Manual) Monocytes % Monocytes % (Manual) Eosinophils % Eosinophils % (Manual) Basophils % Basophils % (Manual) Myelocytes % (Man) Promyelocytes % (Man) Blast Cells % (Manual) Nucleated RBC % Metamyelocytes Hypochromia Platelet Estimate Polychromasia Poikilocytosis Anisocytosis Microcytosis Macrocytosis PT with INR 11.50 INR 0.97 PTT (Actin FS) 28.6 Sodium 134 L Potassium 3.6 Chloride 93 L Carbon Dioxide 30 Anion Gap 10 BUN 8 Creatinine 0.8 Est GFR (CKD-EPI)AfAm 126.81 Est GFR (CKD-EPI)NonAf 109.41 POC Glucometer 231 Random Glucose 243 H Calcium 8.2 L Phosphorus 3.9 Magnesium 2.4 Total Bilirubin 0.7 AST 18 ALT 86 H Alkaline Phosphatase 178 H Total Protein 6.7 Albumin 2.3 L 10/09/18 12:35 WBC RBC Hgb Hct MCV MCH MCHC RDW Plt Count MPV Absolute Neuts (auto) Neutrophils % Neutrophils % (Manual) Band Neutrophils % Lymphocytes % Lymphocytes % (Manual) Monocytes % Monocytes % (Manual) Eosinophils % Eosinophils % (Manual) Basophils % Basophils % (Manual) Myelocytes % (Man) Promyelocytes % (Man) Blast Cells % (Manual) Nucleated RBC % Metamyelocytes Hypochromia Platelet Estimate Polychromasia Poikilocytosis Anisocytosis Microcytosis Macrocytosis PT with INR INR PTT (Actin FS) Sodium Potassium Chloride Carbon Dioxide Anion Gap BUN Creatinine Est GFR (CKD-EPI)AfAm Est GFR (CKD-EPI)NonAf POC Glucometer 205 Random Glucose Calcium Phosphorus Magnesium Total Bilirubin AST ALT Alkaline Phosphatase Total Protein Albumin Active Medications Generic Name Dose Route Start Last Admin Trade Name Freq PRN Reason Stop Dose Admin Acetaminophen 1,000 mg 10/06/18 17:50 10/06/18 17:58 Ofirmev Injection - IVPB 1,000 mg Q6H PRN Administration PAIN OR FEVER Enoxaparin Sodium 110 mg 10/07/18 22:00 10/09/18 11:00 Lovenox - SQ 110 mg BID [facility] Administration Fentanyl 500 mcg/ Dextrose 100 mls @ 5 mls/hr 10/01/18 08:30 10/09/18 11:23 IVPB 100 mcg/hr TITR A[facility] 20 mls/hr Administration 25 MCG/HR Propofol 1,000,000 mcg in 100 mls @ 3.09 mls/hr 10/01/18 20:45 10/09/18 11:37 Diprivan - IVPB 60 mcg/kg/min TITR [facility]ET 37.08 mls/hr Titration Protocol 5 MCG/KG/MIN Piperacillin Sod/Tazobactam 50 mls @ 100 mls/hr 10/04/18 11:30 10/09/18 10:06 Sod 3.375 gm/ Dextrose IVPB 100 mls/hr Q8H-IV [facility] Administration Protocol Vancomycin HCl 1,000 mg in 250 mls @ 166.667 mls/hr 10/05/18 14:30 10/09/18 01:44 Vancomycin (Pre-Docked) IVPB 166.667 mls/hr Q12H [facility] Administration Protocol Insulin Aspart 1 vial 10/02/18 13:00 10/09/18 12:39 Novolog Vial Sliding Scale - SQ 5 units Q6HPO [facility] Administration Protocol Insulin Detemir 15 units 10/09/18 09:29 Levemir Vial SQ AM [facility] Pantoprazole Sodium 40 mg 10/03/18 10:00 10/09/18 10:06 Protonix Iv IVPUSH 40 mg DAILY [facility] Administration Polyethylene Glycol 17 gm 10/08/18 18:45 10/09/18 11:19 Miralax (For Daily Use) - PO 17 grams DAILY [facility] Administration ASSESSMENT/PLAN: This is a 43 yo M with PMH of HTN, DM, heavy drinker and smoker, BIBA for syncopal episode, found to be in af rvr, with massive b/l pe, arrested in IR during catheter tpa procedure at approximately 11:40am. ROSC achieved at approximately 11:47. Unprovoked massive b/l PE s/p cardiac arrest anoxic brain injury family history of thrombophilia in grandmother HTN DM -s/p catheter guided tpa now on heparin gtt; was not a candidate for cooling protocol due to bleeding risk -high risk for ICH, low threshold for head ct -goals of care discussion with family -if recovers, eventual bridge to coum or switch to NOAC; thrombophilia workup outpatient Problem List - Problems (1) Bilateral pulmonary embolism Code(s): I26.99 - OTHER PULMONARY EMBOLISM WITHOUT ACUTE COR PULMONALE (2) Diabetes Code(s): E11.9 - TYPE 2 DIABETES MELLITUS WITHOUT COMPLICATIONS (3) Elevated troponin Code(s): R74.8 - ABNORMAL LEVELS OF OTHER SERUM ENZYMES (4) Hyperlipidemia Code(s): E78.5 - HYPERLIPIDEMIA, UNSPECIFIED (5) Hypertension Code(s): I10 - ESSENTIAL (PRIMARY) HYPERTENSION
--- NOTE | 2018-10-09 14:00 | PN ---
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 (short form) - Note 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: Renal follow up for DILSHAD and Hypokalemia Pt seen and examined in the ICU on vent s/p trach yesterday Vital Signs Temperature 99.6 F 10/09/18 06:00 Pulse Rate 98 H 10/09/18 09:54 Respiratory Rate 16 10/09/18 11:45 Blood Pressure 118/77 10/09/18 06:00 O2 Sat by Pulse Oximetry (%) 99 10/09/18 09:54 Intake & Output 10/06/18 10/07/18 10/08/18 10/09/18 23:59 23:59 23:59 23:59 Intake Total 4317 2543 4646.8 Output Total 4900 2400 2700 Balance -679 143 6607.8 Weight 106.413 kg 106.866 kg 105.8 kg 102.965 kg Sedated on vent RRR, no M/R CTA, no rales or wheeze soft NT/ND no LE edema, clubbing or cyanosis CBC, BMP 10/09/18 05:30 10/09/18 05:30 Current Medications Acetaminophen (Ofirmev Injection -) 1,000 mg IVPB Q6H PRN PRN Reason: PAIN OR FEVER Last Admin: 10/06/18 17:58 Dose: 1,000 mg Enoxaparin Sodium (Lovenox -) 110 mg SQ BID [facility] Last Admin: 10/09/18 11:00 Dose: 110 mg Fentanyl 500 mcg/ Dextrose 100 mls @ 5 mls/hr IVPB TITR [facility] Last Admin: 10/09/18 11:23 Dose: 100 mcg/hr, 20 mls/hr Propofol (Diprivan -) 1,000,000 mcg in 100 mls @ 3.09 mls/hr IVPB TITR [facility]; Protocol Last Titration: 10/09/18 11:37 Dose: 60 mcg/kg/min, 37.08 mls/hr Piperacillin Sod/Tazobactam (Sod 3.375 gm/ Dextrose) 50 mls @ 100 mls/hr IVPB Q8H-IV [facility]; Protocol Last Admin: 10/09/18 10:06 Dose: 100 mls/hr Vancomycin HCl (Vancomycin (Pre-Docked)) 1,000 mg in 250 mls @ 166.667 mls/hr IVPB Q12H [facility]; Protocol Last Admin: 10/09/18 01:44 Dose: 166.667 mls/hr Insulin Aspart (Novolog Vial Sliding Scale -) 1 vial SQ Q6HPO [facility]; Protocol Last Admin: 10/09/18 12:39 Dose: 5 units Insulin Detemir (Levemir Vial) 15 units SQ AM [facility] Pantoprazole Sodium (Protonix Iv) 40 mg IVPUSH DAILY [facility] Last Admin: 10/09/18 10:06 Dose: 40 mg Polyethylene Glycol (Miralax (For Daily Use) -) 17 gm PO DAILY [facility] Last Admin: 10/09/18 11:19 Dose: 17 grams 43 year old gentleman with hx of hypertension and DM who presented s/p syncope with chest pain and paliptations with respiratory failure due to bilateral pulmonary embolism s/p PEA arrest with elevated Cr and potassium levels. #PEA arrest #Bilateral pulmonary embolism #Hyperkalemia in setting of DILSHAD/potassium shifts in setting of acidosis #DILSHAD due to renal hypoprofusion in setting of PEA arrest #Shock/Hypotension Renal function now improved and stable potassium now improved trend potassium and magnesium daily will sign off case at this time please call with any questions or concerns thank you for allowing us to take part in the care of this patient Thank you Saturnino Foster DO
[2018-10-10] MEDS ORDERED: PIPERACILLIN/TAZOBACTAM 3.375 GM VIAL IVPB ONE ×3 (02:21→17:44)
[2018-10-10] MEDS ORDERED: DEXTROSE 5%-WATER - 50 ML IVPB ONE ×3 (02:21→17:44)
[2018-10-10] MEDS: PIPERACILLIN/TAZOB 3.375 GM 3.375 GM in DEXTROSE 5%-WATER - 50 ML IVPB SCH ×3 (02:29→18:37)
[2018-10-10] MEDS: VANCOMYCIN 1 GRAM (PRE-DOCKED) 1,000 MG/250 ML BAG IVPB SCH (02:30)
[2018-10-10] MEDS ORDERED: fentaNYL CITRATE 250 MCG/5 ML VIAL ONE ×2 (03:26→08:23)
[2018-10-10 06:20] LABS: BASO % 0.6 % (0-2.0); EOS % 4.2 % (0-4.5); HEMATOCRIT 26.4 % (35.4-49); HEMOGLOBIN 9.2 GM/dL (11.7-16.9); LYMPH % 20.4 % (8-40); MCH 32.3 pg (25.7-33.7); MCHC 34.8 g/dl (32.0-35.9); MEAN CELL VOLUME 92.8 fl (80-96); MEAN PLT VOLUME 8.1 fl (7.5-11.1); MONO % 9.5 % (3.8-10.2); NEUT % 65.3 % (42.8-82.8); PLATELET COUNT 504 K/MM3 (134-434); RBC 2.85 M/mm3 (4.00-5.60); RDW 12.7 % (11.9-15.9); WHITE BLOOD COUNT 12.1 K/mm3 (4.0-10.0)
[2018-10-10] MEDS: INSULIN SLIDING SCALE (NOVOLOG) 1 VIAL SQ SCH ×3 (06:26→18:38)
[2018-10-10 06:43] LABS: BILIRUBIN,TOTAL 0.6 mg/dL (0.2-1); CALCIUM 7.6 mg/dL (8.5-10.1); CREATININE 0.6 mg/dL (0.55-1.3); MAGNESIUM 2.3 mg/dL (1.8-2.4); PHOSPHOROUS 3.5 mg/dL (2.5-4.9); POTASSIUM 3.6 mmol/L (3.5-5.1); TOT PROT 6.2 g/dl (6.4-8.2)
--- NOTE | 2018-10-10 08:53 | PN ---
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 (short form) - Note 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: opens eyes to voice follows commands moves feet, squeezes hands Vital Signs Period Temp Pulse Resp BP Sys/Liao Pulse Ox Last 24 Hr 98.3 F-100.1 F 73-98 14-20 102-159/70-100 94-100 cor-rrr lungs decreased bs at bases abd soft,nt ext no edema CBC, BMP 10/10/18 05:30 10/10/18 05:30 Laboratory Tests 10/08/18 05:30 Vancomycin Pre-Dose 9.3 L Microbiology 10/08/18 05:45 Blood - Peripheral Venous Blood Culture - Preliminary NO GROWTH OBTAINED AFTER 48 HOURS, INCUBATION TO CONTINUE FOR 3 DAYS. 10/08/18 05:30 Blood - Peripheral Venous Blood Culture - Preliminary NO GROWTH OBTAINED AFTER 48 HOURS, INCUBATION TO CONTINUE FOR 3 DAYS. 10/07/18 20:00 Blood - Peripheral Venous Blood Culture - Preliminary NO GROWTH OBTAINED AFTER 48 HOURS, INCUBATION TO CONTINUE FOR 3 DAYS. 10/07/18 20:00 Blood - Peripheral Venous Blood Culture - Preliminary NO GROWTH OBTAINED AFTER 48 HOURS, INCUBATION TO CONTINUE FOR 3 DAYS. 10/04/18 13:29 Blood - Peripheral Venous Blood Culture - Final NO GROWTH AFTER 5 DAYS INCUBATION 10/04/18 12:53 Blood - Peripheral Venous Blood Culture - Final NO GROWTH AFTER 5 DAYS INCUBATION 10/08/18 12:30 Sputum - Endotrachea Suction/Ventilator Gram Stain - Final 10/08/18 12:30 Sputum - Endotrachea Suction/Ventilator Sputum Culture - Preliminary Presumptive Mrsa (Pbp2a Pos) 10/08/18 13:00 Urine - Urine Sidhu Urine Culture - Final NO GROWTH OBTAINED 10/03/18 10:15 Sputum - Endotrachea Suction/Ventilator Gram Stain - Final 10/03/18 10:15 Sputum - Endotrachea Suction/Ventilator Sputum Culture - Final Mr S Aureus 10/01/18 06:40 Blood - Peripheral Venous Blood Culture - Final NO GROWTH AFTER 5 DAYS INCUBATION 10/01/18 06:40 Blood - Peripheral Venous Blood Culture - Final NO GROWTH AFTER 5 DAYS INCUBATION 10/01/18 13:30 Urine - Urine Clean Catch Urine Culture - Final NO GROWTH OBTAINED Current Medications Acetaminophen (Ofirmev Injection -) 1,000 mg IVPB Q6H PRN PRN Reason: PAIN OR FEVER Last Admin: 10/06/18 17:58 Dose: 1,000 mg Enoxaparin Sodium (Lovenox -) 110 mg SQ BID [facility] Last Admin: 10/09/18 22:09 Dose: 110 mg Fentanyl (Sublimaze Injection -) 50 mcg IVPUSH Q2H PRN PRN Reason: MODERATE PAIN Stop: 10/11/18 08:59 Piperacillin Sod/Tazobactam (Sod 3.375 gm/ Dextrose) 50 mls @ 100 mls/hr IVPB Q8H-IV [facility]; Protocol Last Admin: 10/10/18 02:29 Dose: 100 mls/hr Vancomycin HCl 1,250 mg/ (Dextrose) 250 mls @ 166.667 mls/hr IVPB BID@0230, 1430 [facility]; Protocol Insulin Aspart (Novolog Vial Sliding Scale -) 1 vial SQ Q6HPO [facility]; Protocol Last Admin: 10/10/18 06:26 Dose: 7 units Insulin Detemir (Levemir Vial) 15 units SQ AM [facility] Last Admin: 10/10/18 06:52 Dose: 15 units Pantoprazole Sodium (Protonix Iv) 40 mg IVPUSH DAILY [facility] Last Admin: 10/09/18 10:06 Dose: 40 mg Polyethylene Glycol (Miralax (For Daily Use) -) 17 gm PO DAILY [facility] Last Admin: 10/09/18 11:19 Dose: 17 grams a/p s/p bilateral PE-on lovenox s/p arrest- possible anoxia possible aspiration pneumonia sinusitis on ct scan continue zosyn/vancomycin day # 6 vanco trough subtherapeutic, increase vanco dose mrsa contact isolation
--- NOTE | 2018-10-10 08:57 | PN ---
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, Physician Chief Complaint: alert, moving all 4 extremities Opens eyes TELE: NSR - Current Medication List Current Medications: Active Medications Acetaminophen (Ofirmev Injection -) 1,000 mg IVPB Q6H PRN PRN Reason: PAIN OR FEVER Last Admin: 10/06/18 17:58 Dose: 1,000 mg Enoxaparin Sodium (Lovenox -) 110 mg SQ BID [facility] Last Admin: 10/09/18 22:09 Dose: 110 mg Fentanyl (Sublimaze Injection -) 50 mcg IVPUSH Q2H PRN PRN Reason: MODERATE PAIN Stop: 10/11/18 08:59 Piperacillin Sod/Tazobactam (Sod 3.375 gm/ Dextrose) 50 mls @ 100 mls/hr IVPB Q8H-IV [facility]; Protocol Last Admin: 10/10/18 02:29 Dose: 100 mls/hr Vancomycin HCl 1,250 mg/ (Dextrose) 250 mls @ 166.667 mls/hr IVPB BID@0230, 1430 [facility]; Protocol Insulin Aspart (Novolog Vial Sliding Scale -) 1 vial SQ Q6HPO [facility]; Protocol Last Admin: 10/10/18 06:26 Dose: 7 units Insulin Detemir (Levemir Vial) 15 units SQ AM [facility] Last Admin: 10/10/18 06:52 Dose: 15 units Pantoprazole Sodium (Protonix Iv) 40 mg IVPUSH DAILY [facility] Last Admin: 10/09/18 10:06 Dose: 40 mg Polyethylene Glycol (Miralax (For Daily Use) -) 17 gm PO DAILY [facility] Last Admin: 10/09/18 11:19 Dose: 17 grams - Objective Vital Signs: Vital Signs Temperature 99.4 F 10/10/18 06:00 Pulse Rate 92 H 10/10/18 08:24 Respiratory Rate 20 10/10/18 08:24 Blood Pressure 138/96 10/10/18 06:00 O2 Sat by Pulse Oximetry (%) 94 L 10/10/18 08:24 HENT: Yes: Other (trach) Cardiovascular: Yes: Regular Rate and Rhythm Respiratory: Yes: CTA Bilaterally Gastrointestinal: Yes: Soft, Abdomen, Obese Edema: Yes Edema: LLE: 1+, RLE: 1+ Labs: CBC, BMP 10/10/18 05:30 10/10/18 05:30 INR, PTT INR 0.97 (0.83-1.09) 10/09/18 05:30 Laboratory Tests 10/10/18 10/10/18 05:30 05:30 WBC 12.1 H Hgb 9.2 L Plt Count 504 H Sodium 134 L Potassium 3.6 Creatinine 0.6 - ....Imaging EKG: Image Reviewed (TELE: NSR, no further NSVT) Assessment/Plan Assessment/Plan 43yo M with PMH of HTN, DM p/w unresponsiveness. Found to have bilateral PE, s/ p PEA arrest Bilateral PE, s/p PEA arrest: - arrest likely in setting of extensive bilateral PE - now s/p tPA, manage anticoagulation per ICU team - bp improved, off pressors now - echo was tds but no gross abnormalities - no significant chf on exam - hypercoagulable w/u per heme consultants - concern for anoxic encephalopathy - neuro following - lasix per critical care - s/p trach 10/09 Afib: - reportedly per EMS and ER records, EKG not available - in setting of PE, this is considered a reversible etiology of Afib. - AC to be continued per PE indication (not required for AF indication here) - now in sinus Type II NE (NSTEMI): - peak trop 1.3, sec to PE/RV strain, vs hypoperfusion from PEA arrest. - EKG no ischemic changes - echo with nl lvef - ischemia w/u not indicated at present HTN: - off pressors now, bp stable - continue to monitor bp NSVT: self limited -normal LV fx -Keep K+ > 4 and Mg2+ >2
[2018-10-10] MEDS: PANTOPRAZOLE SODIUM 40 MG VIAL IVPUSH SCH (09:01)
--- NOTE | 2018-10-10 09:04 | PN ---
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 (short form) - Note 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: PULM/CCM SUBJECTIVE: Patient seen and examined in the ICU. -awake and following this am -new trach CDI,put on PS 10, taking adequate TV -giving diuresis OBJECTIVE: Intake & Output 10/06/18 10/07/18 10/08/18 10/09/18 23:59 23:59 23:59 23:59 Intake Total 4317 2543 4646.8 Output Total 4900 2400 2700 Balance -693 859 7167.8 Weight 234 lb 9.6 oz 235 lb 9.6 oz 233 lb 3.985 oz 227 lb Last Vital Signs Temp Pulse Resp BP Pulse Ox 99.6 F 98 H 17 118/77 99 10/09/18 06:00 10/09/18 09:54 10/09/18 09:10 10/09/18 06:00 10/09/18 09:54 Active Medications Acetaminophen (Ofirmev Injection -) 1,000 mg IVPB Q6H PRN PRN Reason: PAIN OR FEVER Last Admin: 10/06/18 17:58 Dose: 1,000 mg Enoxaparin Sodium (Lovenox -) 110 mg SQ BID [facility] Last Admin: 10/09/18 11:00 Dose: 110 mg Fentanyl 500 mcg/ Dextrose 100 mls @ 5 mls/hr IVPB TITR [facility] Last Admin: 10/09/18 11:23 Dose: 100 mcg/hr, 20 mls/hr Propofol (Diprivan -) 1,000,000 mcg in 100 mls @ 3.09 mls/hr IVPB TITR [facility]; Protocol Last Titration: 10/09/18 11:37 Dose: 60 mcg/kg/min, 37.08 mls/hr Piperacillin Sod/Tazobactam (Sod 3.375 gm/ Dextrose) 50 mls @ 100 mls/hr IVPB Q8H-IV [facility]; Protocol Last Admin: 10/09/18 10:06 Dose: 100 mls/hr Vancomycin HCl (Vancomycin (Pre-Docked)) 1,000 mg in 250 mls @ 166.667 mls/hr IVPB Q12H [facility]; Protocol Last Admin: 10/09/18 01:44 Dose: 166.667 mls/hr Insulin Aspart (Novolog Vial Sliding Scale -) 1 vial SQ Q6HPO [facility]; Protocol Last Admin: 10/09/18 06:15 Dose: 5 units Insulin Detemir (Levemir Vial) 15 units SQ AM [facility] Pantoprazole Sodium (Protonix Iv) 40 mg IVPUSH DAILY [facility] Last Admin: 10/09/18 10:06 Dose: 40 mg Polyethylene Glycol (Miralax (For Daily Use) -) 17 gm PO DAILY [facility] Last Admin: 10/09/18 11:19 Dose: 17 grams Gen: trached, vented, awake following commands Heart: RRR Lung: decreased breath sounds at the bases Abd: soft, nontender Ext: + edema Neuro: follow simple commands, weak throughout but non-focal CBCD WBC 12.1 K/mm3 (4.0-10.0) H 10/10/18 05:30 RBC 2.85 M/mm3 (4.00-5.60) L 10/10/18 05:30 Hgb 9.2 GM/dL (11.7-16.9) L 10/10/18 05:30 Hct 26.4 % (35.4-49) L 10/10/18 05:30 MCV 92.8 fl (80-96) 10/10/18 05:30 MCHC 34.8 g/dl (32.0-35.9) 10/10/18 05:30 RDW 12.7 % (11.9-15.9) 10/10/18 05:30 Plt Count 504 K/MM3 (134-434) H 10/10/18 05:30 MPV 8.1 fl (7.5-11.1) 10/10/18 05:30 CMP Sodium 134 mmol/L (136-145) L 10/10/18 05:30 Potassium 3.6 mmol/L (3.5-5.1) 10/10/18 05:30 Chloride 95 mmol/L (98-107) L 10/10/18 05:30 Carbon Dioxide 30 mmol/L (21-32) 10/10/18 05:30 Anion Gap 8 MMOL/L (8-16) 10/10/18 05:30 BUN 9 mg/dL (7-18) 10/10/18 05:30 Creatinine 0.6 mg/dL (0.55-1.3) 10/10/18 05:30 Calcium 7.6 mg/dL (8.5-10.1) L 10/10/18 05:30 Total Bilirubin 0.6 mg/dL (0.2-1) 10/10/18 05:30 AST 20 U/L (15-37) 10/10/18 05:30 ALT 61 U/L (13-61) 10/10/18 05:30 Alkaline Phosphatase 160 U/L (45-117) H 10/10/18 05:30 Total Protein 6.2 g/dl (6.4-8.2) L 10/10/18 05:30 Albumin 2.0 g/dl (3.4-5.0) L 10/10/18 05:30 ASSESSMENT AND PLAN: POD #): Percutaneous Tracheostomy s/p Cardiopulmonary Arrest Acute Pulmonary Emboli s/p tPA Obstructive Shock improving +Troponins likely Demand Ischemia Lactic Acidosis resolved r/o Anoxic Encephalopathy r/o Pneumonia HTN DM - continue anticoagulation at 11AM - off pressors, maintain MAP >65, will diurese today - continue empiric antibiotics to 7 days, discussed with ID - monitor urine output, creatinine - taper Fio2, PEEP to keep Spo2 >90% - PRN fentanyl for pain - enteral feeds - DVT/GI prophylaxis - continue ICU monitoring - PS trial today, trach collar ideally tomorrow likely needs LTAC vs subacute rehab for dispo Larslan ACNP [id number] 35CCT
[2018-10-10] MEDS ORDERED: FUROSEMIDE 40 MG/4 ML INJECTABLE VIAL IVPUSH ONE (09:15)
--- NOTE | 2018-10-10 09:15 | PN ---
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 (short form) - Note 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: pt seen/ examined in icu all f/u noted off sedation awake today answers simple questions by turning head denies pain Vital Signs Temp 99.4 F 10/10/18 06:00 Pulse 92 H 10/10/18 08:24 Resp 20 10/10/18 08:24 BP 138/96 10/10/18 06:00 Pulse Ox 94 L 10/10/18 08:24 Intake & Output 10/09/18 10/09/18 10/10/18 11:59 23:59 11:59 Intake Total 1746.5 1270.5 Output Total 610 500 Balance 1136.5 770.5 Weight 227 lb 227 lb 1.6 oz Intake: IV 876.5 360.5 DIPRIVAN - 1,000,000 mcg 556.5 220.5 In 100 ml @ 5 MCG/KG/MIN 3.09 mls/hr IVPB TITR [facility] Rx#:[id number] Sublimaze Injection - 500 320 140 Mcg In D5w - 90 ml @ 25 MCG/HR 5 mls/hr IVPB TITR [facility] Rx#:[id number] IVPB 350 350 Tube Feeding 200 280 Tube Irrigant 320 280 Output: Urine 610 500 External Catheter 610 500 Other: Voiding Method External Catheter External Catheter External Catheter Bowel Movement No No Weight Measurement Method Built in [facility] Active Medications Acetaminophen (Ofirmev Injection -) 1,000 mg IVPB Q6H PRN PRN Reason: PAIN OR FEVER Last Admin: 10/06/18 17:58 Dose: 1,000 mg Enoxaparin Sodium (Lovenox -) 110 mg SQ BID [facility] Last Admin: 10/09/18 22:09 Dose: 110 mg Fentanyl (Sublimaze Injection -) 50 mcg IVPUSH Q2H PRN PRN Reason: MODERATE PAIN Stop: 10/11/18 08:59 Furosemide (Lasix Injection -) 20 mg IVPUSH ONCE ONE Stop: 10/10/18 09:16 Piperacillin Sod/Tazobactam (Sod 3.375 gm/ Dextrose) 50 mls @ 100 mls/hr IVPB Q8H-IV [facility]; Protocol Last Admin: 10/10/18 09:01 Dose: 100 mls/hr Vancomycin HCl 1,250 mg/ (Dextrose) 250 mls @ 166.667 mls/hr IVPB BID@0230, 1430 [facility]; Protocol Insulin Aspart (Novolog Vial Sliding Scale -) 1 vial SQ Q6HPO [facility]; Protocol Last Admin: 10/10/18 06:26 Dose: 7 units Insulin Detemir (Levemir Vial) 15 units SQ AM [facility] Last Admin: 10/10/18 06:52 Dose: 15 units Pantoprazole Sodium (Protonix Iv) 40 mg IVPUSH DAILY [facility] Last Admin: 10/10/18 09:01 Dose: 40 mg Polyethylene Glycol (Miralax (For Daily Use) -) 17 gm PO DAILY [facility] Last Admin: 10/09/18 11:19 Dose: 17 grams CBC, BMP 10/10/18 05:30 10/10/18 05:30 bgm-- reviewed -- better --but elevated physical exam awake S1 S2 RRR intubated Lungs decreased Abd-soft, NT, BS+ tracheostomy A/P s/p cardiac arrest Anoxic brain injury- s/p PEA arrest B/L PE Acute respiratory failure Acute kidney injury-- resolved elevated LFT--?shock liver -->trending down status post tracheostomy --Continue present care vent support-- off pressors blood cultures negative MRSA sputum s/p trach bgm - high but better Increase levemir monitor closly will follow Discussed with nursing staff Increase levemir
[2018-10-10] MEDS: FENTANYL INJECTION 500 MCG in DEXTROSE 5%-WATER - 90 ML IVPB SCH (09:28)
[2018-10-10] MEDS: ENOXAPARIN NA (PORCINE) 120 MG/0.8 ML DISP.SYRIN SQ SCH ×2 (09:28→21:57)
[2018-10-10 12:14] LABS: ANISOCYTOSIS 0; MACROCYTOSIS 0; PLATELET ESTIMATE INCREASED
[2018-10-10] MEDS ORDERED: PT OWN MED DRAWER 7, Y5N ONE ×2 (12:25→14:43)
[2018-10-10] MEDS: VANCOMYCIN 1,250 MG in DEXTROSE 5%-WATER - 250 ML IVPB SCH (14:43)
[2018-10-10] MEDS: POLYETHYLENE GLYCOL 3350 119 GM BTL PO SCH (15:33)
[2018-10-11] MEDS: INSULIN SLIDING SCALE (NOVOLOG) 1 VIAL SQ SCH ×4 (00:06→17:33)
[2018-10-11] MEDS ORDERED: PIPERACILLIN/TAZOBACTAM 3.375 GM VIAL IVPB ONE ×2 (02:40→07:19)
[2018-10-11] MEDS ORDERED: PT OWN MED DRAWER 7, Y5N ONE ×3 (02:40→14:08)
[2018-10-11] MEDS ORDERED: DEXTROSE 5%-WATER - 50 ML IVPB ONE ×2 (02:41→07:19)
[2018-10-11] MEDS: VANCOMYCIN 1,250 MG in DEXTROSE 5%-WATER - 250 ML IVPB SCH ×2 (02:42→14:21)
[2018-10-11] MEDS: PIPERACILLIN/TAZOB 3.375 GM 3.375 GM in DEXTROSE 5%-WATER - 50 ML IVPB SCH ×2 (02:42→08:59)
[2018-10-11] MEDS: INSULIN (LEVEMIR) 100 UNITS/ML UNITS SQ SCH (08:00)
[2018-10-11] MEDS: POLYETHYLENE GLYCOL 3350 119 GM BTL PO SCH (08:59)
[2018-10-11] MEDS: PANTOPRAZOLE SODIUM 40 MG VIAL IVPUSH SCH (08:59)
--- NOTE | 2018-10-11 09:43 | PN ---
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 (short form) - Note 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: PULM/CCM SUBJECTIVE: Patient seen and examined in the ICU. -awake and following this am -trach collar since am - negative 1500 with lasix - low grade temp, still with some secretions on piptaz and vanco OBJECTIVE: Vital Signs Temp 100.1 F H 10/11/18 06:00 Pulse 90 10/11/18 08:00 Resp 18 10/11/18 08:00 BP 135/84 10/11/18 08:00 Pulse Ox 100 10/10/18 21:00 Intake & Output 10/10/18 10/10/18 10/11/18 11:59 23:59 11:59 Intake Total 1270.5 1822.1 350 Output Total 500 3150 1000 Balance 770.5 -1327.9 -650 Weight 103.011 kg 97.84 kg Intake: IV 360.5 152.1 DIPRIVAN - 1,000,000 mcg 220.5 92.1 In 100 ml @ 5 MCG/KG/MIN 3.09 mls/hr IVPB TITR [facility] Rx#:[id number] Sublimaze Injection - 500 140 60 Mcg In D5w - 90 ml @ 25 MCG/HR 5 mls/hr IVPB TITR [facility] Rx#:[id number] IVPB 350 350 350 Tube Feeding 280 640 Tube Irrigant 280 680 Output: Urine 500 3150 1000 External Catheter 500 3150 1000 Other: Voiding Method External Catheter External Catheter Bowel Movement No Yes: loose brown moderate Yes # Bowel Movements 1 3 Weight Measurement Method Built in [facility] Current Medications Acetaminophen (Ofirmev Injection -) 1,000 mg IVPB Q6H PRN PRN Reason: PAIN OR FEVER Last Admin: 10/06/18 17:58 Dose: 1,000 mg Enoxaparin Sodium (Lovenox -) 110 mg SQ BID [facility] Last Admin: 10/10/18 21:57 Dose: 110 mg Piperacillin Sod/Tazobactam (Sod 3.375 gm/ Dextrose) 50 mls @ 100 mls/hr IVPB Q8H-IV [facility]; Protocol Last Admin: 10/11/18 08:59 Dose: 100 mls/hr Vancomycin HCl 1,250 mg/ (Dextrose) 250 mls @ 166.667 mls/hr IVPB BID@0230, 1430 [facility]; Protocol Last Admin: 10/11/18 02:42 Dose: 166.667 mls/hr Insulin Aspart (Novolog Vial Sliding Scale -) 1 vial SQ Q6HPO [facility]; Protocol Last Admin: 10/11/18 06:14 Dose: 5 units Insulin Detemir (Levemir Vial) 18 units SQ AM [facility] Pantoprazole Sodium (Protonix Iv) 40 mg IVPUSH DAILY [facility] Last Admin: 10/11/18 08:59 Dose: 40 mg Polyethylene Glycol (Miralax (For Daily Use) -) 17 gm PO DAILY [facility] Last Admin: 10/11/18 08:59 Dose: Not Given Gen: trach collar, thin yellow secretions, awake watching TV Heart: RRR Lung: decreased breath sounds at the bases, scattered rhonchi, clears with cough Abd: soft, nontender Ext: + edema Neuro: follow simple commands, weak throughout but non-focal CBC, BMP 10/10/18 05:30 10/10/18 05:30 LAB [place] today ASSESSMENT AND PLAN: POD #2: Percutaneous Tracheostomy s/p Cardiopulmonary Arrest Acute Pulmonary Emboli s/p tPA Obstructive Shock improving +Troponins likely Demand Ischemia Lactic Acidosis resolved r/o Anoxic Encephalopathy r/o Pneumonia HTN DM - OOB to chair, been off vent for > 12HRs, -cont gentle diuresis - continue empiric antibiotics to 7 days, discussed with ID, will resend sput - monitor urine output, creatinine - PRN fentanyl for pain - enteral feeds, on hold, lacks oral access, swallow study tomorrow , jaime will not need PEG - DVT/GI prophylaxis - continue ICU monitoring likely needs LTAC vs subacute rehab for dispo Yasmeen ACNP [id number] 35CCT
--- NOTE | 2018-10-11 10:18 | PN ---
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 (short form) - Note 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: pt seen/ examined awake on trach collar now comfortable low grade temp Vital Signs Temp 100.1 F H 10/11/18 06:00 Pulse 90 10/11/18 08:00 Resp 18 10/11/18 08:00 BP 135/84 10/11/18 08:00 Pulse Ox 100 10/10/18 21:00 Intake & Output 10/10/18 10/10/18 10/11/18 11:59 23:59 11:59 Intake Total 1270.5 1822.1 350 Output Total 500 3150 1000 Balance 770.5 -1327.9 -650 Weight 227 lb 1.6 oz 215 lb 11.2 oz Intake: IV 360.5 152.1 DIPRIVAN - 1,000,000 mcg 220.5 92.1 In 100 ml @ 5 MCG/KG/MIN 3.09 mls/hr IVPB TITR [facility] Rx#:[id number] Sublimaze Injection - 500 140 60 Mcg In D5w - 90 ml @ 25 MCG/HR 5 mls/hr IVPB TITR [facility] Rx#:[id number] IVPB 350 350 350 Tube Feeding 280 640 Tube Irrigant 280 680 Output: Urine 500 3150 1000 External Catheter 500 3150 1000 Other: Voiding Method External Catheter External Catheter Bowel Movement No Yes: loose brown moderate Yes # Bowel Movements 1 3 Weight Measurement Method Built in [facility] Active Medications Acetaminophen (Ofirmev Injection -) 1,000 mg IVPB Q6H PRN PRN Reason: PAIN OR FEVER Last Admin: 10/06/18 17:58 Dose: 1,000 mg Enoxaparin Sodium (Lovenox -) 110 mg SQ BID [facility] Last Admin: 10/10/18 21:57 Dose: 110 mg Piperacillin Sod/Tazobactam (Sod 3.375 gm/ Dextrose) 50 mls @ 100 mls/hr IVPB Q8H-IV [facility]; Protocol Last Admin: 10/11/18 08:59 Dose: 100 mls/hr Vancomycin HCl 1,250 mg/ (Dextrose) 250 mls @ 166.667 mls/hr IVPB BID@0230, 1430 [facility]; Protocol Last Admin: 10/11/18 02:42 Dose: 166.667 mls/hr Insulin Aspart (Novolog Vial Sliding Scale -) 1 vial SQ Q6HPO [facility]; Protocol Last Admin: 10/11/18 06:14 Dose: 5 units Insulin Detemir (Levemir Vial) 18 units SQ AM [facility] Pantoprazole Sodium (Protonix Iv) 40 mg IVPUSH DAILY [facility] Last Admin: 10/11/18 08:59 Dose: 40 mg Polyethylene Glycol (Miralax (For Daily Use) -) 17 gm PO DAILY [facility] Last Admin: 10/11/18 08:59 Dose: Not Given CBC, BMP 10/10/18 05:30 10/10/18 05:30 Physical exam awake S1 S2 RRR Lungs decreased Abd-soft, NT, BS+ tracheostomy-- on trach collar A/P s/p cardiac arrest Anoxic brain injury-recovering s/p PEA arrest B/L PE Acute respiratory failure Acute kidney injury-- resolved status post tracheostomy --Continue present care MRSA sputum s/p trach bgm - high but better Increased levemir yesterday monitor closely will follow Discussed with icu team daily oob - chair check [id number]-- Problem List - Problems (1) Tracheostomy care Code(s): Z43.0 - ENCOUNTER FOR ATTENTION TO TRACHEOSTOMY (2) Bilateral pulmonary embolism Code(s): I26.99 - OTHER PULMONARY EMBOLISM WITHOUT ACUTE COR PULMONALE (3) Cardiac arrest Code(s): I46.9 - CARDIAC ARREST, CAUSE UNSPECIFIED (4) Diabetes Code(s): E11.9 - TYPE 2 DIABETES MELLITUS WITHOUT COMPLICATIONS
--- NOTE | 2018-10-11 11:01 | PN ---
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, Physician Chief Complaint: alert TELE: NSR, rare PVCs - Current Medication List Current Medications: Active Medications Acetaminophen (Ofirmev Injection -) 1,000 mg IVPB Q6H PRN PRN Reason: PAIN OR FEVER Last Admin: 10/06/18 17:58 Dose: 1,000 mg Enoxaparin Sodium (Lovenox -) 110 mg SQ BID [facility] Last Admin: 10/10/18 21:57 Dose: 110 mg Piperacillin Sod/Tazobactam (Sod 3.375 gm/ Dextrose) 50 mls @ 100 mls/hr IVPB Q8H-IV [facility]; Protocol Last Admin: 10/11/18 08:59 Dose: 100 mls/hr Vancomycin HCl 1,250 mg/ (Dextrose) 250 mls @ 166.667 mls/hr IVPB BID@0230, 1430 [facility]; Protocol Last Admin: 10/11/18 02:42 Dose: 166.667 mls/hr Insulin Aspart (Novolog Vial Sliding Scale -) 1 vial SQ Q6HPO [facility]; Protocol Last Admin: 10/11/18 06:14 Dose: 5 units Insulin Detemir (Levemir Vial) 18 units SQ AM [facility] Pantoprazole Sodium (Protonix Iv) 40 mg IVPUSH DAILY [facility] Last Admin: 10/11/18 08:59 Dose: 40 mg Polyethylene Glycol (Miralax (For Daily Use) -) 17 gm PO DAILY [facility] Last Admin: 10/11/18 08:59 Dose: Not Given - Objective Vital Signs: Vital Signs Temperature 100.1 F H 10/11/18 06:00 Pulse Rate 90 10/11/18 08:00 Respiratory Rate 18 10/11/18 08:00 Blood Pressure 135/84 10/11/18 08:00 O2 Sat by Pulse Oximetry (%) 100 10/10/18 21:00 Constitutional: Yes: No Distress HENT: Yes: Other (trach) Cardiovascular: Yes: Regular Rate and Rhythm Respiratory: Yes: Other (= breath sounds b/l) Gastrointestinal: Yes: Soft Edema: No Neurological: Yes: Alert, Oriented Labs: CBC, BMP 10/10/18 05:30 10/10/18 05:30 INR, PTT INR 0.97 (0.83-1.09) 10/09/18 05:30 Assessment/Plan Assessment/Plan 43yo M with PMH of HTN, DM p/w unresponsiveness. Found to have bilateral PE, s/ p PEA arrest Bilateral PE, s/p PEA arrest: - arrest likely in setting of extensive bilateral PE - now s/p tPA, manage anticoagulation per ICU team - bp improved, off pressors now - echo was tds but no gross abnormalities - no significant chf on exam - hypercoagulable w/u per heme consultants - concern for anoxic encephalopathy - neuro following - lasix per critical care - s/p trach 10/09 Afib: - reportedly per EMS and ER records, EKG not available - in setting of PE, this is considered a reversible etiology of Afib. - AC to be continued per PE indication (not required for AF indication here) - now in sinus Type II CT (NSTEMI): - peak trop 1.3, sec to PE/RV strain, vs hypoperfusion from PEA arrest. - EKG no ischemic changes - echo with nl lvef - ischemia w/u not indicated at present HTN: - off pressors now, bp stable - continue to monitor bp NSVT: self limited -normal LV fx -Keep K+ > 4 and Mg2+ >2
--- NOTE | 2018-10-11 13:39 | PN ---
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 (short form) - Note 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: trach collar oob to chair tracheal secretions Vital Signs Period Temp Pulse Resp BP Sys/Liao Pulse Ox Last 24 Hr 99.4 F-100.1 F 89-96 7-20 130-154/82-94 100-100 cor-rrr lungs decreased bs at bases abd soft,nt ext +edema CBC, BMP 10/10/18 05:30 10/10/18 05:30 Microbiology 10/08/18 05:30 Blood - Peripheral Venous Blood Culture - Preliminary NO GROWTH OBTAINED AFTER 72 HOURS, INCUBATION TO CONTINUE FOR 2 DAYS. 10/08/18 05:45 Blood - Peripheral Venous Blood Culture - Preliminary NO GROWTH OBTAINED AFTER 72 HOURS, INCUBATION TO CONTINUE FOR 2 DAYS. 10/07/18 20:00 Blood - Peripheral Venous Blood Culture - Preliminary NO GROWTH OBTAINED AFTER 72 HOURS, INCUBATION TO CONTINUE FOR 2 DAYS. 10/07/18 20:00 Blood - Peripheral Venous Blood Culture - Preliminary NO GROWTH OBTAINED AFTER 72 HOURS, INCUBATION TO CONTINUE FOR 2 DAYS. 10/08/18 12:30 Sputum - Endotrachea Suction/Ventilator Gram Stain - Final 10/08/18 12:30 Sputum - Endotrachea Suction/Ventilator Sputum Culture - Final S Aureus 10/04/18 13:29 Blood - Peripheral Venous Blood Culture - Final NO GROWTH AFTER 5 DAYS INCUBATION 10/04/18 12:53 Blood - Peripheral Venous Blood Culture - Final NO GROWTH AFTER 5 DAYS INCUBATION 10/08/18 13:00 Urine - Urine Sidhu Urine Culture - Final NO GROWTH OBTAINED 10/03/18 10:15 Sputum - Endotrachea Suction/Ventilator Gram Stain - Final 10/03/18 10:15 Sputum - Endotrachea Suction/Ventilator Sputum Culture - Final S Aureus 10/01/18 06:40 Blood - Peripheral Venous Blood Culture - Final NO GROWTH AFTER 5 DAYS INCUBATION 10/01/18 06:40 Blood - Peripheral Venous Blood Culture - Final NO GROWTH AFTER 5 DAYS INCUBATION 10/01/18 13:30 Urine - Urine Clean Catch Urine Culture - Final NO GROWTH OBTAINED Current Medications Acetaminophen (Ofirmev Injection -) 1,000 mg IVPB Q6H PRN PRN Reason: PAIN OR FEVER Last Admin: 10/06/18 17:58 Dose: 1,000 mg Enoxaparin Sodium (Lovenox -) 110 mg SQ BID [facility] Last Admin: 10/10/18 21:57 Dose: 110 mg Vancomycin HCl 1,250 mg/ (Dextrose) 250 mls @ 166.667 mls/hr IVPB BID@0230, 1430 [facility]; Protocol Last Admin: 10/11/18 02:42 Dose: 166.667 mls/hr Insulin Aspart (Novolog Vial Sliding Scale -) 1 vial SQ Q6HPO [facility]; Protocol Last Admin: 10/11/18 12:22 Dose: 5 units Insulin Detemir (Levemir Vial) 18 units SQ AM [facility] Last Admin: 10/11/18 08:00 Dose: 18 units Pantoprazole Sodium (Protonix Iv) 40 mg IVPUSH DAILY [facility] Last Admin: 10/11/18 08:59 Dose: 40 mg Polyethylene Glycol (Miralax (For Daily Use) -) 17 gm PO DAILY [facility] Last Admin: 10/11/18 08:59 Dose: Not Given a/p s/p bilateral PE-on lovenox s/p arrest- possible anoxia possible aspiration pneumonia sinusitis on ct scan continue zosyn/vancomycin day # 7 repeat vanco trough in am mrsa contact isolation
[2018-10-11] MEDS: ACETAMINOPHEN 1000 MG/100 ML VIAL (NON FORMULARY) IVPB PRN (22:21)
[2018-10-12] MEDS: INSULIN SLIDING SCALE (NOVOLOG) 1 VIAL SQ SCH ×4 (00:15→17:38)
[2018-10-12] MEDS: VANCOMYCIN 1,250 MG in DEXTROSE 5%-WATER - 250 ML IVPB SCH ×2 (03:00→15:31)
[2018-10-12 05:58] LABS: BASO % 1.2 % (0-2.0); EOS % 1.8 % (0-4.5); HEMATOCRIT 30.3 % (35.4-49); HEMOGLOBIN 10.1 GM/dL (11.7-16.9); LYMPH % 18.6 % (8-40); MCHC 33.5 g/dl (32.0-35.9); MEAN CELL VOLUME 92.7 fl (80-96); MONO % 7.7 % (3.8-10.2); NEUT % 70.7 % (42.8-82.8); PLATELET COUNT 703 K/MM3 (134-434); RBC 3.27 M/mm3 (4.00-5.60); RDW 13.1 % (11.9-15.9); WHITE BLOOD COUNT 16.1 K/mm3 (4.0-10.0)
[2018-10-12] MEDS: INSULIN (LEVEMIR) 100 UNITS/ML UNITS SQ SCH (06:13)
[2018-10-12 06:17] LABS: ALBUMIN 2.3 g/dl (3.4-5.0); BILIRUBIN,TOTAL 0.6 mg/dL (0.2-1); CALCIUM 8.4 mg/dL (8.5-10.1); CREATININE 0.7 mg/dL (0.55-1.3); POTASSIUM 3.2 mmol/L (3.5-5.1)
[2018-10-12 06:54] LABS: MAGNESIUM 2.4 mg/dL (1.8-2.4); PHOSPHOROUS 3.4 mg/dL (2.5-4.9)
--- NOTE | 2018-10-12 08:01 | PN ---
Physical Exam: SUBJECTIVE: Patient seen and examined at bedside. No acute events overnight. Endorsing discomfort at trach tube site. Denies shortness of breath, abdominal pain, headache. He has been ambulating out of bed to the chair. OBJECTIVE: Vital Signs Period Temp Pulse Resp BP Sys/Liao Pulse Ox Last 24 Hr 98.9 F-100.2 F 86-98 10-26 123-161/76-99 93-100 GENERAL: The patient is awake, alert, and fully oriented, in no acute distress. EYES: PERRL, extraocular movements intact, sclera anicteric, conjunctiva clear. No ptosis. NECK: Trach tube in place LUNGS: Rhonchi, no wheezes, no crackles, no accessory muscle use. HEART: Regular rate and rhythm, S1, S2 without murmur, rub or gallop. ABDOMEN: Soft, nontender, nondistended, normoactive bowel sounds, no guarding, no rebound, no hepatosplenomegaly, no masses. EXTREMITIES: 2+ pulses, warm, well-perfused, no edema. NEUROLOGICAL: Cranial nerves II through XII grossly intact. Normal speech, gait not observed. PSYCH: Normal mood, normal affect. SKIN: Warm, dry, normal turgor, no rashes or lesions noted Laboratory Results - last 24 hr 10/11/18 10/11/18 10/12/18 12:20 17:30 00:13 WBC RBC Hgb Hct MCV MCH MCHC RDW Plt Count MPV Absolute Neuts (auto) Neutrophils % Lymphocytes % Monocytes % Eosinophils % Basophils % Nucleated RBC % Sodium Potassium Chloride Carbon Dioxide Anion Gap BUN Creatinine Est GFR (CKD-EPI)AfAm Est GFR (CKD-EPI)NonAf POC Glucometer 227 206 164 Random Glucose Hemoglobin A1c % Calcium Phosphorus Magnesium Total Bilirubin AST ALT Alkaline Phosphatase Total Protein Albumin 10/12/18 10/12/18 10/12/18 05:15 05:15 05:15 WBC 16.1 H RBC 3.27 L Hgb 10.1 L Hct 30.3 L MCV 92.7 MCH 31.0 MCHC 33.5 RDW 13.1 Plt Count 703 H D MPV 8.0 Absolute Neuts (auto) 11.4 H Neutrophils % 70.7 Lymphocytes % 18.6 Monocytes % 7.7 Eosinophils % 1.8 Basophils % 1.2 Nucleated RBC % 0 Sodium 137 Potassium 3.2 L Chloride 100 Carbon Dioxide 27 Anion Gap 11 BUN 13 Creatinine 0.7 Est GFR (CKD-EPI)AfAm 133.96 Est GFR (CKD-EPI)NonAf 115.58 POC Glucometer Random Glucose 196 H Hemoglobin A1c % 11.1 H Calcium 8.4 L Phosphorus 3.4 Magnesium 2.4 Total Bilirubin 0.6 AST 18 ALT 41 Alkaline Phosphatase 146 H Total Protein 7.0 Albumin 2.3 L 10/12/18 05:33 WBC RBC Hgb Hct MCV MCH MCHC RDW Plt Count MPV Absolute Neuts (auto) Neutrophils % Lymphocytes % Monocytes % Eosinophils % Basophils % Nucleated RBC % Sodium Potassium Chloride Carbon Dioxide Anion Gap BUN Creatinine Est GFR (CKD-EPI)AfAm Est GFR (CKD-EPI)NonAf POC Glucometer 189 Random Glucose Hemoglobin A1c % Calcium Phosphorus Magnesium Total Bilirubin AST ALT Alkaline Phosphatase Total Protein Albumin Active Medications Generic Name Dose Route Start Last Admin Trade Name Freq PRN Reason Stop Dose Admin Acetaminophen 1,000 mg 10/06/18 17:50 10/11/18 22:21 Ofirmev Injection - IVPB 1,000 mg Q6H PRN Administration PAIN OR FEVER Enoxaparin Sodium 110 mg 10/07/18 22:00 10/10/18 21:57 Lovenox - SQ 110 mg BID [facility] Administration Vancomycin HCl 1,250 mg/ 250 mls @ 166.667 mls/hr 10/10/18 14:30 10/12/18 03: 00 Dextrose IVPB 166.667 mls/hr BID@0230,1430 [facility] Administration Protocol Potassium Chloride 10 meq in 100 mls @ 100 mls/hr 10/12/18 08:00 Potassium Chloride 10 Meq Premix Ivpb - IVPB 10/12/18 10:59 Q60M [facility] Insulin Aspart 1 vial 10/02/18 13:00 10/12/18 05:35 Novolog Vial Sliding Scale - SQ 3 units Q6HPO [facility] Administration Protocol Insulin Detemir 18 units 10/10/18 09:16 10/12/18 06:13 Levemir Vial SQ 18 units AM [facility] Administration Pantoprazole Sodium 40 mg 10/03/18 10:00 10/11/18 08:59 Protonix Iv IVPUSH 40 mg DAILY [facility] Administration Polyethylene Glycol 17 gm 10/08/18 18:45 10/11/18 08:59 Miralax (For Daily Use) - PO Not Given DAILY [facility] ASSESSMENT/PLAN: 43yo M with PMH of DM brought to ICU for bilateral PE and s/p PEA cardiac arrest NEURO -Off of sedation -AOX3, following commands and answering questions -CT head negative for acute findings -Neuro consulting: Anoxic brain injury ENDO -History of DM -SS insulin -BGMs -Replete K -Will trend lytes CARDIO/VASC -ROSC s/p cardiac arrest with rhythm strip showing narrow complex PEA -Bilateral PE -Off of pressors -Enoxaparin 1mg/kg BID PULM -Bilateral PE extending to upper and lower lobes bilaterally -S/P trach, keep valve in place for now -SpO2>90% -Off of vent -Sputum cultures positive for MRSA -Vancomycin to continue. Zosyn course finished GI -Speech and swallow study today, may start oral feeding if passed -Holding off G tube placement for now, may need if speech/swallow is not adequate ID -Leukocytosis, likely central v. aspiraton v. pna -ID consulted: Vanc, Zosyn course completed -Sputum cultures x2 grow MRSA -Blood cultures ngtd -Rpt blood, urine cultures ngtd FEN -May start oral feeds if passed swallow study, ,follow recommendations -Replete lytes as needed PROPHY -Protonix -Enoxaparin sc Dispo: Patient is stable for transfer to floor Visit type - Emergency Visit Emergency Visit: Yes ED Registration Date: 10/01/18 Care time: The patient presented to the Emergency Department on the above date and was hospitalized for further evaluation of their emergent condition. - New Patient This patient is new to me today: No - Critical Care Critical Care patient: Yes Total Critical Care Time (in minutes): 35 Critical Care Statement: The care of this patient involved high complexity decision making to prevent further life threatening deterioration of the patient 's condition and/or to evaluate & treat vital organ system(s) failure or risk of failure.
[2018-10-12] MEDS: KCL 10 MEQ IVPB 10 MEQ/100 ML INFUS.BAG IVPB SCH ×3 (08:51→12:07)
--- NOTE | 2018-10-12 09:24 | PN ---
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 (short form) - Note 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: trach collar oob to chair copious tracheal secretions strong cough for speech evaluation today Vital Signs Period Temp Pulse Resp BP Sys/Liao Pulse Ox Last 24 Hr 98.9 F-100.2 F 86-98 10- 123-161/76-99 93 cor-rrr lungs bilateral rhonchi abd soft,nt ext no edema CBC, BMP 10/12/18 05:15 10/12/18 05:15 Microbiology 10/08/18 05:30 Blood - Peripheral Venous Blood Culture - Preliminary NO GROWTH OBTAINED AFTER 96 HOURS, INCUBATION TO CONTINUE FOR 1 DAYS. 10/08/18 05:45 Blood - Peripheral Venous Blood Culture - Preliminary NO GROWTH OBTAINED AFTER 96 HOURS, INCUBATION TO CONTINUE FOR 1 DAYS. 10/07/18 20:00 Blood - Peripheral Venous Blood Culture - Preliminary NO GROWTH OBTAINED AFTER 96 HOURS, INCUBATION TO CONTINUE FOR 1 DAYS. 10/07/18 20:00 Blood - Peripheral Venous Blood Culture - Preliminary NO GROWTH OBTAINED AFTER 96 HOURS, INCUBATION TO CONTINUE FOR 1 DAYS. 10/08/18 12:30 Sputum - Endotrachea Suction/Ventilator Gram Stain - Final 10/08/18 12:30 Sputum - Endotrachea Suction/Ventilator Sputum Culture - Final S Aureus 10/04/18 13:29 Blood - Peripheral Venous Blood Culture - Final NO GROWTH AFTER 5 DAYS INCUBATION 10/04/18 12:53 Blood - Peripheral Venous Blood Culture - Final NO GROWTH AFTER 5 DAYS INCUBATION 10/08/18 13:00 Urine - Urine Sidhu Urine Culture - Final NO GROWTH OBTAINED 10/03/18 10:15 Sputum - Endotrachea Suction/Ventilator Gram Stain - Final 10/03/18 10:15 Sputum - Endotrachea Suction/Ventilator Sputum Culture - Final S Aureus 10/01/18 06:40 Blood - Peripheral Venous Blood Culture - Final NO GROWTH AFTER 5 DAYS INCUBATION 10/01/18 06:40 Blood - Peripheral Venous Blood Culture - Final NO GROWTH AFTER 5 DAYS INCUBATION 10/01/18 13:30 Urine - Urine Clean Catch Urine Culture - Final NO GROWTH OBTAINED a/p s/p bilateral PE-on lovenox s/p arrest- possible anoxia possible aspiration pneumonia sinusitis on ct scan completed 7 days zosyn continue vancomycin repeat cxray today repeat vanco trough today mrsa contact isolation d/w Dr Sierra
--- NOTE | 2018-10-12 09:52 | PN ---
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 (short form) - Note 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: pt seen/ examined in icu awake/ comfortable sitting in chair no complains increased wbc cough / secretions + mrsa + sputum Vital Signs Temp 99.4 F 10/12/18 06:00 Pulse 86 10/12/18 06:00 Resp 12 10/12/18 06:00 BP 136/88 10/12/18 06:00 Pulse Ox 93 L 10/11/18 19:45 Intake & Output 10/11/18 10/11/18 10/12/18 11:59 23:59 11:59 Intake Total 350 100 250 Output Total 1000 450 Balance -650 -350 250 Weight 215 lb 11.2 oz 209 lb Intake: IVPB 350 100 250 Output: Urine 1000 450 External Catheter 1000 450 Other: Voiding Method External Catheter External Catheter # Unmeasured Voids External Catheter 2 Bowel Movement Yes Yes Yes # Bowel Movements 3 1 2 Weight Measurement Method Built in [facility] Active Medications Acetaminophen (Ofirmev Injection -) 1,000 mg IVPB Q6H PRN PRN Reason: PAIN OR FEVER Last Admin: 10/11/18 22:21 Dose: 1,000 mg Enoxaparin Sodium (Lovenox -) 110 mg SQ BID [facility] Last Admin: 10/10/18 21:57 Dose: 110 mg Vancomycin HCl 1,250 mg/ (Dextrose) 250 mls @ 166.667 mls/hr IVPB BID@0230, 1430 [facility]; Protocol Last Admin: 10/12/18 03:00 Dose: 166.667 mls/hr Potassium Chloride (Potassium Chloride 10 Meq Premix Ivpb -) 10 meq in 100 mls @ 100 mls/hr IVPB Q60M [facility] Stop: 10/12/18 10:59 Last Admin: 10/12/18 08:51 Dose: 100 mls/hr Insulin Aspart (Novolog Vial Sliding Scale -) 1 vial SQ Q6HPO [facility]; Protocol Last Admin: 10/12/18 05:35 Dose: 3 units Insulin Detemir (Levemir Vial) 18 units SQ AM [facility] Last Admin: 10/12/18 06:13 Dose: 18 units Pantoprazole Sodium (Protonix Iv) 40 mg IVPUSH DAILY [facility] Last Admin: 10/11/18 08:59 Dose: 40 mg Polyethylene Glycol (Miralax (For Daily Use) -) 17 gm PO DAILY [facility] Last Admin: 10/11/18 08:59 Dose: Not Given CBC, BMP 10/12/18 05:15 10/12/18 05:15 Abnormal Lab Results 10/12/18 10/12/18 10/12/18 05:15 05:15 05:15 WBC 16.1 H RBC 3.27 L Hgb 10.1 L Hct 30.3 L Plt Count 703 H D Absolute Neuts (auto) 11.4 H Potassium 3.2 L Random Glucose 196 H Hemoglobin A1c % 11.1 H Calcium 8.4 L Alkaline Phosphatase 146 H Albumin 2.3 L Vancomycin Pre-Dose 10/12/18 15:30 WBC RBC Hgb Hct Plt Count Absolute Neuts (auto) Potassium Random Glucose Hemoglobin A1c % Calcium Alkaline Phosphatase Albumin Vancomycin Pre-Dose 7.5 L cxr -- ordered Physical exam awake S1 S2 RRR Lungs decreased Abd-soft, NT, BS+ tracheostomy-- on trach collar A/P s/p cardiac arrest Anoxic brain injury-recovering s/p PEA arrest B/L PE Acute respiratory failure Acute kidney injury-- resolved status post tracheostomy MRSA sputum s/p trach bgm - high HbA1c > 11 Increase levemir monitor closely will follow Discussed with icu team daily oob - chair overall much better discussed with pts mother also Problem List - Problems (1) Tracheostomy care Code(s): Z43.0 - ENCOUNTER FOR ATTENTION TO TRACHEOSTOMY (2) Bilateral pulmonary embolism Code(s): I26.99 - OTHER PULMONARY EMBOLISM WITHOUT ACUTE COR PULMONALE (3) Cardiac arrest Code(s): I46.9 - CARDIAC ARREST, CAUSE UNSPECIFIED (4) Diabetes Code(s): E11.9 - TYPE 2 DIABETES MELLITUS WITHOUT COMPLICATIONS
[2018-10-12] MEDS: POLYETHYLENE GLYCOL 3350 119 GM BTL PO SCH (09:58)
[2018-10-12] MEDS: PANTOPRAZOLE SODIUM 40 MG VIAL IVPUSH SCH (10:00)
--- NOTE | 2018-10-12 10:02 | CONSULT ---
Admitting History and Physical - Primary Care Physician PCP: Earl Sierra - Admission History of Present Illness: 43M w/ PMH of noncompliant DM who presents to the ED via EMS. He developed palpitations and SOB, syncopy,a-fib with hypotension and hypoxia. The patient admits to syncope and palpitations with retrosternal CP and SOB. In ER was intubated, CT chest showed B/L PE started heparin infusion, was sent to IR for thrombolysis-- went into cardiac arrest - code 99 called, ACLS protocol initiated- thrombolysis could not be done in IR Intubated 10/02 -Tracheostomy placed 10/09. Now on trach collar, oob in chair. s/p Cardiopulmonary Arrest Acute Pulmonary Emboli s/p tPA Obstructive Shock improving +Troponins likely Demand Ischemia Lactic Acidosis resolved r/o Anoxic Encephalopathy r/o Pneumonia HTN DM History Source: Medical Record Limitations to Obtaining History: Clinical Condition - Past Medical History Cardiovascular: Yes: HTN, Hyperlipdemia Endocrine: Yes: Diabetes Mellitus - Smoking History Smoking history: Never smoked Have you smoked in the past 12 months: No - Alcohol/Substance Use Hx Alcohol Use: No History - Admission Reason For Visit: BILATERAL PULMONARY EMBOLISM - Diagnostics X-ray: Report Reviewed CT Scan: Report Reviewed - General Mental Status: Alert and Oriented, Awake and Alert, Able to Follow Commands, Forgetful, Vague, Flat Affect Attention: Intact Ability to Follow Directions: Good Head/Neck Control: WFL - Hearing Hearing: Functional Speech Evaluation - Communication Primary Language: GUYANESE Secondary Language: HUNGARIAN (fairly fluent, functional) Communication: Yes: Simple Responses Oral Expression Ability: Yes: Non-Vocal (trach collar) - Speech Production Able to Make Needs Known: Yes: Mildly Impaired Intelligibility: Yes: Mildly Impaired (assessed with PMV in place) - Speech Characteristics Voice Loudness: Mildly Soft/Quiet Voice Pitch: Yes: Normal Voice Phonatory-based Quality: Yes: Hoarse, Dysphonia (mild) Speech Clarity: < 75% Nasal Resonance: Normal Articulation: Yes: Precise Rate of Speech: Too Fast Voice, Other Observations: Yes: Throat Clearing (coughs at times while speaking) - Language/Auditory Comprehension Follows: Yes: 2 Stage Simple Commands Observation: Able to respond to yes/no queries: Yes - Swallow Evaluation/Bedside Assessment Current Nutritional Intake: NPO Tracheostomy Present: Yes Patient on Ventilator: No Dentition: Yes: Adequate Facial Symmetry at Rest: Symmetrical Against Resistance Opening: Normal Against Resistance Closing: Normal Pucker Lips: Normal Smile: Normal Lingual Movement: Normal, Symmetric Lingual Speed of Movement: Normal Lingual Movement Strgth Against Opposition: Normal Lingual Movement Characteristics: Normal Laryngeal Movement: Able to Palpate (assessed with PMV in place), Reduced Excursion Rate of Intake: WFL Bolus Size: WFL Labial Seal: WFL Oral Prep Time: WFL A-P Transit: WFL Pocketing: None Timing of Swallow: Delayed Coughing/Throat Clear: No Change in Voice: No Recommendations - Speech Evaluation, Impression/Plan Impression: Non vocal with Trach collar. Requested PMV order. Voice is mildly dysphonic, speech rapid. Oriented. Seemed forgetful- needs further w/u. Flat affect. Passive, rare speech initiation.(Baseline vs sec to anoxic encephalopathy) - Disposition [facility] to: [facility] - Dysphagia Impressions/Plan Dysphagia Impressions: Ongoing Evaluation *Silent aspiration: cannot be R/O at bedside Recommendations: Modified Barium Swallow, Passy Chriss Valve
--- NOTE | 2018-10-12 10:17 | PN ---
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, Physician Chief Complaint: cardiac arrest History of Present Illness: awake, alert. sitting in chair. denies cp, sob, palpit, leg swelling - Current Medication List Current Medications: Active Medications Acetaminophen (Ofirmev Injection -) 1,000 mg IVPB Q6H PRN PRN Reason: PAIN OR FEVER Last Admin: 10/11/18 22:21 Dose: 1,000 mg Enoxaparin Sodium (Lovenox -) 110 mg SQ BID [facility] Last Admin: 10/10/18 21:57 Dose: 110 mg Vancomycin HCl 1,250 mg/ (Dextrose) 250 mls @ 166.667 mls/hr IVPB BID@0230, 1430 [facility]; Protocol Last Admin: 10/12/18 03:00 Dose: 166.667 mls/hr Potassium Chloride (Potassium Chloride 10 Meq Premix Ivpb -) 10 meq in 100 mls @ 100 mls/hr IVPB Q60M [facility] Stop: 10/12/18 10:59 Last Admin: 10/12/18 10:00 Dose: 100 mls/hr Insulin Aspart (Novolog Vial Sliding Scale -) 1 vial SQ Q6HPO [facility]; Protocol Last Admin: 10/12/18 05:35 Dose: 3 units Insulin Detemir (Levemir Vial) 18 units SQ AM [facility] Last Admin: 10/12/18 06:13 Dose: 18 units Pantoprazole Sodium (Protonix Iv) 40 mg IVPUSH DAILY [facility] Last Admin: 10/12/18 10:00 Dose: 40 mg Polyethylene Glycol (Miralax (For Daily Use) -) 17 gm PO DAILY [facility] Last Admin: 10/12/18 09:58 Dose: Not Given - Objective Vital Signs: Vital Signs Temperature 99.4 F 10/12/18 06:00 Pulse Rate 86 10/12/18 06:00 Respiratory Rate 12 10/12/18 09:00 Blood Pressure 136/88 10/12/18 06:00 O2 Sat by Pulse Oximetry (%) 93 L 10/12/18 09:00 Constitutional: Yes: Well Nourished, No Distress, Calm Cardiovascular: Yes: Regular Rate and Rhythm, S1, S2. No: Gallop, Murmur Respiratory: Yes: Regular, CTA Bilaterally. No: Accessory Muscle Use, Rales, Wheezes Extremities: No: Cold Edema: No Neurological: Yes: Alert. No: Seizure Psychiatric: No: Agitated Labs: CBC, BMP 10/12/18 05:15 10/12/18 05:15 INR, PTT INR 0.97 (0.83-1.09) 10/09/18 05:30 Assessment/Plan Echo 09/2018: tds; nl lvef, rv tds, grossly nl rv fcn, no sig valve path tele: NSR 43yo M with PMH of HTN, DM p/w unresponsiveness. Found to have bilateral PE, s/ p PEA arrest Bilateral PE, s/p PEA arrest: - arrest likely in setting of extensive bilateral PE - now s/p tPA, manage anticoagulation per ICU team - bp improved, off pressors now - echo was tds but no gross abnormalities - no significant chf on exam - hypercoagulable w/u per heme consultants - lasix per critical care - s/p trach 10/09 Afib: - reportedly per EMS and ER records, EKG not available - in setting of PE, this is considered a reversible etiology of Afib. - AC to be continued per PE indication (not required for AF indication here) - now in sinus Type II MS (NSTEMI): - peak trop 1.3, sec to PE/RV strain, vs hypoperfusion from PEA arrest. - EKG no ischemic changes - echo with nl lvef - ischemia w/u not indicated in this setting (unless signs/sx of CAD in future) HTN: - off pressors now, bp stable - continue to monitor bp NSVT: self limited, likely sec to acute RV strain -tele currently stable -normal LV fx -Keep K+ > 4 and Mg2+ >2
[2018-10-12 10:53] LABS: ANISOCYTOSIS 0; MACROCYTOSIS 0; PLATELET ESTIMATE INCREASED
--- NOTE | 2018-10-12 11:41 | PN ---
Teaching Attending Note Name of Resident: Radha Ferguson ATTENDING PHYSICIAN STATEMENT I saw and evaluated the patient. I reviewed the resident's note and discussed the case with the resident. I agree with the resident's findings and plan as documented. SUBJECTIVE: Patient seen and examined in the ICU. Off vent support. Awake and responsive. Appears mildly confused but baseline in not known. Denies CP or SOB. Copious secretions from the Trach. Intake & Output 10/09/18 10/10/18 10/11/18 10/12/18 23:59 23:59 23:59 23:59 Intake Total 1746.5 3092.6 450 250 Output Total 610 3650 1450 Balance 1136.5 -557.4 -1000 250 Weight 227 lb 227 lb 1.6 oz 215 lb 11.2 oz 209 lb Last Vital Signs Temp Pulse Resp BP Pulse Ox 99.6 F 92 H 14 109/90 93 L 10/12/18 08:00 10/12/18 10:00 10/12/18 10:00 10/12/18 10:00 10/12/18 09:00 Active Medications Acetaminophen (Ofirmev Injection -) 1,000 mg IVPB Q6H PRN PRN Reason: PAIN OR FEVER Last Admin: 10/11/18 22:21 Dose: 1,000 mg Enoxaparin Sodium (Lovenox -) 110 mg SQ BID [facility] Last Admin: 10/10/18 21:57 Dose: 110 mg Vancomycin HCl 1,250 mg/ (Dextrose) 250 mls @ 166.667 mls/hr IVPB BID@0230, 1430 [facility]; Protocol Last Admin: 10/12/18 03:00 Dose: 166.667 mls/hr Insulin Aspart (Novolog Vial Sliding Scale -) 1 vial SQ Q6HPO [facility]; Protocol Last Admin: 10/12/18 05:35 Dose: 3 units Insulin Detemir (Levemir Vial) 18 units SQ AM [facility] Last Admin: 10/12/18 06:13 Dose: 18 units Pantoprazole Sodium (Protonix Iv) 40 mg IVPUSH DAILY [facility] Last Admin: 10/12/18 10:00 Dose: 40 mg Polyethylene Glycol (Miralax (For Daily Use) -) 17 gm PO DAILY [facility] Last Admin: 10/12/18 09:58 Dose: Not Given Gen: Extubated, awake and alert Neck: (+) Trach intact, (+) copious secretions Heart: S1S2 Lung: decreased breath sounds at the bases Abd: soft, nontender Ext: + edema Laboratory Results - last 24 hr 10/11/18 10/11/18 10/12/18 12:20 17:30 00:13 WBC RBC Hgb Hct MCV MCH MCHC RDW Plt Count MPV Absolute Neuts (auto) Neutrophils % Lymphocytes % Monocytes % Eosinophils % Basophils % Nucleated RBC % Sodium Potassium Chloride Carbon Dioxide Anion Gap BUN Creatinine Est GFR (CKD-EPI)AfAm Est GFR (CKD-EPI)NonAf POC Glucometer 227 206 164 Random Glucose Hemoglobin A1c % Calcium Phosphorus Magnesium Total Bilirubin AST ALT Alkaline Phosphatase Total Protein Albumin 10/12/18 10/12/18 10/12/18 05:15 05:15 05:15 WBC 16.1 H RBC 3.27 L Hgb 10.1 L Hct 30.3 L MCV 92.7 MCH 31.0 MCHC 33.5 RDW 13.1 Plt Count 703 H D MPV 8.0 Absolute Neuts (auto) 11.4 H Neutrophils % 70.7 Lymphocytes % 18.6 Monocytes % 7.7 Eosinophils % 1.8 Basophils % 1.2 Nucleated RBC % 0 Sodium 137 Potassium 3.2 L Chloride 100 Carbon Dioxide 27 Anion Gap 11 BUN 13 Creatinine 0.7 Est GFR (CKD-EPI)AfAm 133.96 Est GFR (CKD-EPI)NonAf 115.58 POC Glucometer Random Glucose 196 H Hemoglobin A1c % 11.1 H Calcium 8.4 L Phosphorus 3.4 Magnesium 2.4 Total Bilirubin 0.6 AST 18 ALT 41 Alkaline Phosphatase 146 H Total Protein 7.0 Albumin 2.3 L 10/12/18 05:33 WBC RBC Hgb Hct MCV MCH MCHC RDW Plt Count MPV Absolute Neuts (auto) Neutrophils % Lymphocytes % Monocytes % Eosinophils % Basophils % Nucleated RBC % Sodium Potassium Chloride Carbon Dioxide Anion Gap BUN Creatinine Est GFR (CKD-EPI)AfAm Est GFR (CKD-EPI)NonAf POC Glucometer 189 Random Glucose Hemoglobin A1c % Calcium Phosphorus Magnesium Total Bilirubin AST ALT Alkaline Phosphatase Total Protein Albumin ASSESSMENT AND PLAN: POD #): Percutaneous Tracheostomy s/p Cardiopulmonary Arrest Acute Pulmonary Emboli s/p tPA Obstructive Shock improving +Troponins likely Demand Ischemia Lactic Acidosis resolved r/o Anoxic Encephalopathy r/o Pneumonia HTN DM - Continue AC - PMV as tolerated - Supplemental O2 as needed to maintain saturation - MBS - DVT/GI prophylaxis - Floor Dr Perez
--- NOTE | 2018-10-12 11:47 | CONSULT ---
Passy-Lunenburg Valve Eval - Assessment Prior to PMV Placement Patient and/or family educated re PMV: Yes Mental Status: Awake, Alert O2 Sat by Pulse Oximetry (%): 93 Secretions: Small Amount Patient on Ventilator: No Patient on Trach Collar: Yes Suctioned: Yes Cuff Status: Deflated Passy-Lunenburg Valve in Place - Speech Characteristics Able to Phonate with PMV in place: Yes Voice Loudness: Mildly Soft/Quiet Voice Pitch: Normal Voice Phonatory-based Quality: Hoarse (initially dysphonic/aphonis but following suctioning of small amount of secretions,progressed to mild dysphonia. Suspect swelling in area. Coughs at times while speaking. Strong cough, able to blow PMV of trach.) Speech Clarity: < 75% Nasal Resonance: Normal Articulation: Precise Rate of Speech: Too Fast - Assessment with PMV in Place O2 Sat by Pulse Oximetry (%): 98 Change in Mental Status with PMV in Place: No Able to Manage Secretions: Yes Length of time with PMV in place: 15 - Recommendations Recommendations: PMV as tolerated, PMV with meals, Remove PMV while sleeping, Monitor Pulse Ox PMV on, Other (PMV daily, off while sleeping, with goal to decannulate, when medically indicated.)
[2018-10-12] MEDS ORDERED: RANITIDINE HCL 150 MG TABLET (FP) PO ONE (12:35)
[2018-10-12] MEDS ORDERED: INSULIN (LEVEMIR) 100 UNITS/ML UNITS SQ SCH (18:12)
[2018-10-12] MEDS ORDERED: ACETAMINOPHEN 1000 MG/100 ML VIAL (NON FORMULARY) IVPB PRN (18:18)
[2018-10-12] MEDS: ENOXAPARIN NA (PORCINE) 120 MG/0.8 ML DISP.SYRIN SQ SCH (23:03)
[2018-10-13] MEDS: VANCOMYCIN HCL 1,250 MG in DEXTROSE 5%-WATER - 250 ML IVPB SCH ×2 (02:48→14:05)
[2018-10-13] MEDS: INSULIN SLIDING SCALE (NOVOLOG) 1 VIAL SQ SCH ×4 (06:25→18:09)
[2018-10-13 08:10] LABS: BASO % 1.1 % (0-2.0); EOS % 2.7 % (0-4.5); HEMATOCRIT 31.1 % (35.4-49); HEMOGLOBIN 10.4 GM/dL (11.7-16.9); LYMPH % 26.2 % (8-40); MCH 31.1 pg (25.7-33.7); MCHC 33.5 g/dl (32.0-35.9); MEAN CELL VOLUME 92.9 fl (80-96); MEAN PLT VOLUME 7.6 fl (7.5-11.1); MONO % 9.1 % (3.8-10.2); NEUT % 60.9 % (42.8-82.8); PLATELET COUNT 765 K/MM3 (134-434); RBC 3.35 M/mm3 (4.00-5.60); WHITE BLOOD COUNT 11.8 K/mm3 (4.0-10.0)
[2018-10-13 08:21] LABS: ALBUMIN 2.4 g/dl (3.4-5.0); BILIRUBIN,TOTAL 0.8 mg/dL (0.2-1); CALCIUM 8.9 mg/dL (8.5-10.1); CREATININE 0.8 mg/dL (0.55-1.3); MAGNESIUM 2.2 mg/dL (1.8-2.4); PHOSPHOROUS 3.6 mg/dL (2.5-4.9); POTASSIUM 3.3 mmol/L (3.5-5.1); TOT PROT 7.1 g/dl (6.4-8.2)
[2018-10-13] MEDS ORDERED: PT OWN MED DRAWER 7, Y5N ONE (09:30)
[2018-10-13] MEDS: ENOXAPARIN NA (PORCINE) 120 MG/0.8 ML DISP.SYRIN SQ SCH ×2 (09:33→21:06)
[2018-10-13] MEDS: POLYETHYLENE GLYCOL 3350 119 GM BTL PO SCH (09:33)
--- NOTE | 2018-10-13 11:15 | PN ---
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 (short form) - Note 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: PULMONARY Denies shortness of breath or chest pain. Tolerating PO, PMV. Vital Signs Period Temp Pulse Resp BP Sys/Liao Pulse Ox Last 24 Hr 98.1 F-99.5 F 77-95 17-24 122-140/78-90 97-98 Gen: NAD at rest, trach Heart: RRR Lung: decreased breath sounds at the bases Abd: soft, nontender Ext: no edema CBC, BMP 10/13/18 07:00 10/13/18 07:00 Active Medications Acetaminophen (Ofirmev Injection -) 1,000 mg IVPB Q6H PRN PRN Reason: PAIN OR FEVER Enoxaparin Sodium (Lovenox -) 110 mg SQ BID [facility] Last Admin: 10/13/18 09:33 Dose: 110 mg Vancomycin HCl 1,250 mg/ (Dextrose) 250 mls @ 166.667 mls/hr IVPB BID@0230, 1430 [facility]; Protocol Last Admin: 10/13/18 02:48 Dose: 166.667 mls/hr Insulin Aspart (Novolog Vial Sliding Scale -) 1 vial SQ Q6HPO [facility]; Protocol Last Admin: 10/13/18 06:25 Dose: 5 units Insulin Detemir (Levemir Vial) 21 units SQ AM [facility] Last Admin: 10/13/18 06:26 Dose: 21 units Polyethylene Glycol (Miralax (For Daily Use) -) 17 gm PO DAILY [facility] Last Admin: 10/13/18 09:33 Dose: 17 grams A/P s/p Cardiopulmonary Arrest Acute Pulmonary Emboli s/p tPA Obstructive Shock resolved +Troponins likely Demand Ischemia Lactic Acidosis resolved r/o Anoxic Encephalopathy r/o Pneumonia HTN DM - PMV as tolerated - O2 as needed but has been tolerating room air - PO as tolerated - DVT prophylaxis
[2018-10-13 11:37] LABS: ANISOCYTOSIS 1+; MACROCYTOSIS 1+; OVALOCYTE 1+; PLATELET ESTIMATE INCREASED
--- NOTE | 2018-10-13 11:41 | PN ---
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, [facility] RO[facility] - Note 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: Selected Entries 10/12/18 10/12/18 10/12/18 00:00 02:00 04:00 Lunch Temperature 99.9 F H 99.9 F H 99.8 F H 10/12/18 10/12/18 10/12/18 06:00 08:00 12:00 Lunch Temperature 99.4 F 99.6 F 99.4 F 10/12/18 10/13/18 10/13/18 14:00 02:00 06:00 Lunch 50% Temperature 98.3 F 98.1 F 10/13/18 08:45 Lunch Temperature 99.5 F Laboratory Tests 10/12/18 10/13/18 05:15 07:00 WBC 16.1 H 11.8 H Doing quite well with PMV. Voice is strong. Tolerating diet. Oriented, verbal, better eye contact, more engaging. Remembvered me from yesterday and PMV/MBS Per PT, ataxic ambulation. REC: Acute rehabilitation for PT. Cognitive assessment. PMV needs to be removed at night while sleeping. Continue PMV/progress to decannulation per medical team
--- NOTE | 2018-10-13 12:27 | PN ---
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 (short form) - Note 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: s/p trach using PMV speaks clearly eating without difficulty no complaints mother at bedside Vital Signs - 24 hr 10/12/18 10/12/18 10/12/18 14:00 15:20 16:00 Temperature Pulse Rate 95 H 91 H Respiratory 22 H 22 H Rate Blood Pressure 138/88 135/89 O2 Sat by Pulse 97 Oximetry (%) 10/12/18 10/13/18 10/13/18 21:00 02:00 06:00 Temperature 98.3 F 98.1 F Pulse Rate 77 89 Respiratory 20 20 Rate Blood Pressure 136/78 122/78 O2 Sat by Pulse 97 Oximetry (%) 10/13/18 08:45 Temperature 99.5 F Pulse Rate 92 H Respiratory 24 H Rate Blood Pressure 140/90 O2 Sat by Pulse Oximetry (%) Current Medications Generic Name Dose Route Start Last Admin Trade Name Freq PRN Reason Stop Dose Admin Acetaminophen 1,000 mg 10/12/18 18:18 Ofirmev Injection - IVPB Q6H PRN PAIN OR FEVER Enoxaparin Sodium 110 mg 10/12/18 22:00 10/13/18 09:33 Lovenox - SQ 110 mg BID [facility] Administration Vancomycin HCl 1,250 mg/ 250 mls @ 166.667 mls/hr 10/13/18 02:30 10/13/18 02: 48 Dextrose IVPB 166.667 mls/hr BID@0230,1430 [facility] Administration Protocol Insulin Aspart 1 vial 10/13/18 00:00 10/13/18 12:23 Novolog Vial Sliding Scale - SQ 5 units Q6HPO [facility] Administration Protocol Insulin Detemir 21 units 10/12/18 18:12 10/13/18 06:26 Levemir Vial SQ 21 units AM [facility] Administration Polyethylene Glycol 17 gm 10/13/18 10:00 10/13/18 09:33 Miralax (For Daily Use) - PO 17 grams DAILY [facility] Administration Laboratory Results - last 24 hr 10/12/18 10/12/18 10/12/18 15:30 17:36 23:46 WBC RBC Hgb Hct MCV MCH MCHC RDW Plt Count MPV Absolute Neuts (auto) Neutrophils % Neutrophils % (Manual) Band Neutrophils % Lymphocytes % Lymphocytes % (Manual) Monocytes % Monocytes % (Manual) Eosinophils % Eosinophils % (Manual) Basophils % Basophils % (Manual) Myelocytes % (Man) Promyelocytes % (Man) Blast Cells % (Manual) Nucleated RBC % Metamyelocytes Hypochromia Platelet Estimate Polychromasia Poikilocytosis Anisocytosis Microcytosis Macrocytosis Ovalocytes Sodium Potassium Chloride Carbon Dioxide Anion Gap BUN Creatinine Est GFR (CKD-EPI)AfAm Est GFR (CKD-EPI)NonAf POC Glucometer 200 173 Random Glucose Calcium Phosphorus Magnesium Total Bilirubin AST ALT Alkaline Phosphatase Total Protein Albumin Vancomycin Pre-Dose 7.5 L 10/13/18 10/13/18 10/13/18 06:24 07:00 07:00 WBC 11.8 H RBC 3.35 L Hgb 10.4 L Hct 31.1 L MCV 92.9 MCH 31.1 MCHC 33.5 RDW 13.0 Plt Count 765 H MPV 7.6 Absolute Neuts (auto) 7.2 Neutrophils % 60.9 Neutrophils % (Manual) 63.9 Band Neutrophils % 0.0 Lymphocytes % 26.2 D Lymphocytes % (Manual) 25.8 D Monocytes % 9.1 Monocytes % (Manual) 4 Eosinophils % 2.7 Eosinophils % (Manual) 1.0 Basophils % 1.1 Basophils % (Manual) 0.0 Myelocytes % (Man) 0 D Promyelocytes % (Man) 0 Blast Cells % (Manual) 0 Nucleated RBC % 0 Metamyelocytes 0 Hypochromia 0 Platelet Estimate Increased Polychromasia 1+ Poikilocytosis 0 Anisocytosis 1+ Microcytosis 0 Macrocytosis 1+ Ovalocytes 1+ Sodium 137 Potassium 3.3 L Chloride 103 Carbon Dioxide 26 Anion Gap 7 L BUN 13 Creatinine 0.8 Est GFR (CKD-EPI)AfAm 126.81 Est GFR (CKD-EPI)NonAf 109.41 POC Glucometer 201 Random Glucose 188 H Calcium 8.9 Phosphorus 3.6 Magnesium 2.2 Total Bilirubin 0.8 AST 25 ALT 41 Alkaline Phosphatase 150 H Total Protein 7.1 Albumin 2.4 L Vancomycin Pre-Dose 10/13/18 12:13 WBC RBC Hgb Hct MCV MCH MCHC RDW Plt Count MPV Absolute Neuts (auto) Neutrophils % Neutrophils % (Manual) Band Neutrophils % Lymphocytes % Lymphocytes % (Manual) Monocytes % Monocytes % (Manual) Eosinophils % Eosinophils % (Manual) Basophils % Basophils % (Manual) Myelocytes % (Man) Promyelocytes % (Man) Blast Cells % (Manual) Nucleated RBC % Metamyelocytes Hypochromia Platelet Estimate Polychromasia Poikilocytosis Anisocytosis Microcytosis Macrocytosis Ovalocytes Sodium Potassium Chloride Carbon Dioxide Anion Gap BUN Creatinine Est GFR (CKD-EPI)AfAm Est GFR (CKD-EPI)NonAf POC Glucometer 228 Random Glucose Calcium Phosphorus Magnesium Total Bilirubin AST ALT Alkaline Phosphatase Total Protein Albumin Vancomycin Pre-Dose S1 S2 RRR intubated Lungs decreased Abd-soft, NT, BS+ edema++ A/P s/p PEA arrest B/L PE Acute respiratory failure- resolved Acute kidney injury-- resolved elevated LFT--?shock liver -->resolved --Continue present care replace lytes on anticoagulation use PMV as tolerated remarkable recovery He is a good rehab candidate Problem List - Problems (1) Diabetes Code(s): E11.9 - TYPE 2 DIABETES MELLITUS WITHOUT COMPLICATIONS (2) Hyperlipidemia Code(s): E78.5 - HYPERLIPIDEMIA, UNSPECIFIED (3) Hypertension Code(s): I10 - ESSENTIAL (PRIMARY) HYPERTENSION (4) Bilateral pulmonary embolism Code(s): I26.99 - OTHER PULMONARY EMBOLISM WITHOUT ACUTE COR PULMONALE (5) Elevated troponin Code(s): R74.8 - ABNORMAL LEVELS OF OTHER SERUM ENZYMES
--- NOTE | 2018-10-13 12:37 | PN ---
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 (short form) - Note 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: s: no chest pain, palps, dyspnea, edema Current Medications Acetaminophen (Ofirmev Injection -) 1,000 mg IVPB Q6H PRN PRN Reason: PAIN OR FEVER Enoxaparin Sodium (Lovenox -) 110 mg SQ BID [facility] Last Admin: 10/13/18 09:33 Dose: 110 mg Vancomycin HCl 1,250 mg/ (Dextrose) 250 mls @ 166.667 mls/hr IVPB BID@0230, 1430 [facility]; Protocol Last Admin: 10/13/18 02:48 Dose: 166.667 mls/hr Insulin Aspart (Novolog Vial Sliding Scale -) 1 vial SQ Q6HPO [facility]; Protocol Last Admin: 10/13/18 12:23 Dose: 5 units Insulin Detemir (Levemir Vial) 21 units SQ AM [facility] Last Admin: 10/13/18 06:26 Dose: 21 units Polyethylene Glycol (Miralax (For Daily Use) -) 17 gm PO DAILY [facility] Last Admin: 10/13/18 09:33 Dose: 17 grams Current Medications Acetaminophen (Ofirmev Injection -) 1,000 mg IVPB Q6H PRN PRN Reason: PAIN OR FEVER Enoxaparin Sodium (Lovenox -) 110 mg SQ BID [facility] Last Admin: 10/13/18 09:33 Dose: 110 mg Vancomycin HCl 1,250 mg/ (Dextrose) 250 mls @ 166.667 mls/hr IVPB BID@0230, 1430 [facility]; Protocol Last Admin: 10/13/18 02:48 Dose: 166.667 mls/hr Insulin Aspart (Novolog Vial Sliding Scale -) 1 vial SQ Q6HPO [facility]; Protocol Last Admin: 10/13/18 12:23 Dose: 5 units Insulin Detemir (Levemir Vial) 21 units SQ AM [facility] Last Admin: 10/13/18 06:26 Dose: 21 units Polyethylene Glycol (Miralax (For Daily Use) -) 17 gm PO DAILY [facility] Last Admin: 10/13/18 09:33 Dose: 17 grams Constitutional: Yes: Well Nourished, No Distress, Calm Cardiovascular: Yes: Regular Rate and Rhythm, S1, S2. No: Gallop, Murmur Respiratory: Yes: Regular, CTA Bilaterally. No: Accessory Muscle Use, Rales, Wheezes Extremities: No: Cold Edema: No Neurological: Yes: Alert. No: Seizure Psychiatric: No: Agitated Assessment/Plan Echo 09/2018: tds; nl lvef, rv tds, grossly nl rv fcn, no sig valve path 43yo M with PMH of HTN, DM p/w unresponsiveness. Found to have bilateral PE, s/ p PEA arrest Bilateral PE, s/p PEA arrest: - arrest likely in setting of extensive bilateral PE - now s/p tPA, manage anticoagulation per ICU team - bp improved, off pressors now - echo was tds but no gross abnormalities - no significant chf on exam - hypercoagulable w/u per heme consultants - lasix per critical care - s/p trach 10/09 Afib: - reportedly per EMS and ER records, EKG not available - in setting of PE, this is considered a reversible etiology of Afib. - AC to be continued per PE indication (not required for AF indication here) - now in sinus Type II [place] (NSTEMI): - peak trop 1.3, sec to PE/RV strain, vs hypoperfusion from PEA arrest. - EKG no ischemic changes - echo with nl lvef - ischemia w/u not indicated in this setting (unless signs/sx of CAD in future) HTN: - bp stable off meds, monitor NSVT: self limited, likely sec to acute RV strain -tele currently stable -normal LV fx -Keep K+ > 4 and Mg2+ >2
[2018-10-13] MEDS ORDERED: POTASSIUM CHLORIDE ORAL LIQUID 20 MEQ/15 ML PO ONE (13:30)
[2018-10-13 16:30] VITALS: BMI 33.9
--- NOTE | 2018-10-13 17:12 | PN ---
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 (short form) - Note 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: trach collar oob to chair alert Vital Signs Period Temp Pulse Resp BP Sys/Liao Pulse Ox Last 24 Hr 98.1 F-99.5 F 77-92 20-24 122-154/78-98 97 cor-rrr lungs bilateral rhonchi abd soft,nt ext trace edema arms/hands/legs +trach CBC, BMP 10/13/18 07:00 10/13/18 07:00 Microbiology 10/08/18 05:30 Blood - Peripheral Venous Blood Culture - Final NO GROWTH AFTER 5 DAYS INCUBATION 10/08/18 05:45 Blood - Peripheral Venous Blood Culture - Final NO GROWTH AFTER 5 DAYS INCUBATION 10/07/18 20:00 Blood - Peripheral Venous Blood Culture - Final NO GROWTH AFTER 5 DAYS INCUBATION 10/07/18 20:00 Blood - Peripheral Venous Blood Culture - Final NO GROWTH AFTER 5 DAYS INCUBATION 10/08/18 12:30 Sputum - Endotrachea Suction/Ventilator Gram Stain - Final 10/08/18 12:30 Sputum - Endotrachea Suction/Ventilator Sputum Culture - Final S Aureus 10/04/18 13:29 Blood - Peripheral Venous Blood Culture - Final NO GROWTH AFTER 5 DAYS INCUBATION 10/04/18 12:53 Blood - Peripheral Venous Blood Culture - Final NO GROWTH AFTER 5 DAYS INCUBATION 10/08/18 13:00 Urine - Urine Sidhu Urine Culture - Final NO GROWTH OBTAINED 10/03/18 10:15 Sputum - Endotrachea Suction/Ventilator Gram Stain - Final 10/03/18 10:15 Sputum - Endotrachea Suction/Ventilator Sputum Culture - Final S Aureus 10/01/18 06:40 Blood - Peripheral Venous Blood Culture - Final NO GROWTH AFTER 5 DAYS INCUBATION 10/01/18 06:40 Blood - Peripheral Venous Blood Culture - Final NO GROWTH AFTER 5 DAYS INCUBATION 10/01/18 13:30 Urine - Urine Clean Catch Urine Culture - Final NO GROWTH OBTAINED cxray-no infiltrate a/p s/p bilateral PE-on lovenox s/p arrest- possible anoxia possible aspiration pneumonia sinusitis on ct scan completed 7 days zosyn continue vancomycin day #9 of 10 f/u vanco trough mrsa contact isolation
[2018-10-13] MEDS ORDERED: INSULIN (NOVOLOG) ASPART 100 UNITS/ML 10ML VIAL ONE (20:26)
[2018-10-14] MEDS: INSULIN SLIDING SCALE (NOVOLOG) 1 VIAL SQ SCH ×5 (00:01→23:23)
[2018-10-14] MEDS: VANCOMYCIN HCL 1,250 MG in DEXTROSE 5%-WATER - 250 ML IVPB SCH ×2 (01:56→15:51)
[2018-10-14] MEDS: INSULIN (LEVEMIR) 100 UNITS/ML UNITS SQ SCH (06:20)
[2018-10-14 07:29] LABS: BASO % 1.1 % (0-2.0); EOS % 3.2 % (0-4.5); HEMATOCRIT 32.2 % (35.4-49); HEMOGLOBIN 11.1 GM/dL (11.7-16.9); LYMPH % 33.7 % (8-40); MCH 32.2 pg (25.7-33.7); MCHC 34.4 g/dl (32.0-35.9); MEAN CELL VOLUME 93.6 fl (80-96); MEAN PLT VOLUME 7.9 fl (7.5-11.1); MONO % 8.4 % (3.8-10.2); NEUT % 53.6 % (42.8-82.8); PLATELET COUNT 756 K/MM3 (134-434); RBC 3.44 M/mm3 (4.00-5.60); RDW 12.9 % (11.9-15.9); WHITE BLOOD COUNT 10.2 K/mm3 (4.0-10.0)
[2018-10-14 07:52] LABS: ALBUMIN 2.5 g/dl (3.4-5.0); BILIRUBIN,TOTAL 0.6 mg/dL (0.2-1); CALCIUM 8.6 mg/dL (8.5-10.1); CREATININE 0.7 mg/dL (0.55-1.3); POTASSIUM 3.9 mmol/L (3.5-5.1); TOT PROT 7.2 g/dl (6.4-8.2)
[2018-10-14] MEDS ORDERED: PT OWN MED DRAWER 7, Y5N ONE ×2 (09:29→21:53)
[2018-10-14 10:19] LABS: ANISOCYTOSIS 0; MACROCYTOSIS 1+; OVALOCYTE 1+; PLATELET ESTIMATE INCREASED
--- NOTE | 2018-10-14 10:51 | PN ---
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: Selected Entries 10/12/18 10/12/18 10/12/18 00:00 02:00 04:00 Lunch Temperature 99.9 F H 99.9 F H 99.8 F H 10/12/18 10/12/18 10/12/18 06:00 08:00 12:00 Lunch Temperature 99.4 F 99.6 F 99.4 F 10/12/18 10/13/18 10/13/18 14:00 02:00 06:00 Lunch 50% Temperature 98.3 F 98.1 F 10/13/18 08:45 Lunch Temperature 99.5 F Laboratory Tests 10/12/18 10/13/18 05:15 07:00 WBC 16.1 H 11.8 H Selected Entries 10/13/18 10/13/18 10/13/18 02:00 06:00 08:45 Breakfast Lunch Supper Temperature 98.3 F 98.1 F 99.5 F 10/13/18 10/13/18 10/13/18 11:53 15:16 18:00 Breakfast 50% Lunch 75% Supper Temperature 98.2 F 98.4 F 10/13/18 10/13/18 10/14/18 18:15 21:02 02:00 Breakfast Lunch Supper 25% Temperature 99.1 F 99.5 F 10/14/18 05:49 Breakfast Lunch Supper Temperature 99.1 F Laboratory Tests 10/12/18 10/13/18 10/14/18 05:15 07:00 05:30 WBC 16.1 H 11.8 H 10.2 H Continue to recover, doing quite well with PMV. Voice is strong. Tolerating diet. CXR (-) REC: Acute rehabilitation for PT. Cognitive assessment. PMV needs to be removed at night while sleeping. Continue PMV/progress to decannulation per medical team
[2018-10-14] MEDS: ENOXAPARIN NA (PORCINE) 120 MG/0.8 ML DISP.SYRIN SQ SCH ×2 (10:59→23:24)
[2018-10-14] MEDS: POLYETHYLENE GLYCOL 3350 119 GM BTL PO SCH (10:59)
--- NOTE | 2018-10-14 12:33 | PN ---
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 (short form) - Note 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: s/p trach using PMV speaks clearly eating without difficulty no complaints e Vital Signs - 24 hr 10/13/18 10/13/18 10/13/18 15:16 18:00 21:00 Temperature 98.2 F 98.4 F Pulse Rate 83 82 Respiratory 22 H 18 Rate Blood Pressure 154/98 146/73 O2 Sat by Pulse 97 Oximetry (%) 10/13/18 10/14/18 10/14/18 21:02 02:00 05:49 Temperature 99.1 F 99.5 F 99.1 F Pulse Rate 82 86 86 Respiratory 18 18 18 Rate Blood Pressure 139/96 142/95 144/73 O2 Sat by Pulse Oximetry (%) Current Medications Generic Name Dose Route Start Last Admin Trade Name Freq PRN Reason Stop Dose Admin Acetaminophen 1,000 mg 10/12/18 18:18 Ofirmev Injection - IVPB Q6H PRN PAIN OR FEVER Enoxaparin Sodium 110 mg 10/12/18 22:00 10/14/18 10:59 Lovenox - SQ 110 mg BID [facility] Administration Vancomycin HCl 1,250 mg/ 250 mls @ 166.667 mls/hr 10/13/18 02:30 10/14/18 01: 56 Dextrose IVPB 166.667 mls/hr BID@0230,1430 [facility] Administration Protocol Insulin Aspart 1 vial 10/13/18 00:00 10/14/18 12:21 Novolog Vial Sliding Scale - SQ 3 units Q6HPO [facility] Administration Protocol Insulin Detemir 24 units 10/13/18 12:55 10/14/18 06:20 Levemir Vial SQ 24 units AM [facility] Administration Polyethylene Glycol 17 gm 10/13/18 10:00 10/14/18 10:59 Miralax (For Daily Use) - PO Not Given DAILY [facility] Laboratory Results - last 24 hr 10/13/18 10/13/18 10/14/18 17:28 21:04 05:30 WBC 10.2 H RBC 3.44 L Hgb 11.1 L Hct 32.2 L MCV 93.6 MCH 32.2 MCHC 34.4 RDW 12.9 Plt Count 756 H MPV 7.9 Absolute Neuts (auto) 5.5 Neutrophils % 53.6 Neutrophils % (Manual) 56.1 Band Neutrophils % 1.0 Lymphocytes % 33.7 D Lymphocytes % (Manual) 28.6 Monocytes % 8.4 Monocytes % (Manual) 10 D Eosinophils % 3.2 Eosinophils % (Manual) 1.0 Basophils % 1.1 Basophils % (Manual) 1.0 D Myelocytes % (Man) 0 Promyelocytes % (Man) 0 Blast Cells % (Manual) 0 Nucleated RBC % 0 Metamyelocytes 0 Hypochromia 0 Platelet Estimate Increased Polychromasia 0 Poikilocytosis 1+ Anisocytosis 0 Microcytosis 0 Macrocytosis 1+ Ovalocytes 1+ Sodium Potassium Chloride Carbon Dioxide Anion Gap BUN Creatinine Est GFR (CKD-EPI)AfAm Est GFR (CKD-EPI)NonAf POC Glucometer 186 148 Random Glucose Calcium Total Bilirubin AST ALT Alkaline Phosphatase Total Protein Albumin 10/14/18 10/14/18 10/14/18 05:30 05:41 12:11 WBC RBC Hgb Hct MCV MCH MCHC RDW Plt Count MPV Absolute Neuts (auto) Neutrophils % Neutrophils % (Manual) Band Neutrophils % Lymphocytes % Lymphocytes % (Manual) Monocytes % Monocytes % (Manual) Eosinophils % Eosinophils % (Manual) Basophils % Basophils % (Manual) Myelocytes % (Man) Promyelocytes % (Man) Blast Cells % (Manual) Nucleated RBC % Metamyelocytes Hypochromia Platelet Estimate Polychromasia Poikilocytosis Anisocytosis Microcytosis Macrocytosis Ovalocytes Sodium 136 Potassium 3.9 Chloride 104 Carbon Dioxide 24 Anion Gap 9 BUN 10 Creatinine 0.7 Est GFR (CKD-EPI)AfAm 133.96 Est GFR (CKD-EPI)NonAf 115.58 POC Glucometer 187 179 Random Glucose 187 H Calcium 8.6 Total Bilirubin 0.6 AST 24 ALT 45 Alkaline Phosphatase 149 H Total Protein 7.2 Albumin 2.5 L S1 S2 RRR intubated Lungs decreased Abd-soft, NT, BS+ edema++ A/P s/p PEA arrest B/L PE Acute respiratory failure- resolved Acute kidney injury-- resolved elevated LFT--?shock liver -->resolved --Continue present care on anticoagulation use PMV as tolerated remarkable recovery He is a good rehab candidate Will complete antibiotics tomorrow Problem List - Problems (1) Diabetes Code(s): E11.9 - TYPE 2 DIABETES MELLITUS WITHOUT COMPLICATIONS (2) Hyperlipidemia Code(s): E78.5 - HYPERLIPIDEMIA, UNSPECIFIED (3) Hypertension Code(s): I10 - ESSENTIAL (PRIMARY) HYPERTENSION (4) Bilateral pulmonary embolism Code(s): I26.99 - OTHER PULMONARY EMBOLISM WITHOUT ACUTE COR PULMONALE (5) Elevated troponin Code(s): R74.8 - ABNORMAL LEVELS OF OTHER SERUM ENZYMES
--- NOTE | 2018-10-14 14:45 | PN ---
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, Physician Chief Complaint: Seen and examined. No CP, SOB. Surrounded by family. - Current Medication List Current Medications: Active Medications Acetaminophen (Ofirmev Injection -) 1,000 mg IVPB Q6H PRN PRN Reason: PAIN OR FEVER Enoxaparin Sodium (Lovenox -) 110 mg SQ BID [facility] Last Admin: 10/14/18 10:59 Dose: 110 mg Vancomycin HCl 1,250 mg/ (Dextrose) 250 mls @ 166.667 mls/hr IVPB BID@0230, 1430 [facility]; Protocol Last Admin: 10/14/18 01:56 Dose: 166.667 mls/hr Insulin Aspart (Novolog Vial Sliding Scale -) 1 vial SQ Q6HPO [facility]; Protocol Last Admin: 10/14/18 12:21 Dose: 3 units Insulin Detemir (Levemir Vial) 24 units SQ AM [facility] Last Admin: 10/14/18 06:20 Dose: 24 units Polyethylene Glycol (Miralax (For Daily Use) -) 17 gm PO DAILY [facility] Last Admin: 10/14/18 10:59 Dose: Not Given - Objective Vital Signs: Vital Signs Temperature 99.1 F 10/14/18 05:49 Pulse Rate 86 10/14/18 05:49 Respiratory Rate 18 10/14/18 05:49 Blood Pressure 144/73 10/14/18 05:49 O2 Sat by Pulse Oximetry (%) 97 10/13/18 21:00 Constitutional: Yes: No Distress HENT: Yes: Other (Trach) Cardiovascular: Yes: Regular Rate and Rhythm Respiratory: Yes: CTA Bilaterally (no wheezing or rales .) Gastrointestinal: Yes: Soft Edema: No Neurological: Yes: Alert, Oriented ...Motor Strength: WNL Psychiatric: Yes: WNL Labs: CBC, BMP 10/14/18 05:30 10/14/18 05:30 INR, PTT INR 0.97 (0.83-1.09) 10/09/18 05:30 Microbiology 10/08/18 13:00 Urine - Urine Sidhu Urine Culture - Final NO GROWTH OBTAINED 10/08/18 12:30 Sputum - Endotrachea Suction/Ventilator Gram Stain - Final 10/08/18 12:30 Sputum - Endotrachea Suction/Ventilator Sputum Culture - Final S Aureus 10/08/18 05:45 Blood - Peripheral Venous Blood Culture - Final NO GROWTH AFTER 5 DAYS INCUBATION 10/08/18 05:30 Blood - Peripheral Venous Blood Culture - Final NO GROWTH AFTER 5 DAYS INCUBATION 10/07/18 20:00 Blood - Peripheral Venous Blood Culture - Final NO GROWTH AFTER 5 DAYS INCUBATION 10/07/18 20:00 Blood - Peripheral Venous Blood Culture - Final NO GROWTH AFTER 5 DAYS INCUBATION 10/04/18 13:29 Blood - Peripheral Venous Blood Culture - Final NO GROWTH AFTER 5 DAYS INCUBATION 10/04/18 12:53 Blood - Peripheral Venous Blood Culture - Final NO GROWTH AFTER 5 DAYS INCUBATION 10/01/18 06:40 Blood - Peripheral Venous Blood Culture - Final NO GROWTH AFTER 5 DAYS INCUBATION 10/01/18 06:40 Blood - Peripheral Venous Blood Culture - Final NO GROWTH AFTER 5 DAYS INCUBATION Laboratory Tests 10/01/18 10/12/18 10/14/18 06:55 15:30 05:30 WBC 10.2 H Hgb 11.1 L Hct 32.2 L Plt Count 756 H Sodium Potassium BUN Creatinine Stool Occult Blood Negative Vancomycin Pre-Dose 7.5 L 10/14/18 05:30 WBC Hgb Hct Plt Count Sodium 136 Potassium 3.9 BUN 10 Creatinine 0.7 Stool Occult Blood Vancomycin Pre-Dose Assessment/Plan Assessment/Plan Echo 09/2018: tds; nl lvef, rv tds, grossly nl rv fcn, no sig valve path 43yo M with PMH of HTN, DM p/w unresponsiveness. Found to have bilateral PE, s/ p PEA arrest 1. Bilateral PE, s/p PEA arrest: - arrest likely in setting of extensive bilateral PE - now s/p tPA, manage anticoagulation per ICU team - bp improved, off pressors now - echo was tds but no gross abnormalities - no significant chf on exam - hypercoagulable w/u per heme consultants - s/p trach 10/09 2. Afib: - reportedly per EMS and ER records, EKG not available - in setting of PE, this is considered a reversible etiology of Afib. - AC to be continued per PE indication - now in sinus 3. Type II [place] (NSTEMI): - peak trop 1.3, sec to PE/RV strain, vs hypoperfusion from PEA arrest. - EKG no ischemic changes - echo with nl lvef - ischemia w/u not indicated in this setting (unless signs/sx of CAD in future) 4. HTN: - bp stable off meds, monitor 5. NSVT: self limited, likely sec to acute RV strain -tele currently stable -normal LV fx -Keep K+ > 4 and Mg2+ >2
--- NOTE | 2018-10-14 14:59 | PN ---
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, Physician History of Present Illness: PULMONARY ALERT,COMFORTABLE,-RESP DISTRESS,+ COUGH - Current Medication List Current Medications: Active Medications Acetaminophen (Ofirmev Injection -) 1,000 mg IVPB Q6H PRN PRN Reason: PAIN OR FEVER Enoxaparin Sodium (Lovenox -) 110 mg SQ BID [facility] Last Admin: 10/14/18 10:59 Dose: 110 mg Vancomycin HCl 1,250 mg/ (Dextrose) 250 mls @ 166.667 mls/hr IVPB BID@0230, 1430 [facility]; Protocol Last Admin: 10/14/18 01:56 Dose: 166.667 mls/hr Insulin Aspart (Novolog Vial Sliding Scale -) 1 vial SQ Q6HPO [facility]; Protocol Last Admin: 10/14/18 12:21 Dose: 3 units Insulin Detemir (Levemir Vial) 24 units SQ AM [facility] Last Admin: 10/14/18 06:20 Dose: 24 units Polyethylene Glycol (Miralax (For Daily Use) -) 17 gm PO DAILY [facility] Last Admin: 10/14/18 10:59 Dose: Not Given - Objective Vital Signs: Vital Signs Temperature 99.1 F 10/14/18 05:49 Pulse Rate 86 10/14/18 05:49 Respiratory Rate 18 10/14/18 05:49 Blood Pressure 144/73 10/14/18 05:49 O2 Sat by Pulse Oximetry (%) 97 10/13/18 21:00 Constitutional: Yes: Well Nourished, Calm Eyes: Yes: WNL HENT: Yes: WNL Neck: Yes: Supple (TRACH) Cardiovascular: Yes: Regular Rate and Rhythm, S1, S2 Respiratory: Yes: Rhonchi (FEW SCATTERED RHONCHI) Gastrointestinal: Yes: Normal Bowel Sounds, Soft Extremities: Yes: WNL Edema: No Labs: CBC, BMP 10/14/18 05:30 10/14/18 05:30 INR, PTT INR 0.97 (0.83-1.09) 10/09/18 05:30 Problem List - Problems (1) Bilateral pulmonary embolism Code(s): I26.99 - OTHER PULMONARY EMBOLISM WITHOUT ACUTE COR PULMONALE (2) Cardiac arrest Code(s): I46.9 - CARDIAC ARREST, CAUSE UNSPECIFIED (3) Diabetes Code(s): E11.9 - TYPE 2 DIABETES MELLITUS WITHOUT COMPLICATIONS (4) Elevated troponin Code(s): R74.8 - ABNORMAL LEVELS OF OTHER SERUM ENZYMES (5) Hyperlipidemia Code(s): E78.5 - HYPERLIPIDEMIA, UNSPECIFIED (6) Hypertension Code(s): I10 - ESSENTIAL (PRIMARY) HYPERTENSION (7) Tracheostomy care Code(s): Z43.0 - ENCOUNTER FOR ATTENTION TO TRACHEOSTOMY Assessment/Plan A/P s/p Cardiopulmonary Arrest Acute Pulmonary Emboli s/p tPA Obstructive Shock resolved +Troponins likely Demand Ischemia Lactic Acidosis resolved r/o Anoxic Encephalopathy r/o Pneumonia HTN DM - PMV as tolerated - O2 as needed but has been tolerating room air - PO as tolerated - DVT prophylaxis - inhaled bronchodilators prn - tracheal suctioning DR BROWN
[2018-10-14] MEDS: guaiFENesin/D-METHORPHAN HB 10 ML UNIT-DOSE CUPS PO PRN (15:51)
[2018-10-15] MEDS ORDERED: PT OWN MED DRAWER 7, Y5N ONE ×4 (00:48→20:17)
[2018-10-15] MEDS: VANCOMYCIN HCL 1,250 MG in DEXTROSE 5%-WATER - 250 ML IVPB SCH ×2 (02:11→14:40)
[2018-10-15] MEDS: INSULIN (LEVEMIR) 100 UNITS/ML UNITS SQ SCH (06:17)
[2018-10-15] MEDS: guaiFENesin/D-METHORPHAN HB 10 ML UNIT-DOSE CUPS PO PRN ×2 (06:17→20:25)
[2018-10-15] MEDS: INSULIN SLIDING SCALE (NOVOLOG) 1 VIAL SQ SCH ×4 (06:18→23:07)
--- NOTE | 2018-10-15 10:51 | PN ---
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 (short form) - Note 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: s/p trach using PMV speaks clearly eating without difficulty no complaints Vital Signs - 24 hr 10/14/18 10/14/18 10/15/18 14:50 21:00 06:00 Temperature 98.6 F 98.2 F 98.9 F Pulse Rate 82 82 75 Respiratory 18 18 18 Rate Blood Pressure 149/91 144/66 125/79 O2 Sat by Pulse 96 Oximetry (%) Current Medications Generic Name Dose Route Start Last Admin Trade Name Freq PRN Reason Stop Dose Admin Acetaminophen 1,000 mg 10/12/18 18:18 Ofirmev Injection - IVPB Q6H PRN PAIN OR FEVER Enoxaparin Sodium 110 mg 10/12/18 22:00 10/15/18 10:55 Lovenox - SQ 110 mg BID [facility] Administration Guaifenesin 10 ml 10/14/18 15:38 10/15/18 06:17 Robitussin Dm - PO 10 ml Q6H PRN Administration COUGH Vancomycin HCl 1,250 mg/ 250 mls @ 166.667 mls/hr 10/13/18 02:30 10/15/18 02: 11 Dextrose IVPB 166.667 mls/hr BID@0230,1430 [facility] Administration Protocol Insulin Aspart 1 vial 10/13/18 00:00 10/15/18 06:18 Novolog Vial Sliding Scale - SQ Not Given Q6HPO [facility] Protocol Insulin Detemir 24 units 10/13/18 12:55 10/15/18 06:17 Levemir Vial SQ 24 units AM [facility] Administration Polyethylene Glycol 17 gm 10/13/18 10:00 10/15/18 10:52 Miralax (For Daily Use) - PO Not Given DAILY [facility] Laboratory Results - last 24 hr 10/14/18 10/14/18 10/14/18 05:30 12:11 18:08 Neutrophils % (Manual) 56.1 Band Neutrophils % 1.0 Lymphocytes % (Manual) 28.6 Monocytes % (Manual) 10 D Eosinophils % (Manual) 1.0 Basophils % (Manual) 1.0 D Myelocytes % (Man) 0 Promyelocytes % (Man) 0 Blast Cells % (Manual) 0 Metamyelocytes 0 Hypochromia 0 Platelet Estimate Increased Polychromasia 0 Poikilocytosis 1+ Anisocytosis 0 Microcytosis 0 Macrocytosis 1+ Ovalocytes 1+ POC Glucometer 179 191 10/14/18 10/15/18 23:21 06:14 Neutrophils % (Manual) Band Neutrophils % Lymphocytes % (Manual) Monocytes % (Manual) Eosinophils % (Manual) Basophils % (Manual) Myelocytes % (Man) Promyelocytes % (Man) Blast Cells % (Manual) Metamyelocytes Hypochromia Platelet Estimate Polychromasia Poikilocytosis Anisocytosis Microcytosis Macrocytosis Ovalocytes POC Glucometer 152 145 S1 S2 RRR intubated Lungs decreased Abd-soft, NT, BS+ edema++ A/P s/p PEA arrest B/L PE Acute respiratory failure- resolved Acute kidney injury-- resolved elevated LFT--?shock liver -->resolved --Continue present care on anticoagulation use PMV as tolerated He is a good rehab candidate Will complete antibiotics tomorrow -->last dose Vanco today continue with PT Problem List - Problems (1) Diabetes Code(s): E11.9 - TYPE 2 DIABETES MELLITUS WITHOUT COMPLICATIONS (2) Hyperlipidemia Code(s): E78.5 - HYPERLIPIDEMIA, UNSPECIFIED (3) Hypertension Code(s): I10 - ESSENTIAL (PRIMARY) HYPERTENSION (4) Bilateral pulmonary embolism Code(s): I26.99 - OTHER PULMONARY EMBOLISM WITHOUT ACUTE COR PULMONALE (5) Elevated troponin Code(s): R74.8 - ABNORMAL LEVELS OF OTHER SERUM ENZYMES
[2018-10-15] MEDS: POLYETHYLENE GLYCOL 3350 119 GM BTL PO SCH (10:52)
[2018-10-15] MEDS: ENOXAPARIN NA (PORCINE) 120 MG/0.8 ML DISP.SYRIN SQ SCH ×2 (10:55→23:07)
--- NOTE | 2018-10-15 11:37 | PN ---
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 (short form) - Note 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: PULMONARY Denies shortness of breath or chest pain. Tolerating PO, PMV. Vital Signs Period Temp Pulse Resp BP Sys/Liao Pulse Ox Last 24 Hr 98.2 F-98.9 F 75-82 18-18 125-149/66-91 96 Gen: NAD at rest, trach in place Heart: RRR Lung: decreased breath sounds at the bases Abd: soft, nontender Ext: no edema CBC, BMP 10/14/18 05:30 10/14/18 05:30 Active Medications Acetaminophen (Ofirmev Injection -) 1,000 mg IVPB Q6H PRN PRN Reason: PAIN OR FEVER Enoxaparin Sodium (Lovenox -) 110 mg SQ BID [facility] Last Admin: 10/15/18 10:55 Dose: 110 mg Guaifenesin (Robitussin Dm -) 10 ml PO Q6H PRN PRN Reason: COUGH Last Admin: 10/15/18 06:17 Dose: 10 ml Vancomycin HCl 1,250 mg/ (Dextrose) 250 mls @ 166.667 mls/hr IVPB BID@0230, 1430 [facility]; Protocol Last Admin: 10/15/18 02:11 Dose: 166.667 mls/hr Insulin Aspart (Novolog Vial Sliding Scale -) 1 vial SQ Q6HPO [facility]; Protocol Last Admin: 10/15/18 06:18 Dose: Not Given Insulin Detemir (Levemir Vial) 24 units SQ AM [facility] Last Admin: 10/15/18 06:17 Dose: 24 units Polyethylene Glycol (Miralax (For Daily Use) -) 17 gm PO DAILY [facility] Last Admin: 10/15/18 10:52 Dose: Not Given A/P s/p Cardiopulmonary Arrest Acute Pulmonary Emboli s/p tPA Obstructive Shock resolved +Troponins likely Demand Ischemia Lactic Acidosis resolved r/o Anoxic Encephalopathy r/o Pneumonia HTN DM - PMV as tolerated - O2 as needed but has been tolerating room air - PO as tolerated - DVT prophylaxis - likely can decannulate soon, can be done as outpt
--- NOTE | 2018-10-15 14:49 | PN ---
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: Selected Entries 10/12/18 10/12/18 10/12/18 00:00 02:00 04:00 Lunch Temperature 99.9 F H 99.9 F H 99.8 F H 10/12/18 10/12/18 10/12/18 06:00 08:00 12:00 Lunch Temperature 99.4 F 99.6 F 99.4 F 10/12/18 10/13/18 10/13/18 14:00 02:00 06:00 Lunch 50% Temperature 98.3 F 98.1 F 10/13/18 08:45 Lunch Temperature 99.5 F Laboratory Tests 10/12/18 10/13/18 05:15 07:00 WBC 16.1 H 11.8 H Selected Entries 10/13/18 10/13/18 10/13/18 02:00 06:00 08:45 Breakfast Lunch Supper Temperature 98.3 F 98.1 F 99.5 F 10/13/18 10/13/18 10/13/18 11:53 15:16 18:00 Breakfast 50% Lunch 75% Supper Temperature 98.2 F 98.4 F 10/13/18 10/13/18 10/14/18 18:15 21:02 02:00 Breakfast Lunch Supper 25% Temperature 99.1 F 99.5 F 10/14/18 05:49 Breakfast Lunch Supper Temperature 99.1 F Laboratory Tests 10/12/18 10/13/18 10/14/18 05:15 07:00 05:30 WBC 16.1 H 11.8 H 10.2 H Selected Entries 10/15/18 10/15/18 10/15/18 06:00 11:44 13:14 Breakfast 100% Diet Tolerated Well Temperature 98.9 F 98.6 F Laboratory Tests 10/12/18 10/13/18 10/14/18 05:15 07:00 05:30 WBC 16.1 H 11.8 H 10.2 H Continue to recover, doing quite well with PMV. Voice is strong. Tolerating diet. CXR (-) REC: Acute rehabilitation for PT. PMV needs to be removed at night while sleeping. Continue PMV Progress to decannulation, as indicated, per medical team
--- NOTE | 2018-10-15 16:41 | PN ---
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 (short form) - Note 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: s: no chest pain, palps, dizziness Current Medications Acetaminophen (Ofirmev Injection -) 1,000 mg IVPB Q6H PRN PRN Reason: PAIN OR FEVER Enoxaparin Sodium (Lovenox -) 110 mg SQ BID [facility] Last Admin: 10/15/18 10:55 Dose: 110 mg Guaifenesin (Robitussin Dm -) 10 ml PO Q6H PRN PRN Reason: COUGH Last Admin: 10/15/18 06:17 Dose: 10 ml Vancomycin HCl 1,250 mg/ (Dextrose) 250 mls @ 166.667 mls/hr IVPB BID@0230, 1430 [facility]; Protocol Last Admin: 10/15/18 14:40 Dose: 166.667 mls/hr Insulin Aspart (Novolog Vial Sliding Scale -) 1 vial SQ Q6HPO [facility]; Protocol Last Admin: 10/15/18 12:33 Dose: 5 units Insulin Detemir (Levemir Vial) 24 units SQ AM [facility] Last Admin: 10/15/18 06:17 Dose: 24 units Polyethylene Glycol (Miralax (For Daily Use) -) 17 gm PO DAILY [facility] Last Admin: 10/15/18 10:52 Dose: Not Given Vital Signs Period Temp Pulse Resp BP Sys/Liao Pulse Ox Last 24 Hr 98.2 F-98.9 F 75-82 18-18 125-144/66-87 96-98 Constitutional: Yes: No Distress HENT: Yes: Other (Trach) Cardiovascular: Yes: Regular Rate and Rhythm Respiratory: Yes: CTA Bilaterally (no wheezing or rales .) Gastrointestinal: Yes: Soft Edema: No Neurological: Yes: Alert, Oriented ...Motor Strength: WNL Psychiatric: Yes: WNL Assessment/Plan Echo 09/2018: tds; nl lvef, rv tds, grossly nl rv fcn, no sig valve path 43yo M with PMH of HTN, DM p/w unresponsiveness. Found to have bilateral PE, s/ p PEA arrest 1. Bilateral PE, s/p PEA arrest: - arrest likely in setting of extensive bilateral PE - now s/p tPA, manage anticoagulation per ICU team - bp improved, off pressors now - echo was tds but no gross abnormalities - no significant chf on exam - hypercoagulable w/u per heme consultants - s/p trach 5/17 2. Afib: - reportedly per EMS and ER records, EKG not available - in setting of PE, this is considered a reversible etiology of Afib. - AC to be continued per PE indication - now in sinus 3. Type II [place] (NSTEMI): - peak trop 1.3, sec to PE/RV strain, vs hypoperfusion from PEA arrest. - EKG no ischemic changes - echo with nl lvef - ischemia w/u not indicated in this setting (unless signs/sx of CAD in future) 4. HTN: - bp stable off meds, monitor 5. NSVT: self limited, likely sec to acute RV strain -tele currently stable -normal LV fx -Keep K+ > 4 and Mg2+ >2
[2018-10-15] MEDS ORDERED: INSULIN (NOVOLOG) ASPART 100 UNITS/ML 10ML VIAL ONE (20:17)
[2018-10-16] MEDS ORDERED: PT OWN MED DRAWER 7, Y5N ONE ×2 (00:43→09:38)
[2018-10-16] MEDS: VANCOMYCIN HCL 1,250 MG in DEXTROSE 5%-WATER - 250 ML IVPB SCH (01:58)
[2018-10-16] MEDS: guaiFENesin/D-METHORPHAN HB 10 ML UNIT-DOSE CUPS PO PRN ×2 (05:26→10:51)
[2018-10-16] MEDS: INSULIN SLIDING SCALE (NOVOLOG) 1 VIAL SQ SCH ×3 (05:27→17:29)
[2018-10-16] MEDS: INSULIN (LEVEMIR) 100 UNITS/ML UNITS SQ SCH (06:23)
[2018-10-16] MEDS ORDERED: INSULIN (LEVEMIR) 100 UNITS/ML UNITS SQ ONE (06:57)
[2018-10-16] MEDS ORDERED: INSULIN (NOVOLOG) ASPART 100 UNITS/ML 10ML VIAL ONE (06:57)
[2018-10-16] MEDS: ENOXAPARIN NA (PORCINE) 120 MG/0.8 ML DISP.SYRIN SQ SCH (10:51)
[2018-10-16] MEDS: POLYETHYLENE GLYCOL 3350 119 GM BTL PO SCH (10:52)
--- NOTE | 2018-10-16 11:41 | PN ---
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 (short form) - Note 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: pt seen/ examined all f/u noted awake/ comfortable denies pain afebrile Vital Signs Temp 98.5 F 10/15/18 18:00 Pulse 88 10/15/18 21:00 Resp 20 10/15/18 21:00 BP 144/92 10/15/18 21:00 Pulse Ox 98 10/15/18 21:00 Intake & Output 10/15/18 10/15/18 10/16/18 11:59 23:59 11:59 Intake Total 340 615 Output Total 2 Balance 340 613 Intake: IVPB 250 Oral 365 Oral Supplement 340 Output: Urine 2 Void 2 Other: Voiding Method Toilet Incontinent Incontinent # Unmeasured Voids Void 2 1 Bowel Movement Yes # Bowel Movements 1 Active Medications Acetaminophen (Ofirmev Injection -) 1,000 mg IVPB Q6H PRN PRN Reason: PAIN OR FEVER Enoxaparin Sodium (Lovenox -) 110 mg SQ BID [facility] Last Admin: 10/16/18 10:51 Dose: 110 mg Guaifenesin (Robitussin Dm -) 10 ml PO Q6H PRN PRN Reason: COUGH Last Admin: 10/16/18 10:51 Dose: 10 ml Insulin Aspart (Novolog Vial Sliding Scale -) 1 vial SQ Q6HPO [facility]; Protocol Last Admin: 10/16/18 05:27 Dose: Not Given Insulin Detemir (Levemir Vial) 24 units SQ AM [facility] Last Admin: 10/16/18 06:23 Dose: 24 units Polyethylene Glycol (Miralax (For Daily Use) -) 17 gm PO DAILY [facility] Last Admin: 10/16/18 10:52 Dose: Not Given CBC, BMP 10/14/18 05:30 10/14/18 05:30 Physical Exam awake/ comfortable S1 S2 RRR s/p trach Lungs decreased Abd-soft, NT, BS+ A/P s/p PEA arrest B/L PE Acute respiratory failure- resolved Acute kidney injury-- resolved elevated LFT--?shock liver -->resolved --Continue present care on anticoagulation use PMV as tolerated He is a good rehab candidate continue with Pt d/c vancomycin Mrsa Precautions will follow d/c planning discussed with social work case manager Problem List - Problems (1) Tracheostomy care Code(s): Z43.0 - ENCOUNTER FOR ATTENTION TO TRACHEOSTOMY (2) Bilateral pulmonary embolism Code(s): I26.99 - OTHER PULMONARY EMBOLISM WITHOUT ACUTE COR PULMONALE (3) Cardiac arrest Code(s): I46.9 - CARDIAC ARREST, CAUSE UNSPECIFIED (4) Diabetes Code(s): E11.9 - TYPE 2 DIABETES MELLITUS WITHOUT COMPLICATIONS
--- NOTE | 2018-10-16 12:05 | PN ---
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, IT ASSISTANT - Note 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: Selected Entries 10/12/18 10/12/18 10/12/18 00:00 02:00 04:00 Lunch Temperature 99.9 F H 99.9 F H 99.8 F H 10/12/18 10/12/18 10/12/18 06:00 08:00 12:00 Lunch Temperature 99.4 F 99.6 F 99.4 F 10/12/18 10/13/18 10/13/18 14:00 02:00 06:00 Lunch 50% Temperature 98.3 F 98.1 F 10/13/18 08:45 Lunch Temperature 99.5 F Laboratory Tests 10/12/18 10/13/18 05:15 07:00 WBC 16.1 H 11.8 H Selected Entries 10/13/18 10/13/18 10/13/18 02:00 06:00 08:45 Breakfast Lunch Supper Temperature 98.3 F 98.1 F 99.5 F 10/13/18 10/13/18 10/13/18 11:53 15:16 18:00 Breakfast 50% Lunch 75% Supper Temperature 98.2 F 98.4 F 10/13/18 10/13/18 10/14/18 18:15 21:02 02:00 Breakfast Lunch Supper 25% Temperature 99.1 F 99.5 F 10/14/18 05:49 Breakfast Lunch Supper Temperature 99.1 F Laboratory Tests 10/12/18 10/13/18 10/14/18 05:15 07:00 05:30 WBC 16.1 H 11.8 H 10.2 H Selected Entries 10/15/18 10/15/18 10/15/18 06:00 11:44 13:14 Breakfast 100% Diet Tolerated Well Temperature 98.9 F 98.6 F Laboratory Tests 10/12/18 10/13/18 10/14/18 05:15 07:00 05:30 WBC 16.1 H 11.8 H 10.2 H Selected Entries 10/15/18 10/15/18 10/15/18 06:00 13:14 18:00 Breakfast Temperature 98.9 F 98.6 F 98.5 F 10/16/18 11:39 Breakfast 50% Temperature Laboratory Tests 10/14/18 05:30 WBC 10.2 H Continue to recover, doing quite well with PMV. Voice is strong. Tolerating diet. CXR (-) Pt has a frequent dry cough.Etiology? REC: Acute rehabilitation for PT. Per PMV protocol, PMV needs to be removed at night while sleeping. However,pt reports he "can not breathe when it is removed". Progress to decannulation, as indicated, per medical team
--- NOTE | 2018-10-16 13:27 | PN ---
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, Physician History of Present Illness: PULMONARY ALERT,NO DISTRESS,LESS COUGH,-SOB - Current Medication List Current Medications: Active Medications Acetaminophen (Ofirmev Injection -) 1,000 mg IVPB Q6H PRN PRN Reason: PAIN OR FEVER Enoxaparin Sodium (Lovenox -) 110 mg SQ BID [facility] Last Admin: 10/16/18 10:51 Dose: 110 mg Guaifenesin (Robitussin Dm -) 10 ml PO Q6H PRN PRN Reason: COUGH Last Admin: 10/16/18 10:51 Dose: 10 ml Insulin Aspart (Novolog Vial Sliding Scale -) 1 vial SQ Q6HPO [facility]; Protocol Last Admin: 10/16/18 05:27 Dose: Not Given Insulin Detemir (Levemir Vial) 24 units SQ AM [facility] Last Admin: 10/16/18 06:23 Dose: 24 units Polyethylene Glycol (Miralax (For Daily Use) -) 17 gm PO DAILY [facility] Last Admin: 10/16/18 10:52 Dose: Not Given - Objective Vital Signs: Vital Signs Temperature 98.5 F 10/15/18 18:00 Pulse Rate 88 10/15/18 21:00 Respiratory Rate 20 10/15/18 21:00 Blood Pressure 144/92 10/15/18 21:00 O2 Sat by Pulse Oximetry (%) 98 10/15/18 21:00 Constitutional: Yes: Well Nourished, Calm Eyes: Yes: WNL HENT: Yes: WNL Neck: Yes: Supple (TRACH) Cardiovascular: Yes: Regular Rate and Rhythm, S1, S2 Respiratory: Yes: CTA Bilaterally Gastrointestinal: Yes: Normal Bowel Sounds, Soft Extremities: Yes: WNL Edema: No Labs: Problem List - Problems (1) Bilateral pulmonary embolism Code(s): I26.99 - OTHER PULMONARY EMBOLISM WITHOUT ACUTE COR PULMONALE (2) Cardiac arrest Code(s): I46.9 - CARDIAC ARREST, CAUSE UNSPECIFIED (3) Diabetes Code(s): E11.9 - TYPE 2 DIABETES MELLITUS WITHOUT COMPLICATIONS (4) Elevated troponin Code(s): R74.8 - ABNORMAL LEVELS OF OTHER SERUM ENZYMES (5) Hyperlipidemia Code(s): E78.5 - HYPERLIPIDEMIA, UNSPECIFIED (6) Hypertension Code(s): I10 - ESSENTIAL (PRIMARY) HYPERTENSION (7) Tracheostomy care Code(s): Z43.0 - ENCOUNTER FOR ATTENTION TO TRACHEOSTOMY Assessment/Plan A/P s/p Cardiopulmonary Arrest Acute Pulmonary Emboli s/p tPA Obstructive Shock resolved +Troponins likely Demand Ischemia Lactic Acidosis resolved r/o Anoxic Encephalopathy r/o Pneumonia HTN DM - PMV as tolerated - O2 as needed but has been tolerating room air - PO as tolerated - DVT prophylaxis - inhaled bronchodilators prn - tracheal suctioning DR BROWN
--- NOTE | 2018-10-16 15:13 | PN ---
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 (short form) - Note 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: s: no chest pain, palps, dizziness Current Medications Generic Name Dose Route Start Last Admin Trade Name Freq PRN Reason Stop Dose Admin Acetaminophen 1,000 mg 10/12/18 18:18 Ofirmev Injection - IVPB Q6H PRN PAIN OR FEVER Enoxaparin Sodium 110 mg 10/12/18 22:00 10/16/18 10:51 Lovenox - SQ 110 mg BID [facility] Administration Guaifenesin 10 ml 10/14/18 15:38 10/16/18 10:51 Robitussin Dm - PO 10 ml Q6H PRN Administration COUGH Insulin Aspart 1 vial 10/13/18 00:00 10/16/18 13:28 Novolog Vial Sliding Scale - SQ 5 units Q6HPO [facility] Administration Protocol Insulin Detemir 24 units 10/13/18 12:55 10/16/18 06:23 Levemir Vial SQ 24 units AM [facility] Administration Polyethylene Glycol 17 gm 10/13/18 10:00 10/16/18 10:52 Miralax (For Daily Use) - PO Not Given DAILY [facility] Vital Signs Period Temp Pulse Resp BP Sys/Liao Pulse Ox Last 24 Hr 98.5 F 77-88 20-20 132-144/92-92 98 Constitutional: Yes: No Distress HENT: Yes: Other (Trach) Cardiovascular: Yes: Regular Rate and Rhythm Respiratory: Yes: CTA Bilaterally (no wheezing or rales .) Gastrointestinal: Yes: Soft Edema: No Neurological: Yes: Alert, Oriented Psychiatric: Yes: WNL no jaundice diaphoresis CBC, BMP 10/14/18 05:30 10/14/18 05:30 Assessment/Plan Echo 09/2018: tds; nl lvef, rv tds, grossly nl rv fcn, no sig valve path 43yo M with PMH of HTN, DM p/w unresponsiveness. Found to have bilateral PE, s/ p PEA arrest 1. Bilateral PE, s/p PEA arrest: - arrest likely in setting of extensive bilateral PE - now s/p tPA, manage anticoagulation per ICU team - bp improved, off pressors now - echo was tds but no gross abnormalities - no significant chf on exam - hypercoagulable w/u per heme consultants - s/p trach 10/09 2. Afib: - reportedly per EMS and ER records, EKG not available - in setting of PE, this is considered a reversible etiology of Afib. - AC to be continued per PE indication - now in sinus 3. Type II [place] (NSTEMI): - peak trop 1.3, sec to PE/RV strain, vs hypoperfusion from PEA arrest. - EKG no ischemic changes - echo with nl lvef - ischemia w/u not indicated in this setting (unless signs/sx of CAD in future) 4. HTN: - bp stable off meds, monitor 5. NSVT: self limited, likely sec to acute RV strain -normal LV fx -Keep K+ > 4 and Mg2+ >2
[2018-10-17] MEDS ORDERED: PT OWN MED DRAWER 7, Y5N ONE ×3 (00:04→20:56)
[2018-10-17] MEDS: ENOXAPARIN NA (PORCINE) 120 MG/0.8 ML DISP.SYRIN SQ SCH ×3 (00:20→23:05)
[2018-10-17] MEDS: INSULIN SLIDING SCALE (NOVOLOG) 1 VIAL SQ SCH ×5 (00:22→23:06)
[2018-10-17] MEDS: INSULIN (LEVEMIR) 100 UNITS/ML UNITS SQ SCH (06:52)
--- NOTE | 2018-10-17 09:42 | PN ---
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 (short form) - Note 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: s/p trach using PMV speaks clearly eating without difficulty no complaints Vital Signs - 24 hr 10/16/18 10/16/18 10/16/18 14:32 18:00 21:00 Temperature 99.0 F 99.3 F Pulse Rate 85 85 Respiratory 18 18 Rate Blood Pressure 143/96 137/90 O2 Sat by Pulse 98 Oximetry (%) 10/16/18 10/17/18 10/17/18 22:32 02:00 10:00 Temperature 99.1 F 99.0 F 98.4 F Pulse Rate 81 84 92 H Respiratory 18 18 20 Rate Blood Pressure 146/101 H 146/99 134/74 O2 Sat by Pulse Oximetry (%) Current Medications Generic Name Dose Route Start Last Admin Trade Name Freq PRN Reason Stop Dose Admin Acetaminophen 1,000 mg 10/12/18 18:18 Ofirmev Injection - IVPB Q6H PRN PAIN OR FEVER Enoxaparin Sodium 110 mg 10/12/18 22:00 10/17/18 09:59 Lovenox - SQ 110 mg BID [facility] Administration Guaifenesin 10 ml 10/14/18 15:38 10/17/18 10:06 Robitussin Dm - PO 10 ml Q6H PRN Administration COUGH Insulin Aspart 1 vial 10/13/18 00:00 10/17/18 06:12 Novolog Vial Sliding Scale - SQ Not Given Q6HPO [facility] Protocol Insulin Detemir 24 units 10/13/18 12:55 10/17/18 06:52 Levemir Vial SQ 24 units AM [facility] Administration Polyethylene Glycol 17 gm 10/13/18 10:00 10/17/18 09:59 Miralax (For Daily Use) - PO Not Given DAILY [facility] Laboratory Results - last 24 hr 10/16/18 10/16/18 10/17/18 13:24 17:27 00:19 POC Glucometer 224 147 159 10/17/18 05:35 POC Glucometer 136 S1 S2 RRR intubated Lungs decreased Abd-soft, NT, BS+ edema++ A/P s/p PEA arrest B/L PE Acute respiratory failure- resolved Acute kidney injury-- resolved elevated LFT--?shock liver -->resolved --Continue present care on anticoagulation use PMV as tolerated He is a good rehab candidate completed antibiotics continue with PT Problem List - Problems (1) Diabetes Code(s): E11.9 - TYPE 2 DIABETES MELLITUS WITHOUT COMPLICATIONS (2) Hyperlipidemia Code(s): E78.5 - HYPERLIPIDEMIA, UNSPECIFIED (3) Hypertension Code(s): I10 - ESSENTIAL (PRIMARY) HYPERTENSION (4) Bilateral pulmonary embolism Code(s): I26.99 - OTHER PULMONARY EMBOLISM WITHOUT ACUTE COR PULMONALE (5) Elevated troponin Code(s): R74.8 - ABNORMAL LEVELS OF OTHER SERUM ENZYMES
[2018-10-17] MEDS: POLYETHYLENE GLYCOL 3350 119 GM BTL PO SCH (09:59)
[2018-10-17] MEDS: guaiFENesin/D-METHORPHAN HB 10 ML UNIT-DOSE CUPS PO PRN ×2 (10:06→23:05)
--- NOTE | 2018-10-17 12:05 | PN ---
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 (short form) - Note 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: Resting in NAD on RA. Tolerating PO intake. Intake & Output 10/14/18 10/15/18 10/16/18 10/17/18 23:59 23:59 23:59 23:59 Intake Total 1000 955 600 230 Output Total 2 450 Balance 1000 953 150 230 Last Vital Signs Temp Pulse Resp BP Pulse Ox 98.4 F 92 H 20 134/74 98 10/17/18 10:00 10/17/18 10:00 10/17/18 10:00 10/17/18 10:00 10/16/18 21:00 Active Medications Acetaminophen (Ofirmev Injection -) 1,000 mg IVPB Q6H PRN PRN Reason: PAIN OR FEVER Enoxaparin Sodium (Lovenox -) 110 mg SQ BID [facility] Last Admin: 10/17/18 09:59 Dose: 110 mg Guaifenesin (Robitussin Dm -) 10 ml PO Q6H PRN PRN Reason: COUGH Last Admin: 10/17/18 10:06 Dose: 10 ml Insulin Aspart (Novolog Vial Sliding Scale -) 1 vial SQ Q6HPO [facility]; Protocol Last Admin: 10/17/18 12:01 Dose: Not Given Insulin Detemir (Levemir Vial) 24 units SQ AM [facility] Last Admin: 10/17/18 06:52 Dose: 24 units Polyethylene Glycol (Miralax (For Daily Use) -) 17 gm PO DAILY [facility] Last Admin: 10/17/18 09:59 Dose: Not Given Gen: awake and alert Neck: (+) Trach intact, (+) less copious secretions Heart: S1S2 Lung: decreased breath sounds at the bases Abd: soft, nontender Ext: + edema Laboratory Results - last 24 hr 10/16/18 10/16/18 10/17/18 13:24 17:27 00:19 POC Glucometer 224 147 159 10/17/18 05:35 POC Glucometer 136 ASSESSMENT AND PLAN: S/P Percutaneous Tracheostomy S/P Cardiopulmonary Arrest Acute Pulmonary Emboli s/p tPA Obstructive Shock improving +Troponins likely Demand Ischemia Lactic Acidosis resolved r/o Anoxic Encephalopathy r/o Pneumonia HTN DM - AC - PMV as tolerated - Supplemental O2 as needed to maintain saturation - PO as tolerated - Hope to decannulate soon as secretions improve Dr Perez
[2018-10-18] MEDS: INSULIN (LEVEMIR) 100 UNITS/ML UNITS SQ SCH (06:23)
[2018-10-18] MEDS: INSULIN SLIDING SCALE (NOVOLOG) 1 VIAL SQ SCH ×4 (06:23→23:06)
[2018-10-18] MEDS: guaiFENesin/D-METHORPHAN HB 10 ML UNIT-DOSE CUPS PO PRN ×3 (06:25→23:05)
[2018-10-18] MEDS ORDERED: PT OWN MED DRAWER 7, Y5N ONE (10:11)
[2018-10-18] MEDS: ENOXAPARIN NA (PORCINE) 120 MG/0.8 ML DISP.SYRIN SQ SCH (10:18)
[2018-10-18] MEDS: POLYETHYLENE GLYCOL 3350 119 GM BTL PO SCH (10:20)
--- NOTE | 2018-10-18 10:55 | PN ---
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 (short form) - Note 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: s/p trach using PMV speaks clearly eating without difficulty no complaints Selected Entries 10/18/18 10:00 Temperature 98.0 F Pulse Rate 91 H Respiratory 19 Rate Blood Pressure 118/74 Blood Pressure 93 Mean S1 S2 RRR intubated Lungs decreased Abd-soft, NT, BS+ edema++ A/P s/p PEA arrest B/L PE Acute respiratory failure- resolved Acute kidney injury-- resolved elevated LFT--?shock liver -->resolved --Continue present care on anticoagulation-->change to PO eliquis spoke with Pulmonary-- trach will be removed when secretions decreased . granulation tissue to be formed, possible removal Friday use PMV as tolerated He is a good rehab candidate completed antibiotics continue with PT Problem List - Problems (1) Diabetes Code(s): E11.9 - TYPE 2 DIABETES MELLITUS WITHOUT COMPLICATIONS (2) Hyperlipidemia Code(s): E78.5 - HYPERLIPIDEMIA, UNSPECIFIED (3) Hypertension Code(s): I10 - ESSENTIAL (PRIMARY) HYPERTENSION (4) Bilateral pulmonary embolism Code(s): I26.99 - OTHER PULMONARY EMBOLISM WITHOUT ACUTE COR PULMONALE (5) Elevated troponin Code(s): R74.8 - ABNORMAL LEVELS OF OTHER SERUM ENZYMES
--- NOTE | 2018-10-18 11:13 | PN ---
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 (short form) - Note 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: Resting in NAD on RA. Tolerating PO intake. No acute events overnight. Intake & Output 10/15/18 10/16/18 10/17/18 10/18/18 23:59 23:59 23:59 23:59 Intake Total 955 600 580 230 Output Total 2 450 550 Balance 953 150 580 -320 Last Vital Signs Temp Pulse Resp BP Pulse Ox 98.0 F 91 H 19 118/74 98 10/18/18 10:00 10/18/18 10:00 10/18/18 10:00 10/18/18 10:00 10/17/18 21:00 Active Medications Acetaminophen (Ofirmev Injection -) 1,000 mg IVPB Q6H PRN PRN Reason: PAIN OR FEVER Apixaban (Eliquis -) 5 mg PO BID [facility] Guaifenesin (Robitussin Dm -) 10 ml PO Q6H PRN PRN Reason: COUGH Last Admin: 10/18/18 06:25 Dose: 10 ml Insulin Aspart (Novolog Vial Sliding Scale -) 1 vial SQ Q6HPO [facility]; Protocol Last Admin: 10/18/18 06:23 Dose: 3 units Insulin Detemir (Levemir Vial) 24 units SQ AM [facility] Last Admin: 10/18/18 06:23 Dose: 24 units Polyethylene Glycol (Miralax (For Daily Use) -) 17 gm PO DAILY [facility] Last Admin: 10/18/18 10:20 Dose: Not Given Gen: awake and alert Neck: (+) Trach intact, (+) less copious secretions Heart: S1S2 Lung: decreased breath sounds at the bases Abd: soft, nontender Ext: + edema Laboratory Results - last 24 hr 10/17/18 10/17/18 10/18/18 16:51 21:48 06:13 POC Glucometer 148 178 161 ASSESSMENT AND PLAN: S/P Percutaneous Tracheostomy S/P Cardiopulmonary Arrest Acute Pulmonary Emboli s/p tPA Obstructive Shock improving +Troponins likely Demand Ischemia Lactic Acidosis resolved r/o Anoxic Encephalopathy r/o Pneumonia HTN DM - AC - PMV as tolerated - Supplemental O2 as needed to maintain saturation - PO as tolerated - Hope to decannulate soon as secretions improve Dr Perez
[2018-10-18] MEDS ORDERED: INSULIN (NOVOLOG) ASPART 100 UNITS/ML 10ML VIAL ONE ×2 (11:42→20:45)
[2018-10-18] MEDS: amLODIPine BESYLATE 5 MG TABLET (FP) PO SCH (17:13)
[2018-10-18] MEDS ORDERED: INSULIN (LEVEMIR) 100 UNITS/ML UNITS SQ ONE (20:45)
[2018-10-18] MEDS: APIXABAN 5 MG TABLET PO SCH (23:05)
[2018-10-19] MEDS: INSULIN (LEVEMIR) 100 UNITS/ML UNITS SQ SCH (06:12)
[2018-10-19] MEDS: guaiFENesin/D-METHORPHAN HB 10 ML UNIT-DOSE CUPS PO PRN ×2 (06:12→18:15)
[2018-10-19] MEDS: INSULIN SLIDING SCALE (NOVOLOG) 1 VIAL SQ SCH ×4 (06:13→23:08)
[2018-10-19] MEDS ORDERED: INSULIN (LEVEMIR) 100 UNITS/ML UNITS SQ ONE ×2 (06:40→20:52)
[2018-10-19] MEDS ORDERED: INSULIN (NOVOLOG) ASPART 100 UNITS/ML 10ML VIAL ONE ×2 (06:40→20:52)
[2018-10-19] MEDS: amLODIPine BESYLATE 5 MG TABLET (FP) PO SCH (09:24)
[2018-10-19] MEDS: APIXABAN 5 MG TABLET PO SCH ×2 (09:24→23:07)
[2018-10-19] MEDS: POLYETHYLENE GLYCOL 3350 119 GM BTL PO SCH (09:24)
--- NOTE | 2018-10-19 10:02 | CON.PSY ---
Psychiatry Consult Chief Complaint: 43 owen old male with a history of s/p tracheostomy and other medical conditioons. encephalopathy. Patient seen for Psych eval for ?> depression. Currantly on no psych meds. Patient says I am not [id number], thays my face. No psych history. - Previous Psychiatric Treatment Outpatient: None Inpatient: None - Previous Substance Abuse Treatment Outpatient: None Inpatient: None - Current Medications Current Medications: Active Medications Acetaminophen (Ofirmev Injection -) 1,000 mg IVPB Q6H PRN PRN Reason: PAIN OR FEVER Amlodipine Besylate (Norvasc -) 5 mg PO DAILY [facility] Last Admin: 10/19/18 09:24 Dose: 5 mg Apixaban (Eliquis -) 5 mg PO BID [facility] Last Admin: 10/19/18 09:24 Dose: 5 mg Guaifenesin (Robitussin Dm -) 10 ml PO Q6H PRN PRN Reason: COUGH Last Admin: 10/19/18 06:12 Dose: 10 ml Insulin Aspart (Novolog Vial Sliding Scale -) 1 vial SQ Q6HPO [facility]; Protocol Last Admin: 10/19/18 06:13 Dose: 3 units Insulin Detemir (Levemir Vial) 24 units SQ AM [facility] Last Admin: 10/19/18 06:12 Dose: 24 units Polyethylene Glycol (Miralax (For Daily Use) -) 17 gm PO DAILY [facility] Last Admin: 10/19/18 09:24 Dose: Not Given - Allergies Allergies: Allergies Allergy/AdvReac Type Severity Reaction Status Date / Time No Known Allergies Allergy Verified 10/01/18 06:31 - Current Living Status Usual Living Arrangement: With Significant Other - Current Mental Status Evaluation Appearance: Well Groomed Attitude: Cooperative - Affect Affect: Constrictive Appropriateness: Appropriate to Content - Mood Mood: Euthymic - Speech/Language Expressive: Coherent - Psychomotor Activity Psychomotor Activity: Normal - Thought Process Thought Process: Intact - Thought Content Hallucinations: Absent Delusions: Absent - Self Perception Self Perception: No Impairment - Cognition Attention: Alert Orientation: Time Memory, Immediate Recall: Intact Memory, Short Term: 2/3 Memory, Remote with Promptin/3 - Concentration Serial Sevens Intact: No Simple Calculations Intact: Yes - Abstraction Proverb Interpretation: Intact Judgement: Intact - Insight Insight: Intact - Impulse Control Impulse Control: Good Control - Suicidal Ideation Suicidal Ideation: No - Homicidal Ideation Homicidal Ideation: No Assessment/Plan 1) No acute Mental illness. 2) No need for anti depressants needed at this time.
--- NOTE | 2018-10-19 10:35 | PN ---
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, Physician History of Present Illness: PULMONARY ALERT,COMFORTABLE,-RESP DISTRESS - Current Medication List Current Medications: Active Medications Acetaminophen (Ofirmev Injection -) 1,000 mg IVPB Q6H PRN PRN Reason: PAIN OR FEVER Amlodipine Besylate (Norvasc -) 5 mg PO DAILY [facility] Last Admin: 10/19/18 09:24 Dose: 5 mg Apixaban (Eliquis -) 5 mg PO BID [facility] Last Admin: 10/19/18 09:24 Dose: 5 mg Guaifenesin (Robitussin Dm -) 10 ml PO Q6H PRN PRN Reason: COUGH Last Admin: 10/19/18 06:12 Dose: 10 ml Insulin Aspart (Novolog Vial Sliding Scale -) 1 vial SQ Q6HPO [facility]; Protocol Last Admin: 10/19/18 06:13 Dose: 3 units Insulin Detemir (Levemir Vial) 24 units SQ AM [facility] Last Admin: 10/19/18 06:12 Dose: 24 units Polyethylene Glycol (Miralax (For Daily Use) -) 17 gm PO DAILY [facility] Last Admin: 10/19/18 09:24 Dose: Not Given - Objective Vital Signs: Vital Signs Temperature 99.6 F 10/19/18 06:00 Pulse Rate 79 10/19/18 06:00 Respiratory Rate 20 10/19/18 06:00 Blood Pressure 125/63 10/19/18 06:00 O2 Sat by Pulse Oximetry (%) 98 10/18/18 21:00 Constitutional: Yes: Well Nourished, Calm Eyes: Yes: WNL HENT: Yes: WNL Neck: Yes: Supple (TRACH) Cardiovascular: Yes: Regular Rate and Rhythm, S1, S2 Respiratory: Yes: Rhonchi (FEW RHONCHI) Gastrointestinal: Yes: Normal Bowel Sounds, Soft Extremities: Yes: WNL Edema: No Labs: CBC, BMP Problem List - Problems (1) Bilateral pulmonary embolism Code(s): I26.99 - OTHER PULMONARY EMBOLISM WITHOUT ACUTE COR PULMONALE (2) Cardiac arrest Code(s): I46.9 - CARDIAC ARREST, CAUSE UNSPECIFIED (3) Diabetes Code(s): E11.9 - TYPE 2 DIABETES MELLITUS WITHOUT COMPLICATIONS (4) Elevated troponin Code(s): R74.8 - ABNORMAL LEVELS OF OTHER SERUM ENZYMES (5) Hyperlipidemia Code(s): E78.5 - HYPERLIPIDEMIA, UNSPECIFIED (6) Hypertension Code(s): I10 - ESSENTIAL (PRIMARY) HYPERTENSION (7) Tracheostomy care Code(s): Z43.0 - ENCOUNTER FOR ATTENTION TO TRACHEOSTOMY Assessment/Plan A/P s/p Cardiopulmonary Arrest Acute Pulmonary Emboli s/p tPA Obstructive Shock resolved +Troponins likely Demand Ischemia Lactic Acidosis resolved r/o Anoxic Encephalopathy r/o Pneumonia HTN DM - PMV as tolerated - O2 as needed - PO as tolerated - DVT prophylaxis - inhaled bronchodilators prn - tracheal suctioning DR BROWN
--- NOTE | 2018-10-19 11:06 | PN ---
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 (short form) - Note 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: s/p trach using PMV speaks clearly eating without difficulty no complaints Vital Signs - 24 hr 10/18/18 10/18/18 10/18/18 13:08 20:57 21:00 Temperature 98.8 F 98.8 F Pulse Rate 85 88 Respiratory 18 20 20 Rate Blood Pressure 132/95 141/89 O2 Sat by Pulse 98 Oximetry (%) 10/19/18 10/19/18 10/19/18 06:00 09:00 10:00 Temperature 99.6 F 98.5 F Pulse Rate 79 85 Respiratory 20 20 Rate Blood Pressure 125/63 134/90 O2 Sat by Pulse 95 Oximetry (%) Current Medications Generic Name Dose Route Start Last Admin Trade Name Freq PRN Reason Stop Dose Admin Acetaminophen 1,000 mg 10/12/18 18:18 Ofirmev Injection - IVPB Q6H PRN PAIN OR FEVER Amlodipine Besylate 5 mg 10/18/18 17:00 10/19/18 09:24 Norvasc - PO 5 mg DAILY [facility] Administration Apixaban 5 mg 10/18/18 22:00 10/19/18 09:24 Eliquis - PO 5 mg BID [facility] Administration Guaifenesin 10 ml 10/14/18 15:38 10/19/18 06:12 Robitussin Dm - PO 10 ml Q6H PRN Administration COUGH Insulin Aspart 1 vial 10/13/18 00:00 10/19/18 06:13 Novolog Vial Sliding Scale - SQ 3 units Q6HPO [facility] Administration Protocol Insulin Detemir 24 units 10/13/18 12:55 10/19/18 06:12 Levemir Vial SQ 24 units AM [facility] Administration Polyethylene Glycol 17 gm 10/13/18 10:00 10/19/18 09:24 Miralax (For Daily Use) - PO Not Given DAILY [facility] Laboratory Results - last 24 hr 10/18/18 10/18/18 10/18/18 11:48 17:12 23:04 POC Glucometer 194 142 122 10/19/18 10/19/18 06:08 11:03 POC Glucometer 170 209 S1 S2 RRR trach + Lungs decreased Abd-soft, NT, BS+ no edema A/P s/p PEA arrest B/L PE Acute respiratory failure- resolved Acute kidney injury-- resolved elevated LFT--?shock liver -->resolved --Continue present care increase Levemir for better glucose control on anticoagulation-->change to PO makenzie spoke with Pulmonary-- trach will be removed when secretions decreased . granulation tissue to be formed, possible removal Friday use PMV as tolerated He is a good rehab candidate completed antibiotics continue with PT Problem List - Problems (1) Diabetes Code(s): E11.9 - TYPE 2 DIABETES MELLITUS WITHOUT COMPLICATIONS (2) Hyperlipidemia Code(s): E78.5 - HYPERLIPIDEMIA, UNSPECIFIED (3) Hypertension Code(s): I10 - ESSENTIAL (PRIMARY) HYPERTENSION (4) Bilateral pulmonary embolism Code(s): I26.99 - OTHER PULMONARY EMBOLISM WITHOUT ACUTE COR PULMONALE (5) Elevated troponin Code(s): R74.8 - ABNORMAL LEVELS OF OTHER SERUM ENZYMES
[2018-10-20] MEDS ORDERED: INSULIN (NOVOLOG) ASPART 100 UNITS/ML 10ML VIAL ONE ×2 (06:06→16:33)
[2018-10-20] MEDS: guaiFENesin/D-METHORPHAN HB 10 ML UNIT-DOSE CUPS PO PRN (06:33)
[2018-10-20] MEDS: INSULIN SLIDING SCALE (NOVOLOG) 1 VIAL SQ SCH ×3 (06:58→17:08)
[2018-10-20] MEDS ORDERED: INSULIN (LEVEMIR) 100 UNITS/ML UNITS SQ SCH (07:00)
[2018-10-20 07:44] LABS: BASO % 1.1 % (0-2.0); EOS % 3.9 % (0-4.5); HEMATOCRIT 34.3 % (35.4-49); HEMOGLOBIN 11.4 GM/dL (11.7-16.9); LYMPH % 42.3 % (8-40); MCHC 33.2 g/dl (32.0-35.9); MEAN CELL VOLUME 93.2 fl (80-96); MEAN PLT VOLUME 7.9 fl (7.5-11.1); NEUT % 43.7 % (42.8-82.8); PLATELET COUNT 672 K/MM3 (134-434); RBC 3.68 M/mm3 (4.00-5.60); RDW 13.5 % (11.9-15.9); WHITE BLOOD COUNT 6.5 K/mm3 (4.0-10.0)
[2018-10-20 08:02] LABS: BILIRUBIN,TOTAL 0.5 mg/dL (0.2-1); CALCIUM 9.3 mg/dL (8.5-10.1); CREATININE 0.8 mg/dL (0.55-1.3); POTASSIUM 4.6 mmol/L (3.5-5.1); TOT PROT 7.6 g/dl (6.4-8.2)
[2018-10-20] MEDS: APIXABAN 5 MG TABLET PO SCH (09:46)
[2018-10-20] MEDS: amLODIPine BESYLATE 5 MG TABLET (FP) PO SCH (09:46)
[2018-10-20] MEDS: POLYETHYLENE GLYCOL 3350 119 GM BTL PO SCH (09:47)
--- NOTE | 2018-10-20 11:21 | PN ---
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, Physician Chief Complaint: seen and examined No CP or SOB - Current Medication List Current Medications: Active Medications Amlodipine Besylate (Norvasc -) 5 mg PO DAILY [facility] Last Admin: 10/20/18 09:46 Dose: 5 mg Apixaban (Eliquis -) 5 mg PO BID [facility] Last Admin: 10/20/18 09:46 Dose: 5 mg Guaifenesin (Robitussin Dm -) 10 ml PO Q6H PRN PRN Reason: COUGH Last Admin: 10/20/18 06:33 Dose: 10 ml Insulin Aspart (Novolog Vial Sliding Scale -) 1 vial SQ Q6HPO [facility]; Protocol Last Admin: 10/20/18 06:58 Dose: 5 units Insulin Detemir (Levemir Vial) 26 units SQ AM [facility] Last Admin: 10/20/18 06:33 Dose: 26 units Polyethylene Glycol (Miralax (For Daily Use) -) 17 gm PO DAILY [facility] Last Admin: 10/20/18 09:47 Dose: Not Given - Objective Vital Signs: Vital Signs Temperature 98.2 F 10/20/18 06:00 Pulse Rate 87 10/20/18 06:00 Respiratory Rate 20 10/20/18 06:00 Blood Pressure 135/75 10/20/18 06:00 O2 Sat by Pulse Oximetry (%) 100 10/19/18 21:00 Constitutional: Yes: No Distress Cardiovascular: Yes: Regular Rate and Rhythm Respiratory: Yes: CTA Bilaterally Gastrointestinal: Yes: Soft, Abdomen, Obese Edema: No Neurological: Yes: Alert, Oriented Labs: CBC, BMP 10/20/18 06:30 10/20/18 06:30 INR, PTT INR 0.97 (0.83-1.09) 10/09/18 05:30 Laboratory Tests 10/20/18 10/20/18 06:30 06:30 Hgb 11.4 L Plt Count 672 H Sodium 133 L Potassium 4.6 Creatinine 0.8 Assessment/Plan Assessment/Plan Echo 09/2018: tds; nl lvef, rv tds, grossly nl rv fcn, no sig valve path 43yo M with PMH of HTN, DM p/w unresponsiveness. Found to have bilateral PE, s/ p PEA arrest 1. Bilateral PE, s/p PEA arrest: - arrest likely in setting of extensive bilateral PE - now s/p tPA, now on Eliquis - bp improved, off pressors now - echo was tds but no gross abnormalities - no significant chf on exam - hypercoagulable w/u per heme consultants - s/p trach 10/09 2. Afib: - reportedly per EMS and ER records, EKG not available - in setting of PE, this is considered a reversible etiology of Afib. - AC to be continued per PE indication - now in sinus 3. Type II PR (NSTEMI): - peak trop 1.3, sec to PE/RV strain, vs hypoperfusion from PEA arrest. - EKG no ischemic changes - echo with nl lvef - ischemia w/u not indicated in this setting (unless signs/sx of CAD in future) 4. HTN: - bp stable off meds, monitor 5. NSVT: self limited, likely sec to acute RV strain -normal LV fx -Keep K+ > 4 and Mg2+ >2
--- NOTE | 2018-10-20 11:40 | PN ---
Problem List - Problems (1) Diabetes Code(s): E11.9 - TYPE 2 DIABETES MELLITUS WITHOUT COMPLICATIONS (2) Hyperlipidemia Code(s): E78.5 - HYPERLIPIDEMIA, UNSPECIFIED (3) Hypertension Code(s): I10 - ESSENTIAL (PRIMARY) HYPERTENSION (4) Bilateral pulmonary embolism Code(s): I26.99 - OTHER PULMONARY EMBOLISM WITHOUT ACUTE COR PULMONALE (5) Elevated troponin Code(s): R74.8 - ABNORMAL LEVELS OF OTHER SERUM ENZYMES
--- NOTE | 2018-10-20 12:02 | DS ---
Physical Examination Vital Signs: Vital Signs Temperature 98.2 F 10/20/18 06:00 Pulse Rate 87 10/20/18 06:00 Respiratory Rate 20 10/20/18 06:00 Blood Pressure 135/75 10/20/18 06:00 O2 Sat by Pulse Oximetry (%) 100 10/19/18 21:00 Constitutional: Yes: No Distress, Calm Neck: Yes: Other (trach site clean) Cardiovascular: Yes: Regular Rate and Rhythm Respiratory: Yes: CTA Bilaterally Gastrointestinal: Yes: Normal Bowel Sounds, Soft, Abdomen, Obese. No: Tenderness Edema: No Labs: CBC, BMP 10/20/18 06:30 10/20/18 06:30 Discharge Summary Reason For Visit: BILATERAL PULMONARY EMBOLISM Current Active Problems Bilateral pulmonary embolism (Acute) Cardiac arrest (Acute) Diabetes (Acute) Elevated troponin (Acute) Hyperlipidemia (Acute) Hypertension (Acute) Tracheostomy care (Acute) Hospital Course: History of Present Illness: ER HISTORY - History of Present Illness Initial Comments: 10/01/18 06:45 43M w/ PMH of noncompliant DM who presents to the ED via EMS. Hx is provided by EMS and some by the pt. EMS states that the patient was in his normal state of health when he developed palpitations and SOB and syncopized. Per EMS, he was in a-fib with hypotension and hypoxia. The patient admits to syncope and palpitations with retrosternal CP and SOB. spoke with ER attending Was found on the street -prior to intubation, he told the ER staff that he felt dizzy and palpitations, chest pain and fatigued. In ER was intubated, CT chest showed B/L PE started heparin infusion, was sent to IR for thrombolysis-- went into cardiac arrest - code 99 called, ACLS protocol initiated- thrombolysis could not be done in IR-- pt to receive TPA in ICU Spoke with PMD- Dr Hummel-- last visit to office was on Feb 2018 hospital course- Eventful hospital course-- he was intubated , received TPA in ICU , was on heparin gtt elevated LFT due to shock liver-- which eventually recovered was on iv antibiotics-- fever-- Had MRSA in sputum-- all other cultures negative Went in to afib-- seen by cardiology-- Afib due to PE heparin gtt changed to Lovenox sc Pt did not tolerate CPAP weaning trials and tracheostomy placed on 10/09/18 Pt started tolerating trach collar --then he was off trach collar, decreased secretions completed iv Zosyn and vancomycin trach decannulated today 10/20/18 Modified barium swallow study done-- pt can eat soft diet with thin liquids Pt has remarkably improved from this event he is AAOx 3 His mother at bedside-- she has been updated about plan He will need PT/OT/speech therapy trach site to be covered with dry dressing daily Lovenox now changed to Eliquis Stable for dc to NH /Rehab Will need outpt follow up with hematology for hypercoagulable work up Condition: Improved - Instructions Disposition: [facility] - Home Medications Comprehensive Discharge Medication List: Ambulatory Orders NK [No Known Home Medication] 10/19/18
--- NOTE | 2018-10-20 12:03 | PN ---
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 (short form) - Note 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: Resting in NAD on RA. Minimal secretions. Breathing overall better. No acute events overnight. Tracheostomy decannulated at the bedside. Patient tolerated procedure well. Intake & Output 10/17/18 10/18/18 10/19/18 10/20/18 23:59 23:59 23:59 23:59 Intake Total 286 023 2545 Output Total 550 Balance 998 260 6054 Last Vital Signs Temp Pulse Resp BP Pulse Ox 98.2 F 87 20 135/75 100 10/20/18 06:00 10/20/18 06:00 10/20/18 06:00 10/20/18 06:00 10/19/18 21:00 Gen: awake and alert Neck: (+) Trach intact, minimal secretions Heart: S1S2 Lung: decreased breath sounds at the bases Abd: soft, nontender Ext: + edema Laboratory Results - last 24 hr 10/19/18 10/19/18 10/20/18 17:07 23:06 06:30 WBC 6.5 RBC 3.68 L Hgb 11.4 L Hct 34.3 L MCV 93.2 MCH 31.0 MCHC 33.2 RDW 13.5 Plt Count 672 H MPV 7.9 Absolute Neuts (auto) 2.8 Neutrophils % 43.7 Lymphocytes % 42.3 H D Monocytes % 9.0 Eosinophils % 3.9 Basophils % 1.1 Nucleated RBC % 0 Sodium Potassium Chloride Carbon Dioxide Anion Gap BUN Creatinine Est GFR (CKD-EPI)AfAm Est GFR (CKD-EPI)NonAf POC Glucometer 163 167 Random Glucose Calcium Total Bilirubin AST ALT Alkaline Phosphatase Total Protein Albumin 10/20/18 10/20/18 10/20/18 06:30 06:58 11:46 WBC RBC Hgb Hct MCV MCH MCHC RDW Plt Count MPV Absolute Neuts (auto) Neutrophils % Lymphocytes % Monocytes % Eosinophils % Basophils % Nucleated RBC % Sodium 133 L Potassium 4.6 Chloride 100 Carbon Dioxide 27 Anion Gap 7 L BUN 10 Creatinine 0.8 Est GFR (CKD-EPI)AfAm 126.81 Est GFR (CKD-EPI)NonAf 109.41 POC Glucometer 202 165 Random Glucose 190 H Calcium 9.3 Total Bilirubin 0.5 AST 14 L ALT 28 Alkaline Phosphatase 140 H Total Protein 7.6 Albumin 3.0 L ASSESSMENT AND PLAN: S/P Percutaneous Tracheostomy S/P Cardiopulmonary Arrest Acute Pulmonary Emboli s/p tPA Obstructive Shock improving +Troponins likely Demand Ischemia Lactic Acidosis resolved HTN DM - Patient decannulated at bedside. No bleeding noted. Saturation 100%. Monitor for bleeding and respiratory distress. - AC - Supplemental O2 as needed to maintain saturation - PO as tolerated - D/C planning Dr Perez
[2018-10-20 15:06] VITALS: BP 133/77; PULSE 96; TEMP 98.5
== END 2018-10-20 17:17 | DRG 4 ==
LOC: JER 06:19 → JERBED 10:15 → JICU 12:19 → J5S 10-12 17:58
PROVIDERS: ADMIT Internal Medicine; ATTEND Internal Medicine
PROC: 5A1955Z Respiratory Ventilation, Greater than 96 Consecutive Hours (ICD-10-PCS; 2018-10-01)
PROC: 3E03317 Introduction of Other Thrombolytic into Peripheral Vein, Percutaneous Approach (ICD-10-PCS; 2018-10-01)
PROC: 02CR3ZZ Extirpation of Matter from Left Pulmonary Artery, Percutaneous Approach (ICD-10-PCS; 2018-10-01)
PROC: 02CQ3ZZ Extirpation of Matter from Right Pulmonary Artery, Percutaneous Approach (ICD-10-PCS; 2018-10-01)
PROC: B31TYZZ Fluoroscopy of Left Pulmonary Artery using Other Contrast (ICD-10-PCS; 2018-10-01)
PROC: B31SYZZ Fluoroscopy of Right Pulmonary Artery using Other Contrast (ICD-10-PCS; 2018-10-01)
PROC: 02HV33Z Insertion of Infusion Device into Superior Vena Cava, Percutaneous Approach (ICD-10-PCS; 2018-10-01)
PROC: 0BJ08ZZ Inspection of Tracheobronchial Tree, Via Natural or Artificial Opening Endoscopic (ICD-10-PCS; 2018-10-09)
PROC: 0B113F4 Bypass Trachea to Cutaneous with Tracheostomy Device, Percutaneous Approach (ICD-10-PCS; principal; 2018-10-09 08:00)
DX: I26.99 Other pulmonary embolism without acute cor pulmonale (principal); E11.9 Type 2 diabetes mellitus without complications; I24.8 Other forms of acute ischemic heart disease; E87.2 Acidosis; E87.6 Hypokalemia; N17.9 Acute kidney failure, unspecified; I46.9 Cardiac arrest, cause unspecified; G93.1 Anoxic brain damage, not elsewhere classified; E78.5 Hyperlipidemia, unspecified; E66.9 Obesity, unspecified; Z68.34 Body mass index [BMI] 34.0-34.9, adult; I48.91 Unspecified atrial fibrillation; I95.9 Hypotension, unspecified; R55 Syncope and collapse; K72.00 Acute and subacute hepatic failure without coma; I47.1 Supraventricular tachycardia; R74.8 Abnormal levels of other serum enzymes; J69.0 Pneumonitis due to inhalation of food and vomit; D72.829 Elevated white blood cell count, unspecified; J96.00 Acute respiratory failure, unspecified whether with hypoxia or hypercapnia; J32.9 Chronic sinusitis, unspecified; E87.5 Hyperkalemia
CPT/HCPCS: 31500; 36415; 36600; 37187; 70450-TC; 71045-TC-FY; 71275-TC; 72125-TC; 74018-TC-FY; 74177-TC; 74230-TC-FY; 75746-TC-FY; 76000-TC-FY; 76700-TC; 76937-TC; 80048; 80053; 81003; 82272; 82375; 82550; 82553; 82565; 82803; 82962; 83036; 83050; 83605; 83735; 83880; 84100; 84300; 84484; 85025; 85027; 85610; 85730; 86850; 86900; 86901; 87040; 87070; 87086; 87186; 87205; 92611-GN; 93005; 93010; 93306-TC; 93970-TC; 94002; 94640; 97116-GP; 97162-GP; 99284-25; C1769; C1894; C9999; G0480; J0131; J1644

== ENCOUNTER 2018-11-20 02:20 | Inpatient (IN) | payer OTHER ==
[2018-11-20] MEDS ORDERED: ALBUTEROL SO4 2.5/IPRATROPIUM 0.5 INH SOL 3 ML VIAL.NEB. NEB ONE (02:40)
[2018-11-20] MEDS ORDERED: DEXAMETHASONE SOD PHOSPHATE 10 MG/1 ML VIAL ONE (02:40)
[2018-11-20] MEDS ORDERED: ALBUTEROL SO4 0.083% IH SOL 2.5 MG/3 ML VIAL.NEB. NEB ONE (02:41)
--- NOTE | 2018-11-20 02:56 | PDOC ---
History of Present Illness - General Chief Complaint: Shortness of Breath Stated Complaint: DIFFICULTY BREATHING Time Seen by Provider: 11/20/18 02:43 History Source: Patient - History of Present Illness Initial Comments: 11/20/18 02:54 The patient is a 43 year old male with a PMH of cardiac arrest, PE, tracheostomy and IDDM who presents to our ED c/o 1 week h/o shortness of breath. Shortness of breaht occurs at both rest and exertion. Endorses 2 episodes of 3 minutes of L sided pressure like chest pain. States he was recently discharged from [facility] and the shortness of breath started since that time. Endorses non-productive cough w/o fevers/chills. NKDA PMD: Dr. Hummel As per EMR, patient evaluated in our ED on 10/01/17. for generalized weakness, AMS, chest pain and hypoxia/tachycardia/hypotension. PEA arrest in ED with ROSC. Patient subsequently admitted to ICU for TPA. Trach 10/11-10/20. Patient discharged to [facility] on 10/20/18. Past History - Past Medical History Allergies/Adverse Reactions: Allergies Allergy/AdvReac Type Severity Reaction Status Date / Time No Known Allergies Allergy Verified 11/20/18 02:32 Home Medications: Ambulatory Orders Amlodipine Besylate [Norvasc -] 5 mg PO DAILY #30 tablet 10/20/18 Apixaban [Eliquis -] 5 mg PO BID #60 tablet 10/20/18 Insulin (Levemir) [Levemir Vial] 26 units SQ AM #30 units 10/20/18 Polyethylene Glycol 3350 [Miralax 119 gm Btl -] 17 gm PO DAILY #1 bottle Insulin (Novolog) [Novolog] 0 units SQ BID 11/20/18 Methylprednisolone [Medrol Dose Mac] 4 mg PO ASDIR 11/20/18 - Suicide/Smoking/Psychosocial Hx Smoking History: Never smoked Have you smoked in the past 12 months: No Information on smoking cessation initiated: No Hx Alcohol Use: No Drug/Substance Use Hx: No Review of Systems - Review of Systems Constitutional: No: Fever Respiratory: Yes: Cough, Shortness of Breath Cardiac (ROS): Yes: Chest Pain. No: Syncope ABD/GI: No: Constipated, Diarrhea, Nausea, Vomiting *Physical Exam - Vital Signs Last Vital Signs Temp Pulse Resp BP Pulse Ox 99.3 F 106 H 28 H 145/85 98 11/20/18 02:28 11/20/18 02:28 11/20/18 02:28 11/20/18 02:28 11/20/18 02:28 - Physical Exam General Appearance: Yes: Nourished, Appropriately Dressed HEENT: positive: Normal Voice, Hearing Grossly Normal Neck: positive: Trachea midline, Supple, Other (healing tracheostomy scar) Respiratory/Chest: positive: Lungs Clear, Normal Breath Sounds, Other (post tracheostomy breathing). negative: Accessory Muscle Use, Labored Respiration, Wheezing Cardiovascular: positive: S1, S2. 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 NML intact, Fully Oriented, Alert Heart Score/ECG Review - ECG Impressions Comment:: 11/20/18 03:42 HR 97, NSR, normal intervals, no deviations, no ARABELLA/STD/TWI ED Treatment Course - LABORATORY CBC & Chemistry Diagram: 11/20/18 03:28 11/20/18 03:28 Medical Decision Making - Medical Decision Making 11/20/18 03:03 43 year old male with h/o PE, PEA in September 2018 presents with 1 week h/o shortness of breath and intermittent CP Tachycardic (low 100's) other VS unremarkable Post tracheostomy breathing w/o wheeze/crackle Frontal diagnosis: r/o PE, r/o ACS, also consider HCAP given patient's recent hospitalization. 11/20/18 03:44 EKG non-ischemic as documented in EKG section of EMR 11/20/18 04:24 Patient reassessed @ bedside HR 85, BP 143/92 SpO2 99% on RA CTA pending Cr to evaluate renal function 11/20/18 04:32 Cr 0.8 Mildly hyponatremic (Na 134) and hyperglycemic (BS 219) Troponin (-) x1 Patient to [address] 11/20/18 05:47 My read of CTA shows no PE; will page hospitalist for admission 11/20/18 05:55 CTA negative for PE, no consolidation/infiltration Case d/w [employer] Sourav, will admit for further evaluation including pulmonary and cardiac evaluations 11/20/18 06:07 Patient and patient's mother counseled on CTA results, patient amenable to admission. As patient again tachycardic (HR 108) will give IV hydration 11/20/18 06:23 Clinical Impression: Subjective Dyspnea of unknown etiology, ACS and PE ruled out *DC/Admit/Observation/Transfer Diagnosis at time of Disposition: Dyspnea - Discharge Dispostion Disposition: HOME Condition at time of disposition: Fair Decision to Admit order: Yes - Referrals - Patient Instructions - Post Discharge Activity
[2018-11-20 03:47] LABS: BASO % 1.2 % (0-2.0); HEMOGLOBIN 13.3 GM/dL (11.7-16.9); MCH 31.2 pg (25.7-33.7); MCHC 33.3 g/dl (32.0-35.9); MEAN CELL VOLUME 93.7 fl (80-96); MEAN PLT VOLUME 8.4 fl (7.5-11.1); MONO % 2.5 % (3.8-10.2); NEUT % 76.3 % (42.8-82.8); PLATELET COUNT 371 K/MM3 (134-434); RBC 4.27 M/mm3 (4.00-5.60); RDW 13.1 % (11.9-15.9); WHITE BLOOD COUNT 6.6 K/mm3 (4.0-10.0)
[2018-11-20 04:29] LABS: ALBUMIN 3.9 g/dl (3.4-5.0); ALK PHOS 78 U/L (45-117); ANION GAP 7 MMOL/L (8-16); BILIRUBIN,TOTAL 0.6 mg/dL (0.2-1); BLOOD UREA NITROGEN 7.8 mg/dL (7-18); CALCIUM 9.4 mg/dL (8.5-10.1); CHLORIDE 99 mmol/L (98-107); CO2 27 mmol/L (21-32); CREATININE 0.8 mg/dL (0.55-1.3); GLUCOSE,RANDOM 219 mg/dL (74-106); N-TERMINAL BNP 39.8 pg/ml (5-125); POTASSIUM 4.7 mmol/L (3.5-5.1); SGOT/AST 7 U/L (15-37); SGPT/ALT 24 U/L (13-61); SODIUM 134 mmol/L (136-145); TOT PROT 8.3 g/dl (6.4-8.2)
[2018-11-20 04:46] VITALS: BMI 32.3
--- NOTE | 2018-11-20 05:46 | PDOC ---
Attending Attestation - Resident Resident Name: Rachel Campbell - ED Attending Attestation I have performed the following: I have examined & evaluated the patient, The case was reviewed & discussed with the resident, I agree w/resident's findings & plan, Exceptions are as noted - HPI HPI: 11/20/18 05:47 43 M with h/o Afib, PE on eliquis, cardiac arrest, presenting to ED with SOB. Pt endorses 1 week of [place] as well as SOB at rest. Also complains of intermittent L sided chest pain, non-pleuritic, non-exertional. Pt denies F/C. Endorses dry cough. No leg swelling. Reports compliance with his AC. - Physicial Exam PE: 11/20/18 05:49 "GENERAL: Awake, alert, and fully oriented, in no acute distress. HEAD: No signs of trauma EYES: PERRLA, EOMI, sclera anicteric, conjunctiva clear ENT: Auricles normal inspection, hearing grossly normal, nares patent, oropharynx clear without exudates. Moist mucosa NECK: Nontender, no stepoffs, Normal ROM, supple, no lymphadenopathy, JVD, or masses LUNGS: + rhonchorous lung sounds bilaterally HEART: Regular rate and rhythm, normal S1 and S2, no murmurs, rubs or gallops ABDOMEN: Soft, nontender, normoactive bowel sounds. No guarding, no rebound. No masses EXTREMITIES: Normal range of motion, no edema. No clubbing or cyanosis. No cords, erythema, or tenderness NEUROLOGICAL: Cranial nerves II through XII intact. 5/5 strength and sensation in all extremities, Normal speech, normal gait, normal cerebellar function SKIN: Warm, Dry, normal turgor, no rashes or lesions noted. - Critical Care Time Total Critical Care Time: 60 Critical Care Statement: The care of this patient involved high complexity decision making to prevent further life threatening deterioration of the patient 's condition and/or to evaluate & treat vital organ system(s) failure or risk of failure. - Medical Decision Making 11/20/18 05:50 43 M with CP + SOB. Given h/o recent PE with subsequent cardiac arrest, will need to repeat CTA to evaluate clot burden. Also consider PNA given recent hospital stay requiring intubation. Pt's EKG today is NSR with no signs of ischemia but will evaluate for ACS as well. - Labs, trop, BNP - CTA chest - Admit tele 11/20/18 05:58 Prelim read of CTA negative Pt admitted to hospitalist
--- NOTE | 2018-11-20 06:04 | HP ---
Admitting History and Physical - Primary Care Physician PCP: jurgen logan - Admission Chief Complaint: SOB, Chest Pressure History of Present Illness: This is a 43 y/o man with a PMHx of Cardiac Arrest (10/01/18), PE, s/p Trachesotomy, IDDM. Who presents the ED with 1 week h/o shortness of breath. He reports that the SOB occurs at both rest and exertion. The patient reports having two episodes of 3 minutes of L sided pressure like chest pain. He states he was recently discharged from [facility] and the shortness of breath started since that time. The patient reprots having a non-productive cough w/o fevers/chills. As per EMR, patient evaluated in our ED on 10/01/17. for generalized weakness, AMS, chest pain and hypoxia/tachycardia/hypotension. PEA arrest in ED with ROSC. Patient subsequently admitted to ICU for TPA. Trach 10/11-10/20. Patient discharged to [facility] on 10/20/18. History Source: Patient, Medical Record Limitations to Obtaining History: No Limitations - Past Medical History Cardiovascular: Yes: HTN, Hyperlipdemia, Other (Cardiac Arrest) Pulmonary: Yes: Pulmonary Embolus Endocrine: Yes: Diabetes Mellitus - Past Surgical History Additional Past Surgical History: Tracheostomy - Smoking History Smoking history: Never smoked Have you smoked in the past 12 months: No - Alcohol/Substance Use Hx Alcohol Use: No - Social History ADL: Independent History of Recent Travel: No Home Medications - Allergies Allergies/Adverse Reactions: Allergies Allergy/AdvReac Type Severity Reaction Status Date / Time No Known Allergies Allergy Verified 11/20/18 02:32 - Home Medications Home Medications: Ambulatory Orders Amlodipine Besylate [Norvasc -] 5 mg PO DAILY #30 tablet 10/20/18 Apixaban [Eliquis -] 5 mg PO BID #60 tablet 10/20/18 Insulin (Levemir) [Levemir Vial] 26 units SQ AM #30 units 10/20/18 Polyethylene Glycol 3350 [Miralax 119 gm Btl -] 17 gm PO DAILY #1 bottle Insulin (Novolog) [Novolog] 0 units SQ BID 11/20/18 Methylprednisolone [Medrol Dose Mac] 4 mg PO ASDIR 11/20/18 Family Disease History - Family Disease History Family History: Unable to Obtain Review of Systems - Review of Systems Constitutional: reports: No Symptoms Eyes: reports: No Symptoms HENT: reports: No Symptoms Neck: reports: No Symptoms Cardiovascular: reports: Chest Pain, Shortness of Breath Respiratory: reports: Cough, SOB, SOB on Exertion Gastrointestinal: reports: No Symptoms Genitourinary: reports: No Symptoms Breasts: reports: No Symptoms Reported Musculoskeletal: reports: No Symptoms Integumentary: reports: No Symptoms Neurological: reports: No Symptoms Endocrine: reports: No Symptoms Hematology/Lymphatic: reports: No Symptoms Psychiatric: reports: No Symptoms Physical Examination Vital Signs: Vital Signs Temperature 98.7 F 11/20/18 03:53 Pulse Rate 107 H 11/20/18 03:53 Respiratory Rate 20 11/20/18 03:53 Blood Pressure 145/85 11/20/18 02:28 O2 Sat by Pulse Oximetry (%) 98 11/20/18 05:56 Constitutional: Yes: Well Nourished, No Distress, Calm, Obese Eyes: Yes: WNL, Conjunctiva Clear, EOM Intact, PERRL HENT: Yes: WNL, Atraumatic, Normocephalic Neck: Yes: Other (healed scar, erythema) Cardiovascular: Yes: Tachycardia, S1, S2 Respiratory: Yes: Regular, CTA Bilaterally, Cough, SOB on Exertion Gastrointestinal: Yes: WNL, Normal Bowel Sounds, Soft, Abdomen, Obese Renal/: Yes: WNL Breast(s): Yes: WNL Musculoskeletal: Yes: WNL Extremities: Yes: WNL Edema: No Peripheral Pulses WNL: Yes Neurological: Yes: WNL, Alert, Oriented ...Motor Strength: WNL Psychiatric: Yes: WNL, Alert, Oriented Labs: CBC, BMP 11/20/18 03:28 11/20/18 03:28 Laboratory Results - last 24 hr 11/20/18 11/20/18 03:28 03:28 WBC 6.6 RBC 4.27 Hgb 13.3 Hct 40.0 D MCV 93.7 MCH 31.2 MCHC 33.3 RDW 13.1 Plt Count 371 D MPV 8.4 Absolute Neuts (auto) 5.0 Neutrophils % 76.3 D Lymphocytes % 20.0 D Monocytes % 2.5 L Eosinophils % 0.0 D Basophils % 1.2 Nucleated RBC % 0 Sodium 134 L Potassium 4.7 Chloride 99 Carbon Dioxide 27 Anion Gap 7 L BUN 7.8 Creatinine 0.8 Est GFR (CKD-EPI)AfAm 126.81 Est GFR (CKD-EPI)NonAf 109.41 Random Glucose 219 H Calcium 9.4 Total Bilirubin 0.6 AST 7 L ALT 24 Alkaline Phosphatase 78 Creatine Kinase 54 Troponin I < 0.03 B-Natriuretic Peptide 39.8 Total Protein 8.3 H Albumin 3.9 Intake & Output 11/17/18 11/18/18 11/19/18 11/20/18 23:59 23:59 23:59 23:59 Weight 90.718 kg Current Medications Generic Name Dose Route Start Last Admin Trade Name Freq PRN Reason Stop Dose Admin Amlodipine Besylate 5 mg 11/20/18 10:00 Norvasc - PO DAILY AHMET Apixaban 5 mg 11/20/18 10:00 Eliquis - PO BID AHMET Insulin Aspart 1 vial 11/20/18 07:00 Novolog Vial Sliding Scale - SQ ACHS AHMET Protocol Imaging - Results Cat Scan: Report Reviewed, Image Reviewed EKG: Image Reviewed Problem List - Problems (1) Chest pain Assessment/Plan: r/o ACS Cardiac monitoring Serial enzymes Appreciate Cardiology consult Asa BB Code(s): R07.9 - CHEST PAIN, UNSPECIFIED (2) SOB (shortness of breath) Assessment/Plan: Concern for recurrent PE CTA- neg PE O2 Duonebs Appreciate Pulm consult Continue cardiac monitoring Monitor vitals Code(s): R06.02 - SHORTNESS OF BREATH (3) History of pulmonary embolism Assessment/Plan: Continue Eliquis Code(s): Z86.711 - PERSONAL HISTORY OF PULMONARY EMBOLISM (4) Diabetes Assessment/Plan: BGMs ISS Code(s): E11.9 - TYPE 2 DIABETES MELLITUS WITHOUT COMPLICATIONS (5) Hypertension Assessment/Plan: stable Monitor BP Continue home med Code(s): I10 - ESSENTIAL (PRIMARY) HYPERTENSION (6) Hyperlipidemia Assessment/Plan: Continue statin Code(s): E78.5 - HYPERLIPIDEMIA, UNSPECIFIED Assessment/Plan This is a 43 y/o man admitted to Telemetry with Chest Pain and SOB for further evaluation of their emergent condition, Plan: See Problem List FEN PO fluids as tolerated Replete lytes prn Soft Low Na, Diabetic Diet DVt ppx OOB SCDs Continue Eliquis Dispo: Requires Inpatient Care Visit type - Emergency Visit Emergency Visit: Yes ED Registration Date: 11/20/18 Care time: The patient presented to the Emergency Department on the above date and was hospitalized for further evaluation of their emergent condition. - New Patient This patient is new to me today: Yes Date on this admission: 11/20/18 - Critical Care Critical Care patient: No
[2018-11-20] MEDS ORDERED: SODIUM CHLORIDE 0.9% 500 ML INFUS.BAG IV ONE (06:08)
[2018-11-20] MEDS ORDERED: ALBUTEROL SO4 2.5/IPRATROPIUM 0.5 INH SOL 3 ML VIAL.NEB. NEB PRN (06:18)
[2018-11-20] MEDS: INSULIN SLIDING SCALE (NOVOLOG) 1 VIAL SQ SCH ×4 (06:39→22:03)
[2018-11-20] MEDS ORDERED: INSULIN (NOVOLOG) ASPART 100 UNITS/ML 10ML VIAL ONE ×2 (06:44→21:27)
--- NOTE | 2018-11-20 08:28 | CON.CARD ---
Consult Consult Specialty:: Cardiology Referred by:: Dr. Sierra Reason for Consultation:: SOB - History of Present Illness History of Present Illness: This is a 43 y/o man with a PMHx of Cardiac Arrest (10/01/18), PE, s/p Trachesotomy, IDDM. Who presents the ED with 1 week h/o shortness of breath. He reports that the SOB occurs at both rest and exertion. The patient reports having two episodes of 3 minutes of L sided pressure like chest pain. He states he was recently discharged from [facility] and the shortness of breath started since that time. The patient reprots having a non-productive cough w/o fevers/chills. As per EMR, patient evaluated in our ED on 10/01/17. for generalized weakness, AMS, chest pain and hypoxia/tachycardia/hypotension. PEA arrest in ED with ROSC. Patient subsequently admitted to ICU for TPA. Trach 10/11-10/20. Patient discharged to [facility] on 10/20/18. He denies fevers or chills. - History Source History Provided By: Patient, Medical Record - Past Medical History Cardio/Vascular: Yes: HTN, Hyperlipdemia, Other (Cardiac Arrest) Pulmonary: Yes: Pulmonary Embolus Endocrine: Yes: Diabetes Mellitus - Alcohol/Substance Use Hx Alcohol Use: No - Smoking History Smoking history: Never smoked Have you smoked in the past 12 months: No - Social History Usual Living Arrangement: With Significant Other ADL: Independent History of Recent Travel: No Home Medications - Allergies Allergies/Adverse Reactions: Allergies Allergy/AdvReac Type Severity Reaction Status Date / Time No Known Allergies Allergy Verified 11/20/18 02:32 - Home Medications Home Medications: Ambulatory Orders Amlodipine Besylate [Norvasc -] 5 mg PO DAILY #30 tablet 10/20/18 Apixaban [Eliquis -] 5 mg PO BID #60 tablet 10/20/18 Insulin (Levemir) [Levemir Vial] 26 units SQ AM #30 units 10/20/18 Polyethylene Glycol 3350 [Miralax 119 gm Btl -] 17 gm PO DAILY #1 bottle Insulin (Novolog) [Novolog] 0 units SQ BID 11/20/18 Methylprednisolone [Medrol Dose Mac] 4 mg PO ASDIR 11/20/18 Family Disease History - Family Disease History Family History: Unremarkable (no early CAD or SCD) Review of Systems Findings/Remarks: see HPI - Review of Systems Eyes: reports: No Symptoms HENT: reports: No Symptoms Neck: reports: No Symptoms Cardiovascular: reports: Chest Pain, Shortness of Breath Respiratory: reports: SOB on Exertion Gastrointestinal: denies: No Symptoms, Abdominal Pain, Bloating, Constipation, Diarrhea, Dysphagia, Indigestion, Melena, Nausea, Rectal Bleeding, Vomiting, Vomiting Blood, Other Genitourinary: denies: No Symptoms, Burning, Discharge, Dysuria, Flank Pain, Frequency, Hematuria, Incontinence, Lesions, Menses, Pain, Testicular Mass, Testicular Pain, Testicular Swelling, Urgency, Vaginal Bleeding, Other Breasts: denies: No Symptoms Reported, See HPI, Breast Implants, Discharge from Nipple, Lumps, Pain, Skin Changes, Other Musculoskeletal: denies: No Symptoms, Back Pain, Crepitus, Decreased ROM, Extremity Pain, Joint Pain, Joint Swelling, Muscle Pain, Muscle Cramps, Muscle Weakness, Other Integumentary: denies: No Symptoms, Blister, Bruising, Change in Color, Eczema, Erythema, Incision, Lesions, Lump, Pallor, Pruritis, Rash, Wound, Other Neurological: denies: No Symptoms, Change in LOC, Change in Speech, Confusion, Dizziness, Headache, Incoordination, Numbness, Parasthesia, Pre-Existing Deficit , Seizure, Syncope, Tremors, Unsteady Gait, Weakness, Other Endocrine: denies: No Symptoms, Excessive Sweating, Flushing, Increased Hunger, Increased Thirst, Intolerance to Cold, Intolerance to Heat, Unexplained Weight Gain, Unexplained Weight Loss, Other Hematology/Lymphatic: denies: No Symptoms, Easily Bruised, Excessive Bleeding, Swollen Glands, Other Psychiatric: denies: No Symptoms, Altered Sleep Pattern, Anxiety, Depression, Hallucinations, Panic, Paranoia, Suicidal, Other - Risk Factors Known Risk Factors: Yes: Diabetes Mellitus, Hypercholesterolemia Vital Signs: Vital Signs Temperature 98.7 F 11/20/18 03:53 Pulse Rate 105 H 11/20/18 06:30 Respiratory Rate 16 11/20/18 06:30 Blood Pressure 135/83 11/20/18 06:30 O2 Sat by Pulse Oximetry (%) 99 11/20/18 06:30 Constitutional: Yes: No Distress Respiratory: Yes: Other (decreased breath sounds b/l, no active wheezing) Gastrointestinal: Yes: Soft, Abdomen, Obese Cardiovascular: Yes: Regular Rate and Rhythm JVD: No Carotid Bruit: No Heart Sounds: Yes: S1, S2 (RRR, no murmurs) Edema: No Peripheral Pulses WNL: Yes Neurological: Yes: Alert, Oriented - Other Data Labs, Other Data: CBC, BMP 11/20/18 03:28 11/20/18 03:28 Troponin, BNP 11/20/18 03:28 Troponin I < 0.03 B-Natriuretic Peptide 39.8 Troponin, BNP 11/20/18 03:28 Troponin I < 0.03 B-Natriuretic Peptide 39.8 Echo: Pending Ejection Fraction %: LVEF > or = 40 % Imaging - Results Cat Scan: Report Reviewed (No PE) EKG: Image Reviewed (NSR, 97, left axis, LAE) Assessment/Plan IMP: 1. Recent PE s/p lytics on AC 2. Dyspnea on exertion 3. Atypical CP REC: 1. CTA negative for recurrent PE 2. Cycle cardiac enzymes 3. Echo 4. Cont AC 5. Stress MPI prior to discharge (several risk factor including DM) Will follow Thank you
[2018-11-20] MEDS: amLODIPine BESYLATE 5 MG TABLET (FP) PO SCH (10:11)
[2018-11-20] MEDS: APIXABAN 5 MG TABLET PO SCH ×2 (10:11→22:02)
--- NOTE | 2018-11-20 11:31 | EKG ---
Test Reason : Blood Pressure : / mmHG Vent. Rate : 097 BPM Atrial Rate : 097 BPM P-R Int : 158 ms QRS Dur : 076 ms QT Int : 356 ms P-R-T Axes : 063 -07 062 degrees QTc Int : 452 ms POOR DATA QUALITY, INTERPRETATION MAY BE ADVERSELY AFFECTED NORMAL SINUS RHYTHM WITH SINUS ARRHYTHMIA Confirmed by MIKE GUPTA MD ([id number]) on 11/20/2018 11:31:52 AM Referred By: Confirmed By:MIKE GUPTA MD
[2018-11-20 11:43] LABS: MAGNESIUM 2.2 mg/dL (1.8-2.4)
--- NOTE | 2018-11-20 13:17 | ECHO ---
Name: DELAROSAYEYO Exam:Adult Echocardiogram Study Date: 11/20/2018 12:32 PM Age: 43 yrs Reason For Study: Chest pain Height: 66 in Weight: 200 lb BSA: 2.0 m2 MMode/2D Measurements & Calculations IVSd: 1.1 cm Ao root diam: 2.8 cm LVIDd: 4.0 cm LA dimension: 2.6 cm LVIDs: 2.6 cm LVPWd: 0.87 cm EDV(Teich): 71.3 ml LVOT diam: 2.0 cm ESV(Teich): 24.6 ml LAV (MOD-bp): 17.5 ml Doppler Measurements & Calculations MV E max adrián: 89.7 cm/sec Ao V2 max: 114.0 cm/sec MV A max adrián: 114.0 cm/sec Ao max P.2 mmHg MV E/A: 0.79 MV dec time: 0.08 sec VICENTA(V,D): 2.7 cm2 LV V1 max P.6 mmHg PA V2 max: 107.2 cm/sec LV V1 max: 95.1 cm/sec PA max P.6 mmHg Med Peak E' Adrián: 7.7 cm/sec Med E/e': 11.6 Lat Peak E' Adrián: 11.6 cm/sec Lat E/e': 7.7 Left Ventricle Left ventricular systolic function is normal. Ejection Fraction = 60-65%. The transmitral spectral Do ppler flow pattern is suggestive of impaired LV relaxation. Right Ventricle The right ventricle is normal in size and function. Atria The left atrium is mildly dilated. Right atrial size is normal. Mitral Valve The mitral valve is normal in structure and function. There is no mitral valve stenosis. There is tra ce mitral regurgitation. Tricuspid Valve The tricuspid valve is normal in structure and function. Aortic Valve The aortic valve opens well. No hemodynamically significant valvular aortic stenosis. No aortic regur gitation is present. Pulmonic Valve The pulmonic valve is not well seen, but is grossly normal. There is no pulmonic valvular stenosis. Great Vessels The aortic root is normal size. Pericardium/Pleura There is no pericardial effusion. Interpretation Summary Left ventricular systolic function is normal. Ejection Fraction = 60-65%. The transmitral spectral Doppler flow pattern is suggestive of impaired LV relaxation. The right ventricle is normal in size and function. The left atrium is mildly dilated. There is trace mitral regurgitation. There is no pericardial effusion. MD Murdock *Kristen 11/20/2018 01:17 PM
--- NOTE | 2018-11-20 13:48 | PN ---
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 (short form) - Note 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: pt seen/ examined in er chart reviewed awake no distress Vital Signs Temp 98.7 F 11/20/18 03:53 Pulse 105 H 11/20/18 06:30 Resp 16 11/20/18 06:30 BP 135/83 11/20/18 06:30 Pulse Ox 99 11/20/18 06:30 Intake & Output 11/19/18 11/20/18 11/20/18 23:59 11:59 23:59 Weight 200 lb Other: Voiding Method Urinal Height 5 ft 6 in Body Mass Index (BMI) 32.3 Weight Measurement Method Est/Stated by Patient Active Medications Albuterol/Ipratropium (Duoneb -) 1 amp NEB Q6H PRN PRN Reason: SHORTNESS OF BREATH Amlodipine Besylate (Norvasc -) 5 mg PO DAILY [facility] Last Admin: 11/20/18 10:11 Dose: 5 mg Apixaban (Eliquis -) 5 mg PO BID [facility] Last Admin: 11/20/18 10:11 Dose: 5 mg Insulin Aspart (Novolog Vial Sliding Scale -) 1 vial SQ [facility]; Protocol Last Admin: 11/20/18 12:00 Dose: 4 unit CBC, BMP 11/20/18 03:28 11/20/18 03:28 physical Exam S1S2 RRR Lungs clear stridor + Abd- soft, NT Ext- no edema a/p Discussed PE ruled out. Monitor bgm continue present care Meds reviewed Ent and Pulmonary consults will follow
[2018-11-20] MEDS ORDERED: INSULIN REGULAR HUMAN 100 UNITS/ML *VIAL ONE (14:05)
--- NOTE | 2018-11-20 17:28 | CON.PULM ---
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 PATIENT WAS DISCHARGED LAST WEEK TO HOME WHEN HE DEVELOPED PROGRESSIVE SOB ON EXERTION. IT IS NOTED THAT PATIENT HAS INSP STRIDOR WHICH IS TRANSMITTED THROUGHOUT BOTH LUNG LEBRON. 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 Cardio/Vascular: Yes: HTN, Hyperlipdemia, Other (PEA ARREST) Pulmonary: Yes: Pulmonary Embolus Gastrointestinal: No: Ascites Hepatobiliary: No: Cirrhosis Renal/: No: Renal Failure Heme/Onc: No: Anemia Endocrine: Yes: Diabetes Mellitus - Alcohol/Substance Use Hx Alcohol Use: No - Smoking History Smoking history: Never smoked Have you smoked in the past 12 months: No - Social History Usual Living Arrangement: With Significant Other ADL: Independent Place of : Other History of Recent Travel: No Home Medications - Allergies Allergies/Adverse Reactions: Allergies Allergy/AdvReac Type Severity Reaction Status Date / Time No Known Allergies Allergy Verified 11/20/18 02:32 - Home Medications Home Medications: Ambulatory Orders Amlodipine Besylate [Norvasc -] 5 mg PO DAILY #30 tablet 10/20/18 Apixaban [Eliquis -] 5 mg PO BID #60 tablet 10/20/18 Insulin (Levemir) [Levemir Vial] 26 units SQ AM #30 units 10/20/18 Polyethylene Glycol 3350 [Miralax 119 gm Btl -] 17 gm PO DAILY #1 bottle Insulin (Novolog) [Novolog] 0 units SQ BID 11/20/18 Methylprednisolone [Medrol Dose Mac] 4 mg PO ASDIR 11/20/18 Family Disease History - Family Disease History Family History: Unremarkable Review of Systems - Review of Systems Constitutional: denies: Fever Eyes: denies: Blurred Vision HENT: denies: Difficult Swallowing Neck: denies: Decreased ROM Cardiovascular: denies: Chest Pain Respiratory: reports: Cough, Exercise Intolerance, SOB, SOB on Exertion, Wheezing. denies: Hemoptysis Gastrointestinal: reports: No Symptoms Genitourinary: reports: No Symptoms Physical Exam Vital Sings: Vital Signs Temperature 99.0 F 11/20/18 15:31 Pulse Rate 98 H 11/20/18 15:31 Respiratory Rate 16 11/20/18 15:31 Blood Pressure 134/82 11/20/18 15:31 O2 Sat by Pulse Oximetry (%) 99 11/20/18 15:31 Constitutional: Yes: Calm Eyes: Yes: EOM Intact HENT: Yes: Normocephalic Neck: Yes: Trachea Midline Cardiovascular: Yes: S1, S2 Respiratory: Yes: Stridor, Other (STRIDOR OVER TRACHEA WITH TRANSMISSION TO BILATERAL LUNGFIELDS) Gastrointestinal: Yes: Normal Bowel Sounds Edema: No Labs: CBC, BMP 11/20/18 03:28 11/20/18 03:28 Imaging - Results Chest X-ray: Report Reviewed, Image Reviewed Cat Scan: Report Reviewed, Image Reviewed Problem List - Problems (1) Inspiratory stridor Code(s): R06.1 - STRIDOR (2) Dyspnea Code(s): R06.00 - DYSPNEA, UNSPECIFIED (3) History of pulmonary embolism Code(s): Z86.711 - PERSONAL HISTORY OF PULMONARY EMBOLISM (4) SOB (shortness of breath) Code(s): R06.02 - SHORTNESS OF BREATH (5) Bilateral pulmonary embolism Code(s): I26.99 - OTHER PULMONARY EMBOLISM WITHOUT ACUTE COR PULMONALE (6) Cardiac arrest Code(s): I46.9 - CARDIAC ARREST, CAUSE UNSPECIFIED Assessment/Plan LIKELY UPPER AIRWAY OBSTRUCTION NEED TO R/O TRACHEALMALACIA/TRACHEAL STENOSIS WOULD REQUEST ENT EVAL FOR LARYNGOSCOPY CONTINUE HUMIDIFIED O2/LOW DOSE STEROIDS MONITOR TEMP CONTINUE TELE MONITORING FOR NOW WILL FOLLOW Jaswinder THACKER MD
[2018-11-21] MEDS: INSULIN SLIDING SCALE (NOVOLOG) 1 VIAL SQ SCH ×4 (06:51→22:26)
[2018-11-21 06:58] LABS: BASO % 0.6 % (0-2.0); EOS % 0.2 % (0-4.5); HEMATOCRIT 36.7 % (35.4-49); HEMOGLOBIN 12.5 GM/dL (11.7-16.9); LYMPH % 41.2 % (8-40); MCH 31.8 pg (25.7-33.7); MEAN CELL VOLUME 93.4 fl (80-96); MEAN PLT VOLUME 8.7 fl (7.5-11.1); MONO % 7.8 % (3.8-10.2); NEUT % 50.2 % (42.8-82.8); PLATELET COUNT 375 K/MM3 (134-434); RBC 3.93 M/mm3 (4.00-5.60); RDW 13.4 % (11.9-15.9); WHITE BLOOD COUNT 9.2 K/mm3 (4.0-10.0)
[2018-11-21 07:29] LABS: BLOOD UREA NITROGEN 13.2 mg/dL (7-18); CREATININE 0.8 mg/dL (0.55-1.3); POTASSIUM 3.9 mmol/L (3.5-5.1)
[2018-11-21] MEDS: APIXABAN 5 MG TABLET PO SCH ×2 (09:09→22:26)
[2018-11-21] MEDS: amLODIPine BESYLATE 5 MG TABLET (FP) PO SCH (09:10)
--- NOTE | 2018-11-21 09:48 | PN ---
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, Physician History of Present Illness: PULMONARY ALERT,COMFORTABLE,-RESP DISTRESS - Current Medication List Current Medications: Active Medications Albuterol/Ipratropium (Duoneb -) 1 amp NEB Q6H PRN PRN Reason: SHORTNESS OF BREATH Last Admin: 11/21/18 06:55 Dose: 1 amp Amlodipine Besylate (Norvasc -) 5 mg PO DAILY [facility] Last Admin: 11/21/18 09:10 Dose: 5 mg Apixaban (Eliquis -) 5 mg PO BID [facility] Last Admin: 11/21/18 09:09 Dose: 5 mg Insulin Aspart (Novolog Vial Sliding Scale -) 1 vial SQ ACHS [facility]; Protocol Last Admin: 11/21/18 06:51 Dose: 4 unit - Objective Vital Signs: Vital Signs Temperature 97.3 F L 11/21/18 08:48 Pulse Rate 98 H 11/21/18 08:48 Respiratory Rate 20 11/21/18 08:50 Blood Pressure 139/92 11/21/18 08:48 O2 Sat by Pulse Oximetry (%) 98 11/21/18 08:50 Constitutional: Yes: Well Nourished, Calm Eyes: Yes: WNL HENT: Yes: WNL Neck: Yes: Other (+ INSPIRATORY STRIDOR) Cardiovascular: Yes: Regular Rate and Rhythm, S1, S2 Respiratory: Yes: Other (TRANSMITTED UPPER AIRWAY BS) Gastrointestinal: Yes: Normal Bowel Sounds, Soft Extremities: Yes: WNL Edema: No Labs: CBC, BMP 11/21/18 05:00 11/21/18 05:00 Assessment/Plan Problem List - Problems (1) Inspiratory stridor Code(s): R06.1 - STRIDOR (2) Dyspnea Code(s): R06.00 - DYSPNEA, UNSPECIFIED (3) History of pulmonary embolism Code(s): Z86.711 - PERSONAL HISTORY OF PULMONARY EMBOLISM (4) SOB (shortness of breath) Code(s): R06.02 - SHORTNESS OF BREATH (5) Bilateral pulmonary embolism Code(s): I26.99 - OTHER PULMONARY EMBOLISM WITHOUT ACUTE COR PULMONALE (6) Cardiac arrest Code(s): I46.9 - CARDIAC ARREST, CAUSE UNSPECIFIED Assessment/Plan LIKELY UPPER AIRWAY OBSTRUCTION NEED TO R/O TRACHEALMALACIA/TRACHEAL STENOSIS ENT EVAL FOR LARYNGOSCOPY CONTINUE HUMIDIFIED O2/LOW DOSE STEROIDS MONITOR TEMP ENT EVALUATION PENDING DR BROWN
--- NOTE | 2018-11-21 09:50 | PN ---
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, Physician Chief Complaint: sob, chest pain History of Present Illness: still sob. states he ONLY FEELS CHEST PRESSURE WHEN HE CAN'T GET DEEP BREATH IN AND IS TRYING TO PULL AIR. sob when walks--NO CP WITH WALKING no palp, leg swelling - Current Medication List Current Medications: Active Medications Albuterol/Ipratropium (Duoneb -) 1 amp NEB Q6H PRN PRN Reason: SHORTNESS OF BREATH Last Admin: 11/21/18 06:55 Dose: 1 amp Amlodipine Besylate (Norvasc -) 5 mg PO DAILY [facility] Last Admin: 11/21/18 09:10 Dose: 5 mg Apixaban (Eliquis -) 5 mg PO BID [facility] Last Admin: 11/21/18 09:09 Dose: 5 mg Insulin Aspart (Novolog Vial Sliding Scale -) 1 vial SQ ACHS [facility]; Protocol Last Admin: 11/21/18 06:51 Dose: 4 unit - Objective Vital Signs: Vital Signs Temperature 97.3 F L 11/21/18 08:48 Pulse Rate 98 H 11/21/18 08:48 Respiratory Rate 20 11/21/18 08:50 Blood Pressure 139/92 11/21/18 08:48 O2 Sat by Pulse Oximetry (%) 98 11/21/18 08:50 Constitutional: Yes: Well Nourished, No Distress, Calm Cardiovascular: Yes: Regular Rate and Rhythm, S1, S2. No: JVD, Gallop, Murmur Respiratory: Yes: Regular, Stridor, Wheezes (? transmitted upper airway). No: CTA Bilaterally, Accessory Muscle Use, Rales Extremities: No: Cold Edema: No Neurological: Yes: Alert, Oriented Psychiatric: No: Agitated Labs: CBC, BMP 11/21/18 05:00 11/21/18 05:00 Assessment/Plan Echo 11/11: nl LV, nl RV. mild LAE. valve fxn WNL IMP: 1. Recent PE s/p lytics on AC 2. Dyspnea, + stridor. BNP <<100 (1K at time of acute PE/RV strain). no congestion/effusions on CT. sats good on RA. 3. Atypical cp, described as pressure when trying to pull in deep breath. trop neg x 3, ecg no ischemia. CTA negative for recurrent PE 4. DM 5. HTN--bp stable REC: -pulm input appreciated: ENT eval to r/o tracheomalacia/tracheal stenosis, in light of stridor on exam -suspect chest pressure occuring in context of pulling deep breath against resistance is related to above as well--if no tracheal pathology identified, or if sx's persist despite treatment of airways issues, then will pursue ischemia eval -Cont AC -cont amlodipine for bp
--- NOTE | 2018-11-21 14:37 | PN ---
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 (short form) - Note 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: pt seen/ examined chart reviewed awake/comfortable no distress BUt +ve stridor Mother at bedside Vital Signs Temp 97.3 F L 11/21/18 08:48 Pulse 98 H 11/21/18 08:48 Resp 20 11/21/18 08:50 BP 139/92 11/21/18 08:48 Pulse Ox 98 11/21/18 08:50 Intake & Output 11/20/18 11/21/18 11/21/18 23:59 11:59 23:59 Intake Total 320 10 Balance 320 10 Weight 200 lb Intake: IV 20 10 Saline Lock 20 10 IVPB 0 Oral 300 Other: Voiding Method Urinal Urinal Bowel Movement Yes Height 5 ft 6 in Body Mass Index (BMI) 32.3 Active Medications Albuterol/Ipratropium (Duoneb -) 1 amp NEB Q6H PRN PRN Reason: SHORTNESS OF BREATH Last Admin: 11/21/18 06:55 Dose: 1 amp Amlodipine Besylate (Norvasc -) 5 mg PO DAILY [facility] Last Admin: 11/21/18 09:10 Dose: 5 mg Apixaban (Eliquis -) 5 mg PO BID [facility] Last Admin: 11/21/18 09:09 Dose: 5 mg Insulin Aspart (Novolog Vial Sliding Scale -) 1 vial SQ ACHS [facility]; Protocol Last Admin: 11/21/18 11:37 Dose: 2 unit CBC, BMP 11/21/18 05:00 11/21/18 05:00 ct neck-- Done - Report pending physical Exam S1S2 RRR Lungs clear stridor + Abd- soft, NT Ext- no edema a/p Discussed PE ruled out. Monitor bgm continue present care Meds reviewed Ent and Pulmonary consults ct neck- report pending close monitoring will follow Problem List - Problems (1) History of pulmonary embolism Code(s): Z86.711 - PERSONAL HISTORY OF PULMONARY EMBOLISM (2) Inspiratory stridor Code(s): R06.1 - STRIDOR (3) SOB (shortness of breath) Code(s): R06.02 - SHORTNESS OF BREATH (4) Diabetes Code(s): E11.9 - TYPE 2 DIABETES MELLITUS WITHOUT COMPLICATIONS
[2018-11-22] MEDS ORDERED: HYDROCORTISONE SOD SUCCINATE 100 MG/2 ML VIAL IVPUSH ONE (05:19)
[2018-11-22] MEDS ORDERED: DEXAMETHASONE SOD PHOSPHATE 10 MG/1 ML VIAL IVPUSH ONE (05:29)
[2018-11-22] MEDS ORDERED: DEXAMETHASONE SOD PHOSPHATE 10 MG/1 ML VIAL ONE (05:31)
[2018-11-22] MEDS ORDERED: KETAMINE HCL 200 MG/20 ML VIAL IVPUSH ONE (05:35)
[2018-11-22] MEDS ORDERED: KETAMINE HCL 200 MG/20 ML VIAL ONE (05:43)
--- NOTE | 2018-11-22 05:46 | RAPID ---
Physical Examination Vital Signs: Vital Signs Temperature 98.1 F 11/22/18 02:00 Pulse Rate 81 11/22/18 02:00 Respiratory Rate 20 11/22/18 02:00 Blood Pressure 144/95 11/22/18 02:00 O2 Sat by Pulse Oximetry (%) 98 11/21/18 21:00 Findings/Remarks: Rapid Response Called overhead as pt was in acute respiratory distress, gasping for air, using accessory muscles for respiration O2 Saturation 100%, 147/78, HR 130s, on 5L NC PE Acute Distress, accessory muscles used for respiration Tachycardic Decreased breath sounds with diffuse wheezing throughout Plan: Given Nebulized Epinephrine 10 mg Decadron Anesthesia paged STAT. Pt brought to ICU and underwent Fiberoptic intubation ( administered Ketamine, Versed, and Propofol for sedation). Patient was pre treated with glycopyrrolate- 0.4mg. 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 CXR and ABG ordered. Labs: CBC, BMP 11/21/18 05:00 11/21/18 05:00
[2018-11-22] MEDS ORDERED: GLYCOPYRROLATE 0.2 MG/1 ML VIAL IM ONE (05:50)
[2018-11-22] MEDS: GLYCOPYRROLATE 0.2 MG/1 ML VIAL IVPB ONE ×2 (06:15→19:40)
[2018-11-22] MEDS ORDERED: PROPOFOL 1,000,000 MCG/100 ML VIAL ONE (06:44)
[2018-11-22] MEDS ORDERED: VECURONIUM BROMIDE 50 MG in DEXTROSE 5%-WATER - 250 ML IV ONE ×2 (06:54→07:40)
[2018-11-22] MEDS ORDERED: MIDAZOLAM HCL 5 MG/1 ML Single Dose Vial ONE (07:00)
[2018-11-22] MEDS ORDERED: ESMOLOL HCL 100,000 MCG/10 ML VIAL ONE (07:01)
--- NOTE | 2018-11-22 07:16 | PN ---
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 (short form) - Note 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: Anesthesiology Intubation Note Called to bedside to evaluate patient who was in respiratory distress. he has a history of tracheostomy s/p cardiac arrest secondary to pulmonary embolus and was decanulated two months ago. He was admitted for stridor and shortness of breath. On exam, he had labored breathing with prolonged expiratory times. Review of CT showed narrowing of the trachea The patient was transferred to ICU and prepared for intubation. The oropharynx was anesthetized with nebulized 4% lidocaine and guaze soaked in 4% lidocaine was applied to the tonsilar pillars. The patient was also treated with nebulized epinephrine and given 10mg decadron IV. The patient was pre treated with glycopyrrolate a total of 0.4mg. The patient was induced titrating versed and ketamine to retain spontaneous ventilation. A glidescope #3 blade was used to visualize the vocal cords which appeared grossly normal. A 6.0 cuffed ett was attempted to pass through the cords but the cords remained closed. Additional ketamine and versed were given for a total of 150mg ketamine and 5mg versed. The ETT was passed but met resistance in the immediate subglottic space. A bronchscope was passed to visualize the subglottic space but could not be advanced past the stenosis. A soft bougie was used to advance past the stenosis with moderate resistance. the ETT was then passed over the bougie with confirmation of placement by calorimetry and auscultation. The patient was then given 200mg propofol and 100mg rocuronium. Care was then handed over to the ICU team
[2018-11-22] MEDS: PROPOFOL 1,000,000 MCG/100 ML VIAL IVPB SCH ×2 (07:17→13:59)
[2018-11-22] MEDS ORDERED: fentaNYL CITRATE 250 MCG/5 ML VIAL ONE ×2 (07:19→11:42)
[2018-11-22] MEDS ORDERED: VECURONIUM BROMIDE 10 MG VIAL ONE (07:20)
[2018-11-22] MEDS ORDERED: VECURONIUM BROMIDE 50 MG VIAL IVPUSH ONE (07:22)
[2018-11-22] MEDS: FENTANYL INJECTION 500 MCG in DEXTROSE 5%-WATER - 90 ML IVPB SCH ×2 (07:31→11:54)
[2018-11-22] MEDS ORDERED: RAPID SEQUENCE INTUBATION KIT NR ONE (07:38)
[2018-11-22 08:11] LABS: ARTERIAL BLD GAS O2 SATURATION 98.2 % (95-98); ARTERIAL BLOOD GAS BASE EXCESS -0.6 meq/l (-2-2); ARTERIAL BLOOD GAS PCO2 57.9 mmHg (35-45); ARTERIAL BLOOD GAS PO2 123 mmHg (80-105); ARTERIAL BLOOD GAS pH 7.29 (7.35-7.45)
[2018-11-22 08:22] LABS: ALLENS TEST POSITIVE
--- NOTE | 2018-11-22 08:25 | PN ---
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 (short form) - Note 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: Pulm/CCM follow up Pt seen and examined in ICU 24HR: -acutely obstructed last night requiring fiberoptic assisted intubation -obstruction below vocal cords, likley granuloma, no ENT avail overnight -now deep sedation and chemical paralysis, awaiting plan for trach/surg to resolve obstruction, may need transfer Current Medications Albuterol/Ipratropium (Duoneb -) 1 amp NEB Q6H PRN PRN Reason: SHORTNESS OF BREATH Last Admin: 11/21/18 06:55 Dose: 1 amp Amlodipine Besylate (Norvasc -) 5 mg PO DAILY [facility] Last Admin: 11/21/18 09:10 Dose: 5 mg Apixaban (Eliquis -) 5 mg PO BID [facility] Last Admin: 11/21/18 22:26 Dose: 5 mg Propofol (Diprivan -) 1,000,000 mcg in 100 mls @ 5.443 mls/hr IVPB TITR [facility]; Protocol Last Titration: 11/22/18 07:18 Dose: 40 mcg/kg/min, 21.772 mls/hr Fentanyl 500 mcg/ Dextrose 100 mls @ 20 mls/hr IVPB TITR [facility] Last Admin: 11/22/18 07:31 Dose: 100 mcg/hr, 20 mls/hr Vecuronium [place] 50 mg/ (Dextrose) 250 mls @ 21.77 mls/hr IV ASDIR ONE Stop: 11/22/18 18:23 Last Admin: 11/22/18 08:02 Dose: 21.77 mls/hr Insulin Aspart (Novolog Vial Sliding Scale -) 1 vial SQ ACHS [facility]; Protocol Last Admin: 11/21/18 22:26 Dose: 2 unit Vital Signs Temp 98 F 11/22/18 06:00 Pulse 142 H 11/22/18 06:00 Resp 24 H 11/22/18 06:59 BP 167/104 H 11/22/18 06:00 Pulse Ox 97 11/22/18 06:59 Intake & Output 11/21/18 11/21/18 11/22/18 11:59 23:59 11:59 Intake Total 10 460 0 Balance 10 460 0 Intake: IV 10 10 Saline Lock 10 10 IVPB 0 Oral 450 0 Other: Voiding Method Urinal Urinal Bowel Movement No Laboratory Results - last 24 hr 11/21/18 11/21/1819 11:27 16:46 22:25 Anticoagulation Therapy O2 Delivery Device Oxygen Flow Rate Vent Mode Vent Rate Mechanical Rate Pressure Support Vent POC Glucometer 215 180 153 11/22/18 11/22/18 05:19 07:50 Anticoagulation Therapy No Result Required. O2 Delivery Device No Result Required. Oxygen Flow Rate No Result Required. Vent Mode No Result Required. Vent Rate No Result Required. Mechanical Rate No Result Required. Pressure Support Vent No Result Required. POC Glucometer 168 CBC, BMP 11/21/18 05:00 11/21/18 05:00 CT of chest and neck reviewed, noted obstruction 3-4cm below vocal cords, above cheryl PE: Gen; intubated sedated paralyzed HEENT: PERRL, well secured ETT, old trach scar well healed PULM: diminished on L but bilateral BS CV: tachy, regular ABD: obese, soft Neuro: sedated, NMB on board. 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
[2018-11-22] MEDS ORDERED: BENZOIN/ALOE VERA/STORAX/TOLU 58 ML BOTTLE ONE (08:34)
--- NOTE | 2018-11-22 09:23 | PN ---
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, Physician Chief Complaint: sob History of Present Illness: d/wd crit care PA: pt with acute resp distress last night, stridorous/wheezing. difficult intubation secondary to obstruction--able to be intubated non- traumatically and pt never arrested, lost pulse, or lost consciousness. CT not yet read, reviewed by crit care showing calcified granuloma likely the cause of obstruction pt currently intubated, sedated. breath sounds normal anteriorly. no stridor - Current Medication List Current Medications: Active Medications Albuterol/Ipratropium (Duoneb -) 1 amp NEB Q6H PRN PRN Reason: SHORTNESS OF BREATH Last Admin: 11/21/18 06:55 Dose: 1 amp Amlodipine Besylate (Norvasc -) 5 mg PO DAILY [facility] Last Admin: 11/21/18 09:10 Dose: 5 mg Artificial Tears (Lacri-Lube Eye Ointment -) 1 applic OU BID [facility] Propofol (Diprivan -) 1,000,000 mcg in 100 mls @ 5.443 mls/hr IVPB TITR [facility]; Protocol Last Titration: 11/22/18 07:18 Dose: 40 mcg/kg/min, 21.772 mls/hr Fentanyl 500 mcg/ Dextrose 100 mls @ 20 mls/hr IVPB TITR [facility] Last Admin: 11/22/18 07:31 Dose: 100 mcg/hr, 20 mls/hr Vecuronium [place] 50 mg/ (Dextrose) 250 mls @ 21.77 mls/hr IV ASDIR ONE Stop: 11/22/18 18:23 Last Admin: 11/22/18 08:02 Dose: 21.77 mls/hr Famotidine/Sodium Chloride (Pepcid 20 Mg Premixed Ivpb -) 20 mg in 50 mls @ 100 mls/hr IVPB BID [facility] Insulin Aspart (Novolog Vial Sliding Scale -) 1 vial SQ ACHS [facility]; Protocol Last Admin: 11/21/18 22:26 Dose: 2 unit - Objective Vital Signs: Vital Signs Temperature 98 F 11/22/18 06:00 Pulse Rate 126 H 11/22/18 08:21 Respiratory Rate 24 H 11/22/18 08:21 Blood Pressure 167/104 H 11/22/18 06:00 O2 Sat by Pulse Oximetry (%) 97 11/22/18 08:21 Constitutional: Yes: Well Nourished, No Distress, Calm Cardiovascular: Yes: Regular Rate and Rhythm, S1, S2. No: Gallop, Murmur Respiratory: Yes: Regular, CTA Bilaterally. No: Accessory Muscle Use, Rales, Stridor, Wheezes (anteriorly examined) Extremities: No: Cold Edema: No Neurological: No: Alert, Oriented Psychiatric: No: Agitated Labs: CBC, BMP 11/21/18 05:00 11/21/18 05:00 Assessment/Plan Echo 11/11: nl LV, nl RV. mild LAE. valve fxn WNL tele: nsr with sinus tach IMP: 1. Recent PE s/p lytics on AC 2. Dyspnea, + stridor. no signs CHF. suspected tracheal obstruction. 3. Atypical cp, described as pressure when trying to pull in deep breath. trop neg x 3, ecg no ischemia. CTA negative for recurrent PE 4. DM 5. HTN--bp stable REC: -CT neck yest not yet read, per crit care this shows calcified granuloma likely the cause of upper airway obstruction -thoracic surgery consulted (chavo) regarding best option to deal with obstruction--critical care has d/w'd dr tony and pt to be transferred to [place] for rigid bronchoscopy -ischemia eval not warranted, given chest sx's clearly related to work of breathing/straining against obstructed upper airway (see prior note) -Cont AC -cont amlodipine for bp for now--low threshold to hold if bp's trend down with sedation
[2018-11-22] MEDS ORDERED: OCULAR LUBRICANT OPHTHALMIC OINTMENT 7 GM TUBE OU SCH (10:00)
[2018-11-22] MEDS ORDERED: FAMOTIDINE 20 MG/50 ML IVPB 20 MG/50 ML MG IVPB SCH (10:00)
[2018-11-22] MEDS: amLODIPine BESYLATE 5 MG TABLET (FP) PO SCH (10:55)
[2018-11-22] MEDS ORDERED: PT OWN MED DRAWER 7, Y5N ONE (11:44)
[2018-11-22] MEDS: INSULIN SLIDING SCALE (NOVOLOG) 1 VIAL SQ SCH ×3 (12:07→12:10)
--- NOTE | 2018-11-22 13:13 | PN ---
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, Physician History of Present Illness: Events noted Intubated last night due to respiratory distress sedated Discussed with Rn/ Critical care team attending- Eamon - Current Medication List Current Medications: Active Medications Albuterol/Ipratropium (Duoneb -) 1 amp NEB Q6H PRN PRN Reason: SHORTNESS OF BREATH Last Admin: 11/21/18 06:55 Dose: 1 amp Artificial Tears (Lacri-Lube Eye Ointment -) 1 applic OU BID [facility] Last Admin: 11/22/18 11:53 Dose: 1 applic Dexamethasone Sodium Phosphate (Decadron Injection -) 4 mg IVPUSH Q8H-IV [facility] Propofol (Diprivan -) 1,000,000 mcg in 100 mls @ 5.443 mls/hr IVPB TITR [facility]; Protocol Last Titration: 11/22/18 10:01 Dose: 50 mcg/kg/min, 27.215 mls/hr Fentanyl 500 mcg/ Dextrose 100 mls @ 20 mls/hr IVPB TITR [facility] Last Admin: 11/22/18 11:54 Dose: 100 mcg/hr, 20 mls/hr Vecuronium [place] 50 mg/ (Dextrose) 250 mls @ 21.77 mls/hr IV ASDIR ONE Stop: 11/22/18 18:23 Last Admin: 11/22/18 08:02 Dose: 21.77 mls/hr Famotidine/Sodium Chloride (Pepcid 20 Mg Premixed Ivpb -) 20 mg in 50 mls @ 100 mls/hr IVPB BID [facility] Last Admin: 11/22/18 11:52 Dose: 100 mls/hr Insulin Aspart (Novolog Vial Sliding Scale -) 1 vial SQ ACHS [facility]; Protocol Last Admin: 11/22/18 12:10 Dose: 6 unit - Objective Vital Signs: Vital Signs Temperature 98.0 F 11/22/18 11:00 Pulse Rate 86 11/22/18 12:00 Respiratory Rate 20 11/22/18 12:00 Blood Pressure 107/73 11/22/18 12:00 O2 Sat by Pulse Oximetry (%) 97 11/22/18 08:21 Constitutional: Yes: Other (sedated/ intubated) Cardiovascular: Yes: Regular Rate and Rhythm Respiratory: Yes: Diminished Gastrointestinal: Yes: Soft Edema: No Labs: CBC, BMP 11/21/18 05:00 11/21/18 05:00 Problem List - Problems (1) History of pulmonary embolism Code(s): Z86.711 - PERSONAL HISTORY OF PULMONARY EMBOLISM (2) Inspiratory stridor Code(s): R06.1 - STRIDOR (3) SOB (shortness of breath) Code(s): R06.02 - SHORTNESS OF BREATH (4) Diabetes Code(s): E11.9 - TYPE 2 DIABETES MELLITUS WITHOUT COMPLICATIONS Assessment/Plan Discussed with critical team Agree with current management For transfer to [facility] today
[2018-11-22] MEDS ORDERED: SODIUM CHLORIDE 500 ML IV STA (13:48)
[2018-11-22] MEDS ORDERED: VECURONIUM BROMIDE 50 MG in DEXTROSE 5%-WATER - 250 ML IVPB SCH (15:03)
[2018-11-22 15:26] VITALS: BP 85/60; PULSE 74; TEMP 97.7
[2018-11-22 16:37] LABS: ARTERIAL BLD GAS O2 SATURATION 99.5 % (95-98); ARTERIAL BLOOD GAS BASE EXCESS 0.3 meq/l (-2-2); ARTERIAL BLOOD GAS PCO2 40.6 mmHg (35-45); ARTERIAL BLOOD GAS PO2 154 mmHg (80-105)
[2018-11-22 16:42] LABS: ALLENS TEST POSITIVE
[2018-11-22] MEDS ORDERED: DEXAMETHASONE SOD PHOSPHATE 4 MG/1 ML VIAL IVPUSH SCH (18:00)
--- NOTE | 2018-11-23 00:14 | EKG ---
Test Reason : Blood Pressure : / mmHG Vent. Rate : 068 BPM Atrial Rate : 068 BPM P-R Int : 158 ms QRS Dur : 092 ms QT Int : 430 ms P-R-T Axes : 046 003 026 degrees QTc Int : 457 ms NORMAL SINUS RHYTHM NONSPECIFIC ST ABNORMALITY ABNORMAL ECG WHEN COMPARED WITH ECG OF 20-NOV-2018 03:05, NONSPECIFIC T WAVE ABNORMALITY NO LONGER EVIDENT IN LATERAL LEADS Confirmed by MD Edna, Carlos ([id number]) on 11/23/2018 12:13:37 AM Referred By: Confirmed By:Carlos Bishop MD
--- NOTE | 2018-11-24 08:46 | DS ---
Physical Examination Vital Signs: Vital Signs Temperature 97.7 F 11/22/18 15:00 Pulse Rate 74 11/22/18 15:00 Respiratory Rate 20 11/22/18 16:31 Blood Pressure 85/60 L 11/22/18 15:00 O2 Sat by Pulse Oximetry (%) 97 11/22/18 08:21 Findings/Remarks: see progress note Labs: CBC, BMP 11/21/18 05:00 11/21/18 05:00 Discharge Summary Reason For Visit: SHORTNESS OF BREATH Hospital Course: transferred to [facility] for further management Condition: Fair - Instructions Disposition: TRANSFER ACUTE CARE/OTHER HOSP - Home Medications Comprehensive Discharge Medication List: Ambulatory Orders Amlodipine Besylate [Norvasc -] 5 mg PO DAILY #30 tablet 10/20/18 Apixaban [Eliquis -] 5 mg PO BID #60 tablet 10/20/18 Insulin (Levemir) [Levemir Vial] 26 units SQ AM #30 units 10/20/18 Polyethylene Glycol 3350 [Miralax 119 gm Btl -] 17 gm PO DAILY #1 bottle Insulin (Novolog) [Novolog] 0 units SQ BID 11/20/18 Methylprednisolone [Medrol Dose Mac] 4 mg PO ASDIR 11/20/18
== END 2018-11-22 17:00 | disposition short-term general hospital (02) | DRG 143 ==
LOC: JER 02:20 → JERBED 04:34 → J4W 14:24 → JICU 11-22 06:33
PROVIDERS: ADMIT Internal Medicine; ATTEND Internal Medicine
PROC: 5A1935Z Respiratory Ventilation, Less than 24 Consecutive Hours (ICD-10-PCS; principal; 2018-11-22)
PROC: 0BH17EZ Insertion of Endotracheal Airway into Trachea, Via Natural or Artificial Opening (ICD-10-PCS; 2018-11-22)
DX: J39.8 Other specified diseases of upper respiratory tract (principal); E87.1 Hypo-osmolality and hyponatremia; Z86.74 Personal history of sudden cardiac arrest; J38.6 Stenosis of larynx; E11.9 Type 2 diabetes mellitus without complications; Z79.01 Long term (current) use of anticoagulants; E66.9 Obesity, unspecified; I10 Essential (primary) hypertension; J98.8 Other specified respiratory disorders; E78.5 Hyperlipidemia, unspecified; Z79.4 Long term (current) use of insulin; R07.89 Other chest pain; R06.03 Acute respiratory distress; Z87.891 Personal history of nicotine dependence; Z86.711 Personal history of pulmonary embolism; Z68.32 Body mass index [BMI] 32.0-32.9, adult
CPT/HCPCS: 31500; 36415; 36600; 70490-TC; 71045-TC-FY; 71275-TC; 80048; 80053; 82550; 82803; 82962; 83735; 83880; 84100; 84484; 85025; 93005; 93010; 93306-TC; 94002; 94640; 99285-25; J1100

== ENCOUNTER 2019-01-02 15:49 | Emergency (ER) | payer OTHER | END 2019-01-02 20:27 | disposition short-term general hospital (02) | LOC: JER 15:49 ==

== ENCOUNTER 2019-01-26 09:15 | Emergency (ER) | payer OTHER ==
--- NOTE | 2019-01-26 09:43 | PDOC ---
Attending Attestation - Resident Resident Name: Abhi Fabian - ED Attending Attestation I have performed the following: I have examined & evaluated the patient, The case was reviewed & discussed with the resident, I agree w/resident's findings & plan, Exceptions are as noted - HPI HPI: 01/26/19 09:40 43y M hx of PE on eliquis, card arrest sp trach, presents with complaint of [place] for the past 2-3 days associated with occasional nasal congestion, cough productive of sputum. denies any leg swelling,hemoptysis, chronic lung disease, fever, chills, n/v, abd pain, cp, GENERAL: The patient is awake, alert, and fully oriented, Nontoxic - in no acute distress. HEAD: Normocephalic, atraumatic. EYES: extraocular movements intact, sclera anicteric, conjunctiva clear. ENT: Normal voice, Moist mucous membranes NECK: Normal range of motion, supple, mild stridor LUNGS: mild wheezing vs transmitted breath sounds, No acute respiratory distress HEART: Regular rate and rhythm, normal S1 and S2 without murmur, rub or gallop. ABDOMEN: Soft, nontender, No guarding, no rebound. No CVA tenderness EXTREMITIES: Normal range of motion, no edema. NEUROLOGICAL: No facial assymetry, Normal speech, PSYCH: Normal mood, normal affect. SKIN: Warm, Dry, normal turgor, 01/26/19 09:58 ddx - pna, viral illness, consider early tracheal stenosis - Physicial Exam PE: 01/26/19 10:56 see aove - Medical Decision Making 01/26/19 10:56 se eabove 01/26/19 11:57 labs and imaging reviewed will discuss with ENT regarding transfer for scope vs ct pt in no acute distress currently 01/26/19 13:54 dw ENT - requested CT of larynx to eval for stenosis and transfer to [facility] for further management Heart Score/ECG Review - ECG Impressions Comment:: 01/26/19 10:56 Twelve-lead EKG was performed and reviewed by me. There is normal sinus rhythm with a normal rate. rate of 80 Nonspecific TW abnormality
[2019-01-26 09:55] VITALS: BMI 31.6
[2019-01-26 10:25] LABS: BASO % 0.9 % (0-2.0); EOS % 0.7 % (0-4.5); HEMATOCRIT 40.1 % (35.4-49); HEMOGLOBIN 13.7 GM/dL (11.7-16.9); LYMPH % 47.4 % (8-40); MCHC 34.2 g/dl (32.0-35.9); MEAN CELL VOLUME 90.8 fl (80-96); MEAN PLT VOLUME 8.6 fl (7.5-11.1); PLATELET COUNT 320 K/MM3 (134-434); RBC 4.41 M/mm3 (4.00-5.60); RDW 12.7 % (11.9-15.9); VENOUS PC02 53.5 mmHg (38-52); VENOUS PH 7.36 (7.31-7.41)
[2019-01-26 10:28] LABS: VENOUS PO2 < 49 mmHg (28-48)
[2019-01-26 10:51] LABS: INR 1.26 (0.83-1.09); PROTHROMBIN TIME (PATIENT) 14.9 SEC (9.7-13.0)
[2019-01-26 10:56] LABS: ALBUMIN 4.1 g/dl (3.4-5.0); BILIRUBIN,TOTAL 0.4 mg/dL (0.2-1); BLOOD UREA NITROGEN 10.3 mg/dL (7-18); CALCIUM 9.9 mg/dL (8.5-10.1); CREATININE 0.9 mg/dL (0.55-1.3); N-TERMINAL BNP 18.6 pg/ml (5-125); POTASSIUM 4.1 mmol/L (3.5-5.1); TOT PROT 8.4 g/dl (6.4-8.2)
--- NOTE | 2019-01-26 11:30 | PDOC ---
History of Present Illness - General Chief Complaint: Shortness of Breath Stated Complaint: DIFFICULTY BREATHING Time Seen by Provider: 01/26/19 09:29 History Source: Patient Exam Limitations: No Limitations - History of Present Illness Initial Comments: 01/26/19 11:26 Carlos Iglesias is a 43M with PMH PE w/arrest s/p tracheostomy on Eliquis presenting with SOB on ambulation. Patient says for the last 2 days has had some new onset SOB with walking, but not at rest. Denies chest pain, fever, weakness, dizziness, abd pain, urinary sx , N/V, C/D, headache. Has had some NBNP cough with sensation of something stuck in throat. Also reports some wheezing, denies pulmonary history, non-smoker, but has had some dilations of his trachea after the trach was pulled, last dilation November [address] surgery. No nighttime awakenings, no extra pillows needed to sleep, no home oxygen. 01/26/19 11:41 CXR grossly normal, no acute pulmonary pathology noted. Past History - Past Medical History Allergies/Adverse Reactions: Allergies Allergy/AdvReac Type Severity Reaction Status Date / Time No Known Allergies Allergy Verified 01/02/19 15:55 Home Medications: Ambulatory Orders Amlodipine Besylate [Norvasc -] 5 mg PO DAILY #30 tablet 10/20/18 Apixaban [Eliquis -] 5 mg PO BID #60 tablet 10/20/18 Insulin (Levemir) [Levemir Vial] 26 units SQ AM #30 units 10/20/18 Insulin (Novolog) [Novolog] 0 units SQ BID 11/20/18 Cardiac Disorders: Yes (S/P cardiac arrest - 10/01/2018) COPD: No Diabetes: Yes HTN: Yes Hypercholesterolemia: Yes - Immunization History Td Vaccination: Yes TDAP Vaccination: Yes Immunization Up to Date: Yes - Suicide/Smoking/Psychosocial Hx Smoking History: Never smoked Have you smoked in the past 12 months: No Information on smoking cessation initiated: No Hx Alcohol Use: No Drug/Substance Use Hx: No Review of Systems - Review of Systems Constitutional: No: Symptoms Reported HEENTM: No: Symptoms Reported Respiratory: Yes: Cough, SOB with Exertion. No: Orthopnea, Shortness of Breath Cardiac (ROS): No: Symptoms Reported ABD/GI: No: Symptoms Reported : No: Symptoms Reported Musculoskeletal: No: Symptoms Reported Integumentary: No: Symptoms Reported Neurological: No: Symptoms reported Endocrine: No: Symptoms Reported Hematologic/Lymphatic: No: Symptoms Reported All Other Systems: Reviewed and Negative *Physical Exam - Vital Signs Last Vital Signs Temp Pulse Resp BP Pulse Ox 97.8 F 75 18 126/83 100 01/26/19 09:34 01/26/19 09:34 01/26/19 09:34 01/26/19 09:34 01/26/19 09:34 - Physical Exam General Appearance: Yes: Nourished, Appropriately Dressed. No: Apparent Distress HEENT: positive: EOMI, KATIE, Pharynx Normal, Hearing Grossly Normal. negative: Pale Conjunctivae, Scleral Icterus (R), Scleral Icterus (L), Pharyngeal Erythema , Tonsillar Exudate, Tonsillar Erythema, Nasal Congestion, Rhinorrhea Neck: positive: Normal Thyroid, Supple, Stridor. negative: Tender, Rigid, Lymphadenopathy (R), Lymphadenopathy (L) Respiratory/Chest: positive: Lungs Clear, Normal Breath Sounds (stridor is echoing into lung spaces, no wheezin heard in lungs), Respiratory Distress, Stridor. negative: Crackles, Rales, Rhonchi Cardiovascular: positive: Regular Rhythm, Regular Rate. negative: Edema, Murmur , Tachycardia Gastrointestinal/Abdominal: positive: Normal Bowel Sounds, Flat, Soft. negative : Organomegaly Musculoskeletal: positive: Normal Inspection. negative: CVA Tenderness Extremity: positive: Normal Capillary Refill, Normal Inspection, Normal Range of Motion. negative: Tender Integumentary: positive: Normal Color, Dry Neurologic: positive: Fully Oriented, Alert, Normal Mood/Affect, Normal Response ED Treatment Course - LABORATORY CBC & Chemistry Diagram: 01/26/19 10:10 01/26/19 10:10 - ADDITIONAL ORDERS Additional order review: Laboratory Results 01/26/19 01/26/19 01/26/19 10:10 10:10 10:10 PT with INR 14.90 H INR 1.26 H PTT (Actin FS) VBG pH 7.36 POC VBG pCO2 53.5 H POC VBG pO2 < 49 H VBG HCO3 29.5 H VBG O2 Sat (Shivani) 38.4 L VBG Base Excess 3.2 H Sodium 138 Potassium 4.1 Chloride 102 Carbon Dioxide 30 Anion Gap 7 L BUN 10.3 Creatinine 0.9 Est GFR (CKD-EPI)AfAm 120.81 Est GFR (CKD-EPI)NonAf 104.24 Random Glucose 162 H Calcium 9.9 Total Bilirubin 0.4 AST 13 L ALT 19 Alkaline Phosphatase 83 Creatine Kinase Troponin I B-Natriuretic Peptide 18.6 Total Protein 8.4 H Albumin 4.1 01/26/19 01/26/19 10:10 10:10 PT with INR INR PTT (Actin FS) 43.7 H VBG pH POC VBG pCO2 POC VBG pO2 VBG HCO3 VBG O2 Sat (Shivani) VBG Base Excess Sodium Potassium Chloride Carbon Dioxide Anion Gap BUN Creatinine Est GFR (CKD-EPI)AfAm Est GFR (CKD-EPI)NonAf Random Glucose Calcium Total Bilirubin AST ALT Alkaline Phosphatase Creatine Kinase 60 Troponin I < 0.02 B-Natriuretic Peptide Total Protein Albumin 01/26/19 10:10 RBC 4.41 MCV 90.8 MCHC 34.2 RDW 12.7 MPV 8.6 Neutrophils % 45.0 Lymphocytes % 47.4 H D Monocytes % 6.0 Eosinophils % 0.7 Basophils % 0.9 - RADIOLOGY Radiology Studies Ordered: Category Date Time Status CHEST PA & LAT [RAD] Stat Radiology 01/26/19 09:47 Ordered Medical Decision Making - Medical Decision Making 01/26/19 11:26 Carlos Iglesias is a 43M with PMH PE w/arrest s/p tracheostomy on quis presenting with SOB on ambulation. Patient presentation concerning for PE worsening vs. stable angina vs. CHF exacerbation vs. pulmonary effusion vs. PNA. Patient is stable and satting 99% on RA, but has stridor at baseline concerning for poor air flow that could be causing SOB with exertion. Will evaluate for all concerning causes via: CMP CBC CP ECG CXR PT/INR/PTT BNP Bedside US reveals no R atrial enlargement, no pericardial fluid, A line pattern in lung apices but has some B lines in L lung lower zone. ECG NSR. Waiting on CXR. If WNL and no PNA, stridor concerning finding, last dilation 11/24/18. Will contact ENT for further guidance scope vs. CT. 01/26/19 12:[address] Lopez (#[phone]), left message with office for callback. 09/03/19 12:41 Called ENT again, left message for callback. 01/26/19 13:28 Called again. 01/26/19 16:[address] Lopez's PA, recommends steroids, Duonebs, and CT neck soft tissue. Would like transfer to [place] for laryngoscopy. Patient agrees with plan and is stable for transfer. Called [place] transfer center, spoke to Dr. Bobby in the ED who accepts transfer. Will compile appropriate paperwork and continue with transfer. *DC/Admit/Observation/Transfer Diagnosis at time of Disposition: Shortness of breath on exertion, Stridor - Referrals Referrals: Haile Hummel MD [Primary Care Provider] - - Patient Instructions - Post Discharge Activity
--- NOTE | 2019-01-26 12:41 | EKG ---
Test Reason : Blood Pressure : / mmHG Vent. Rate : 080 BPM Atrial Rate : 080 BPM P-R Int : 150 ms QRS Dur : 086 ms QT Int : 380 ms P-R-T Axes : 012 -19 034 degrees QTc Int : 438 ms NORMAL SINUS RHYTHM NONSPECIFIC T WAVE ABNORMALITY ABNORMAL ECG WHEN COMPARED WITH ECG OF 02-JAN-2019 17:42, NO SIGNIFICANT CHANGE WAS FOUND Confirmed by Jovanni Cazares MD ([id number]) on 01/26/2019 12:40:29 PM Referred By: Confirmed By:Jovanni Cazares MD
[2019-01-26] MEDS ORDERED: DEXAMETHASONE SOD PHOSPHATE 10 MG/1 ML VIAL IVPUSH ONE (13:48)
[2019-01-26] MEDS ORDERED: ALBUTEROL SO4 2.5/IPRATROPIUM 0.5 INH SOL 3 ML VIAL.NEB. NEB ONE ×2 (13:49→15:58)
[2019-01-26] MEDS ORDERED: DEXAMETHASONE SOD PHOSPHATE 10 MG/1 ML VIAL ONE (15:55)
[2019-01-26 17:49] VITALS: BP 152/87; PULSE 91; TEMP 98
== END 2019-01-26 17:59 | disposition short-term general hospital (02) ==
LOC: JER 09:15
PROC: 3E0F7GC Introduction of Other Therapeutic Substance into Respiratory Tract, Via Natural or Artificial Opening (ICD-10-PCS; principal; 2019-01-26)
PROC: 3E0333Z Introduction of Anti-inflammatory into Peripheral Vein, Percutaneous Approach (ICD-10-PCS; 2019-01-26)
PROC: B246ZZZ Ultrasonography of Right and Left Heart (ICD-10-PCS; 2019-01-26)
DX: R06.1 Stridor (principal); I10 Essential (primary) hypertension; E11.9 Type 2 diabetes mellitus without complications; Z79.4 Long term (current) use of insulin; E78.00 Pure hypercholesterolemia, unspecified; Z86.74 Personal history of sudden cardiac arrest; Z86.711 Personal history of pulmonary embolism; Z79.01 Long term (current) use of anticoagulants
CPT/HCPCS: 36415; 70490-TC; 71046-TC-FY; 80053; 82550; 82803; 83880; 84484; 85025; 85610; 85730; 93005; 93010; 93308; 94640; 96374; 99285-25; J1100